=== PATIENT | female | born 1940 ===

== ENCOUNTER 2017-06-25 11:14 | Observation (INO) | payer MEDICARE ==
[2017-06-25 11:14] VITALS: BMI 27.3
--- NOTE | 2017-06-25 12:54 | C.PDOC ---
History Of Present Illness 76 y/o female presents to the emergency department complaining of bilateral lower leg swelling, ongoing for some time. Patient has seen her primary, Dr. Kyle Rodriguez for same complaint. No associated SOB, chest pain, or fever. Time Seen by Provider: 06/25/17 12:15 Chief Complaint (Nursing): Lower Extremity Problem/Injury History Per: Patient History/Exam Limitations: no limitations Onset/Duration Of Symptoms: Days Current Symptoms Are (Timing): Still Present Past Medical History Reviewed: Historical Data, Nursing Documentation, Vital Signs Vital Signs: Last Vital Signs Temp 98.1 F 06/25/17 11:28 Pulse 65 06/25/17 13:49 Resp 15 06/25/17 13:49 BP 133/71 06/25/17 13:49 Pulse Ox 98 06/25/17 14:48 - Medical History PMH: HTN, Hypercholesterolemia, Rheumatoid Arthritis Other PMH: Fibroids Surgical History: No Surg Hx Family History: States: Unknown Family Hx - Social History Hx Tobacco Use: No Hx Alcohol Use: No Hx Substance Use: No - Immunization History Hx Tetanus Toxoid Vaccination: No Hx Influenza Vaccination: No Hx Pneumococcal Vaccination: No Review Of Systems Except As Marked, All Systems Reviewed And Found Negative. Constitutional: Negative for: Fever, Chills Cardiovascular: Negative for: Chest Pain Respiratory: Negative for: Shortness of Breath Musculoskeletal: Positive for: Other (lower leg swelling) Neurological: Negative for: Weakness, Numbness Physical Exam - Physical Exam Appears: Non-toxic, No Acute Distress Skin: Warm, Dry, No Rash Head: Atraumatic, Normacephalic Eye(s): bilateral: Normal Inspection, PERRL, EOMI Oral Mucosa: Moist Neck: Normal ROM Cardiovascular: Rhythm Regular, No Murmur Respiratory: Normal Breath Sounds, No Rales, No Rhonchi, No Wheezing Gastrointestinal/Abdominal: Soft, No Tenderness, No Distention Extremity: Normal ROM, No Deformity, Swelling (Trace edema of the lower extremities) Pulses: Left Dorsalis Pedis: Normal, Right Dorsalis Pedis: Normal Neurological/Psych: Oriented x3, Normal Speech Gait: Steady ED Course And Treatment - Laboratory Results Result Diagrams: 06/25/17 12:55 06/25/17 12:55 Lab Interpretation: Normal ECG: Interpreted By Me ECG Rhythm: Sinus Rhythm ECG Interpretation: Normal Rate From EC O2 Sat by Pulse Oximetry: 98 (RA) Pulse Ox Interpretation: Normal - Radiology CXR: Viewed By Me, Read By Radiologist CXR Interpretation: Yes: Other (Mild pulmonary vascular congestion). No: Infiltrates Progress Note: Treated with lasix 40 mg IV Reassessment Condition: Improved - Physician Consult Information Physician Contacted: Zoë Rodriguez Outcome Of Conversation: admit Medical Decision Making Medical Decision Making: Ordered and reviewed: * Labs * EKG * Chest x-ray Disposition Discussed With Dr.: Zoë Rodriguez Doctor Will See Patient In The: Hospital - Disposition Disposition: HOSPITALIZED Disposition Time: 14:15 Condition: STABLE - POA Present On Arrival: None - Clinical Impression Clinical Impression: CHF (congestive heart failure), Peripheral edema - PA / CHIEF DEPUTY CORONER / Resident Statement MD/DO has reviewed & agrees with the documentation as recorded. - Scribe Statement The provider has reviewed the documentation as recorded by the Scribe (Cydney Cullen) All medical record entries made by the Scribe were at my direction and personally dictated by me. I have reviewed the chart and agree that the record accurately reflects my personal performance of the history, physical exam, medical decision making, and the department course for this patient. I have also personally directed, reviewed, and agree with the discharge instructions and disposition. Decision To Admit - Pt Status Changed To: Hospital Disposition Of: Observation - . Bed Request Type: Regular Admitting Physician: Zoë Rodriguez Patient Diagnosis: CHF (congestive heart failure), Peripheral edema
--- NOTE | 2017-06-25 12:54 | RAD ---
HISTORY: SOB COMPARISON: No prior. TECHNIQUE: Chest PA and lateral FINDINGS: LUNGS: Mild pulmonary vascular congestion. No focal consolidation. PLEURA: No significant pleural effusion identified. No pneumothorax apparent. CARDIOVASCULAR: Atherosclerotic aortic calcifications. Cardiomediastinal silhouette enlarged. OSSEOUS STRUCTURES: Degenerative changes. VISUALIZED UPPER ABDOMEN: Normal. OTHER FINDINGS: None. IMPRESSION: Mild pulmonary vascular congestion. No focal consolidation or pleural effusion.
[2017-06-25 12:59] LABS: BASO # 0.1 K/uL (0.0-0.2); EOS # 0.3 K/uL (0.0-0.7); LYMPH # 4.1 K/uL (1.0-4.3); MEAN CORPUSCULAR HGB CONC 31.2 g/dL (33.0-37.0); MEAN PLATELET VOLUME 8.4 fL (7.2-11.7)
[2017-06-25 13:03] LABS: BASO % 0.8 % (0.0-2.0); EOS % 3.2 % (0.0-4.0); HEMOGLOBIN 12.1 g/dL (11.0-16.0); LYMPH % 51.1 % (20.0-40.0); MEAN CELL VOLUME 71.7 fL (81.0-99.0); MEAN CORPUSCULAR HEMOGLOBIN 22.4 pg (27.0-31.0); MONO # 1.1 K/uL (0.0-0.8); MONO % 13.4 % (0.0-10.0); NEUT # 2.5 K/uL (1.8-7.0); NEUT % 31.5 % (50.0-75.0); NRBC % 0.1 % (0.0-2.0); RBC 5.39 Mil/uL (3.80-5.20); RED CELL DISTRIBUTION WIDTH 15.3 % (11.5-14.5)
[2017-06-25 13:05] LABS: SQUAMOUS EPITHIAL 9 /hpf (0-5); URINE BACTERIA RARE (<OCC); URINE BILIRUBIN NEGATIVE (NEGATIVE); URINE BLOOD 1+ (NEGATIVE); URINE CLARITY Hazy (Clear); URINE COLOR Yellow (YELLOW); URINE GLUCOSE (UA) NORMAL (Normal); URINE LEUKOCYTE ESTERASE 2+ Leu/uL (Negative); URINE PROTEIN 1+ mg/dL (NEGATIVE)
[2017-06-25 13:10] LABS: ALB/GLOB RATIO 0.9 (1.0-2.1); ALBUMIN 4.4 g/dL (3.5-5.0); ALT/SGPT 8 U/L (9-52); AST/SGOT 25 U/L (14-36); BLOOD UREA NITROGEN 18 mg/dL (7-17); CALCIUM 9.8 mg/dl (8.6-10.4); GFR AFRICAN-AMERICAN > 60; GFR NON-AFRICAN AMERICAN > 60
[2017-06-25 13:19] LABS: B-TYPE NATRIURETIC PEPTIDE 1030 pg/mL (0-900)
--- NOTE | 2017-06-25 15:27 | CP.PCM.PN ---
Subjective - Date & Time of Evaluation Date of Evaluation: 06/25/17 Time of Evaluation: 15:23 - Subjective Subjective: PGY2 progress note for Dr. Rodriguez 76 year old female with past medical history of HTN, HLD, hypothyroidism presented to hospital for B/L LE swelling ongoing for about 2 weeks. Patient was seen by PMD, Dr. Rodriguez 2 weeks ago for symptoms and was started on Aspirin and Lasixs PO. Per patient, symptoms did not improve with those medications. Patient states for about 1 week, she has dyspnea on exertion with mild sub- sternal chest pain. CP present with walking and resolves with rest. Patient denies having any fevers, chills, cough, abd discomfort, N/V/D/C. Patient denies having any cardiac work up in the past. For about a few weeks, she has orthopnea and sleeps with about 3 pillows under her back at night. Right now, pt denies having any CP, SOB, abd pain, N/V/D/C. PMHx: stated above Social; Former smoker quit 3 yrs ago, smoked for about 35 yrs. No ETOH or drug use PMD; Dr. Rodriguez Meds: See MAR Objective - Vital Signs/Intake and Output Vital Signs (last 24 hours): Temp Pulse Resp BP Pulse Ox 98.1 F 65 15 133/71 98 06/25/17 11:28 06/25/17 13:49 06/25/17 13:49 06/25/17 13:49 06/25/17 14:49 - Medications Medications: Current Medications Amlodipine Besylate (Norvasc) 10 mg PO DAILY [facility] Aspirin (Aspirin Chewable) 81 mg PO DAILY [facility] Enoxaparin Sodium (Lovenox) 40 mg SC DAILY [facility] Levothyroxine Sodium (Synthroid) 88 mcg PO DAILY [facility] Metoprolol Tartrate (Lopressor) 25 mg PO DAILY [facility] Nitroglycerin (Nitrostat Sl Tab) mg SL Q5M PRN PRN Reason: Pain, Mild (1-3) Rosuvastatin Calcium (Crestor) 5 mg PO DAILY [facility] - Labs Labs: 06/25/17 12:55 06/25/17 12:55 - Constitutional Appears: Non-toxic, No Acute Distress - Head Exam Head Exam: ATRAUMATIC - ENT Exam ENT Exam: Mucous Membranes Moist - Respiratory Exam Respiratory Exam: Rales (lower lung bases ), Respiratory Distress. absent: Accessory Muscle Use, Rhonchi, Wheezes - Cardiovascular Exam Cardiovascular Exam: REGULAR RHYTHM, +S1, +S2. absent: Gallop, Rubs, Murmur - GI/Abdominal Exam GI & Abdominal Exam: Soft, Normal Bowel Sounds. absent: Distended, Firm, Guarding, Rigid, Tenderness, Organomegaly - Extremities Exam Extremities Exam: Pedal Edema - Neurological Exam Neurological Exam: Alert, Awake, Oriented x3 - Psychiatric Exam Psychiatric exam: Normal Affect, Normal Mood - Skin Skin Exam: Dry, Intact, Normal Color, Warm Assessment and Plan - Assessment and Plan (Free Text) Assessment: 76 year old female with past medical history of HTn, HLD, hypothyroidism is admitted for new onset CHF. Pro-BNP on admission is 1030. Troponins are negative. CXR on admission showed mild pulm venous congestion New onset CHF - Pt received dose of lasixs IV 40 mg in ED - will continue Lasixs 40 mg IVP qd - Will check echo - will consult cardiology, Dr. Her Chest pain R/O ACS - Will trend serial trops and EKG - Continue home medications; Aspirin, Metoprolol succinate - Nitro SL prn LE swelling - Likely due to CHF exacerbation - Will check LE dopplers HTN - Continue home medication Norvasc 10 mg po qd HLD - Continue home medication Crestor - will check lipid panel and hgbA1c Hypothyroidism - Continue home medication Levothyroixine 88 mcg po qd - Will check TSH Prophylaxis - Lovenox sc - Will hold SCDs until DVT r/o with US All managements and orders per Dr. Rodriguez
[2017-06-25 17:21] LABS: CK-MB 1.2 ng/mL (0.0-3.38); TROPONIN I 0.067 ng/mL (0.00-0.120)
[2017-06-25 18:57] VITALS: RESP 20
[2017-06-25] MEDS: Enoxaparin 30 mg Syringe SC SCH (19:00)
--- NOTE | 2017-06-25 21:58 | CP.PCM.CON ---
History of Present Illness - History of Present Illness History of Present Illness: 76 y/o female admitted for bilateral lower leg swelling and exertional dyspnea. No chest pain, or fever. - Medical History PMH: HTN, Hypercholesterolemia, Rheumatoid Arthritis Other PMH: Fibroids Surgical History: No Surg Hx Family History: States: Unknown Family Hx - Social History Hx Tobacco Use: No Hx Alcohol Use: No Hx Substance Use: No - Immunization History Hx Tetanus Toxoid Vaccination: No Hx Influenza Vaccination: No Hx Pneumococcal Vaccination: No Review Of Systems Except As Marked, All Systems Reviewed And Found Negative. Constitutional: Negative for: Fever, Chills Cardiovascular: Negative for: Chest Pain Respiratory: Negative for: Shortness of Breath Musculoskeletal: Positive for: Other (lower leg swelling) Neurological: Negative for: Weakness, Numbness Physical Exam - Physical Exam Appears: Non-toxic, No Acute Distress Skin: Warm, Dry, No Rash Head: Atraumatic, Normacephalic Eye(s): bilateral: Normal Inspection, PERRL, EOMI Oral Mucosa: Moist Neck: Normal ROM Cardiovascular: Rhythm Regular, No Murmur Respiratory: Normal Breath Sounds, No Rales, No Rhonchi, No Wheezing Gastrointestinal/Abdominal: Soft, No Tenderness, No Distention Extremity: Normal ROM, No Deformity, Swelling (Trace edema of the lower extremities) Pulses: Left Dorsalis Pedis: Normal, Right Dorsalis Pedis: Normal Neurological/Psych: Oriented x3, Normal Speech Gait: Steady Past Patient History - Past Social History Smoking Status: Never Smoked - CARDIAC Hx Hypercholesterolemia: Yes Hx Hypertension: Yes - ENDOCRINE/METABOLIC Other/Comment: Pre diabetic - MUSCULOSKELETAL/RHEUMATOLOGICAL Hx Rheumatoid Arthritis: Yes - GENITOURINARY/GYNECOLOGICAL Other/Comment: fibroids - PSYCHIATRIC Hx Substance Use: No - SURGICAL HISTORY Hx Surgeries: No - ANESTHESIA Hx Anesthesia: No Meds Allergies/Adverse Reactions: Allergies Allergy/AdvReac Type Severity Reaction Status Date / Time No Known Allergies Allergy Verified 02/09/16 10:40 - Medications Medications: Current Medications Amlodipine Besylate (Norvasc) 10 mg PO DAILY [facility] Aspirin (Aspirin Chewable) 81 mg PO DAILY [facility] Enoxaparin Sodium (Lovenox) 30 mg SC DAILY [facility] Last Admin: 06/25/17 19:00 Dose: 30 mg Furosemide (Lasix) 40 mg IVP DAILY [facility] Levothyroxine Sodium (Synthroid) 88 mcg PO 0630 [facility] Metoprolol Succinate (Toprol Xl) 25 mg PO DAILY [facility] Nitroglycerin (Nitrostat Sl Tab) 0.4 mg SL Q5M PRN PRN Reason: Pain, Mild (1-3) Rosuvastatin Calcium (Crestor) 5 mg PO HS [facility] Last Admin: 06/25/17 21:19 Dose: 5 mg Results - Vital Signs Recent Vital Signs: Last Vital Signs Temp 97.7 F 06/25/17 19:21 Pulse 64 06/25/17 20:24 Resp 20 06/25/17 19:21 BP 142/79 06/25/17 19:21 Pulse Ox 100 06/25/17 19:21 - Labs Result Diagrams: 06/25/17 12:55 06/25/17 12:55 Labs: Laboratory Results - last 24 hr 06/25/17 06/25/17 06/25/17 12:55 12:55 12:55 WBC 8.0 RBC 5.39 H Hgb 12.1 Hct 38.7 MCV 71.7 L MCH 22.4 L MCHC 31.2 L RDW 15.3 H Plt Count 321 MPV 8.4 Neut % (Auto) 31.5 L Lymph % (Auto) 51.1 H [place] % (Auto) 13.4 H Eos % (Auto) 3.2 Baso % (Auto) 0.8 Neut # (Auto) 2.5 Lymph # (Auto) 4.1 [place] # (Auto) 1.1 H Eos # (Auto) 0.3 Baso # (Auto) 0.1 Sodium 141 Potassium 4.1 Chloride 103 Carbon Dioxide 26 Anion Gap 17 BUN 18 H Creatinine 0.9 Est GFR ( Amer) > 60 Est GFR (Non-Af Amer) > 60 Random Glucose 114 H Calcium 9.8 Total Bilirubin 0.6 AST 25 ALT 8 L Alkaline Phosphatase 98 Total Creatine Kinase CK-MB (Mass) Troponin I NT-Pro-B Natriuret Pep 1030 H Total Protein 9.2 H Albumin 4.4 Globulin 4.8 H Albumin/Globulin Ratio 0.9 L Urine Color Yellow Urine Clarity Hazy Urine pH 5.0 Ur Specific [place] 1.015 Urine Protein 1+ H Urine Glucose (UA) Normal Urine Ketones Negative Urine Blood 1+ H Urine Nitrate Negative Urine Bilirubin Negative Urine Urobilinogen 2.0 H Ur Leukocyte Esterase 2+ H Urine WBC (Auto) 3 Urine RBC (Auto) 4 H Ur Squamous Epith Cells 9 H Urine Bacteria Rare 06/25/17 16:47 WBC RBC Hgb Hct MCV MCH MCHC RDW Plt Count MPV Neut % (Auto) Lymph % (Auto) [place] % (Auto) Eos % (Auto) Baso % (Auto) Neut # (Auto) Lymph # (Auto) [place] # (Auto) Eos # (Auto) Baso # (Auto) Sodium Potassium Chloride Carbon Dioxide Anion Gap BUN Creatinine Est GFR ( Amer) Est GFR (Non-Af Amer) Random Glucose Calcium Total Bilirubin AST ALT Alkaline Phosphatase Total Creatine Kinase 53 CK-MB (Mass) 1.20 Troponin I 0.0670 NT-Pro-B Natriuret Pep Total Protein Albumin Globulin Albumin/Globulin Ratio Urine Color Urine Clarity Urine pH Ur Specific [place] Urine Protein Urine Glucose (UA) Urine Ketones Urine Blood Urine Nitrate Urine Bilirubin Urine Urobilinogen Ur Leukocyte Esterase Urine WBC (Auto) Urine RBC (Auto) Ur Squamous Epith Cells Urine Bacteria Assessment & Plan - Assessment and Plan (Free Text) Assessment: 76 year old female with past medical history of HTn, HLD, hypothyroidism is admitted for new onset CHF. Pro-BNP on admission is 1030. Troponins are negative. CXR on admission showed mild pulm venous congestion New onset CHF - Pt received dose of lasixs IV 40 mg in ED - Continue Lasixs 40 mg IVP qd - check echo pending Chest pain R/O ACS - Will trend serial trops and EKG - Continue home medications; Aspirin, Metoprolol succinate - Nitro SL prn LE swelling - Likely due to CHF exacerbation - Will check LE dopplers HTN - Continue home medication Norvasc 10 mg po qd HLD - Continue home medication Crestor - will check lipid panel and hgbA1c Hypothyroidism - Continue home medication Levothyroixine 88 mcg po qd - Will check TSH Prophylaxis - Lovenox sc
[2017-06-26] MEDS: Levothyroxine 88 MCG TAB PO SCH (06:54)
[2017-06-26 07:59] LABS: BASO % 0.5 % (0.0-2.0); EOS # 0.2 K/uL (0.0-0.7); EOS % 3.4 % (0.0-4.0); HEMOGLOBIN 11.2 g/dL (11.0-16.0); LYMPH # 2.7 K/uL (1.0-4.3); LYMPH % 46.6 % (20.0-40.0); MEAN CELL VOLUME 70.9 fL (81.0-99.0); MEAN CORPUSCULAR HEMOGLOBIN 22.2 pg (27.0-31.0); MEAN CORPUSCULAR HGB CONC 31.3 g/dL (33.0-37.0); MEAN PLATELET VOLUME 8.4 fL (7.2-11.7); MONO # 0.7 K/uL (0.0-0.8); MONO % 12.6 % (0.0-10.0); NEUT # 2.1 K/uL (1.8-7.0); NEUT % 36.9 % (50.0-75.0); NRBC % 0.1 % (0.0-2.0); RBC 5.04 Mil/uL (3.80-5.20); RED CELL DISTRIBUTION WIDTH 15.4 % (11.5-14.5); WHITE BLOOD COUNT 5.8 K/uL (4.8-10.8)
[2017-06-26 08:06] LABS: INR 1.1; PROTHROMBIN TIME 12.2 SECONDS (9.7-12.2)
[2017-06-26 08:22] LABS: ALB/GLOB RATIO 0.9 (1.0-2.1); ALBUMIN 3.7 g/dL (3.5-5.0); ALT/SGPT < 6 U/L (9-52); AST/SGOT 29 U/L (14-36); BLOOD UREA NITROGEN 17 mg/dL (7-17); CALCIUM 9.4 mg/dl (8.6-10.4); GFR AFRICAN-AMERICAN > 60; GFR NON-AFRICAN AMERICAN > 60; HDL CHOLESTEROL 36 mg/dL (30-70)
[2017-06-26 08:28] LABS: LDL CHOLESTEROL 81 mg/dL (0-129)
[2017-06-26] MEDS: Metoprolol Succinate 25 mg XL Tab PO SCH (09:55)
[2017-06-26] MEDS: Enoxaparin 30 mg Syringe SC SCH (09:59)
--- NOTE | 2017-06-26 13:21 | CP.PCM.PN ---
Subjective - Date & Time of Evaluation Date of Evaluation: 06/26/17 Time of Evaluation: 08:00 - Subjective Subjective: PGY2 progress note for Dr. Rodriguez: Patient was seen nd examined at bedside this morning. She admits to mild SOB which has improved since admission. Patient denies having any chest pain, fevers , chills, cough, abd discomfort, N/V/D/C. No other complaints at this time. Patient is eating well and seen ambulating. Objective - Vital Signs/Intake and Output Vital Signs (last 24 hours): Temp Pulse Resp BP Pulse Ox 98.6 F 65 20 134/80 97 06/26/17 08:28 06/26/17 08:28 06/26/17 08:28 06/26/17 09:56 06/26/17 08:28 Intake and Output: 06/26/17 06/26/17 06:59 18:59 Intake Total 120 480 Balance 120 480 - Medications Medications: Current Medications Amlodipine Besylate (Norvasc) 10 mg PO DAILY [facility] Last Admin: 06/26/17 09:55 Dose: 10 mg Aspirin (Aspirin Chewable) 81 mg PO DAILY [facility] Last Admin: 06/26/17 09:55 Dose: 81 mg Enoxaparin Sodium (Lovenox) 30 mg SC DAILY [facility] Last Admin: 06/26/17 09:59 Dose: 30 mg Furosemide (Lasix) 40 mg IVP DAILY [facility] Last Admin: 06/26/17 09:56 Dose: 40 mg Levothyroxine Sodium (Synthroid) 88 mcg PO 0630 [facility] Last Admin: 06/26/17 06:54 Dose: 88 mcg Metoprolol Succinate (Toprol Xl) 25 mg PO DAILY [facility] Last Admin: 06/26/17 09:55 Dose: 25 mg Nitroglycerin (Nitrostat Sl Tab) 0.4 mg SL Q5M PRN PRN Reason: Pain, Mild (1-3) Rosuvastatin Calcium (Crestor) 5 mg PO HS [facility] Last Admin: 06/25/17 21:19 Dose: 5 mg - Labs Labs: 06/26/17 07:46 06/26/17 07:46 PT 12.2 SECONDS (9.7-12.2) 06/26/17 07:46 INR 1.1 06/26/17 07:46 APTT 28 SECONDS (21-34) 06/26/17 07:46 - Constitutional Appears: Non-toxic, No Acute Distress - Head Exam Head Exam: ATRAUMATIC, NORMAL INSPECTION - Eye Exam Eye Exam: EOMI, PERRL Pupil Exam: NORMAL ACCOMODATION - ENT Exam ENT Exam: Mucous Membranes Moist - Respiratory Exam Respiratory Exam: Clear to Ausculation Bilateral, NORMAL BREATHING PATTERN. absent: Respiratory Distress - Cardiovascular Exam Cardiovascular Exam: REGULAR RHYTHM, +S1, +S2 - GI/Abdominal Exam GI & Abdominal Exam: Soft, Normal Bowel Sounds. absent: Distended, Firm, Guarding, Tenderness - Extremities Exam Extremities Exam: Pedal Edema - Back Exam Back Exam: NORMAL INSPECTION - Neurological Exam Neurological Exam: Alert, Awake, CN II-XII Intact, Normal Gait, Oriented x3 Neuro motor strength exam: Left Upper Extremity: 5, Right Upper Extremity: 5, Left Lower Extremity: 5, Right Lower Extremity: 5 - Psychiatric Exam Psychiatric exam: Normal Affect, Normal Mood - Skin Skin Exam: Intact, Normal Color, Warm Assessment and Plan - Assessment and Plan (Free Text) Assessment: Assessment: 76 year old female with past medical history of HTn, HLD, hypothyroidism is admitted for new onset CHF. Pro-BNP on admission is 1030. Troponins are negative. CXR on admission showed mild pulm venous congestion New onset CHF - Lasix 40mg IVP daily - f/u Echo - Cardiology consulted, Dr. Her, help appreciated - Crestor 5mg PO HS - Toprolol XL 25mg PO daily Chest pain R/O ACS - Resolved - Will trend serial trops and EKG - Continue home medications; Aspirin, Metoprolol succinate - Nitro SL prn LE swelling - Likely due to CHF exacerbation - Will check LE dopplers HTN - Continue home medication Norvasc 10 mg po qd Hypothyroidism - Continue home medication Levothyroixine 88 mcg po qd - TSH 0.24 - f/u T4 Prophylaxis - Lovenox sc - Will hold SCDs until DVT r/o with US - GI prophylaxis not indicated All managements and orders per Dr. Rodriguez
--- NOTE | 2017-06-26 14:06 | VASCLAB ---
PROCEDURE: Lower Extremity Venous Duplex Exam. HISTORY: LE swelling B/L PRIORS: None. TECHNIQUE: Bilateral common femoral, femoral, popliteal and posterior tibial, peroneal and great saphenous veins were evaluated. Flow was assessed with color Doppler, compressibility, assessment of phasic flow and augmentation response. Report prepared by Rupert Pang, [place], RVT FINDINGS: RIGHT: 1. Common Femoral Vein: 1.1. Compressibility - Fully compressible: Thrombus - None : Flow - Phasic: Augmentation -Normal: Reflux - None. 2. Femoral Vein: 2.1. Compressibility - Fully compressible: Thrombus - None : Flow - Phasic: Augmentation -Normal: Reflux - None. 3. Popliteal Vein: 3.1. Compressibility - Fully compressible: Thrombus - None : Flow - Phasic: Augmentation -Normal: Reflux - None. 4. Posterior Tibial Vein: 4.1. Compressibility - Fully compressible: Thrombus - None: Flow - Phasic: Augmentation -Normal: Reflux - None. 5. Peroneal Vein: 5.1. Compressibility - Fully compressible: Thrombus - None: Flow - Phasic: Augmentation -Normal: Reflux - None. 6. Great Saphenous Vein: 6.1. Compressibility - Fully compressible: Thrombus - None: Flow - Phasic: Augmentation - Normal: Reflux - None. LEFT: 1. Common Femoral Vein: 1.1. Compressibility - Fully compressible: Thrombus - None: Flow - Phasic: Augmentation -Normal: Reflux - None. 2. Femoral Vein: 2.1. Compressibility - Fully compressible: Thrombus - None: Flow - Phasic: Augmentation -Normal: Reflux - None. 3. Popliteal Vein: 3.1. Compressibility - Fully compressible: Thrombus - None : Flow - Phasic: Augmentation -Normal: Reflux - None. 4. Posterior Tibial Vein: 4.1. Compressibility - Fully compressible: Thrombus - None: Flow - Phasic: Augmentation -Normal: Reflux - None. 5. Peroneal Vein: 5.1. Compressibility - Fully compressible: Thrombus - None: Flow - Phasic: Augmentation -Normal: Reflux - None. 6. Great Saphenous Vein: 6.1. Compressibility - Fully compressible: Thrombus - None: Flow - Phasic: Augmentation - Normal: Reflux - None. OTHER FINDINGS: Right: None significant. Left: None significant. IMPRESSION: Right: No evidence of deep or superficial vein thrombosis of the right lower extremity. Normal valve function noted of the right side. Left: No evidence of deep or superficial vein thrombosis of the left lower extremity. Normal valve function noted of the left side.
[2017-06-26 14:32] LABS: CK-MB 1.82 ng/mL (0.0-3.38); TROPONIN I 0.114 ng/mL (0.00-0.120)
--- NOTE | 2017-06-26 23:28 | CP.PCM.PN ---
Subjective - Date & Time of Evaluation Date of Evaluation: 06/26/17 Time of Evaluation: 16:30 - Subjective Subjective: Patient pedal edema improving ECHO: LVH with of 70% DD 2 Moderate MR and mild tto moderate AI Medical management Objective - Vital Signs/Intake and Output Vital Signs (last 24 hours): Temp Pulse Resp BP Pulse Ox 98.2 F 68 20 114/73 98 06/26/17 15:25 06/26/17 15:25 06/26/17 15:25 06/26/17 15:25 06/26/17 15:25 Intake and Output: 06/26/17 06/27/17 18:59 06:59 Intake Total 480 210 Balance 480 210 - Medications Medications: Current Medications Amlodipine Besylate (Norvasc) 10 mg PO DAILY [facility] Last Admin: 06/26/17 09:55 Dose: 10 mg Aspirin (Aspirin Chewable) 81 mg PO DAILY [facility] Last Admin: 06/26/17 09:55 Dose: 81 mg Enoxaparin Sodium (Lovenox) 30 mg SC DAILY [facility] Last Admin: 06/26/17 09:59 Dose: 30 mg Furosemide (Lasix) 40 mg IVP DAILY [facility] Last Admin: 06/26/17 09:56 Dose: 40 mg Levothyroxine Sodium (Synthroid) 88 mcg PO 0630 [facility] Last Admin: 06/26/17 06:54 Dose: 88 mcg Metoprolol Succinate (Toprol Xl) 25 mg PO DAILY [facility] Last Admin: 06/26/17 09:55 Dose: 25 mg Nitroglycerin (Nitrostat Sl Tab) 0.4 mg SL Q5M PRN PRN Reason: Pain, Mild (1-3) Rosuvastatin Calcium (Crestor) 5 mg PO HS [facility] Last Admin: 06/26/17 21:21 Dose: 5 mg - Labs Labs: 06/26/17 07:46 06/26/17 07:46 PT 12.2 SECONDS (9.7-12.2) 06/26/17 07:46 INR 1.1 06/26/17 07:46 APTT 28 SECONDS (21-34) 06/26/17 07:46
[2017-06-27 06:19] LABS: BASO % 0.4 % (0.0-2.0); EOS # 0.2 K/uL (0.0-0.7); EOS % 3.6 % (0.0-4.0); HEMOGLOBIN 11.4 g/dL (11.0-16.0); LYMPH # 3.4 K/uL (1.0-4.3); LYMPH % 49.8 % (20.0-40.0); MEAN CELL VOLUME 70.7 fL (81.0-99.0); MEAN CORPUSCULAR HEMOGLOBIN 22.1 pg (27.0-31.0); MEAN CORPUSCULAR HGB CONC 31.2 g/dL (33.0-37.0); MEAN PLATELET VOLUME 8.2 fL (7.2-11.7); MONO # 0.9 K/uL (0.0-0.8); MONO % 13.2 % (0.0-10.0); NEUT # 2.2 K/uL (1.8-7.0); RBC 5.17 Mil/uL (3.80-5.20); RED CELL DISTRIBUTION WIDTH 15.1 % (11.5-14.5); WHITE BLOOD COUNT 6.8 K/uL (4.8-10.8)
[2017-06-27 06:40] LABS: ALBUMIN 3.7 g/dL (3.5-5.0); ALT/SGPT 7 U/L (9-52); AST/SGOT 25 U/L (14-36); BLOOD UREA NITROGEN 17 mg/dL (7-17); CALCIUM 9.4 mg/dl (8.6-10.4); GFR AFRICAN-AMERICAN > 60; GFR NON-AFRICAN AMERICAN > 60
[2017-06-27] MEDS: Levothyroxine 88 MCG TAB PO SCH (07:24)
[2017-06-27] MEDS: Metoprolol Succinate 25 mg XL Tab PO SCH (10:02)
[2017-06-27] MEDS: Enoxaparin 30 mg Syringe SC SCH (10:02)
--- NOTE | 2017-06-27 12:46 | CP.PCM.PN ---
Subjective - Date & Time of Evaluation Date of Evaluation: 06/27/17 Time of Evaluation: 12:38 - Subjective Subjective: PGY2 progress note for Dr. Rodriguez Pt seen and examined at bedside. No acute events overnight. Pt denies having any CP, SOB, abd pain, N/V/D/C, LE swelling. 12 point ROS are negative except for the above mentioned. Objective - Vital Signs/Intake and Output Vital Signs (last 24 hours): Temp Pulse Resp BP Pulse Ox 98.2 F 60 20 126/73 100 06/27/17 07:57 06/27/17 12:00 06/27/17 07:57 06/27/17 10:02 06/27/17 07:57 Intake and Output: 06/27/17 06/27/17 06:59 18:59 Intake Total 310 Balance 310 - Medications Medications: Current Medications Amlodipine Besylate (Norvasc) 10 mg PO DAILY [facility] Last Admin: 06/27/17 10:02 Dose: 10 mg Aspirin (Aspirin Chewable) 81 mg PO DAILY [facility] Last Admin: 06/27/17 10:02 Dose: 81 mg Enoxaparin Sodium (Lovenox) 30 mg SC DAILY [facility] Last Admin: 06/27/17 10:02 Dose: 30 mg Furosemide (Lasix) 40 mg IVP DAILY [facility] Last Admin: 06/27/17 10:02 Dose: 40 mg Levothyroxine Sodium (Synthroid) 88 mcg PO 0630 [facility] Last Admin: 06/27/17 07:24 Dose: 88 mcg Metoprolol Succinate (Toprol Xl) 25 mg PO DAILY [facility] Last Admin: 06/27/17 10:02 Dose: 25 mg Nitroglycerin (Nitrostat Sl Tab) 0.4 mg SL Q5M PRN PRN Reason: Pain, Mild (1-3) Rosuvastatin Calcium (Crestor) 5 mg PO HS [facility] Last Admin: 06/26/17 21:21 Dose: 5 mg - Labs Labs: 06/27/17 06:05 06/27/17 06:05 PT 12.2 SECONDS (9.7-12.2) 06/26/17 07:46 INR 1.1 06/26/17 07:46 APTT 28 SECONDS (21-34) 06/26/17 07:46 - Constitutional Appears: Non-toxic, No Acute Distress - Head Exam Head Exam: ATRAUMATIC - ENT Exam ENT Exam: Mucous Membranes Moist - Respiratory Exam Respiratory Exam: Clear to Ausculation Bilateral. absent: Accessory Muscle Use , Rales, Rhonchi, Wheezes, Respiratory Distress - Cardiovascular Exam Cardiovascular Exam: REGULAR RHYTHM, +S1, +S2. absent: Gallop, Rubs, Murmur - GI/Abdominal Exam GI & Abdominal Exam: Soft, Normal Bowel Sounds. absent: Distended, Firm, Guarding, Rigid, Tenderness, Organomegaly - Extremities Exam Extremities Exam: absent: Pedal Edema, Tenderness - Neurological Exam Neurological Exam: Alert, Awake - Psychiatric Exam Psychiatric exam: Normal Affect, Normal Mood - Skin Skin Exam: Dry, Intact, Normal Color, Warm Assessment and Plan - Assessment and Plan (Free Text) Assessment: 76 year old female with past medical history of HTn, HLD, hypothyroidism is admitted for new onset CHF. Pro-BNP on admission is 1030. Troponins are negative. CXR on admission showed mild pulm venous congestion New onset CHF - Lasixs IV changes to Lasixs 40 mg po qd - f/u Echo - Cardiology consulted, Dr. Her, help appreciated - Crestor 5mg PO HS - Toprolol XL 25mg PO daily Chest pain R/O ACS - Resolved - Trops and EKG negative - Continue home medications; Aspirin, Metoprolol succinate - Nitro SL prn LE swelling - Likely due to CHF exacerbation - LE dopplers negative HTN - Continue home medication Norvasc 10 mg po qd Hypothyroidism - Continue home medication Levothyroixine 88 mcg po qd - TSH 0.24 - T4 normal Prophylaxis - Lovenox sc - SCDs - GI prophylaxis not indicated All managements and orders per Dr. Rodriguez
[2017-06-28 04:39] VITALS: TEMP 98.4
[2017-06-28] MEDS: Levothyroxine 88 MCG TAB PO SCH (07:04)
--- NOTE | 2017-06-28 07:23 | CP.PCM.PN ---
Subjective - Date & Time of Evaluation Date of Evaluation: 06/27/17 Time of Evaluation: 20:05 - Subjective Subjective: Patient seen and evaluated Pedal edema resolved ECHO: Normal EF Diastolic CHF plus Amlodepine causing pedal edema D/C Amlodepine and start Losartan Decrease Lasix to 20 daily Objective - Vital Signs/Intake and Output Vital Signs (last 24 hours): Temp Pulse Resp BP Pulse Ox 98.4 F 63 20 117/72 97 06/28/17 04:00 06/28/17 04:00 06/28/17 04:00 06/28/17 04:00 06/28/17 04:00 Intake and Output: 06/28/17 06/28/17 06:59 18:59 Intake Total 240 Balance 240 - Medications Medications: Current Medications Aspirin (Aspirin Chewable) 81 mg PO DAILY [facility] Last Admin: 06/27/17 10:02 Dose: 81 mg Enoxaparin Sodium (Lovenox) 30 mg SC DAILY [facility] Last Admin: 06/27/17 10:02 Dose: 30 mg Furosemide (Lasix) 20 mg PO DAILY [facility] Levothyroxine Sodium (Synthroid) 88 mcg PO 0630 [facility] Last Admin: 06/28/17 07:04 Dose: 88 mcg Metoprolol Succinate (Toprol Xl) 25 mg PO DAILY [facility] Last Admin: 06/27/17 10:02 Dose: 25 mg Rosuvastatin Calcium (Crestor) 5 mg PO HS [facility] Last Admin: 06/27/17 21:55 Dose: 5 mg - Labs Labs: 06/27/17 06:05 06/27/17 06:05 PT 12.2 SECONDS (9.7-12.2) 06/26/17 07:46 INR 1.1 06/26/17 07:46 APTT 28 SECONDS (21-34) 06/26/17 07:46
[2017-06-28 08:35] VITALS: PULSE 58; O2SAT 96
[2017-06-28 08:37] LABS: BASO % 0.4 % (0.0-2.0); EOS # 0.3 K/uL (0.0-0.7); EOS % 4.3 % (0.0-4.0); HEMOGLOBIN 11.6 g/dL (11.0-16.0); LYMPH # 3.3 K/uL (1.0-4.3); LYMPH % 51.9 % (20.0-40.0); MEAN CELL VOLUME 71.6 fL (81.0-99.0); MEAN CORPUSCULAR HEMOGLOBIN 22.5 pg (27.0-31.0); MEAN CORPUSCULAR HGB CONC 31.4 g/dL (33.0-37.0); MEAN PLATELET VOLUME 8.5 fL (7.2-11.7); MONO # 0.9 K/uL (0.0-0.8); NEUT # 1.9 K/uL (1.8-7.0); NEUT % 29.4 % (50.0-75.0); RBC 5.17 Mil/uL (3.80-5.20); RED CELL DISTRIBUTION WIDTH 15.3 % (11.5-14.5); WHITE BLOOD COUNT 6.3 K/uL (4.8-10.8)
[2017-06-28 08:42] LABS: ALBUMIN 3.7 g/dL (3.5-5.0); ALT/SGPT 7 U/L (9-52); AST/SGOT 24 U/L (14-36); BLOOD UREA NITROGEN 17 mg/dL (7-17); CALCIUM 9.5 mg/dl (8.6-10.4); GFR AFRICAN-AMERICAN > 60; GFR NON-AFRICAN AMERICAN > 60
[2017-06-28] MEDS: Metoprolol Succinate 25 mg XL Tab PO SCH (10:28)
[2017-06-28 10:29] VITALS: BP 132/76
[2017-06-28] MEDS: Enoxaparin 30 mg Syringe SC SCH (10:29)
--- NOTE | 2017-06-28 13:44 | PCM.HF ---
Heart Failure Core Measure - Heart Failure Ejection Fraction: 40 % or Greater AVILA Inhibitor Prescribed: No Contraindication/Reason for not providing: ON ARB Beta-Cinda Prescribed: None Contraindication/Reason for not providing: ON LOPRESSOR 25 MG PO QD Angiotensin II Receptor Cinda Prescribed: Yes AnticoagulationTherapy for Atrial Fibrillation/Atrialflutter: No Contraindication/Reason for not providing: NO AFIB Aldosterone Antagonist Prescribed: No Contraindication/Reason for not providing: EF > 40 Hydralazine Nitrate Prescribed: No Contraindication/Reason for not providing: EF > 40 Implantable Cardioverter Defibrillator Therapy: No Contraindication/Reason for not providing: EF > 40 Cardiac Resynchronization Therapy Prescribed: No Contraindication/Reason for not providing: EF > 40 - Follow up Will be discharged to: Home Follow Up Date (must be within 7 days from discharge): 07/02/17 Follow Up Time: 09:00
--- NOTE | 2017-06-29 11:16 | CARD ---
APPROVED REPORT EXAM: Two-dimensional and M-mode echocardiogram with Doppler and color Doppler. Other Information Quality : GoodRhythm : INDICATION Congestive Heart Failure 2D DIMENSIONS IVSd1.6 (0.7-1.1cm)LVDd4.3 (3.9-5.9cm) PWd1.1 (0.7-1.1cm)LVDs2.6 (2.5-4.0cm) FS (%) 40.1 %LVEF (%)71.0 (>50%) M-Mode DIMENSIONS RVDd1.66 (2.1-3.2cm)Left Atrium (MM)4.20 (2.5-4.0cm) IVSd1.59 (0.7-1.1cm)Aortic Root3.25 (2.2-3.7cm) LVDd3.81 (4.0-5.6cm)Aortic Cusp Exc.1.99 (1.5-2.0cm) PWd1.56 (0.7-1.1cm)FS (%) 28 % LVDs2.73 (2.0-3.8cm)LVEF (%)55 (>50%) Aortic Valve AI P 1/2 [id number] Mitral Valve MV E Scxztmog704.9cm/sMV A Yyvaibmv80.5cm/sE/A ratio1.7 TDI E/Lateral E'0.0E/Medial E'0.0 Tricuspid Valve TR Peak [id number]/sTR Peak [id number] <Conclusion> Left ventricle: thickness: mild concentric thickening; size: normal; overall ejection fraction: 65%: diastolic filling pressures: elevated Mitral valve: annulus: normal: leaflets: normal: excursion: normal; no significant trans-mitral gradient:mild incompetence: left atrium: upper limit of normal Aortic valve: leaflets: normal: excursion: normal; no significant trans-aortic gradient: moderate incompetence: aortic root: normal Right sided Structures:prominent eustachian valve; Pulmonary valve: normal; no significant incompetence; Tricuspid valve: normal; no significant incompetence: Intra-cardiac hemodynamics: pulmonary systolic pressures:40mmHg; central venous pressures: normal No pericardial effusion
--- NOTE | 2017-06-29 20:34 | CARD ---
APPROVED REPORT EKG Measurement Heart [id number] [place] [id number] <Conclusion> Normal sinus rhythm Normal ECG
--- NOTE | 2017-06-29 21:20 | CARD ---
APPROVED REPORT EKG Measurement Heart [id number] [place] [id number] <Conclusion> Normal sinus rhythm with sinus arrhythmia Normal ECG
== END 2017-06-28 14:57 | disposition home or self-care (01) ==
LOC: C.ER 11:14 → C.3T 14:12 → C.6T 19:13
PROVIDERS: ADMIT Internal Medicine Pulmonary Disease; ATTEND Internal Medicine Pulmonary Disease
DX: I11.0 Hypertensive heart disease with heart failure (principal); M06.9 Rheumatoid arthritis, unspecified; E78.00 Pure hypercholesterolemia, unspecified; R73.03 Prediabetes; Z79.82 Long term (current) use of aspirin; Z87.891 Personal history of nicotine dependence; I50.30 Unspecified diastolic (congestive) heart failure
CPT/HCPCS: 36415; 71046; 80053; 80061; 81001; 83036; 83735; 83880; 84100; 84439; 84443; 84484; 85025; 85610; 85730; 93005; 93306; 93970; 96374; 97116; 97162; 97530; 99285; G0378; G8978; G8979; J1650; J1940

== ENCOUNTER 2017-08-18 08:06 | Inpatient (IN) | payer MEDICARE ==
[2017-08-18 08:13] VITALS: BMI 26.5
[2017-08-18] MEDS ORDERED: DiphenhydrAMINE 50 mg/ml Inj IVP STA (08:18)
[2017-08-18] MEDS ORDERED: Sodium Chloride 0.9% 1,000 ML IV SCH (08:30)
[2017-08-18 08:33] LABS: EOS # 0.2 K/uL (0.0-0.7); RED CELL DISTRIBUTION WIDTH 15.3 % (11.5-14.5); WHITE BLOOD COUNT 6.8 K/uL (4.8-10.8)
[2017-08-18 08:36] LABS: BASO # 0.1 K/uL (0.0-0.2); EOS % 2.6 % (0.0-4.0); HEMOGLOBIN 12.3 g/dL (11.0-16.0); LYMPH # 2.4 K/uL (1.0-4.3); LYMPH % 34.4 % (20.0-40.0); MEAN CELL VOLUME 71.8 fL (81.0-99.0); MEAN CORPUSCULAR HEMOGLOBIN 22.7 pg (27.0-31.0); MEAN CORPUSCULAR HGB CONC 31.7 g/dL (33.0-37.0); MEAN PLATELET VOLUME 8.4 fL (7.2-11.7); MONO # 0.6 K/uL (0.0-0.8); MONO % 9.1 % (0.0-10.0); NEUT # 3.6 K/uL (1.8-7.0); NEUT % 52.9 % (50.0-75.0); NRBC % 0.2 % (0.0-2.0); RBC 5.43 Mil/uL (3.80-5.20)
--- NOTE | 2017-08-18 08:57 | CT ---
PROCEDURE: CT HEAD WITHOUT CONTRAST. HISTORY: dizziness COMPARISON: None available. TECHNIQUE: Axial computed tomography images were obtained through the head/brain without intravenous contrast. Radiation dose: Total exam DLP = 851 mGy-cm. This CT exam was performed using one or more of the following dose reduction techniques: Automated exposure control, adjustment of the mA and/or kV according to patient size, and/or use of iterative reconstruction technique. FINDINGS: HEMORRHAGE: No intracranial hemorrhage. BRAIN: No mass effect or edema. Scattered focal lucencies in the subcortical and periventricular white matter suggestive for chronic microvascular ischemic change. More confluent low attenuation seen within the posterior bilateral parietal subcortical white matter suggestive for chronic ischemic change. Dense bilateral basal ganglia calcifications. Focal hypodensity in the posterior right cerebellum may represent a chronic infarct. VENTRICLES: Unremarkable. No hydrocephalus. CALVARIUM: Unremarkable. PARANASAL SINUSES: Mild mucosal thickening of the ethmoid air cells. MASTOID AIR CELLS: Unremarkable as visualized. No inflammatory changes. OTHER FINDINGS: Intracranial arterial calcifications. IMPRESSION: Chronic ischemic and microvascular ischemic changes. Focal hypodensity in the posterior right cerebellum may represent a chronic infarct. If focal neurologic deficit persists, consider MRI.
[2017-08-18] MEDS ORDERED: Sodium Chloride 0.9% 1,000 ML ONE (09:04)
[2017-08-18] MEDS ORDERED: DiphenhydrAMINE 50 mg/ml Inj ONE (09:04)
--- NOTE | 2017-08-18 09:23 | RAD ---
PROCEDURE: CHEST RADIOGRAPH, 1 VIEW HISTORY: SOB COMPARISON: 06/25/2017. FINDINGS: LUNGS: The lungs are well inflated. There is moderate pulmonary VD since congestion with interstitial edema and redistribution. PLEURA: No pneumothorax or pleural fluid seen. CARDIOVASCULAR: The heart remains enlarged with prominent central vasculature. OSSEOUS STRUCTURES: No significant abnormalities. VISUALIZED UPPER ABDOMEN: Normal. OTHER FINDINGS: None. IMPRESSION: The constellation of findings, cardiomegaly pulmonary venous congestion and interstitial pulmonary edema may represent congestive heart failure in the appropriate clinical setting.
--- NOTE | 2017-08-18 09:36 | C.PDOC ---
History Of Present Illness 76 y/o female presents to the ER complaining of left sided headache and dizziness which occurred today and intermittent left sided numbness x 3 months. Patient describes the headache as a gradual onset. Patient states that she lost her balance because of the dizziness. Denies having CP, SOB, nausea and vomiting. Time Seen by Provider: 08/18/17 08:15 Chief Complaint (Nursing): Weakness/Neurological Deficit History Per: Patient History/Exam Limitations: no limitations Onset/Duration Of Symptoms: Days Severity: Moderate Past Medical History Reviewed: Historical Data, Nursing Documentation, Vital Signs Vital Signs: Last Vital Signs Temp 99 F 08/18/17 08:10 Pulse 72 08/18/17 13:31 Resp 20 08/18/17 13:31 BP 113/58 L 08/18/17 13:31 Pulse Ox 98 08/18/17 14:19 - Medical History PMH: HTN, Hypercholesterolemia, Rheumatoid Arthritis Surgical History: No Surg Hx Family History: States: No Known Family Hx - Social History Hx Tobacco Use: No Hx Alcohol Use: No Hx Substance Use: No - Immunization History Hx Tetanus Toxoid Vaccination: No Hx Influenza Vaccination: No Hx Pneumococcal Vaccination: No Review Of Systems Except As Marked, All Systems Reviewed And Found Negative. Constitutional: Negative for: Fever, Chills Neurological: Positive for: Headache, Dizziness Physical Exam - Physical Exam Appears: Non-toxic, No Acute Distress Skin: Normal Color, Warm, Dry Head: Normacephalic Eye(s): bilateral: Normal Inspection, PERRL, EOMI Nose: Normal Oral Mucosa: Moist Neck: Supple Chest: Symmetrical Cardiovascular: Rhythm Regular Respiratory: Normal Breath Sounds, No Rales, No Rhonchi, No Wheezing Gastrointestinal/Abdominal: Normal Exam, Bowel Sounds ((+) bowel sounds), Soft, No Tenderness, No Guarding, No Rebound Extremity: Normal ROM Neurological/Psych: Oriented x3, Normal Speech, Normal Motor, Normal Sensation ED Course And Treatment - Laboratory Results Result Diagrams: 08/18/17 08:26 08/18/17 11:38 ECG: Interpreted By Me, Viewed By Me ECG Rhythm: Sinus Rhythm ECG Interpretation: Normal Interpretation Of ECG: NSR with normal intervals, normal axises, and no ST/ T wave abnormalities Rate From EC O2 Sat by Pulse Oximetry: 98 (RA) Pulse Ox Interpretation: Normal - Other Rad CXR X-Ray: Viewed By Me, Read By Radiologist Interpretation: PROCEDURE: CHEST RADIOGRAPH, 1 VIEW. HISTORY: SOB. COMPARISON: 06/25/2017. FINDINGS: LUNGS: The lungs are well inflated. There is moderate pulmonary VD since congestion with interstitial edema and redistribution. PLEURA: No pneumothorax or pleural fluid seen. CARDIOVASCULAR : The heart remains enlarged with prominent central vasculature. OSSEOUS STRUCTURES: No significant abnormalities. VISUALIZED UPPER ABDOMEN: Normal. OTHER FINDINGS: None. IMPRESSION: The constellation of findings, cardiomegaly pulmonary venous congestion and interstitial pulmonary edema may represent congestive heart failure in the appropriate clinical setting. - CT Scan/US CT- Head Other Rad Studies (CT/US): Read By Radiologist, Radiology Report Reviewed CT/US Interpretation: PROCEDURE: CT HEAD WITHOUT CONTRAST. HISTORY: dizziness. COMPARISON: None available. TECHNIQUE: Axial computed tomography images were obtained through the head/brain without intravenous contrast. Radiation dose: Total exam DLP = 851 mGy-cm. This CT exam was performed using one or more of the following dose reduction techniques: Automated exposure control, adjustment of the mA and/or kV according to patient size, and/or use of iterative reconstruction technique. FINDINGS: HEMORRHAGE: No intracranial hemorrhage. BRAIN: No mass effect or edema. Scattered focal lucencies in the subcortical and periventricular white matter suggestive for chronic microvascular ischemic change. More confluent low attenuation seen within the posterior bilateral parietal subcortical white matter suggestive for chronic ischemic change. Dense bilateral basal ganglia calcifications. Focal hypodensity in the posterior right cerebellum may represent a chronic infarct. VENTRICLES: Unremarkable. No hydrocephalus. CALVARIUM: Unremarkable. PARANASAL SINUSES: Mild mucosal thickening of the ethmoid air cells. MASTOID AIR CELLS: Unremarkable as visualized. No inflammatory changes. OTHER FINDINGS : Intracranial arterial calcifications. IMPRESSION: Chronic ischemic and microvascular ischemic changes. Focal hypodensity in the posterior right cerebellum may represent a chronic infarct. If focal neurologic deficit persists, consider MRI. Medical Decision Making Medical Decision Making: Assessment: Dizziness, Headache Plan: --Labs --UA -- CT - Head --CXR --Antivert PO --Reglan IV --Benadryl IV --IV Fluids Updates: Patient states that her headache and dizziness has improved. Disposition Discussed With : Zoë Rodriguez Doctor Will See Patient In The: Hospital Counseled Patient/Family Regarding: Studies Performed, Diagnosis - Disposition Disposition: HOSPITALIZED Disposition Time: 12:35 Condition: FAIR - Clinical Impression Clinical Impression: CHF (congestive heart failure), Dizziness - Scribe Statement The provider has reviewed the documentation as recorded by the Losibe Iva Tapia Provider Attestation: All medical record entries made by the Losib[place]ola were at my direction and personally dictated by me. I have reviewed the chart and agree that the record accurately reflects my personal performance of the history, physical exam, medical decision making, and the department course for this patient. I have also personally directed, reviewed, and agree with the discharge instructions and disposition.
[2017-08-18 12:02] LABS: ALB/GLOB RATIO 0.9 (1.0-2.1); ALBUMIN 3.8 g/dL (3.5-5.0); ALT/SGPT 7 U/L (9-52); AST/SGOT 27 U/L (14-36); BLOOD UREA NITROGEN 17 mg/dL (7-17); CALCIUM 9.4 mg/dl (8.6-10.4); GFR AFRICAN-AMERICAN > 60; GFR NON-AFRICAN AMERICAN > 60
[2017-08-18 12:13] LABS: B-TYPE NATRIURETIC PEPTIDE 2470 pg/mL (0-900)
[2017-08-18 13:43] LABS: SQUAMOUS EPITHIAL 190 /hpf (0-5); URINE BACTERIA OCC (<OCC); URINE BILIRUBIN NEGATIVE (NEGATIVE); URINE BLOOD NEGATIVE (NEGATIVE); URINE CLARITY Turbid (Clear); URINE COLOR Amber (YELLOW); URINE GLUCOSE (UA) NORMAL (Normal); URINE LEUKOCYTE ESTERASE 3+ Leu/uL (Negative); URINE PROTEIN 2+ mg/dL (NEGATIVE); WBC CLUMPS FEW /hpf
--- NOTE | 2017-08-18 15:05 | PCM.FALL ---
Post Fall Progress Note - Post Fall Fall Date: 08/18/17 Fall Time: 15:03 - Post Fall Exam Vital Sign: Temp Pulse Resp BP Pulse Ox 98.2 F 80 16 121/70 97 08/18/17 14:27 08/18/17 14:27 08/18/17 14:27 08/18/17 14:27 08/18/17 14:27 Eye Exam: Positive for: Pupils equal Ear Exam: Negative for: Discharge Nose Exam: Negative for: Discharge Skin Exam: Positive for: Colour (normal) Mouth Exam: Negative for: Tongue bitten Neck Exam: Negative for: Tenderness Spinal Exam: Negative for: Tenderness Chest Exam: Negative for: Difficulty breathing Abdomen Exam: Negative for: Tenderness Pelvic Exam: Negative for: Tenderness Arm Exam: Negative for: Deformity, Alteration in range of movement Leg Exam: Negative for: Deformity, Alteration in range of movement Impression/Plan: the patient was admitted for syncope/fall will order MRI given CT findings Neurological exam CN2-12 grossly intact patient has no chest pain vital signs are stable EKG was NSR with no ST T wave changes Troponin was .0612 which was .1220 on previous admission patient to remain in current setting fall precautions bed alarm please refer to orders from Dr. Green who will be doing admission orders for this patient
[2017-08-18 15:15] LABS: HDL CHOLESTEROL 38 mg/dL (30-70)
--- NOTE | 2017-08-18 15:26 | CP.PCM.HP ---
History of Present Illness - History of Present Illness History of Present Illness: This is a 76 yo female with hx of chf, presenting with chief complaint of fall at home and chest pain and headache. Pt is a poor historian. She is with her daughter and granddaughter. she says she got up from bed at 4 am this morning and fell down onto the ground. She cannot remember the specific details of the fall. She denies hitting her head or LOC. She initially said there were no preceding sx, but then changes her story and say she was having some chest pain at the time. She denies current chest pain. She says this chest pain was located over her left breast with no radiation. She says she has never had this chest pain before. She was in this hospital just a couple of months ago and was seen by Dr. Her for CHF exacerbation. She says that recently she had her "potassium" med taken away and since then she has been experiencing headaches. She says the headaches are on the left side only. She denies fevers, chills, vomiting, diarrhea, palpitations, dizziness. PMH: CHF PSH: sx for carpal tunnel Allergies: NKDA FH: Non contributory Social: former smoker. no drinking. denies drug use. lives with granddaughter. uses cane. Past Patient History - Past Medical History & Family History Past Medical History?: Yes - Past Social History Smoking Status: Never Smoked - CARDIAC Hx Hypercholesterolemia: Yes Hx Hypertension: Yes - NEUROLOGICAL HX Cerebrovascular Accident: Yes (As per patient had mild CVA) Other/Comment: As per Patient she had a mild stroke years ago, patient not sure what year. - ENDOCRINE/METABOLIC Other/Comment: Pre diabetic - MUSCULOSKELETAL/RHEUMATOLOGICAL Hx Falls: No - GENITOURINARY/GYNECOLOGICAL Other/Comment: fibroids - PSYCHIATRIC Hx Substance Use: No - SURGICAL HISTORY Hx Surgeries: No - ANESTHESIA Hx Anesthesia: No Meds Allergies/Adverse Reactions: Allergies Allergy/AdvReac Type Severity Reaction Status Date / Time No Known Allergies Allergy Verified 08/18/17 08:08 Results - Vital Signs Recent Vital Signs: Last Vital Signs Temp 98.2 F 08/18/17 14:27 Pulse 80 08/18/17 14:27 Resp 16 08/18/17 14:27 BP 121/70 08/18/17 14:27 Pulse Ox 97 06/04/18 14:27 - Labs Result Diagrams: 08/18/17 08:26 08/18/17 11:38 Labs: Laboratory Results - last 24 hr 08/18/17 08/18/17 08/18/17 08:26 11:03 11:38 WBC 6.8 RBC 5.43 H Hgb 12.3 Hct 39.0 MCV 71.8 L MCH 22.7 L MCHC 31.7 L RDW 15.3 H Plt Count 315 MPV 8.4 Neut % (Auto) 52.9 Lymph % (Auto) 34.4 [place] % (Auto) 9.1 Eos % (Auto) 2.6 Baso % (Auto) 1.0 Neut # (Auto) 3.6 Lymph # (Auto) 2.4 [place] # (Auto) 0.6 Eos # (Auto) 0.2 Baso # (Auto) 0.1 ESR 40 H Sodium 140 Potassium 4.6 Chloride 104 Carbon Dioxide 25 Anion Gap 15 BUN 17 Creatinine 0.8 Est GFR ( Amer) > 60 Est GFR (Non-Af Amer) > 60 POC Glucose (mg/dL) 113 H Random Glucose 104 Calcium 9.4 Total Bilirubin 0.5 AST 27 ALT 7 L Alkaline Phosphatase 114 Troponin I 0.0680 NT-Pro-B Natriuret Pep 2470 H Total Protein 8.0 Albumin 3.8 Globulin 4.2 H Albumin/Globulin Ratio 0.9 L Triglycerides 77 Cholesterol 158 HDL Cholesterol 38 TSH 3rd Generation 0.94 Urine Color Urine Clarity Urine pH Ur Specific [place] Urine Protein Urine Glucose (UA) Urine Ketones Urine Blood Urine Nitrate Urine Bilirubin Urine Urobilinogen Ur Leukocyte Esterase Urine WBC (Auto) Urine RBC (Auto) Urine WBC Clumps (Auto) Ur Squamous Epith Cells Urine Bacteria 08/18/17 13:29 WBC RBC Hgb Hct MCV MCH MCHC RDW Plt Count MPV Neut % (Auto) Lymph % (Auto) [place] % (Auto) Eos % (Auto) Baso % (Auto) Neut # (Auto) Lymph # (Auto) [place] # (Auto) Eos # (Auto) Baso # (Auto) ESR Sodium Potassium Chloride Carbon Dioxide Anion Gap BUN Creatinine Est GFR ( Amer) Est GFR (Non-Af Amer) POC Glucose (mg/dL) Random Glucose Calcium Total Bilirubin AST ALT Alkaline Phosphatase Troponin I NT-Pro-B Natriuret Pep Total Protein Albumin Globulin Albumin/Globulin Ratio Triglycerides Cholesterol HDL Cholesterol TSH 3rd Generation Urine Color Mai Urine Clarity Turbid Urine pH 7.0 Ur Specific [place] 1.013 Urine Protein 2+ H Urine Glucose (UA) Normal Urine Ketones Negative Urine Blood Negative Urine Nitrate Negative Urine Bilirubin Negative Urine Urobilinogen 2.0 H Ur Leukocyte Esterase 3+ H Urine WBC (Auto) 22 H Urine RBC (Auto) 19 H Urine WBC Clumps (Auto) Few H Ur Squamous Epith Cells 190 H Urine Bacteria Occ H
[2017-08-18 15:27] LABS: LDL CHOLESTEROL 85 mg/dL (0-129)
--- NOTE | 2017-08-18 15:29 | CP.PCM.PN ---
Subjective - Date & Time of Evaluation Date of Evaluation: 08/18/17 Time of Evaluation: 15:30 - Subjective Subjective: This is a 76 yo female with hx of chf, presenting with chief complaint of fall at home and chest pain and headache. Pt is a poor historian. She is with her daughter and granddaughter. she says she got up from bed at 4 am this morning and fell down onto the ground. She cannot remember the specific details of the fall. She denies hitting her head or LOC. She initially said there were no preceding sx, but then changes her story and say she was having some chest pain at the time. She denies current chest pain. She says this chest pain was located over her left breast with no radiation. She says she has never had this chest pain before. She was in this hospital just a couple of months ago and was seen by Dr. Her for CHF exacerbation. She says that recently she had her "potassium" med taken away and since then she has been experiencing headaches. She says the headaches are on the left side only. She denies fevers, chills, vomiting, diarrhea, palpitations, dizziness. PMH: CHF, HTN, HLD, hypothyroidism PSH: sx for carpal tunnel Allergies: NKDA FH: Non contributory Social: former smoker. no drinking. denies drug use. lives with granddaughter. uses cane. Objective - Vital Signs/Intake and Output Vital Signs (last 24 hours): Temp Pulse Resp BP Pulse Ox 98.2 F 80 16 121/70 97 08/18/17 14:27 08/18/17 14:27 08/18/17 14:27 08/18/17 14:27 08/18/17 14:27 - Medications Medications: Current Medications Aspirin (Aspirin Chewable) 81 mg PO DAILY [facility] Furosemide (Lasix) 40 mg IVP DAILY [facility] Levothyroxine Sodium (Synthroid) 88 mcg PO DAILY [facility] Losartan Potassium (Cozaar) 25 mg PO DAILY [facility] Metoprolol Tartrate (Lopressor) 25 mg PO DAILY [facility] Pneumococcal Polyvalent Vaccine (Pneumovax 23 Vaccine) 0.5 ml IM .ONCE ONE Stop: 08/21/17 10:01 Rosuvastatin Calcium (Crestor) 5 mg PO DAILY [facility] - Labs Labs: 08/18/17 08:26 08/18/17 11:38 - Constitutional Appears: Non-toxic, No Acute Distress - Head Exam Head Exam: ATRAUMATIC, NORMAL INSPECTION, NORMOCEPHALIC - Eye Exam Eye Exam: EOMI - ENT Exam ENT Exam: Mucous Membranes Moist - Neck Exam Neck Exam: Full ROM, Normal Inspection - Respiratory Exam Respiratory Exam: Rales, NORMAL BREATHING PATTERN. absent: Respiratory Distress - Cardiovascular Exam Cardiovascular Exam: +S1, +S2 - GI/Abdominal Exam GI & Abdominal Exam: Soft, Normal Bowel Sounds. absent: Tenderness - Extremities Exam Extremities Exam: Full ROM, Normal Inspection - Neurological Exam Neurological Exam: Alert, Awake, Oriented x3 - Psychiatric Exam Psychiatric exam: Normal Affect, Normal Mood - Skin Skin Exam: Dry, Intact, Normal Color, Warm Assessment and Plan - Assessment and Plan (Free Text) Assessment: This is a 76 yo female with 1. Headache, dizziness -head ct -neurology consult. recs appreciated. 2. CHF -asa 81 daily -trops x 3 -I/O -daily weight -lasix 40 mg iv daily -lopressor 25 po daily 3. hx of htn -losartan 25 daily 4. hx of hypothyroidism -synthroid 88 mcg po daily -tsh 3. GI/DVT ppx -protonix 40 daily -SCDs -PT/OT
--- NOTE | 2017-08-19 00:02 | CP.PCM.CON ---
History of Present Illness - History of Present Illness History of Present Illness: Patient seen and evaluated Denies chest pain and dyspnea Slightly confused Check ECHO will follow Past Patient History - Past Medical History & Family History Past Medical History?: Yes - Past Social History Smoking Status: Never Smoked - CARDIAC Hx Hypercholesterolemia: Yes Hx Hypertension: Yes - NEUROLOGICAL HX Cerebrovascular Accident: Yes (As per patient had mild CVA) Other/Comment: As per Patient she had a mild stroke years ago, patient not sure what year. - ENDOCRINE/METABOLIC Other/Comment: Pre diabetic - MUSCULOSKELETAL/RHEUMATOLOGICAL Hx Falls: No - GENITOURINARY/GYNECOLOGICAL Other/Comment: fibroids - PSYCHIATRIC Hx Substance Use: No - SURGICAL HISTORY Hx Surgeries: No - ANESTHESIA Hx Anesthesia: No Meds Allergies/Adverse Reactions: Allergies Allergy/AdvReac Type Severity Reaction Status Date / Time No Known Allergies Allergy Verified 08/18/17 08:08 - Medications Medications: Current Medications Aspirin (Aspirin Chewable) 81 mg PO DAILY [facility] Furosemide (Lasix) 40 mg IVP DAILY [facility] Levothyroxine Sodium (Synthroid) 88 mcg PO DAILY [facility] Losartan Potassium (Cozaar) 25 mg PO DAILY [facility] Metoprolol Tartrate (Lopressor) 25 mg PO DAILY [facility] Pantoprazole Sodium (Protonix Inj) 40 mg IVP DAILY [facility] Pneumococcal Polyvalent Vaccine (Pneumovax 23 Vaccine) 0.5 ml IM .ONCE ONE Stop: 08/21/17 10:01 Rosuvastatin Calcium (Crestor) 5 mg PO DAILY [facility] Results - Vital Signs Recent Vital Signs: Last Vital Signs Temp 99.4 F 08/18/17 15:14 Pulse 80 08/18/17 16:00 Resp 18 08/18/17 15:14 BP 145/78 08/18/17 15:14 Pulse Ox 96 08/18/17 15:14 - Labs Result Diagrams: 08/18/17 08:26 08/18/17 11:38 Labs: Laboratory Results - last 24 hr 08/18/17 08/18/17 08/18/17 08:26 11:03 11:38 WBC 6.8 RBC 5.43 H Hgb 12.3 Hct 39.0 MCV 71.8 L MCH 22.7 L MCHC 31.7 L RDW 15.3 H Plt Count 315 MPV 8.4 Neut % (Auto) 52.9 Lymph % (Auto) 34.4 [place] % (Auto) 9.1 Eos % (Auto) 2.6 Baso % (Auto) 1.0 Neut # (Auto) 3.6 Lymph # (Auto) 2.4 [place] # (Auto) 0.6 Eos # (Auto) 0.2 Baso # (Auto) 0.1 ESR 40 H Sodium 140 Potassium 4.6 Chloride 104 Carbon Dioxide 25 Anion Gap 15 BUN 17 Creatinine 0.8 Est GFR ( Amer) > 60 Est GFR (Non-Af Amer) > 60 POC Glucose (mg/dL) 113 H Random Glucose 104 Hemoglobin A1c Calcium 9.4 Total Bilirubin 0.5 AST 27 ALT 7 L Alkaline Phosphatase 114 Troponin I 0.0680 NT-Pro-B Natriuret Pep 2470 H Total Protein 8.0 Albumin 3.8 Globulin 4.2 H Albumin/Globulin Ratio 0.9 L Triglycerides 77 Cholesterol 158 LDL Cholesterol Direct 85 HDL Cholesterol 38 TSH 3rd Generation 0.94 Urine Color Urine Clarity Urine pH Ur Specific [place] Urine Protein Urine Glucose (UA) Urine Ketones Urine Blood Urine Nitrate Urine Bilirubin Urine Urobilinogen Ur Leukocyte Esterase Urine WBC (Auto) Urine RBC (Auto) Urine WBC Clumps (Auto) Ur Squamous Epith Cells Urine Bacteria 08/18/17 08/18/17 13:29 15:40 WBC RBC Hgb Hct MCV MCH MCHC RDW Plt Count MPV Neut % (Auto) Lymph % (Auto) [place] % (Auto) Eos % (Auto) Baso % (Auto) Neut # (Auto) Lymph # (Auto) [place] # (Auto) Eos # (Auto) Baso # (Auto) ESR Sodium Potassium Chloride Carbon Dioxide Anion Gap BUN Creatinine Est GFR ( Amer) Est GFR (Non-Af Amer) POC Glucose (mg/dL) Random Glucose Hemoglobin A1c 6.4 Calcium Total Bilirubin AST ALT Alkaline Phosphatase Troponin I NT-Pro-B Natriuret Pep Total Protein Albumin Globulin Albumin/Globulin Ratio Triglycerides Cholesterol LDL Cholesterol Direct HDL Cholesterol TSH 3rd Generation Urine Color [place] Urine Clarity Turbid Urine pH 7.0 Ur Specific [place] 1.013 Urine Protein 2+ H Urine Glucose (UA) Normal Urine Ketones Negative Urine Blood Negative Urine Nitrate Negative Urine Bilirubin Negative Urine Urobilinogen 2.0 H Ur Leukocyte Esterase 3+ H Urine WBC (Auto) 22 H Urine RBC (Auto) 19 H Urine WBC Clumps (Auto) Few H Ur Squamous Epith Cells 190 H Urine Bacteria Occ H
[2017-08-19 09:16] LABS: BASO # 0.1 K/uL (0.0-0.2); BASO % 1.3 % (0.0-2.0); EOS # 0.1 K/uL (0.0-0.7); EOS % 1.3 % (0.0-4.0); HEMOGLOBIN 11.1 g/dL (11.0-16.0); LYMPH # 2.5 K/uL (1.0-4.3); LYMPH % 33.8 % (20.0-40.0); MEAN CELL VOLUME 71.2 fL (81.0-99.0); MEAN CORPUSCULAR HEMOGLOBIN 22.5 pg (27.0-31.0); MEAN CORPUSCULAR HGB CONC 31.6 g/dL (33.0-37.0); MEAN PLATELET VOLUME 8.3 fL (7.2-11.7); MONO # 0.6 K/uL (0.0-0.8); MONO % 8.7 % (0.0-10.0); NEUT % 54.9 % (50.0-75.0); NRBC % 0.1 % (0.0-2.0); RBC 4.93 Mil/uL (3.80-5.20); WHITE BLOOD COUNT 7.3 K/uL (4.8-10.8)
[2017-08-19 09:35] LABS: ALBUMIN 3.8 g/dL (3.5-5.0); ALT/SGPT < 6 U/L (9-52); AST/SGOT 35 U/L (14-36); BLOOD UREA NITROGEN 15 mg/dL (7-17); CALCIUM 9.3 mg/dl (8.6-10.4); GFR AFRICAN-AMERICAN > 60; GFR NON-AFRICAN AMERICAN > 60
[2017-08-19] MEDS: Levothyroxine 88 MCG TAB PO SCH (09:40)
[2017-08-19 09:56] LABS: CK-MB 2.2 ng/mL (0.0-3.38)
[2017-08-19 09:58] LABS: TROPONIN I 0.157 ng/mL (0.00-0.120)
[2017-08-19] MEDS: Enoxaparin 40 mg Syringe SC SCH (10:27)
[2017-08-19] MEDS ORDERED: Apap-Butalbital-Caffeine 325-50-40mg Tab PO PRN (10:53)
--- NOTE | 2017-08-19 10:58 | CP.PCM.PN ---
Subjective - Date & Time of Evaluation Date of Evaluation: 08/19/17 Time of Evaluation: 11:00 - Subjective Subjective: Progress note. Attending: Dr. Rodriguez Pt seen and examined at bedside. No acute distress. No events overnight. Pt reports headache. She is reporting some visual loss as well. R.o. temporal arteritis, rheumatology consult. Objective - Vital Signs/Intake and Output Vital Signs (last 24 hours): Temp Pulse Resp BP Pulse Ox 97.4 F L 61 20 135/85 98 08/19/17 08:00 08/19/17 08:00 08/19/17 08:00 08/19/17 10:09 08/19/17 08:00 Intake and Output: 08/19/17 08/19/17 06:59 18:59 Intake Total 500 Balance 500 - Medications Medications: Current Medications Acetaminophen/Butalbital/Caffeine (Fioricet) 1 tab PO Q4 PRN PRN Reason: Headache Aspirin (Aspirin Chewable) 81 mg PO DAILY [facility] Last Admin: 08/19/17 10:07 Dose: 81 mg Enoxaparin Sodium (Lovenox) 40 mg SC DAILY [facility] Last Admin: 08/19/17 10:27 Dose: 40 mg Furosemide (Lasix) 40 mg IVP DAILY [facility] Last Admin: 08/19/17 10:09 Dose: 40 mg Levothyroxine Sodium (Synthroid) 88 mcg PO 0630 [facility] Last Admin: 08/19/17 09:40 Dose: 88 mcg Losartan Potassium (Cozaar) 25 mg PO DAILY [facility] Last Admin: 08/19/17 10:07 Dose: 25 mg Metoprolol Tartrate (Lopressor) 25 mg PO DAILY [facility] Last Admin: 08/19/17 10:09 Dose: 25 mg Pantoprazole Sodium (Protonix Inj) 40 mg IVP DAILY [facility] Last Admin: 08/19/17 10:09 Dose: 40 mg Pneumococcal Polyvalent Vaccine (Pneumovax 23 Vaccine) 0.5 ml IM .ONCE ONE Stop: 08/21/17 10:01 Rosuvastatin Calcium (Crestor) 5 mg PO [facility] - Labs Labs: 08/19/17 09:12 08/19/17 09:12 - Constitutional Appears: Non-toxic, No Acute Distress - Head Exam Head Exam: ATRAUMATIC, NORMAL INSPECTION, NORMOCEPHALIC - Eye Exam Eye Exam: EOMI - ENT Exam ENT Exam: Mucous Membranes Moist - Neck Exam Neck Exam: Full ROM, Normal Inspection - Respiratory Exam Respiratory Exam: NORMAL BREATHING PATTERN. absent: Respiratory Distress - Cardiovascular Exam Cardiovascular Exam: +S1, +S2 - GI/Abdominal Exam GI & Abdominal Exam: Soft, Normal Bowel Sounds. absent: Tenderness - Extremities Exam Extremities Exam: Full ROM, Normal Inspection - Back Exam Back Exam: NORMAL INSPECTION - Neurological Exam Neurological Exam: Alert, Awake, Oriented x3 - Psychiatric Exam Psychiatric exam: Normal Affect, Normal Mood - Skin Skin Exam: Dry, Intact, Normal Color, Warm Assessment and Plan - Assessment and Plan (Free Text) Assessment: This is a 76 yo female with 1. Headache, dizziness -telemetry admission -head ct shows hypodensity, no acute bleed -MRI pending -neurology consult. Dr. Kellie Simental. recs appreciated. -will add fioricet for pain control -rheumatology consult. Dr. Skinner. recs appreciated. -ESR mildly elevated. -pt also reports some vision loss. -MRI without contrast shows acute/subacute infarction posterior MCA territory -asa 81 mg po daily -lovenox 40 mg sc daily -crestor PO HS -neurochecks q 2 hrs -NS 100 cc/hr -plavix 75 mg po daily -stop losartan for now 2. CHF with preserved ejection fraction. -asa 81 daily -trops x 3- second 2 negative -I/O -daily weight -lasix 40 mg iv daily -lopressor 25 po daily 3. hx of htn -losartan 25 daily >>> stopped in light of allowing for permissive hypertension 4. hx of hypothyroidism -synthroid 88 mcg po daily -tsh 3. GI/DVT ppx -protonix 40 daily -SCDs -add lovenox 40 mg sc daily -PT/OT discussed with Dr. Rodriguez
--- NOTE | 2017-08-19 13:40 | CARD ---
APPROVED REPORT EKG Measurement Heart [id number] <Conclusion> Normal sinus rhythm Normal ECG
--- NOTE | 2017-08-19 14:39 | MRI ---
PROCEDURE: MRI BRAIN WITHOUT CONTRAST HISTORY: syncope; hypodensity COMPARISON: Noncontrast head CT 08/18/2017. TECHNIQUE: Multiplanar, multisequence MR images of the brain were obtained without intravenous contrast enhancement. FINDINGS: HEMORRHAGE: None DWI: There is a larger restricted diffusion at the mid to posterior left MCA distribution affecting left temporal and parietal lobes as well as a limited portion of the posterior left frontal lobe. This is not visible on the prior CT. Limited local mass effect effaces the sulci relative to the affected territory. . No interval intracranial hemorrhage appreciable grossly. Diffuse cerebral atrophy chronic microangiopathy are reiterated throughout the cerebrum as well as chronic infarction of the right cerebellum inferiorly. No suspicious extra-axial fluid collection. BRAIN PARENCHYMA: As above. VENTRICLES: Unremarkable. No hydrocephalus. CRANIUM: Unremarkable. ORBITS: Grossly unremarkable. PARANASAL SINUSES/MASTOIDS: Clear VASCULAR SYSTEM: Skull base flow voids intact. OTHER FINDINGS: Dense calcification again seen the anterior falx. IMPRESSION: Acute subacute infarction mid to posterior left MCA territory as discussed above. Mild age related neuro degenerative changes are reiterated. Findings discussed with Nurse Jerez at [address] [place] with written down and read back verification 08/19/2017 2:30 p.m..
--- NOTE | 2017-08-19 14:48 | CP.PCM.CON ---
History of Present Illness - History of Present Illness History of Present Illness: 76 yr old woman who has a presumed history of prior stroke, and neurology consult placed for dizziness and confusion and left sided numbness. ON examination by myself, Patient appears to have right sided weakness and will benefit from MRI Brain which has already been done and shows acute to subacute left mca stroke. She did not appear to have weakness in the Er, but just dizziness and headache. Miss Rowley reports that she felt weak yesterday but has had intermittent dizziness with profound headache for several weeks. Temporal arteritis was in the differential as well. There is also a history of an old cerebellar stroke on ct head which Miss Rowley is not aware of. NIh stroke scale is 6. She is not a tpa candidate due to unknown time of onset. PMH/PSH: Hypertension, hypercholesterolemia, old cva. Fh/SH: non contributory All: nkda on exam: aaox3. Has right sided neglect. PERRL. EOMI. no diplopia. no nystagmus. 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 Sensory: not accurate +1 dtr ul and ll bl. Toes downgoing. No clonus. Past Patient History - Past Medical History & Family History Past Medical History?: Yes - Past Social History Smoking Status: Never Smoked - CARDIAC Hx Hypercholesterolemia: Yes Hx Hypertension: Yes - NEUROLOGICAL HX Cerebrovascular Accident: Yes (As per patient had mild CVA) Other/Comment: As per Patient she had a mild stroke years ago, patient not sure what year. - ENDOCRINE/METABOLIC Other/Comment: Pre diabetic - MUSCULOSKELETAL/RHEUMATOLOGICAL Hx Falls: No - GENITOURINARY/GYNECOLOGICAL Other/Comment: fibroids - PSYCHIATRIC Hx Substance Use: No - SURGICAL HISTORY Hx Surgeries: No - ANESTHESIA Hx Anesthesia: No Meds Allergies/Adverse Reactions: Allergies Allergy/AdvReac Type Severity Reaction Status Date / Time No Known Allergies Allergy Verified 08/18/17 08:08 - Medications Medications: Current Medications Acetaminophen/Butalbital/Caffeine (Fioricet) 1 tab PO Q4 PRN PRN Reason: Headache Aspirin (Aspirin Chewable) 81 mg PO DAILY [facility] Last Admin: 08/19/17 10:07 Dose: 81 mg Enoxaparin Sodium (Lovenox) 40 mg SC DAILY [facility] Last Admin: 08/19/17 10:27 Dose: 40 mg Furosemide (Lasix) 40 mg IVP DAILY [facility] Last Admin: 08/19/17 10:09 Dose: 40 mg Levothyroxine Sodium (Synthroid) 88 mcg PO 0630 [facility] Last Admin: 08/19/17 09:40 Dose: 88 mcg Losartan Potassium (Cozaar) 25 mg PO DAILY [facility] Last Admin: 08/19/17 10:07 Dose: 25 mg Metoprolol Tartrate (Lopressor) 25 mg PO DAILY [facility] Last Admin: 08/19/17 10:09 Dose: 25 mg Pantoprazole Sodium (Protonix Inj) 40 mg IVP DAILY [facility] Last Admin: 08/19/17 10:09 Dose: 40 mg Pneumococcal Polyvalent Vaccine (Pneumovax 23 Vaccine) 0.5 ml IM .ONCE ONE Stop: 08/21/17 10:01 Rosuvastatin Calcium (Crestor) 5 mg PO [facility] Results - Vital Signs Recent Vital Signs: Last Vital Signs Temp 97.4 F L 08/19/17 08:00 Pulse 70 08/19/17 08:00 Resp 20 08/19/17 08:00 BP 135/85 08/19/17 10:09 Pulse Ox 98 08/19/17 08:00 - Labs Result Diagrams: 08/19/17 09:12 08/19/17 09:12 Labs: Laboratory Results - last 24 hr 08/18/17 08/18/17 08/19/17 11:38 15:40 02:38 WBC RBC Hgb Hct MCV MCH MCHC RDW Plt Count MPV Neut % (Auto) Lymph % (Auto) [place] % (Auto) Eos % (Auto) Baso % (Auto) Neut # (Auto) Lymph # (Auto) [place] # (Auto) Eos # (Auto) Baso # (Auto) Sodium 140 Potassium 4.6 Chloride 104 Carbon Dioxide 25 Anion Gap 15 BUN 17 Creatinine 0.8 Est GFR ( Amer) > 60 Est GFR (Non-Af Amer) > 60 Random Glucose 104 Hemoglobin A1c 6.4 Calcium 9.4 Total Bilirubin 0.5 AST 27 ALT 7 L Alkaline Phosphatase 114 Total Creatine Kinase CK-MB (Mass) Troponin I 0.0680 0.1520 H* NT-Pro-B Natriuret Pep 2470 H Total Protein 8.0 Albumin 3.8 Globulin 4.2 H Albumin/Globulin Ratio 0.9 L Triglycerides 77 Cholesterol 158 LDL Cholesterol Direct 85 HDL Cholesterol 38 TSH 3rd Generation 0.94 08/19/17 08/19/17 08/19/17 09:12 09:12 09:12 WBC 7.3 RBC 4.93 Hgb 11.1 Hct 35.1 MCV 71.2 L MCH 22.5 L MCHC 31.6 L RDW 15.0 H Plt Count 286 MPV 8.3 Neut % (Auto) 54.9 Lymph % (Auto) 33.8 [place] % (Auto) 8.7 Eos % (Auto) 1.3 Baso % (Auto) 1.3 Neut # (Auto) 4.0 Lymph # (Auto) 2.5 [place] # (Auto) 0.6 Eos # (Auto) 0.1 Baso # (Auto) 0.1 Sodium 139 Potassium 4.0 Chloride 101 Carbon Dioxide 27 Anion Gap 15 BUN 15 Creatinine 0.8 Est GFR ( Amer) > 60 Est GFR (Non-Af Amer) > 60 Random Glucose 122 H Hemoglobin A1c Calcium 9.3 Total Bilirubin 0.5 AST 35 ALT < 6 L Alkaline Phosphatase 98 Total Creatine Kinase 164 H CK-MB (Mass) 2.20 Troponin I 0.1570 H* NT-Pro-B Natriuret Pep Total Protein 7.8 Albumin 3.8 Globulin 3.9 Albumin/Globulin Ratio 1.0 Triglycerides Cholesterol LDL Cholesterol Direct HDL Cholesterol TSH 3rd Generation Assessment & Plan - Assessment and Plan (Free Text) Assessment: MRi brain: shows M2 territory left mca stroke, with small emboli extending posteriorly. No hemorrhage. A/P: 76 yr old woman with new, most likely embolic Left mca stroke, that is acute in nature, and will need stroke workup. Plan: 1. Stop all blood pressure meds and allow permissive hypertension. 2. start aspirin and plavix 3. IV fluids 100ccs normal saline now and per hour 4. ECHO 5. PT/St/ot 6. repeat ct head in am. 7. Telemetry 8. Neurochecks Findings discussed with dr. eduardo Thank you Dr. Simental
[2017-08-19 16:20] LABS: HDL CHOLESTEROL 33 mg/dL (30-70)
[2017-08-19 16:30] LABS: LDL CHOLESTEROL 98 mg/dL (0-129)
[2017-08-19] MEDS ORDERED: Iodixanol 320 MG/ML 100 ML BOTTLE IV ONE (16:39)
[2017-08-19] MEDS: Sodium Chloride 0.9% 1,000 ML IV SCH (18:25)
--- NOTE | 2017-08-19 18:43 | CT ---
PROCEDURE: CT Angiography of the Brain and Neck. HISTORY: stroke COMPARISON: None available. TECHNIQUE: CT angiography of the intracranial and neck arteries was performed. Coronal and sagittal maximum intensity projection reformatted images were generated. Contrast Dose: Visipaque 320, 100 cc Radiation dose:Total exam DLP = 640.44 mGy-cm. This CT exam was performed using one or more of the following dose reduction techniques: Automated exposure control, adjustment of the mA and/or kV according to patient size, and/or use of iterative reconstruction technique. FINDINGS: INTERNAL CEREBRAL ARTERIES: Unremarkable. The skull base, petrous, cavernous and supraclinoid segments are bilaterally widely patent. ANTERIOR CEREBRAL ARTERIES: There is a hypoplastic but patent right A1 JOSE L segment. The left A1 and A2 segments are widely patent. Smaller distal branches unremarkable, as visualized. MIDDLE CEREBRAL ARTERIES: Unremarkable. M1 and M2 segments are widely patent. Perisylvian branches grossly symmetric. POSTERIOR CIRCULATION: Basilar Artery: Unremarkable. Distal Vertebral Arteries: Left dominant vertebrobasilar circulation. Both distal vertebral arteries are widely patent as well as the basilar artery. Posterior Cerebral Arteries: Unremarkable. Posterior Inferior Cerebellar Arteries: Unremarkable. NECK CTA: Common Carotid arteries: The bilateral common carotid appear widely patent from their origins to their bifurcations with no significant stenosis appreciated. The bilateral common carotid arteries and proximal internal carotid artery segments also are rather ectatic. No evidence to suggest common carotid artery dissection. Internal Carotid arteries: No significant stenosis is appreciated throughout the cervical internal carotid artery segments bilaterally and there is no evidence of dissection either. External Carotid arteries: Appear unremarkable bilaterally. Vertebral arteries: The bilateral vertebral arteries appear normal in caliber from their origins to their junction with the basilar artery. No significant stenosis or definite pattern of dissection. ANEURYSM/ VASCULAR MALFORMATIONS: None. OTHER FINDINGS: None. IMPRESSION: No significant stenosis or occlusion throughout CT Angiography of the Brain and Neck.
[2017-08-20] MEDS: Sodium Chloride 0.9% 1,000 ML IV SCH ×5 (04:19→22:01)
--- NOTE | 2017-08-20 05:48 | CARD ---
APPROVED REPORT EKG Measurement Heart [id number] <Conclusion> Normal sinus rhythm with sinus arrhythmia Normal ECG
--- NOTE | 2017-08-20 05:50 | CARD ---
APPROVED REPORT EKG Measurement Heart [id number] [place] [id number] <Conclusion> Normal sinus rhythm Nonspecific ST abnormality Prolonged QT Abnormal ECG
[2017-08-20 06:57] LABS: BASO # 0.1 K/uL (0.0-0.2); BASO % 0.9 % (0.0-2.0); EOS # 0.1 K/uL (0.0-0.7); EOS % 2.1 % (0.0-4.0); HEMOGLOBIN 11.3 g/dL (11.0-16.0); LYMPH # 2.9 K/uL (1.0-4.3); LYMPH % 40.8 % (20.0-40.0); MEAN CELL VOLUME 71.5 fL (81.0-99.0); MEAN CORPUSCULAR HEMOGLOBIN 22.4 pg (27.0-31.0); MEAN CORPUSCULAR HGB CONC 31.4 g/dL (33.0-37.0); MEAN PLATELET VOLUME 8.4 fL (7.2-11.7); MONO # 1.1 K/uL (0.0-0.8); MONO % 14.8 % (0.0-10.0); NEUT % 41.4 % (50.0-75.0); RBC 5.02 Mil/uL (3.80-5.20); RED CELL DISTRIBUTION WIDTH 15.1 % (11.5-14.5); WHITE BLOOD COUNT 7.1 K/uL (4.8-10.8)
[2017-08-20] MEDS: Levothyroxine 88 MCG TAB PO SCH (07:06)
[2017-08-20] MEDS ORDERED: Aminophylline 25 mg/ml Inj ONE (07:27)
[2017-08-20 07:28] LABS: ALB/GLOB RATIO 0.9 (1.0-2.1); ALBUMIN 3.5 g/dL (3.5-5.0); ALT/SGPT 17 U/L (9-52); AST/SGOT 38 U/L (14-36); BLOOD UREA NITROGEN 15 mg/dL (7-17); CALCIUM 9.1 mg/dl (8.6-10.4); GFR AFRICAN-AMERICAN > 60; GFR NON-AFRICAN AMERICAN > 60
--- NOTE | 2017-08-20 07:52 | CP.PCM.PN ---
Subjective - Date & Time of Evaluation Date of Evaluation: 08/19/17 Time of Evaluation: 15:30 - Subjective Subjective: Patient seen and evaluated Scheduled for stress test and ECHO in am Objective - Vital Signs/Intake and Output Vital Signs (last 24 hours): Temp Pulse Resp BP Pulse Ox 98.6 F 67 20 115/70 95 08/19/17 23:00 08/19/17 23:30 08/19/17 23:00 08/19/17 23:00 08/19/17 23:00 Intake and Output: 08/20/17 08/20/17 06:59 18:59 Intake Total 800 Balance 800 - Medications Medications: Current Medications Acetaminophen (Tylenol 325mg Tab) 650 mg PO Q6 PRN PRN Reason: Pain, moderate (4-7) Acetaminophen/Butalbital/Caffeine (Fioricet) 1 tab PO Q4 PRN PRN Reason: Headache Aspirin (Aspirin Chewable) 81 mg PO DAILY [facility] Last Admin: 08/19/17 10:07 Dose: 81 mg Clopidogrel Bisulfate (Plavix) 75 mg PO DAILY [facility] Last Admin: 08/19/17 18:25 Dose: 75 mg Enoxaparin Sodium (Lovenox) 40 mg SC DAILY [facility] Last Admin: 08/19/17 10:27 Dose: 40 mg Famotidine (Pepcid) 20 mg PO DAILY [facility] Furosemide (Lasix) 40 mg IVP DAILY [facility] Last Admin: 08/19/17 10:09 Dose: 40 mg Sodium Chloride (Sodium Chloride 0.9%) 1,000 mls @ 100 mls/hr IV .Q10H [facility] Last Admin: 08/20/17 04:20 Dose: Not Given Levothyroxine Sodium (Synthroid) 88 mcg PO 0630 [facility] Last Admin: 08/20/17 07:06 Dose: 88 mcg Metoprolol Tartrate (Lopressor) 25 mg PO DAILY [facility] Last Admin: 08/19/17 10:09 Dose: 25 mg Pneumococcal Polyvalent Vaccine (Pneumovax 23 Vaccine) 0.5 ml IM .ONCE ONE Stop: 08/21/17 10:01 Rosuvastatin Calcium (Crestor) 5 mg PO HS [facility] Last Admin: 08/19/17 21:03 Dose: 5 mg - Labs Labs: 08/20/17 06:48 08/20/17 06:48
--- NOTE | 2017-08-20 07:56 | HP ---
HISTORY OF PRESENT ILLNESS: Ms. Rowley is a 76-year-old female chief complaint left sided headache, weakness. Patient came to the ER, advised admission. Patient bed, continued the blood pressure medication. The patient had significant loss of vision in the same side, left side of the head . PHYSICAL EXAMINATION: GENERAL: The patient is awake, alert, and oriented. VITAL SIGNS: Temperature 98, pulse 90. HEENT: Within normal limits. NECK: Supple. CHEST: Symmetrical. HEART: Regular. ABDOMEN: Soft. EXTREMITIES: No edema. ASSESSMENT AND PLAN: New-onset headache the patient has loss of vision on the same side Zoë Rodriguez MD
[2017-08-20] MEDS: Enoxaparin 40 mg Syringe SC SCH (10:42)
--- NOTE | 2017-08-20 11:09 | CT ---
PROCEDURE: CT HEAD WITHOUT CONTRAST. HISTORY: MCA stroke. COMPARISON: Comparison made with prior MRI and CTA of the brain 08/19/2017 as well as prior noncontrast CT scan 08/18/2017 TECHNIQUE: Axial computed tomography images were obtained through the head/brain without intravenous contrast. Radiation dose: Total exam DLP = 846.8 mGy-cm. This CT exam was performed using one or more of the following dose reduction techniques: Automated exposure control, adjustment of the mA and/or kV according to patient size, and/or use of iterative reconstruction technique. FINDINGS: HEMORRHAGE: No intracranial hemorrhage. No acute parenchymal, subarachnoid nor extra-axial hemorrhage. BRAIN: Re- demonstrated is a moderately large size acute infarct seen involving distal parietal branches of the left middle cerebral artery. Which are and extends from the left posterior subinsular extending along the posterior margin of the sylvian fissure superiorly into the left parietal region with some cortical sparing of left posterior frontoparietal cortex. . There is are overlying sulcal effacement and mild compression of the right lateral ventricle more so along mid and posterior margin. No significant midline shift. No additional acute infarcts are identified at this time. . Less well seen are mild to moderate diffuse/confluent chronic periventricular white matter ischemic changes with multiple more discrete chronic appearing lacunar type infarcts scattered about deep and subcortical white matter as well as both cerebral hemispheres. There are a few scattered chronic tiny lacunar type infarcts also present of poorly seen compared to high-resolution MRI. . The chronic right posterior inferior cerebellar infarct unchanged. VENTRICLES: No obstructive hydrocephalus. CALVARIUM: Unremarkable. PARANASAL SINUSES: Mild mucosal thickening seen within a few ethmoid air cells. There is also mild mucosal thickening right chamber sphenoid sinus MASTOID AIR CELLS: Unremarkable as visualized. No inflammatory changes. OTHER FINDINGS: None. IMPRESSION: Re- demonstrated is a moderately large size acute infarct seen involving distal parietal branches of the left middle cerebral artery. Which are and extends from the left posterior subinsular extending along the posterior margin of the sylvian fissure superiorly into the left parietal region with some cortical sparing of left posterior frontoparietal cortex. . There is are overlying sulcal effacement and mild compression of the right lateral ventricle more so along mid and posterior margin. No significant midline shift. No additional acute infarcts are identified at this time. . Less well seen are mild to moderate diffuse/confluent chronic periventricular white matter ischemic changes with multiple more discrete chronic appearing lacunar type infarcts scattered about deep and subcortical white matter as well as both cerebral hemispheres. There are a few scattered chronic tiny lacunar type infarcts also present of poorly seen compared to high-resolution MRI. . The chronic right posterior inferior cerebellar infarct unchanged.
--- NOTE | 2017-08-20 11:10 | CP.PCM.PN ---
Subjective - Date & Time of Evaluation Date of Evaluation: 08/20/17 Time of Evaluation: 11:06 - Subjective Subjective: Progress Note for Dr. Rodriguez's Service Pt seen and examined at bedside. She was schedule for stress echo this morning and was maintained npo however she refused the test this morning and this will be rescheduled. She was seen by neuro for L MCA stroke identified on MRI. Repeat CT head will take place this morning. Objective - Vital Signs/Intake and Output Vital Signs (last 24 hours): Temp Pulse Resp BP Pulse Ox 98.0 F 62 18 155/74 H 97 08/20/17 07:00 08/20/17 07:00 08/20/17 07:00 08/20/17 10:41 08/20/17 07:00 Intake and Output: 08/20/17 08/20/17 06:59 18:59 Intake Total 800 Balance 800 - Medications Medications: Current Medications Acetaminophen (Tylenol 325mg Tab) 650 mg PO Q6 PRN PRN Reason: Pain, moderate (4-7) Acetaminophen/Butalbital/Caffeine (Fioricet) 1 tab PO Q4 PRN PRN Reason: Headache Aspirin (Aspirin Chewable) 81 mg PO DAILY [facility] Last Admin: 08/20/17 10:42 Dose: 81 mg Clopidogrel Bisulfate (Plavix) 75 mg PO DAILY [facility] Last Admin: 08/20/17 10:41 Dose: 75 mg Enoxaparin Sodium (Lovenox) 40 mg SC DAILY [facility] Last Admin: 08/20/17 10:42 Dose: 40 mg Famotidine (Pepcid) 20 mg PO DAILY [facility] Last Admin: 08/20/17 10:42 Dose: 20 mg Furosemide (Lasix) 40 mg IVP DAILY [facility] Last Admin: 08/19/17 10:09 Dose: 40 mg Sodium Chloride (Sodium Chloride 0.9%) 1,000 mls @ 100 mls/hr IV .Q10H [facility] Last Admin: 08/20/17 04:20 Dose: Not Given Levothyroxine Sodium (Synthroid) 88 mcg PO 0630 [facility] Last Admin: 08/20/17 07:06 Dose: 88 mcg Metoprolol Tartrate (Lopressor) 25 mg PO DAILY [facility] Last Admin: 08/20/17 10:41 Dose: 25 mg Pneumococcal Polyvalent Vaccine (Pneumovax 23 Vaccine) 0.5 ml IM .ONCE ONE Stop: 08/21/17 10:01 Rosuvastatin Calcium (Crestor) 5 mg PO HS [facility] Last Admin: 08/19/17 21:03 Dose: 5 mg - Labs Labs: 08/20/17 06:48 08/20/17 06:48 - Constitutional Appears: No Acute Distress - Head Exam Head Exam: ATRAUMATIC, NORMOCEPHALIC - Eye Exam Eye Exam: EOMI, Normal appearance - ENT Exam ENT Exam: Mucous Membranes Moist - Respiratory Exam Respiratory Exam: Clear to Ausculation Bilateral, NORMAL BREATHING PATTERN - Cardiovascular Exam Cardiovascular Exam: REGULAR RHYTHM, +S1, +S2 - GI/Abdominal Exam GI & Abdominal Exam: Soft. absent: Tenderness - Neurological Exam Neurological Exam: Alert, Awake, Oriented x3 Neuro motor strength exam: Right Upper Extremity: 3, Right Lower Extremity: 3 - Psychiatric Exam Psychiatric exam: Normal Affect, Normal Mood - Skin Skin Exam: Dry, Warm Assessment and Plan - Assessment and Plan (Free Text) Plan: 1. L MCA infarction Telemetry admission Neurology consult. Dr. Kellie Simental. recs appreciated 1. Stop all blood pressure meds and allow permissive hypertension. 2. start aspirin and plavix 3. IV fluids 100ccs normal saline now and per hour 4. ECHO 5. PT/St/ot 6. repeat ct head in am. 7. Telemetry 8. Neurochecks Rheumatology consult. Dr. Skinner. recs appreciated R/O temporal artereritis ESR 40 CT head 08/18 shows hypodensity, no acute bleed MRI brain 08/19 L posterior MCA infarct CT head 08/20 repeat- L MCA infarct confirmed Fioricet 1T PO Q4hrs prn for pain control -asa 81 mg po daily -lovenox 40 mg sc daily -crestor 5mg PO HS -neurochecks q 2 hrs -NS 100 cc/hr -plavix 75 mg po daily -Hold all BP meds as per neuro request 2. CHF with preserved ejection fraction -asa 81 daily -trops x 3- 0.1520-> 0.1570 -> 0.1090 -I/O -daily weight -BP meds on hold as above Consult placed to Dr. Her- help appreciated Echo to be rescheduled- not done today 3. hx of htn -BP meds on hold as above 4. hx of hypothyroidism -synthroid 88 mcg po daily -tsh 0.94 3. GI/DVT ppx -protonix 40 daily -SCDs -add lovenox 40 mg sc daily -PT/OT Case discussed with Dr. Rodriguez All management as per Dr. Rodriguez
--- NOTE | 2017-08-20 23:10 | CP.PCM.PN ---
Subjective - Date & Time of Evaluation Date of Evaluation: 08/20/17 Time of Evaluation: 19:05 - Subjective Subjective: Patient seen and evaluated No cardiac symptoms CVA Stress test cancelled ECHO pending Objective - Vital Signs/Intake and Output Vital Signs (last 24 hours): Temp Pulse Resp BP Pulse Ox 98 F 65 20 113/63 99 08/20/17 15:15 08/20/17 15:15 08/20/17 15:15 08/20/17 15:15 08/20/17 15:15 Intake and Output: 08/20/17 08/21/17 18:59 06:59 Intake Total 900 Balance 900 - Medications Medications: Current Medications Acetaminophen (Tylenol 325mg Tab) 650 mg PO Q6 PRN PRN Reason: Pain, moderate (4-7) Acetaminophen/Butalbital/Caffeine (Fioricet) 1 tab PO Q4 PRN PRN Reason: Headache Aspirin (Aspirin Chewable) 81 mg PO DAILY [facility] Last Admin: 08/20/17 10:42 Dose: 81 mg Clopidogrel Bisulfate (Plavix) 75 mg PO DAILY [facility] Last Admin: 08/20/17 10:41 Dose: 75 mg Enoxaparin Sodium (Lovenox) 40 mg SC DAILY [facility] Last Admin: 08/20/17 10:42 Dose: 40 mg Famotidine (Pepcid) 20 mg PO DAILY [facility] Last Admin: 08/20/17 10:42 Dose: 20 mg Furosemide (Lasix) 40 mg IVP DAILY [facility] Last Admin: 08/19/17 10:09 Dose: 40 mg Sodium Chloride (Sodium Chloride 0.9%) 1,000 mls @ 100 mls/hr IV .Q10H [facility] Last Admin: 08/20/17 22:01 Dose: Not Given Levothyroxine Sodium (Synthroid) 88 mcg PO 0630 [facility] Last Admin: 08/20/17 07:06 Dose: 88 mcg Pneumococcal Polyvalent Vaccine (Pneumovax 23 Vaccine) 0.5 ml IM .ONCE ONE Stop: 08/21/17 10:01 Rosuvastatin Calcium (Crestor) [address] [facility] Last Admin: 08/20/17 22:01 Dose: 5 mg - Labs Labs: 08/20/17 06:48 08/20/17 06:48
[2017-08-21] MEDS: Levothyroxine 88 MCG TAB PO SCH (05:40)
--- NOTE | 2017-08-21 07:38 | PCM.STROKE ---
Interval History Critical Care Time Spent (in minutes): 20 Stroke Date: 08/19/17 - Treatment DVT Prophylaxis: Lovenox (40 mg SC daily) Antiplatelet: Acetylsalicylic acid (ASA) (81 mg PO daily), Plavix (75 mg PO daily) Statin: Rosuvastatin (5 mg PO daily) - Education Written Stroke Education provided regarding: personal risk factors (HTN and dyslipidemia), stroke warning sign/symptoms, how to activate emergency medical services, need to follow up after discharge (for further monitoring of stroke) NIHSS Stroke Scale - Date/Time Evaluation Performed Date Performed: 08/19/17 Time Performed: 14:50 When Was NIHSS Performed: Re-evaluation - How Severe is the Stroke Level of Consciousness: 0=Alert LOC to Questions: 0=Both comments correct LOC to commands: 0=Obeys both correctly Best Gaze: 1=Partial gaze palsy Visual: 1=Partial hemianopia Facial: 1=Minor asymmetry Motor Arm - Left: 0=No drift Motor Arm - Right: 3=No effort against gravity (falls immediately) Motor Leg - Left: 0=No drift Motor Leg - Right: 2=Falls before 5 sec Limb Ataxia: 0=Absent Sensory: 0=Normal Best Language: 0=No aphasia Dysarthia: 0=Normal articulation Extinction & Inattention (Neglect): 1=Partial neglect (mild kalpesh-attention) Score: 9 Exam - Vital Sign Vital Signs: Temp Pulse Resp BP Pulse Ox 98.4 F 61 20 126/77 96 08/21/17 04:20 08/21/17 04:20 08/21/17 04:20 08/21/17 04:20 08/21/17 04:20 Constitutional: No distress Ophthalmoscopic: papilledema Right Pupil: Reactive Right Pupil Size (in mm): 3 Left Pupil: Reactive Left Pupil Size (in mm): 3 Cardiovascular: Regular rate & rhythm Mental Status: Normal: Orientation Cranial Nerve: Normal: Visual Staley (right side neglect), Facial Sensation ( symmetrical in the right side), Palate/Tongue Movement (deviates in the right) Neuro motor strength exam: Left Upper Extremity: 5, Right Upper Extremity: 2/1, Left Lower Extremity: 5, Right Lower Extremity: 3 DTR: Achilles Tendon Left: 4+, Achilles Tendon Right: 1+, Bicep Left: 4+, Bicep Right: 1+, Brachioradialis Left: 4+, Brachioradialis Right: 1+, Patellar Left: 4 +, Patellar Right: 1+, Tricep Left: 4+, Tricep Right: 1+ Coordination: Finger/nose Vascular Risk: Hypertension, Lipids - Data reviewed Laboratory results: 08/20/17 06:48 08/20/17 06:48 Triglycerides 88 mg/dL (0-149) 08/19/17 16:10 Cholesterol 167 mg/dL (0-199) 08/19/17 16:10 LDL Cholesterol Direct 98 mg/dL (0-129) 08/19/17 16:10 HDL Cholesterol 33 mg/dL (30-70) 08/19/17 16:10 Hemoglobin A1c 6.4 % (4.2-6.5) 08/18/17 15:40 MRI images: Viewed and interpreted by me (done 08/19/2017 result showed acute subacute infarction mid to posterior left MCA territory. Mild age related neuro- degenerative changes are reiterated.) Assessment and Plan (1) Ischemic stroke Assessment & Plan: Case discussed with Dr. Simental, continue all current medical, physical, occupational, and speech therapies. Pending echocardiogram. Recommend head of the bed, hydration blood pressure and glycemic controls. Status: Acute
[2017-08-21 07:57] LABS: BASO % 0.3 % (0.0-2.0); EOS # 0.3 K/uL (0.0-0.7); EOS % 4.3 % (0.0-4.0); HEMOGLOBIN 10.8 g/dL (11.0-16.0); LYMPH # 2.9 K/uL (1.0-4.3); LYMPH % 41.7 % (20.0-40.0); MEAN CELL VOLUME 71.9 fL (81.0-99.0); MEAN CORPUSCULAR HEMOGLOBIN 22.4 pg (27.0-31.0); MEAN CORPUSCULAR HGB CONC 31.1 g/dL (33.0-37.0); MEAN PLATELET VOLUME 8.3 fL (7.2-11.7); MONO % 14.9 % (0.0-10.0); NEUT # 2.7 K/uL (1.8-7.0); NEUT % 38.8 % (50.0-75.0); RBC 4.83 Mil/uL (3.80-5.20); RED CELL DISTRIBUTION WIDTH 15.3 % (11.5-14.5); WHITE BLOOD COUNT 6.9 K/uL (4.8-10.8)
[2017-08-21] MEDS: Sodium Chloride 0.9% 1,000 ML IV SCH ×2 (08:18→18:00)
[2017-08-21 08:24] LABS: ALB/GLOB RATIO 0.9 (1.0-2.1); ALBUMIN 3.3 g/dL (3.5-5.0); ALT/SGPT < 6 U/L (9-52); AST/SGOT 30 U/L (14-36); BLOOD UREA NITROGEN 11 mg/dL (7-17); GFR AFRICAN-AMERICAN > 60; GFR NON-AFRICAN AMERICAN > 60
[2017-08-21] MEDS: Enoxaparin 40 mg Syringe SC SCH (09:31)
--- NOTE | 2017-08-21 09:45 | CP.PCM.PN ---
Subjective - Date & Time of Evaluation Date of Evaluation: 08/21/17 Time of Evaluation: 09:44 - Subjective Subjective: Progress Note for Dr. Rodriguez's Service Patient seen and examined at bedside this morning. She is sitting up in bed comfortably. She explains that she is doing well and there are no acute complaints. She refused stress test yesterday morning and has been rescheduled for ECHO today and is awaiting this test. No acute events overnight as per nursing. Objective - Vital Signs/Intake and Output Vital Signs (last 24 hours): Temp Pulse Resp BP Pulse Ox 98.0 F 67 20 138/79 98 08/21/17 07:10 08/21/17 07:42 08/21/17 07:10 08/21/17 07:10 08/21/17 07:10 Intake and Output: 08/21/17 08/21/17 06:59 18:59 Intake Total 800 Balance 800 - Medications Medications: Current Medications Acetaminophen (Tylenol 325mg Tab) 650 mg PO Q6 PRN PRN Reason: Pain, moderate (4-7) Acetaminophen/Butalbital/Caffeine (Fioricet) 1 tab PO Q4 PRN PRN Reason: Headache Last Admin: 08/21/17 09:31 Dose: 1 tab Aspirin (Aspirin Chewable) 81 mg PO DAILY [facility] Last Admin: 08/21/17 09:31 Dose: 81 mg Clopidogrel Bisulfate (Plavix) 75 mg PO DAILY [facility] Last Admin: 08/21/17 09:31 Dose: 75 mg Enoxaparin Sodium (Lovenox) 40 mg SC DAILY [facility] Last Admin: 08/21/17 09:31 Dose: 40 mg Famotidine (Pepcid) 20 mg PO DAILY [facility] Last Admin: 08/21/17 09:31 Dose: 20 mg Furosemide (Lasix) 40 mg IVP DAILY [facility] Last Admin: 08/19/17 10:09 Dose: 40 mg Sodium Chloride (Sodium Chloride 0.9%) 1,000 mls @ 100 mls/hr IV .Q10H [facility] Last Admin: 08/21/17 08:18 Dose: Not Given Levothyroxine Sodium (Synthroid) 88 mcg PO 0630 [facility] Last Admin: 08/21/17 05:40 Dose: 88 mcg Pneumococcal Polyvalent Vaccine (Pneumovax 23 Vaccine) 0.5 ml IM .ONCE ONE Stop: 08/21/17 10:01 Rosuvastatin Calcium (Crestor) 5 mg PO HS [facility] Last Admin: 08/20/17 22:01 Dose: 5 mg - Labs Labs: 08/21/17 07:52 08/21/17 07:52 - Constitutional Appears: Well, No Acute Distress - Head Exam Head Exam: ATRAUMATIC, NORMOCEPHALIC - Eye Exam Eye Exam: EOMI - ENT Exam ENT Exam: Mucous Membranes Moist - Respiratory Exam Respiratory Exam: Clear to Ausculation Bilateral, NORMAL BREATHING PATTERN - Cardiovascular Exam Cardiovascular Exam: REGULAR RHYTHM, +S1, +S2 - GI/Abdominal Exam GI & Abdominal Exam: Soft. absent: Tenderness - Neurological Exam Neurological Exam: Alert, Awake, Oriented x3 - Psychiatric Exam Psychiatric exam: Normal Affect, Normal Mood - Skin Skin Exam: Dry, Warm Assessment and Plan - Assessment and Plan (Free Text) Plan: 1. L MCA infarction Telemetry admission Neurology consult. Dr. Kellie Simental. recs appreciated All blood pressure meds were stopped and permissive hypertension allowed Lasix restarted 08/21 start aspirin and plavix IV fluids 100ccs normal saline now and per hour ECHO- 08/21/17 PT/St/ot repeat ct head Consistent with L MCA infarct Telemetry Neurochecks Rheumatology consult. Dr. Skinner. recs appreciated R/O temporal artereritis ESR 40 CT head 08/18 shows hypodensity, no acute bleed MRI brain 08/19 L posterior MCA infarct CT head 08/20 repeat- L MCA infarct confirmed Fioricet 1T PO Q4hrs prn for pain control -asa 81 mg po daily -lovenox 40 mg sc daily -crestor 5mg PO HS -neurochecks q 2 hrs -NS 100 cc/hr -plavix 75 mg po daily -Hold all BP meds as per neuro request 2. CHF with preserved ejection fraction -asa 81 daily -trops x 3- 0.1520-> 0.1570 -> 0.1090 -I/O -daily weight -lasix 40mg IVP daily Consult placed to Dr. Her- help appreciated Echo to be rescheduled- not done today 3. hx of htn -BP meds on hold as above 4. hx of hypothyroidism -synthroid 88 mcg po daily -tsh 0.94 3. GI/DVT ppx -protonix 40 daily -SCDs -add lovenox 40 mg sc daily -PT/OT Case discussed with Dr. Rodriguez All management as per Dr. Rodriguez
[2017-08-21] MEDS ORDERED: Pneumococcal 23-Valent Vaccine IM ONE (10:00)
[2017-08-21 12:59] LABS: ANTI SREPTOLYSIN O NEGATIVE (NEGATIVE)
[2017-08-21] MEDS: Latanoprost 2.5 ml Opht Soln OU SCH (21:20)
--- NOTE | 2017-08-21 22:20 | CP.PCM.PN ---
Subjective - Date & Time of Evaluation Date of Evaluation: 08/21/17 Time of Evaluation: 10:10 - Subjective Subjective: Patient seen and evaluated Comfortable Denies chest pain and dyspnea Objective - Vital Signs/Intake and Output Vital Signs (last 24 hours): Temp Pulse Resp BP Pulse Ox 97.1 F L 62 18 154/69 H 98 08/21/17 15:15 08/21/17 15:15 08/21/17 15:15 08/21/17 15:15 08/21/17 15:15 - Medications Medications: Current Medications Acetaminophen (Tylenol 325mg Tab) 650 mg PO Q6 PRN PRN Reason: Pain, moderate (4-7) Acetaminophen/Butalbital/Caffeine (Fioricet) 1 tab PO Q4 PRN PRN Reason: Headache Last Admin: 08/21/17 09:31 Dose: 1 tab Aspirin (Aspirin Chewable) 81 mg PO DAILY [facility] Last Admin: 08/21/17 09:31 Dose: 81 mg Clopidogrel Bisulfate (Plavix) 75 mg PO DAILY [facility] Last Admin: 08/21/17 09:31 Dose: 75 mg Enoxaparin Sodium (Lovenox) 40 mg SC DAILY [facility] Last Admin: 08/21/17 09:31 Dose: 40 mg Famotidine (Pepcid) 20 mg PO DAILY [facility] Last Admin: 08/21/17 09:31 Dose: 20 mg Furosemide (Lasix) 40 mg IVP DAILY [facility] Last Admin: 08/19/17 10:09 Dose: 40 mg Sodium Chloride (Sodium Chloride 0.9%) 1,000 mls @ 100 mls/hr IV .Q10H [facility] Last Admin: 08/21/17 18:00 Dose: Not Given Latanoprost (Xalatan Opht) 0 ml OU HS [facility] Last Admin: 08/21/17 21:20 Dose: 2.5 ml Levothyroxine Sodium (Synthroid) 88 mcg PO 0630 [facility] Last Admin: 08/21/17 05:40 Dose: 88 mcg Rosuvastatin Calcium (Crestor) 5 mg PO HS [facility] Last Admin: 08/21/17 21:20 Dose: 5 mg - Labs Labs: 08/21/17 07:52 08/21/17 07:52
[2017-08-22] MEDS: Sodium Chloride 0.9% 1,000 ML IV SCH ×2 (02:45→13:50)
[2017-08-22] MEDS: Levothyroxine 88 MCG TAB PO SCH (05:57)
--- NOTE | 2017-08-22 07:37 | CP.PCM.PN ---
Subjective - Date & Time of Evaluation Date of Evaluation: 08/22/17 Time of Evaluation: 07:33 - Subjective Subjective: Ms. Rowley was seen and examined at the bedside. She is alert, oriented in all spheres. She denies any headache, dizziness, lightheadedness with right side weaker than the left, but improving in comparison from previous examination. She remains with right facial droop, right side weaker. She is able to follow simple commands. There was no untoward events overnight. Objective - Vital Signs/Intake and Output Vital Signs (last 24 hours): Temp Pulse Resp BP Pulse Ox 98.1 F 67 20 154/82 H 98 08/21/17 23:25 08/21/17 23:25 08/21/17 23:25 08/21/17 23:25 08/21/17 23:25 - Medications Medications: Current Medications Acetaminophen (Tylenol 325mg Tab) 650 mg PO Q6 PRN PRN Reason: Pain, moderate (4-7) Acetaminophen/Butalbital/Caffeine (Fioricet) 1 tab PO Q4 PRN PRN Reason: Headache Last Admin: 08/21/17 09:31 Dose: 1 tab Aspirin (Aspirin Chewable) 81 mg PO DAILY [facility] Last Admin: 08/21/17 09:31 Dose: 81 mg Clopidogrel Bisulfate (Plavix) 75 mg PO DAILY [facility] Last Admin: 08/21/17 09:31 Dose: 75 mg Enoxaparin Sodium (Lovenox) 40 mg SC DAILY [facility] Last Admin: 08/21/17 09:31 Dose: 40 mg Famotidine (Pepcid) 20 mg PO DAILY [facility] Last Admin: 08/21/17 09:31 Dose: 20 mg Furosemide (Lasix) 40 mg IVP DAILY [facility] Last Admin: 08/19/17 10:09 Dose: 40 mg Sodium Chloride (Sodium Chloride 0.9%) 1,000 mls @ 100 mls/hr IV .Q10H [facility] Last Admin: 08/22/17 02:45 Dose: 100 mls/hr Latanoprost (Xalatan Opht) 0 ml OU HS [facility] Last Admin: 08/21/17 21:20 Dose: 2.5 ml Levothyroxine Sodium (Synthroid) 88 mcg PO 0630 [facility] Last Admin: 08/22/17 05:57 Dose: 88 mcg Rosuvastatin Calcium (Crestor) 5 mg PO HS [facility] Last Admin: 08/21/17 21:20 Dose: 5 mg - Labs Labs: 08/21/17 07:52 08/21/17 07:52 - Constitutional Appears: No Acute Distress - Head Exam Head Exam: NORMAL INSPECTION - Eye Exam Pupil Exam: PERRL - Neurological Exam Neurological Exam: Alert, Awake, Oriented x3 Neuro motor strength exam: Left Upper Extremity: 5, Right Upper Extremity: 3, Left Lower Extremity: 5, Right Lower Extremity: 3 Additional comments: Neurological improved from previous examination, with right upper extremity drift improving. Assessment and Plan (1) Ischemic stroke Assessment & Plan: Case discussed with Dr. Simental, continue all current medical, physical, occupational, and speech therapies. Recommend rehab for discharge planning, head of the bed, hydration blood pressure and glycemic controls. Status: Acute
[2017-08-22 08:41] LABS: BASO % 0.7 % (0.0-2.0); EOS # 0.5 K/uL (0.0-0.7); EOS % 7.7 % (0.0-4.0); HEMOGLOBIN 10.8 g/dL (11.0-16.0); LYMPH # 2.6 K/uL (1.0-4.3); LYMPH % 37.7 % (20.0-40.0); MEAN CELL VOLUME 71.9 fL (81.0-99.0); MEAN CORPUSCULAR HGB CONC 30.6 g/dL (33.0-37.0); MEAN PLATELET VOLUME 8.5 fL (7.2-11.7); MONO # 0.8 K/uL (0.0-0.8); MONO % 12.4 % (0.0-10.0); NEUT # 2.8 K/uL (1.8-7.0); NEUT % 41.5 % (50.0-75.0); NRBC % 0.1 % (0.0-2.0); RBC 4.88 Mil/uL (3.80-5.20); RED CELL DISTRIBUTION WIDTH 15.2 % (11.5-14.5); WHITE BLOOD COUNT 6.8 K/uL (4.8-10.8)
[2017-08-22 08:53] LABS: ALBUMIN 3.4 g/dL (3.5-5.0); ALT/SGPT 8 U/L (9-52); AST/SGOT 31 U/L (14-36); BLOOD UREA NITROGEN 7 mg/dL (7-17); CALCIUM 9.2 mg/dl (8.6-10.4); GFR AFRICAN-AMERICAN > 60; GFR NON-AFRICAN AMERICAN > 60
--- NOTE | 2017-08-22 09:58 | CP.PCM.PN ---
Subjective - Date & Time of Evaluation Date of Evaluation: 08/22/17 Time of Evaluation: 09:58 - Subjective Subjective: Progress Note for Dr. Rodriguez's Service Patient seen and examined at bedside this morning. She is sitting up in bed comfortably. She explains that she is doing well and there are no acute complaints. She is being prepared for DC this morning and Sw is finding her placement in [place]. No acute events overnight. Objective - Vital Signs/Intake and Output Vital Signs (last 24 hours): Temp Pulse Resp BP Pulse Ox 98.5 F 70 20 134/77 100 08/22/17 07:45 08/22/17 07:45 08/22/17 07:45 08/22/17 07:45 08/22/17 07:45 - Medications Medications: Current Medications Acetaminophen (Tylenol 325mg Tab) 650 mg PO Q6 PRN PRN Reason: Pain, moderate (4-7) Acetaminophen/Butalbital/Caffeine (Fioricet) 1 tab PO Q4 PRN PRN Reason: Headache Last Admin: 08/21/17 09:31 Dose: 1 tab Aspirin (Aspirin Chewable) 81 mg PO DAILY [facility] Last Admin: 08/21/17 09:31 Dose: 81 mg Clopidogrel Bisulfate (Plavix) 75 mg PO DAILY [facility] Last Admin: 08/21/17 09:31 Dose: 75 mg Enoxaparin Sodium (Lovenox) 40 mg SC DAILY [facility] Last Admin: 08/21/17 09:31 Dose: 40 mg Famotidine (Pepcid) 20 mg PO DAILY [facility] Last Admin: 08/21/17 09:31 Dose: 20 mg Furosemide (Lasix) 40 mg IVP DAILY [facility] Last Admin: 08/19/17 10:09 Dose: 40 mg Sodium Chloride (Sodium Chloride 0.9%) 1,000 mls @ 100 mls/hr IV .Q10H [facility] Last Admin: 08/22/17 02:45 Dose: 100 mls/hr Latanoprost (Xalatan Opht) 0 ml OU HS [facility] Last Admin: 08/21/17 21:20 Dose: 2.5 ml Levothyroxine Sodium (Synthroid) 88 mcg PO 0630 [facility] Last Admin: 08/22/17 05:57 Dose: 88 mcg Rosuvastatin Calcium (Crestor) 5 mg PO HS [facility] Last Admin: 08/21/17 21:20 Dose: 5 mg - Labs Labs: 08/22/17 08:26 08/22/17 08:26 - Constitutional Appears: No Acute Distress - Head Exam Head Exam: ATRAUMATIC, NORMOCEPHALIC - Eye Exam Eye Exam: EOMI - ENT Exam ENT Exam: Mucous Membranes Moist - Respiratory Exam Respiratory Exam: Clear to Ausculation Bilateral, NORMAL BREATHING PATTERN - Cardiovascular Exam Cardiovascular Exam: REGULAR RHYTHM, +S1, +S2 - GI/Abdominal Exam GI & Abdominal Exam: Soft. absent: Tenderness - Neurological Exam Neurological Exam: Alert, Awake, Oriented x3 Neuro motor strength exam: Left Upper Extremity: 5, Right Upper Extremity: 3, Left Lower Extremity: 5, Right Lower Extremity: 3 - Psychiatric Exam Psychiatric exam: Normal Affect, Normal Mood - Skin Skin Exam: Dry, Warm Assessment and Plan - Assessment and Plan (Free Text) Plan: 1. L MCA infarction Telemetry admission Neurology consult. Dr. Kellie Simental. recs appreciated All blood pressure meds were stopped and permissive hypertension allowed Lasix restarted 08/21 start aspirin and plavix IV fluids 100ccs normal saline now and per hour ECHO- 08/21/17 PT/St/ot repeat ct head Consistent with L MCA infarct Telemetry Neurochecks Rheumatology consult. Dr. Skinner. recs appreciated R/O temporal artereritis ESR 40 CT head 08/18 shows hypodensity, no acute bleed MRI brain 08/19 L posterior MCA infarct CT head 08/20 repeat- L MCA infarct confirmed Fioricet 1T PO Q4hrs prn for pain control -asa 81 mg po daily -lovenox 40 mg sc daily -crestor 5mg PO HS -neurochecks q 2 hrs -NS 100 cc/hr -plavix 75 mg po daily -Hold all BP meds as per neuro request- only lasix reintroduced 2. CHF with preserved ejection fraction -asa 81 daily -trops x 3- 0.1520-> 0.1570 -> 0.1090 -I/O -daily weight -lasix 40mg IVP daily Consult placed to Dr. Her- help appreciated Echo to be rescheduled?- not done 3. hx of htn -BP meds on hold as above- lasix only reintroduced -stable condition 4. hx of hypothyroidism -synthroid 88 mcg po daily -tsh 0.94 3. GI/DVT ppx -protonix 40 daily -SCDs -add lovenox 40 mg sc daily -PT/OT Planning for D/C to acute rehab once authorization is granted. Case discussed with Dr. Rodriguez All management as per Dr. Rodriguez
[2017-08-22] MEDS: Enoxaparin 40 mg Syringe SC SCH (10:09)
[2017-08-22 11:18] LABS: ANA PATTERN SPECKLED
[2017-08-22 15:31] LABS: RNP <1.0 AI (<1.0)
[2017-08-22] MEDS ORDERED: Sodium Chloride 0.9% 1,000 ML IV SCH (20:15)
[2017-08-22] MEDS: Latanoprost 2.5 ml Opht Soln OU SCH (21:14)
--- NOTE | 2017-08-23 04:22 | CP.PCM.PN ---
Subjective - Date & Time of Evaluation Date of Evaluation: 08/23/17 Time of Evaluation: 04:15 - Subjective Subjective: Patient complaining of difficulty breathing, currently on O2 via nc at 2L. O2 saturation 100%. Per nurse and emr, patient to continue hydration-permission htn , with ns@100mls/hr. Patient using accessory muscles. +rales bilaterally, decreased breath sounds bilaterally. CXR ordered. Patient given lasix 40mg IV once and bipap ordered. Objective - Vital Signs/Intake and Output Vital Signs (last 24 hours): Temp Pulse Resp BP Pulse Ox 99.4 F 60 20 141/92 H 100 08/22/17 23:27 08/23/17 03:49 08/23/17 02:00 08/23/17 02:00 08/23/17 02:00 Intake and Output: 08/22/17 08/23/17 18:59 06:59 Intake Total 1140 Balance 1140 - Medications Medications: Current Medications Acetaminophen (Tylenol 325mg Tab) 650 mg PO Q6 PRN PRN Reason: Pain, moderate (4-7) Acetaminophen/Butalbital/Caffeine (Fioricet) 1 tab PO Q4 PRN PRN Reason: Headache Last Admin: 08/21/17 09:31 Dose: 1 tab Aspirin (Aspirin Chewable) 81 mg PO DAILY [facility] Last Admin: 08/22/17 10:09 Dose: 81 mg Clopidogrel Bisulfate (Plavix) 75 mg PO DAILY [facility] Last Admin: 08/22/17 10:09 Dose: 75 mg Enoxaparin Sodium (Lovenox) 40 mg SC DAILY [facility] Last Admin: 08/22/17 10:09 Dose: 40 mg Famotidine (Pepcid) 20 mg PO DAILY [facility] Last Admin: 08/22/17 10:09 Dose: 20 mg Furosemide (Lasix) 40 mg IVP DAILY [facility] Last Admin: 08/19/17 10:09 Dose: 40 mg Sodium Chloride (Sodium Chloride 0.9%) 1,000 mls @ 100 mls/hr IV .Q10H [facility] Last Admin: 08/22/17 21:15 Dose: 100 mls/hr Latanoprost (Xalatan Opht) 0 ml OU HS [facility] Last Admin: 08/22/17 21:14 Dose: 2.5 ml Levothyroxine Sodium (Synthroid) 88 mcg PO 0630 [facility] Last Admin: 08/22/17 05:57 Dose: 88 mcg Rosuvastatin Calcium (Crestor) 5 mg PO HS [facility] Last Admin: 08/22/17 21:14 Dose: 5 mg - Labs Labs: 08/22/17 08:26 08/22/17 08:26
[2017-08-23] MEDS: Levothyroxine 88 MCG TAB PO SCH (06:33)
[2017-08-23 06:43] LABS: BASO # 0.1 K/uL (0.0-0.2); BASO % 1.3 % (0.0-2.0); EOS # 0.6 K/uL (0.0-0.7); HEMOGLOBIN 10.5 g/dL (11.0-16.0); LYMPH # 2.1 K/uL (1.0-4.3); LYMPH % 34.2 % (20.0-40.0); MEAN CELL VOLUME 71.7 fL (81.0-99.0); MEAN CORPUSCULAR HEMOGLOBIN 22.6 pg (27.0-31.0); MEAN CORPUSCULAR HGB CONC 31.5 g/dL (33.0-37.0); MEAN PLATELET VOLUME 8.2 fL (7.2-11.7); MONO # 0.7 K/uL (0.0-0.8); NEUT # 2.7 K/uL (1.8-7.0); NEUT % 43.5 % (50.0-75.0); NRBC % 0.1 % (0.0-2.0); RBC 4.64 Mil/uL (3.80-5.20); RED CELL DISTRIBUTION WIDTH 15.4 % (11.5-14.5); WHITE BLOOD COUNT 6.2 K/uL (4.8-10.8)
[2017-08-23 07:01] LABS: ALBUMIN 3.6 g/dL (3.5-5.0); ALT/SGPT 8 U/L (9-52); AST/SGOT 35 U/L (14-36); BLOOD UREA NITROGEN 7 mg/dL (7-17); CALCIUM 9.3 mg/dl (8.6-10.4); GFR AFRICAN-AMERICAN > 60; GFR NON-AFRICAN AMERICAN > 60
--- NOTE | 2017-08-23 08:21 | CP.PCM.PN ---
Subjective - Date & Time of Evaluation Date of Evaluation: 08/22/17 Time of Evaluation: 12:05 - Subjective Subjective: Patient seen and evaluated denies chest pain and dyspnea Daughter at bed side Objective - Vital Signs/Intake and Output Vital Signs (last 24 hours): Temp Pulse Resp BP Pulse Ox 97.8 F 60 18 139/77 95 08/23/17 07:10 08/23/17 07:10 08/23/17 07:10 08/23/17 07:10 08/23/17 07:10 Intake and Output: 08/23/17 08/23/17 06:59 18:59 Intake Total 1890 Balance 1890 - Medications Medications: Current Medications Acetaminophen (Tylenol 325mg Tab) 650 mg PO Q6 PRN PRN Reason: Pain, moderate (4-7) Acetaminophen/Butalbital/Caffeine (Fioricet) 1 tab PO Q4 PRN PRN Reason: Headache Last Admin: 08/21/17 09:31 Dose: 1 tab Aspirin (Aspirin Chewable) 81 mg PO DAILY [facility] Last Admin: 08/22/17 10:09 Dose: 81 mg Clopidogrel Bisulfate (Plavix) 75 mg PO DAILY [facility] Last Admin: 08/22/17 10:09 Dose: 75 mg Enoxaparin Sodium (Lovenox) 40 mg SC DAILY [facility] Last Admin: 08/22/17 10:09 Dose: 40 mg Famotidine (Pepcid) 20 mg PO DAILY [facility] Last Admin: 08/22/17 10:09 Dose: 20 mg Furosemide (Lasix) 40 mg IVP DAILY [facility] Last Admin: 08/19/17 10:09 Dose: 40 mg Latanoprost (Xalatan Opht) 0 ml OU HS [facility] Last Admin: 08/22/17 21:14 Dose: 2.5 ml Levothyroxine Sodium (Synthroid) 88 mcg PO 0630 [facility] Last Admin: 08/23/17 06:33 Dose: 88 mcg Rosuvastatin Calcium (Crestor) 5 mg PO HS [facility] Last Admin: 08/22/17 21:14 Dose: 5 mg - Labs Labs: 08/23/17 06:38 08/23/17 06:38 Assessment and Plan - Assessment and Plan (Free Text) Assessment: CVA HTN Diastolic CHF No further cardiac work up at this time
--- NOTE | 2017-08-23 08:59 | RAD ---
HISTORY: sob COMPARISON: Comparison is made with 08/18/2017 FINDINGS: LUNGS: Again noted are bilateral diffuse prominent interstitial and reticular opacities in the lungs. PLEURA: No evidence of significant pleural effusion or pneumothorax. CARDIOVASCULAR: Normal. OSSEOUS STRUCTURES: The cardiac silhouette is upper normal in size. VISUALIZED UPPER ABDOMEN: Normal. OTHER FINDINGS: None. IMPRESSION: Prominent interstitial lung markings. Findings could be due to pulmonary congestion/fluid overload.
[2017-08-23] MEDS: Enoxaparin 40 mg Syringe SC SCH (10:12)
[2017-08-23] MEDS: Latanoprost 2.5 ml Opht Soln OU SCH (21:07)
[2017-08-24] MEDS: Levothyroxine 88 MCG TAB PO SCH (05:51)
[2017-08-24 09:07] LABS: BASO # 0.1 K/uL (0.0-0.2); BASO % 0.8 % (0.0-2.0); EOS # 0.4 K/uL (0.0-0.7); EOS % 6.8 % (0.0-4.0); HEMOGLOBIN 11.7 g/dL (11.0-16.0); LYMPH # 2.6 K/uL (1.0-4.3); LYMPH % 40.9 % (20.0-40.0); MEAN CELL VOLUME 71.8 fL (81.0-99.0); MEAN CORPUSCULAR HEMOGLOBIN 22.3 pg (27.0-31.0); MEAN CORPUSCULAR HGB CONC 31.1 g/dL (33.0-37.0); MEAN PLATELET VOLUME 8.2 fL (7.2-11.7); MONO # 0.6 K/uL (0.0-0.8); MONO % 9.7 % (0.0-10.0); NEUT # 2.7 K/uL (1.8-7.0); NEUT % 41.8 % (50.0-75.0); NRBC % 0.2 % (0.0-2.0); RBC 5.25 Mil/uL (3.80-5.20); RED CELL DISTRIBUTION WIDTH 15.5 % (11.5-14.5); WHITE BLOOD COUNT 6.4 K/uL (4.8-10.8)
[2017-08-24 09:23] LABS: ALB/GLOB RATIO 1.1 (1.0-2.1); ALBUMIN 4.2 g/dL (3.5-5.0); ALT/SGPT 21 U/L (9-52); AST/SGOT 41 U/L (14-36); BLOOD UREA NITROGEN 8 mg/dL (7-17); CALCIUM 9.7 mg/dl (8.6-10.4); GFR AFRICAN-AMERICAN > 60; GFR NON-AFRICAN AMERICAN > 60
[2017-08-24] MEDS: Enoxaparin 40 mg Syringe SC SCH (10:04)
--- NOTE | 2017-08-24 11:00 | CP.PCM.PN ---
Subjective - Date & Time of Evaluation Date of Evaluation: 08/24/17 Time of Evaluation: 10:58 - Subjective Subjective: Ms Rowley was seen and examined at the bedside. She is alert, oriented in all spheres. She denies any headache, dizziness, lightheadedness. She remains with right side weakness, but its improving no longer right upper extremity drift.She denies any SOB at present but had an episode of SOB 2 nights ago with chest x-ray showed pulmonary congestion, patient was placed on bipap machine and lasix was administered with relief. There was no untoward events overnight. Objective - Vital Signs/Intake and Output Vital Signs (last 24 hours): Temp Pulse Resp BP Pulse Ox 98.2 F 65 20 132/80 100 08/24/17 07:55 08/24/17 08:40 08/24/17 07:55 08/24/17 10:04 08/24/17 07:55 Intake and Output: 08/24/17 08/24/17 06:59 18:59 Intake Total 500 Output Total 700 Balance -200 - Medications Medications: Current Medications Acetaminophen (Tylenol 325mg Tab) 650 mg PO Q6 PRN PRN Reason: Pain, moderate (4-7) Acetaminophen/Butalbital/Caffeine (Fioricet) 1 tab PO Q4 PRN PRN Reason: Headache Last Admin: 08/21/17 09:31 Dose: 1 tab Aspirin (Aspirin Chewable) 81 mg PO DAILY [facility] Last Admin: 08/24/17 10:04 Dose: 81 mg Clopidogrel Bisulfate (Plavix) 75 mg PO DAILY [facility] Last Admin: 08/24/17 10:04 Dose: 75 mg Enoxaparin Sodium (Lovenox) 40 mg SC DAILY [facility] Last Admin: 08/24/17 10:04 Dose: 40 mg Famotidine (Pepcid) 20 mg PO DAILY [facility] Last Admin: 08/24/17 10:04 Dose: 20 mg Furosemide (Lasix) 40 mg IVP DAILY [facility] Last Admin: 08/24/17 10:04 Dose: 40 mg Latanoprost (Xalatan Opht) 0 ml OU HS [facility] Last Admin: 08/23/17 21:07 Dose: 1 ml Levothyroxine Sodium (Synthroid) 88 mcg PO 0630 [facility] Last Admin: 08/24/17 05:51 Dose: 88 mcg Rosuvastatin Calcium (Crestor) 5 mg PO HS [facility] Last Admin: 08/23/17 21:07 Dose: 5 mg - Labs Labs: 08/24/17 08:59 08/24/17 08:59 - Constitutional Appears: No Acute Distress - Head Exam Head Exam: NORMAL INSPECTION - Eye Exam Eye Exam: EOMI Pupil Exam: PERRL - Neurological Exam Neurological Exam: Alert, Awake Neuro motor strength exam: Left Upper Extremity: 5, Right Upper Extremity: 3, Left Lower Extremity: 5, Right Lower Extremity: 3 Additional comments: neurological improve with right side weakness in comparison from previous examination of right side neglect. Assessment and Plan (1) Ischemic stroke Assessment & Plan: Case discussed with Dr. Simental, continue all current medical, physical, occupational, and speech therapies. Recommend rehab for discharge planning, head of the bed, hydration blood pressure and glycemic controls. Status: Acute
--- NOTE | 2017-08-24 14:44 | CP.PCM.CON ---
History of Present Illness - History of Present Illness History of Present Illness: 76 year old female admitted with shortness of breath and right sided weakness. She has also exerienced dizziness and recurent headaches. Evaluation for connective tissue disease was negative. Nicole does suffer from osteoarthritis. Review of Systems - Constitutional Constitutional: Weakness - EENT Ears: Dizziness Nose/Mouth/Throat: Dry Mouth - Gastrointestinal Gastrointestinal: Constipation - Reproductive: Female Reproductive:Female: Post Menopausal - Musculoskeletal Musculoskeletal: Arthralgias - Integumentary Integumentary: Dry Skin - Neurological Neurological: Weakness Past Patient History - Past Medical History & Family History Past Medical History?: Yes - Past Social History Smoking Status: Never Smoked Chewing Tobacco Use: No Cigar Use: No Alcohol: None Drugs: Denies - CARDIAC Hx Hypercholesterolemia: Yes Hx Hypertension: Yes - NEUROLOGICAL HX Cerebrovascular Accident: Yes (As per patient had mild CVA) Other/Comment: As per Patient she had a mild stroke years ago, patient not sure what year. - ENDOCRINE/METABOLIC Other/Comment: Pre diabetic - MUSCULOSKELETAL/RHEUMATOLOGICAL Hx Osteoarthritis: Yes Hx Rheumatoid Arthritis: Yes - GENITOURINARY/GYNECOLOGICAL Other/Comment: fibroids - PSYCHIATRIC Hx Substance Use: No - SURGICAL HISTORY Hx Surgeries: No - ANESTHESIA Hx Anesthesia: No Meds Allergies/Adverse Reactions: Allergies Allergy/AdvReac Type Severity Reaction Status Date / Time No Known Allergies Allergy Verified 08/18/17 08:08 - Medications Medications: Current Medications Acetaminophen (Tylenol 325mg Tab) 650 mg PO Q6 PRN PRN Reason: Pain, moderate (4-7) Acetaminophen/Butalbital/Caffeine (Fioricet) 1 tab PO Q4 PRN PRN Reason: Headache Last Admin: 08/21/17 09:31 Dose: 1 tab Aspirin (Aspirin Chewable) 81 mg PO DAILY [facility] Last Admin: 08/24/17 10:04 Dose: 81 mg Clopidogrel Bisulfate (Plavix) 75 mg PO DAILY [facility] Last Admin: 08/24/17 10:04 Dose: 75 mg Enoxaparin Sodium (Lovenox) 40 mg SC DAILY [facility] Last Admin: 08/24/17 10:04 Dose: 40 mg Famotidine (Pepcid) 20 mg PO DAILY [facility] Last Admin: 08/24/17 10:04 Dose: 20 mg Furosemide (Lasix) 40 mg IVP DAILY [facility] Last Admin: 08/24/17 10:04 Dose: 40 mg Latanoprost (Xalatan Opht) 0 ml OU HS [facility] Last Admin: 08/23/17 21:07 Dose: 1 ml Levothyroxine Sodium (Synthroid) 88 mcg PO 0630 [facility] Last Admin: 08/24/17 05:51 Dose: 88 mcg Rosuvastatin Calcium (Crestor) 5 mg PO HS [facility] Last Admin: 08/23/17 21:07 Dose: 5 mg Physical Exam - Constitutional Appears: No Acute Distress - Head Exam Head Exam: NORMOCEPHALIC - Eye Exam Eye Exam: Normal appearance Pupil Exam: NORMAL ACCOMODATION - ENT Exam ENT Exam: Normal Exam - Neck Exam Neck exam: Positive for: Normal Inspection - Respiratory Exam Respiratory Exam: Decreased Breath Sounds - Cardiovascular Exam Cardiovascular Exam: REGULAR RHYTHM - GI/Abdominal Exam GI & Abdominal Exam: Normal Bowel Sounds - Rectal Exam Rectal Exam: Deferred - Exam External exam: NORMAL EXTERNAL EXAM - Extremities Exam Extremities exam: Positive for: pedal pulses present - Back Exam Back exam: NORMAL INSPECTION - Neurological Exam Neurological exam: Oriented x3 - Psychiatric Exam Psychiatric exam: Normal Affect - Skin Skin Exam: Dry Results - Vital Signs Recent Vital Signs: Last Vital Signs Temp 98.2 F 08/24/17 07:55 Pulse 65 08/24/17 08:40 Resp 20 08/24/17 07:55 BP 132/80 08/24/17 10:04 Pulse Ox 100 08/24/17 07:55 - Labs Result Diagrams: 08/24/17 08:59 08/24/17 08:59 Labs: Laboratory Results - last 24 hr 08/23/17 08/24/17 08/24/17 18:35 08:59 08:59 WBC 6.4 RBC 5.25 H Hgb 11.7 Hct 37.7 MCV 71.8 L MCH 22.3 L MCHC 31.1 L RDW 15.5 H Plt Count 365 MPV 8.2 Neut % (Auto) 41.8 L Lymph % (Auto) 40.9 H Rowan % (Auto) 9.7 Eos % (Auto) 6.8 H Baso % (Auto) 0.8 Neut # (Auto) 2.7 Lymph # (Auto) 2.6 Rowan # (Auto) 0.6 Eos # (Auto) 0.4 Baso # (Auto) 0.1 Sodium 141 Potassium 4.4 Chloride 100 Carbon Dioxide 30 Anion Gap 15 BUN 8 Creatinine 0.7 Est GFR ( Amer) > 60 Est GFR (Non-Af Amer) > 60 POC Glucose (mg/dL) 121 H Random Glucose 101 Calcium 9.7 Total Bilirubin 0.7 AST 41 H ALT 21 Alkaline Phosphatase 105 Total Protein 7.9 Albumin 4.2 Globulin 3.7 Albumin/Globulin Ratio 1.1 Assessment & Plan (1) Osteoarthritis Status: Acute (2) CHF (congestive heart failure) Status: Acute (3) Dizziness Status: Acute (4) Ischemic stroke Status: Acute
[2017-08-24] MEDS: Latanoprost 2.5 ml Opht Soln OU SCH (21:46)
--- NOTE | 2017-08-24 21:54 | CP.PCM.PN ---
Subjective - Date & Time of Evaluation Date of Evaluation: 08/24/17 Time of Evaluation: 17:15 - Subjective Subjective: Patient seen and evaluated Denies chest pain and dyspnea Objective - Vital Signs/Intake and Output Vital Signs (last 24 hours): Temp Pulse Resp BP Pulse Ox 97.2 F L 86 20 143/84 98 08/24/17 16:00 08/24/17 16:00 08/24/17 16:00 08/24/17 16:00 08/24/17 16:00 - Medications Medications: Current Medications Acetaminophen (Tylenol 325mg Tab) 650 mg PO Q6 PRN PRN Reason: Pain, moderate (4-7) Acetaminophen/Butalbital/Caffeine (Fioricet) 1 tab PO Q4 PRN PRN Reason: Headache Last Admin: 08/21/17 09:31 Dose: 1 tab Aspirin (Aspirin Chewable) 81 mg PO DAILY [facility] Last Admin: 08/24/17 10:04 Dose: 81 mg Clopidogrel Bisulfate (Plavix) 75 mg PO DAILY [facility] Last Admin: 08/24/17 10:04 Dose: 75 mg Enoxaparin Sodium (Lovenox) 40 mg SC DAILY [facility] Last Admin: 08/24/17 10:04 Dose: 40 mg Famotidine (Pepcid) 20 mg PO DAILY [facility] Last Admin: 08/24/17 10:04 Dose: 20 mg Furosemide (Lasix) 40 mg IVP DAILY [facility] Last Admin: 08/24/17 10:04 Dose: 40 mg Latanoprost (Xalatan Opht) 0 ml OU HS [facility] Last Admin: 08/24/17 21:46 Dose: 2.5 ml Levothyroxine Sodium (Synthroid) 88 mcg PO 0630 [facility] Last Admin: 08/24/17 05:51 Dose: 88 mcg Rosuvastatin Calcium (Crestor) 5 mg PO HS [facility] Last Admin: 08/24/17 21:44 Dose: 5 mg - Labs Labs: 08/24/17 08:59 08/24/17 08:59
[2017-08-25] MEDS: Levothyroxine 88 MCG TAB PO SCH (07:10)
[2017-08-25 07:28] LABS: ALB/GLOB RATIO 0.9 (1.0-2.1); ALBUMIN 3.6 g/dL (3.5-5.0); ALT/SGPT 21 U/L (9-52); AST/SGOT 45 U/L (14-36); BLOOD UREA NITROGEN 10 mg/dL (7-17); CALCIUM 9.4 mg/dl (8.6-10.4); GFR AFRICAN-AMERICAN > 60; GFR NON-AFRICAN AMERICAN > 60
[2017-08-25 07:29] LABS: BASO % 0.5 % (0.0-2.0); EOS # 0.2 K/uL (0.0-0.7); EOS % 2.4 % (0.0-4.0); HEMOGLOBIN 11.7 g/dL (11.0-16.0); LYMPH # 2.7 K/uL (1.0-4.3); LYMPH % 37.9 % (20.0-40.0); MEAN CELL VOLUME 71.4 fL (81.0-99.0); MEAN CORPUSCULAR HEMOGLOBIN 22.6 pg (27.0-31.0); MEAN CORPUSCULAR HGB CONC 31.6 g/dL (33.0-37.0); MEAN PLATELET VOLUME 8.4 fL (7.2-11.7); MONO # 0.8 K/uL (0.0-0.8); MONO % 11.1 % (0.0-10.0); NEUT # 3.4 K/uL (1.8-7.0); NEUT % 48.1 % (50.0-75.0); NRBC % 0.1 % (0.0-2.0); RBC 5.17 Mil/uL (3.80-5.20); RED CELL DISTRIBUTION WIDTH 15.2 % (11.5-14.5); WHITE BLOOD COUNT 7.1 K/uL (4.8-10.8)
--- NOTE | 2017-08-25 07:58 | PN ---
DATE: 08/24/2017 The patient is improving. Physical therapy, possible transfer to rehab. Zoë Rodriguez MD
--- NOTE | 2017-08-25 08:20 | CP.PCM.PN ---
Subjective - Date & Time of Evaluation Date of Evaluation: 08/25/17 Time of Evaluation: 08:20 - Subjective Subjective: Ms Rowley was seen and examined at the bedside. She is alert, oriented in all spheres. She denies any headache, dizziness, lightheadedness. She remains with right side weakness, but its improving no longer right upper extremity drift. She follows commands. There was no untoward events overnight. Objective - Vital Signs/Intake and Output Vital Signs (last 24 hours): Temp Pulse Resp BP Pulse Ox 98.6 F 65 20 145/82 98 08/24/17 23:40 08/25/17 04:00 08/24/17 23:40 08/24/17 23:40 08/24/17 23:40 Intake and Output: 08/25/17 08/25/17 06:59 18:59 Intake Total 0 Balance 0 - Medications Medications: Current Medications Acetaminophen (Tylenol 325mg Tab) 650 mg PO Q6 PRN PRN Reason: Pain, moderate (4-7) Acetaminophen/Butalbital/Caffeine (Fioricet) 1 tab PO Q4 PRN PRN Reason: Headache Last Admin: 08/21/17 09:31 Dose: 1 tab Aspirin (Aspirin Chewable) 81 mg PO DAILY [facility] Last Admin: 08/24/17 10:04 Dose: 81 mg Clopidogrel Bisulfate (Plavix) 75 mg PO DAILY [facility] Last Admin: 08/24/17 10:04 Dose: 75 mg Enoxaparin Sodium (Lovenox) 40 mg SC DAILY [facility] Last Admin: 08/24/17 10:04 Dose: 40 mg Famotidine (Pepcid) 20 mg PO DAILY [facility] Last Admin: 08/24/17 10:04 Dose: 20 mg Furosemide (Lasix) 40 mg IVP DAILY [facility] Last Admin: 08/24/17 10:04 Dose: 40 mg Latanoprost (Xalatan Opht) 0 ml OU HS [facility] Last Admin: 08/24/17 21:46 Dose: 2.5 ml Levothyroxine Sodium (Synthroid) 88 mcg PO 0630 [facility] Last Admin: 08/25/17 07:10 Dose: 88 mcg Rosuvastatin Calcium (Crestor) 5 mg PO HS [facility] Last Admin: 08/24/17 21:44 Dose: 5 mg - Labs Labs: 08/25/17 07:04 08/25/17 07:04 - Constitutional Appears: No Acute Distress - Head Exam Head Exam: NORMAL INSPECTION - Eye Exam Pupil Exam: PERRL - Neurological Exam Neurological Exam: Alert, Awake, Oriented x3 Neuro motor strength exam: Left Upper Extremity: 5, Right Upper Extremity: 4, Left Lower Extremity: 5, Right Lower Extremity: 4 Additional comments: Neurological unchanged from previous examination Assessment and Plan (1) Ischemic stroke Assessment & Plan: Case discussed with Dr. Gu, continue all current medical, physical, occupational, and speech therapies. Recommend rehab for discharge planning, head of the bed, hydration blood pressure and glycemic controls. Status: Acute
[2017-08-25] MEDS: Enoxaparin 40 mg Syringe SC SCH (10:21)
--- NOTE | 2017-08-25 15:46 | CP.PCM.PN ---
Subjective - Date & Time of Evaluation Date of Evaluation: 08/25/17 Time of Evaluation: 15:45 - Subjective Subjective: Progress note. Attending: Dr. Rodriguez Pt seen and examined at bedside. NO acute distress. No events overnight. No complaints at this time, but pt has intermittent headache. No fevers, chills, vomiting, diarrhea. Objective - Vital Signs/Intake and Output Vital Signs (last 24 hours): Temp Pulse Resp BP Pulse Ox 98 F 70 20 113/71 96 08/25/17 07:00 08/25/17 12:09 08/25/17 07:00 08/25/17 10:21 08/25/17 07:00 Intake and Output: 08/25/17 08/25/17 06:59 18:59 Intake Total 0 Balance 0 - Medications Medications: Current Medications Acetaminophen (Tylenol 325mg Tab) 650 mg PO Q6 PRN PRN Reason: Pain, moderate (4-7) Acetaminophen/Butalbital/Caffeine (Fioricet) 1 tab PO Q4 PRN PRN Reason: Headache Last Admin: 08/21/17 09:31 Dose: 1 tab Aspirin (Aspirin Chewable) 81 mg PO DAILY [facility] Last Admin: 08/25/17 10:21 Dose: 81 mg Clopidogrel Bisulfate (Plavix) 75 mg PO DAILY [facility] Last Admin: 08/25/17 10:21 Dose: 75 mg Enoxaparin Sodium (Lovenox) 40 mg SC DAILY [facility] Last Admin: 08/25/17 10:21 Dose: 40 mg Famotidine (Pepcid) 20 mg PO DAILY [facility] Last Admin: 08/25/17 10:21 Dose: 20 mg Furosemide (Lasix) 40 mg IVP DAILY [facility] Last Admin: 08/25/17 10:21 Dose: 40 mg Latanoprost (Xalatan Opht) 0 ml OU HS [facility] Last Admin: 08/24/17 21:46 Dose: 2.5 ml Levothyroxine Sodium (Synthroid) 88 mcg PO 0630 [facility] Last Admin: 08/25/17 07:10 Dose: 88 mcg Rosuvastatin Calcium (Crestor) 5 mg PO HS [facility] Last Admin: 08/24/17 21:44 Dose: 5 mg - Labs Labs: 08/25/17 07:04 08/25/17 07:04 - Constitutional Appears: Non-toxic, No Acute Distress - Head Exam Head Exam: ATRAUMATIC, NORMAL INSPECTION, NORMOCEPHALIC - Eye Exam Eye Exam: EOMI - ENT Exam ENT Exam: Mucous Membranes Moist - Neck Exam Neck Exam: Full ROM, Normal Inspection - Respiratory Exam Respiratory Exam: NORMAL BREATHING PATTERN. absent: Respiratory Distress - Cardiovascular Exam Cardiovascular Exam: +S1, +S2 - GI/Abdominal Exam GI & Abdominal Exam: Soft, Normal Bowel Sounds. absent: Tenderness - Extremities Exam Extremities Exam: Full ROM, Normal Inspection - Back Exam Back Exam: NORMAL INSPECTION - Neurological Exam Neurological Exam: Alert, Awake. absent: Oriented x3 - Psychiatric Exam Psychiatric exam: Normal Affect, Normal Mood - Skin Skin Exam: Dry, Intact, Normal Color, Warm Assessment and Plan - Assessment and Plan (Free Text) Assessment: 1. L MCA infarction -Telemetry admission -Neurology consult. Dr. Kellie Simental. recs appreciated -All blood pressure meds were stopped and permissive hypertension allowed -Lasix restarted 08/21 start aspirin and plavix IV fluids 100ccs normal saline now and per hour ECHO- 08/21/17 PT/St/ot -repeat ct head : Consistent with L MCA infarct -Rheumatology consult. Dr. Skinner. recs appreciated -R/O temporal arteritis: low suspicion -CT head 08/18 shows hypodensity, no acute bleed -MRI brain 08/19 L posterior MCA infarct -CT head 08/20 repeat- L MCA infarct confirmed Fioricet 1T PO Q4hrs prn for pain control -asa 81 mg po daily -lovenox 40 mg sc daily -crestor 5mg PO HS -neurochecks q 2 hrs -NS 100 cc/hr -plavix 75 mg po daily -Hold all BP meds as per neuro request- only lasix reintroduced 2. CHF with preserved ejection fraction -asa 81 daily -trops x 3- 0.1520-> 0.1570 -> 0.1090 -I/O -daily weight -lasix 40mg IVP daily Consult placed to Dr. Her- help appreciated Echo to be rescheduled?- not done 3. hx of htn -BP meds on hold as above- lasix only reintroduced -stable condition 4. hx of hypothyroidism -synthroid 88 mcg po daily -tsh 0.94 3. GI/DVT ppx -protonix 40 daily -SCDs -add lovenox 40 mg sc daily -PT/OT Planning for D/C to acute rehab once authorization is granted. Case discussed with Dr. Rodriguez All management as per Dr. Rodriguez
[2017-08-25] MEDS: Latanoprost 2.5 ml Opht Soln OU SCH (21:22)
[2017-08-26] MEDS: Levothyroxine 88 MCG TAB PO SCH (05:59)
[2017-08-26 06:12] LABS: BASO % 0.7 % (0.0-2.0); EOS # 0.3 K/uL (0.0-0.7); EOS % 3.9 % (0.0-4.0); HEMOGLOBIN 11.3 g/dL (11.0-16.0); LYMPH % 43.1 % (20.0-40.0); MEAN CELL VOLUME 71.4 fL (81.0-99.0); MEAN CORPUSCULAR HEMOGLOBIN 21.9 pg (27.0-31.0); MEAN CORPUSCULAR HGB CONC 30.7 g/dL (33.0-37.0); MEAN PLATELET VOLUME 8.1 fL (7.2-11.7); MONO % 13.8 % (0.0-10.0); NEUT # 2.7 K/uL (1.8-7.0); NEUT % 38.5 % (50.0-75.0); NRBC % 0.1 % (0.0-2.0); RBC 5.18 Mil/uL (3.80-5.20); WHITE BLOOD COUNT 6.9 K/uL (4.8-10.8)
[2017-08-26 07:39] LABS: ALB/GLOB RATIO 1.1 (1.0-2.1); ALBUMIN 3.9 g/dL (3.5-5.0); ALT/SGPT 17 U/L (9-52); AST/SGOT 51 U/L (14-36); BLOOD UREA NITROGEN 16 mg/dL (7-17); CALCIUM 9.2 mg/dl (8.6-10.4); GFR AFRICAN-AMERICAN > 60; GFR NON-AFRICAN AMERICAN > 60
[2017-08-26] MEDS: Enoxaparin 40 mg Syringe SC SCH (09:31)
--- NOTE | 2017-08-26 11:15 | CP.PCM.PN ---
Subjective - Date & Time of Evaluation Date of Evaluation: 08/26/17 Time of Evaluation: 11:45 - Subjective Subjective: Progress note Dr. Rodriguez. Pt seen and examined at bedside, getting PT. No fevers, chills, vomiting, diarrhea. Plan for dc today Objective - Vital Signs/Intake and Output Vital Signs (last 24 hours): Temp Pulse Resp BP Pulse Ox 98.1 F 111 H 18 107/73 98 08/26/17 07:10 08/26/17 09:27 08/26/17 07:10 08/26/17 09:32 08/26/17 07:10 - Medications Medications: Current Medications Acetaminophen (Tylenol 325mg Tab) 650 mg PO Q6 PRN PRN Reason: Pain, moderate (4-7) Acetaminophen/Butalbital/Caffeine (Fioricet) 1 tab PO Q4 PRN PRN Reason: Headache Last Admin: 08/21/17 09:31 Dose: 1 tab Aspirin (Aspirin Chewable) 81 mg PO DAILY [facility] Last Admin: 08/26/17 09:32 Dose: 81 mg Clopidogrel Bisulfate (Plavix) 75 mg PO DAILY [facility] Last Admin: 08/26/17 09:32 Dose: 75 mg Enoxaparin Sodium (Lovenox) 40 mg SC DAILY [facility] Last Admin: 08/26/17 09:31 Dose: 40 mg Famotidine (Pepcid) 20 mg PO DAILY [facility] Last Admin: 08/26/17 09:32 Dose: 20 mg Furosemide (Lasix) 40 mg IVP DAILY [facility] Last Admin: 08/26/17 09:32 Dose: Not Given Latanoprost (Xalatan Opht) 0 ml OU HS [facility] Last Admin: 08/25/17 21:22 Dose: 2.5 ml Levothyroxine Sodium (Synthroid) 88 mcg PO 0630 [facility] Last Admin: 08/26/17 05:59 Dose: 88 mcg Rosuvastatin Calcium (Crestor) 5 mg PO HS [facility] Last Admin: 08/25/17 21:22 Dose: 5 mg - Labs Labs: 08/26/17 06:03 08/26/17 06:03 - Constitutional Appears: Non-toxic, No Acute Distress - Head Exam Head Exam: ATRAUMATIC, NORMAL INSPECTION, NORMOCEPHALIC - Eye Exam Eye Exam: EOMI - ENT Exam ENT Exam: Mucous Membranes Moist - Neck Exam Neck Exam: Full ROM, Normal Inspection - Respiratory Exam Respiratory Exam: NORMAL BREATHING PATTERN. absent: Respiratory Distress - GI/Abdominal Exam GI & Abdominal Exam: Soft, Normal Bowel Sounds. absent: Tenderness - Extremities Exam Extremities Exam: Full ROM, Normal Inspection - Neurological Exam Neurological Exam: Alert, Awake, Oriented x3 - Psychiatric Exam Psychiatric exam: Normal Affect, Normal Mood - Skin Skin Exam: Dry, Intact, Normal Color, Warm Assessment and Plan - Assessment and Plan (Free Text) Assessment: 1. L MCA infarction -Telemetry admission -Neurology consult. Dr. Kellie Simental. recs appreciated -All blood pressure meds were stopped and permissive hypertension allowed -Lasix restarted 08/21 start aspirin and plavix IV fluids 100ccs normal saline now and per hour ECHO- 08/21/17 PT/St/ot -repeat ct head : Consistent with L MCA infarct -Rheumatology consult. Dr. Skinner. recs appreciated -R/O temporal arteritis: low suspicion -CT head 08/18 shows hypodensity, no acute bleed -MRI brain 08/19 L posterior MCA infarct -CT head 08/20 repeat- L MCA infarct confirmed Fioricet 1T PO Q4hrs prn for pain control -asa 81 mg po daily -lovenox 40 mg sc daily -crestor 5mg PO HS -neurochecks q 2 hrs -NS 100 cc/hr -plavix 75 mg po daily -Hold all BP meds as per neuro request- only lasix reintroduced 2. CHF with preserved ejection fraction -asa 81 daily -trops x 3- 0.1520-> 0.1570 -> 0.1090 -I/O -daily weight -lasix 40mg IVP daily Consult placed to Dr. Her- help appreciated Echo to be rescheduled?- not done 3. hx of htn -BP meds on hold as above- lasix only reintroduced -stable condition 4. hx of hypothyroidism -synthroid 88 mcg po daily -tsh 0.94 3. GI/DVT ppx -protonix 40 daily -SCDs -add lovenox 40 mg sc daily -PT/OT Planning for D/C to acute rehab once authorization is granted. Case discussed with Dr. Rodriguez All management as per Dr. Rodriguez
[2017-08-26 13:42] VITALS: BP 123/71; PULSE 66; RESP 20; TEMP 98; O2SAT 97
--- NOTE | 2017-08-27 08:11 | PCM.HF ---
Heart Failure Core Measure - Heart Failure Ejection Fraction: 40 % or Greater AVILA Inhibitor Prescribed: No Contraindication/Reason for not providing: EF>45 Beta-Cinda Prescribed: None Contraindication/Reason for not providing: metoprolol stopped seconory to hypotension Angiotensin II Receptor Cinda Prescribed: No Contraindication/Reason for not providing: ef>45 AnticoagulationTherapy for Atrial Fibrillation/Atrialflutter: No Contraindication/Reason for not providing: no hx of a fib Aldosterone Antagonist Prescribed: No Contraindication/Reason for not providing: ef>45 Hydralazine Nitrate Prescribed: No Contraindication/Reason for not providing: ef>45 Implantable Cardioverter Defibrillator Therapy: No Contraindication/Reason for not providing: ef.45 Cardiac Resynchronization Therapy Prescribed: No Contraindication/Reason for not providing: ef>45 - Follow up Will be discharged to: Home Follow Up Date (must be within 7 days from discharge): 09/01/17 Follow Up Time: 09:00
== END 2017-08-26 13:47 | DRG 65 ==
LOC: C.ER 08:06 → C.9E 12:33 → C.6T 12:58
PROVIDERS: ADMIT Internal Medicine Pulmonary Disease; ATTEND Internal Medicine Pulmonary Disease
DX: I63.412 Cerebral infarction due to embolism of left middle cerebral artery (principal); I50.30 Unspecified diastolic (congestive) heart failure; G81.91 Hemiplegia, unspecified affecting right dominant side; I11.0 Hypertensive heart disease with heart failure; M06.9 Rheumatoid arthritis, unspecified; M19.90 Unspecified osteoarthritis, unspecified site; E78.5 Hyperlipidemia, unspecified; R29.810 Facial weakness; E03.9 Hypothyroidism, unspecified; R41.0 Disorientation, unspecified; E78.00 Pure hypercholesterolemia, unspecified; W19.XXXA Unspecified fall, initial encounter; H54.7 Unspecified visual loss; Y92.009 Unspecified place in unspecified non-institutional (private) residence as the place of occurrence of the external cause; Z79.82 Long term (current) use of aspirin; Z86.73 Personal history of transient ischemic attack (TIA), and cerebral infarction without residual deficits; Z87.891 Personal history of nicotine dependence

== ENCOUNTER 2018-01-23 10:46 | Observation (INO) | payer MEDICARE ==
[2018-01-23 10:46] VITALS: BMI 27.6
[~2018-01-23 10:46] MED LIST: Gadodiamide 287 mg/ml 20 ml IV ONE
--- NOTE | 2018-01-23 11:42 | C.PDOC ---
History Of Present Illness 77 y/o female with history of stroke on 08/2017 presents to ED with c/o trouble walking and feeling off balance associated with weakness for more than 24 hours. Patient reports cataracts with glaucoma to left eye and losing vision as well- 24 hrs earlier. 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 Patient also c/o cough and congestion for 2-3 days. No chest pain or sob. No leg swelling, GI or complaints. No fall or trauma. Patient denies headache, numbness, nausea, vomiting, vision changes in right eye or any other complaints at this time. PMD: Marylou Hastings Ophalmologist: [facility] Time Seen by Provider: 01/23/18 11:41 Chief Complaint (Nursing): Eye Problem History Per: Patient, Family History/Exam Limitations: no limitations Onset/Duration Of Symptoms: Days Current Symptoms Are (Timing): Still Present Past Medical History Reviewed: Historical Data, Nursing Documentation, Vital Signs - Medical History PMH: CHF, HTN, Hypercholesterolemia, Hypothyroidism, Peripheral Edema, Rheumatoi d Arthritis - [facility] Procedures EXERCISE TRMT MUSCULOSK LOW BACK/LE W ASSIST EQUIP (08/26/17) GAIT TRAINING/AMBULAT TREATMENT USING ASSIST EQUIPMENT (08/26/17) HOME MANAGEMENT TREATMENT USING ASSIST EQUIPMENT (08/26/17) Family History: States: Unknown Family Hx - Social History Hx Tobacco Use: No Hx Alcohol Use: No Hx Substance Use: No - Immunization History Hx Tetanus Toxoid Vaccination: No Hx Influenza Vaccination: No Hx Pneumococcal Vaccination: No Review Of Systems Eyes: Positive for: Vision Change (left eye) Cardiovascular: Negative for: Chest Pain Respiratory: Negative for: Shortness of Breath Gastrointestinal: Negative for: Nausea, Vomiting, Abdominal Pain Neurological: Positive for: Weakness. Negative for: Numbness, Headache, Dizziness Physical Exam - Physical Exam Appears: Well, Non-toxic, No Acute Distress Skin: Normal Color, Warm Head: Atraumatic, Normacephalic Eye(s): bilateral: EOMI, right: Normal Inspection, PERRL, left: Abnormal Pupil (2mm, minimally reactive), Other (L Eye, no visual acuity, R eye 2 @baseline per pt) Ear(s): Bilateral: Normal Nose: Normal, No Flaring, No Discharge Tongue: Normal Appearing Lips: Normal Appearing Gingiva: Normal Appearing Throat: Normal, No Erythema, No Exudate Neck: Normal, Normal ROM, No Decreased ROM, Supple, Other (no meningeal signs) Chest: Symmetrical, No Deformity Cardiovascular: Rhythm Regular Respiratory: Normal Breath Sounds, No Decreased Breath Sounds, No Rales, No Rhonchi, No Stridor, No Wheezing Gastrointestinal/Abdominal: Normal Exam, Soft, No Tenderness, No Organomegaly, No Mass, No Distention, No Guarding Extremity: Normal ROM, No Tenderness Extremity: Bilateral: Atraumatic Pulses: Left Dorsalis Pedis: Normal, Right Dorsalis Pedis: Normal Neurological/Psych: Oriented x3, Normal Speech, Normal Cognition, Cerebellar Signs (abnl finger to nose), No Normal Motor Gait: Other Extremity: Right: No Drift (b/l UE and LE strength 5/5), Left: No Drift, Upper: No Drift, Lower: No Drift ED Course And Treatment - Laboratory Results Result Diagrams: 01/23/18 12:26 01/23/18 12:26 ECG: Interpreted By Me, Viewed By Me ECG Rhythm: Sinus Rhythm Rate From EC (BPM ) O2 Sat by Pulse Oximetry: 100 (RA) Pulse Ox Interpretation: Normal Medical Decision Making Medical Decision Makin yr old female w/ hx of CVA, glaucoma p/w worsening L sided vision and gait disturbance x24+ hrs. Difficulty ambulating 2/2 gait. abrnomal finger to nose, ?2/2 posterior stroke vs ?worsneing vision. Likely worsening vision 2/2 discontinuation of L eye glaucoma meds 2/2 running out of meds 1+ week prior. No fall or trauma. Lungs CTA b/l. No SIRS vitals. Will seek imaging and labs given change in vision as well as hx of stroke and abnl cerebellar exam w/ hx of CVA. ECG: NSR @ 60bpm, No STEMI CT head w/o contrast IMPRESSION: No acute intracranial hemorrhage. Chronic left posterior temporoparietal infarct. Suspect minimal chronic periventricular white matter ischemic changes. Mild-moderate central volume loss. CXR IMPRESSION: No active pulmonary disease. COPD. Moderate cardiomegaly and pulmonary venous congestion. Progress: Spoke to Dr. Urias regarding patient, states patient has poor prognosis on left eye with glaucoma and only visualized hand waving. On re exam patient unable to see hand waving on left eye, otherwise normal on right eye As per Dr. Urias (pts optho) patient should be on Lumigan and Combigan Spoke with Dr. Car ([facility]o) recommends patient be restarted on Lumigan tonight and Combigan now and check intraocular pressure. IOP 24, 35 OS. We are to give acetazolamide 500mg today. Appreciate consult w/ Neuro: Dr. Simental: MRI brain non con. Appreciate consult w/ Medicine cartoonist special effects: Dr. Wright: to admit to his service Pt in NAD, agreeable to admission. Disposition - Disposition Disposition Time: 15:00 Condition: GOOD - Clinical Impression Clinical Impression: Stroke-like symptoms, Glaucoma, left eye - Scribe Statement The provider has reviewed the documentation as recorded by the Scribviola Ramos All medical record entries made by the Scribe were at my direction and personally dictated by me. I have reviewed the chart and agree that the record accurately reflects my personal performance of the history, physical exam, medical decision making, and the department course for this patient. I have also personally directed, reviewed, and agree with the discharge instructions and disposition.
[2018-01-23 12:31] LABS: BASO # 0.1 K/uL (0.0-0.2); BASO % 1.4 % (0.0-2.0); EOS # 0.2 K/uL (0.0-0.7); EOS % 3.4 % (0.0-4.0); HEMOGLOBIN 11.4 g/dL (11.0-16.0); LYMPH # 2.3 K/uL (1.0-4.3); LYMPH % 36.2 % (20.0-40.0); MEAN CELL VOLUME 73.3 fL (81.0-99.0); MEAN CORPUSCULAR HEMOGLOBIN 23.2 pg (27.0-31.0); MEAN CORPUSCULAR HGB CONC 31.6 g/dL (33.0-37.0); MEAN PLATELET VOLUME 8.1 fL (7.2-11.7); MONO # 0.5 K/uL (0.0-0.8); MONO % 7.7 % (0.0-10.0); NEUT # 3.2 K/uL (1.8-7.0); NEUT % 51.3 % (50.0-75.0); NRBC % 0.1 % (0.0-2.0); RBC 4.93 Mil/uL (3.80-5.20); WHITE BLOOD COUNT 6.3 K/uL (4.8-10.8)
[2018-01-23 12:44] LABS: ALB/GLOB RATIO 1.2 (1.0-2.1); ALBUMIN 4.4 g/dL (3.5-5.0); CALCIUM 9.8 mg/dl (8.6-10.4)
[2018-01-23 12:55] LABS: TROPONIN I 0.08 ng/mL (0.00-0.120)
--- NOTE | 2018-01-23 13:17 | CT ---
Date of service: 01/23/2018 PROCEDURE: CT HEAD WITHOUT CONTRAST. HISTORY: Walking strangely 4 24+ hrs prior COMPARISON: Comparison made with prior CT scan of the brain dated 08/20/2017. TECHNIQUE: Axial computed tomography images were obtained through the head/brain without intravenous contrast. Radiation dose: Total exam DLP = 1074.12 mGy-cm. This CT exam was performed using one or more of the following dose reduction techniques: Automated exposure control, adjustment of the mA and/or kV according to patient size, and/or use of iterative reconstruction technique. FINDINGS: HEMORRHAGE: No acute parenchymal, subarachnoid or extra-axial hemorrhage. BRAIN: There has been interval evolution-completion previously noted infarct involving the left posterior temporal and parietal watershed zone.. Large area of cystic encephalomalacia remains.. The suspect minimal chronic periventricular white matter ischemic changes. Note that the possibility of a small hyperacute infarct cannot be excluded on this exam. Clinical correlation recommended... No obvious parenchymal nor extra-axial mass or collection seen on this noncontrast study. Mild to moderate central volume loss Mild vascular calcifications both carotid siphons VENTRICLES: No obstructive hydrocephalus. CALVARIUM: Unremarkable. PARANASAL SINUSES: Unremarkable as visualized. No significant inflammatory changes. MASTOID AIR CELLS: Unremarkable as visualized. No inflammatory changes. OTHER FINDINGS: None. IMPRESSION: No acute intracranial hemorrhage. Chronic left posterior temporoparietal infarct. Suspect minimal chronic periventricular white matter ischemic changes. Mild-moderate central volume loss.
[2018-01-23] MEDS ORDERED: PROPARACAINE/FLUORESCEIN SOD 100 DROP/5 ML BOTTLE OS ONE (13:35)
[2018-01-23] MEDS ORDERED: Brimonidine 0.2% Opth Sol (5ml) OS ONE (13:47)
--- NOTE | 2018-01-23 13:48 | RAD ---
Date of service: 01/23/2018 HISTORY: Weakness COMPARISON: No prior. TECHNIQUE: Chest PA and lateral FINDINGS: LINES AND TUBES: None. LUNG AND PLEURA: The lungs are hyperinflated and there is peribronchial thickening with chronic changes in both lungs. There is also moderate pulmonary venous congestion. No pleural effusion or pneumothorax. HEART AND MEDIASTINUM: Moderate cardiomegaly with prominent central vasculature. Atherosclerotic aortic arch calcifications are present. The hilar and mediastinal contours are within normal limits. SKELETAL STRUCTURES: The bony structures are within normal limits for the patient's age. VISUALIZED UPPER ABDOMEN: Normal. OTHER FINDINGS: None. IMPRESSION: No active pulmonary disease. COPD. Moderate cardiomegaly and pulmonary venous congestion.
[2018-01-23] MEDS ORDERED: PROPARACAINE/FLUORESCEIN SOD 100 DROP/5 ML BOTTLE ONE ×2 (13:49→13:55)
[2018-01-23 14:08] LABS: SQUAMOUS EPITHIAL 1 /hpf (0-5); URINE BACTERIA RARE (<OCC); URINE BILIRUBIN NEGATIVE (NEGATIVE); URINE BLOOD 1+ (NEGATIVE); URINE CLARITY Clear (Clear); URINE COLOR Straw (YELLOW); URINE GLUCOSE (UA) NORMAL (Normal); URINE LEUKOCYTE ESTERASE 2+ Leu/uL (Negative); URINE PROTEIN 1+ mg/dL (NEGATIVE); URINE UROBILINOGEN NORMAL mg/dL (0.2-1.0)
--- NOTE | 2018-01-23 15:50 | MRI ---
Date of service: 01/23/2018 PROCEDURE: MRI BRAIN WITH AND WITHOUT CONTRAST HISTORY: walking strangely, hx of cva COMPARISON: Comparison made with prior CT scan earlier same day TECHNIQUE: Multiplanar, multisequence MR images of the brain were obtained with and without intravenous contrast enhancement.. 13 cc of Omniscan contrast material injected for this exam FINDINGS: HEMORRHAGE: No acute parenchymal, subarachnoid nor extra-axial hemorrhage. No evidence of hemosiderin deposition identified on gradient echo weighted sequence. DWI: No evidence of an acute or early subacute infarction seen on diffusion imaging. BRAIN PARENCHYMA: Chronic on moderately large left posterior temporoparietal infarct again seen. In addition, there are mild to moderate diffuse and confluent chronic periventricular white matter ischemic changes most pronounced in the parieto-occipital regions bilaterally. There may also be a few scattered chronic bilateral basal nuclei lacunar type infarcts. In addition, there are multiple small of chronic appearing lacunar type infarcts scattered about the deep and subcortical white matter with bilateral chronic cerebellar infarcts. ENHANCEMENT: No abnormal intracranial enhancement. VENTRICLES: No obstructive hydrocephalus. CRANIUM: Unremarkable. ORBITS: Grossly unremarkable. PARANASAL SINUSES/MASTOIDS: Minor mucosal thickening noted within a few ethmoid air cells VASCULAR SYSTEM: Visualized major vascular flow voids at skull base patent. OTHER FINDINGS: None.. IMPRESSION: No evidence of acute intracranial hemorrhage or infarction. Moderately large chronic left posterior temporoparietal watershed zone infarct with moderate chronic white matter ischemic changes. Chronic bilateral cerebellar infarcts there may also be few scattered chronic bilateral basal nuclei lacunar type infarcts.
--- NOTE | 2018-01-23 21:54 | CP.PCM.HP ---
Past Patient History - Past Medical History & Family History Past Medical History?: Yes - Past Social History Smoking Status: Former Smoker - CARDIAC Hx Congestive Heart Failure: Yes Hx Hypercholesterolemia: Yes Hx Hypertension: Yes Hx Peripheral Edema: Yes - PULMONARY Hx Respiratory Disorders: No - NEUROLOGICAL Hx Neurological Disorder: Yes HX Cerebrovascular Accident: Yes - HEENT Hx HEENT Problems: No Hx Glaucoma: Yes - RENAL Hx Chronic Kidney Disease: No - ENDOCRINE/METABOLIC Hx Hypothyroidism: Yes - HEMATOLOGICAL/ONCOLOGICAL Hx Human Immunodeficiency Virus (HIV): No - INTEGUMENTARY Hx Dermatological Problems: No - MUSCULOSKELETAL/RHEUMATOLOGICAL Hx Falls: No Hx Rheumatoid Arthritis: Yes - GASTROINTESTINAL Hx Gastrointestinal Disorders: No - GENITOURINARY/GYNECOLOGICAL Hx Genitourinary Disorders: Yes Other/Comment: fibroids - PSYCHIATRIC Hx Substance Use: No - SURGICAL HISTORY Hx Orthopedic Surgery: Yes - ANESTHESIA Hx Anesthesia: Yes Hx Anesthesia Reactions: No Hx Malignant Hyperthermia: No Has any member of the family had a problem w/ anesthesia?: No Meds Allergies/Adverse Reactions: Allergies Allergy/AdvReac Type Severity Reaction Status Date / Time No Known Allergies Allergy Verified 01/23/18 11:13 Results - Vital Signs Recent Vital Signs: Last Vital Signs Temp 98.7 F 01/23/18 15:41 Pulse 66 01/23/18 15:41 Resp 18 01/23/18 16:30 BP 156/81 H 01/23/18 15:41 Pulse Ox 100 01/23/18 16:11 - Labs Result Diagrams: 01/23/18 12:26 01/23/18 12:26 Labs: Laboratory Results - last 24 hr 01/23/18 01/23/18 01/23/18 12:26 12:26 13:58 WBC 6.3 RBC 4.93 Hgb 11.4 Hct 36.1 MCV 73.3 L MCH 23.2 L MCHC 31.6 L RDW 15.0 H Plt Count 306 MPV 8.1 Neut % (Auto) 51.3 Lymph % (Auto) 36.2 Craven % (Auto) 7.7 Eos % (Auto) 3.4 Baso % (Auto) 1.4 Neut # (Auto) 3.2 Lymph # (Auto) 2.3 Craven # (Auto) 0.5 Eos # (Auto) 0.2 Baso # (Auto) 0.1 Sodium 140 Potassium 4.4 Chloride 102 Carbon Dioxide 28 Anion Gap 14 BUN 18 H Creatinine 1.2 Est GFR ( Amer) 53 Est GFR (Non-Af Amer) 43 Random Glucose 113 H Calcium 9.8 Magnesium 1.9 Total Bilirubin 0.7 AST 32 ALT 43 Alkaline Phosphatase 147 H D Troponin I 0.0800 Total Protein 7.9 Albumin 4.4 Globulin 3.5 Albumin/Globulin Ratio 1.2 Urine Color Straw Urine Clarity Clear Urine pH 7.0 Ur Specific Burt 1.005 Urine Protein 1+ H Urine Glucose (UA) Normal Urine Ketones Negative Urine Blood 1+ H Urine Nitrate Negative Urine Bilirubin Negative Urine Urobilinogen Normal Ur Leukocyte Esterase 2+ H Urine WBC (Auto) 3 Urine RBC (Auto) 2 Ur Squamous Epith Cells 1 Urine Bacteria Rare
[2018-01-23] MEDS ORDERED: Latanoprost 2.5 ml Opht Soln OU SCH (22:00)
[2018-01-24 00:17] VITALS: RESP 20
[2018-01-24] MEDS ORDERED: Levothyroxine 88 MCG TAB PO SCH (06:30)
[2018-01-24] MEDS ORDERED: Enoxaparin 30 mg Syringe SC SCH (10:00)
[2018-01-24 16:12] VITALS: BP 130/75; PULSE 57; TEMP 98.1; O2SAT 96
--- NOTE | 2018-01-24 16:33 | CP.PCM.PN ---
Subjective - Date & Time of Evaluation Date of Evaluation: 01/24/18 Time of Evaluation: 11:50 - Subjective Subjective: Patient seen today alert, speech clear , denies any headache , blurred vision, vss and labs reviewed no vernight events reported by RN Objective - Vital Signs/Intake and Output Vital Signs (last 24 hours): Temp Pulse Resp BP Pulse Ox 98.1 F 57 L 20 130/75 96 01/24/18 15:05 01/24/18 15:05 01/24/18 15:05 01/24/18 15:05 01/24/18 15:05 - Medications Medications: Current Medications Aspirin (Aspirin Chewable) 162 mg PO DAILY [facility] Last Admin: 01/24/18 09:54 Dose: 162 mg Enoxaparin Sodium (Lovenox) 30 mg SC DAILY [facility] Last Admin: 01/24/18 10:08 Dose: 30 mg Famotidine (Pepcid) 20 mg PO DAILY [facility] Last Admin: 01/24/18 09:54 Dose: 20 mg Furosemide (Lasix) 40 mg PO DAILY [facility] Last Admin: 01/24/18 09:54 Dose: 40 mg Latanoprost (Xalatan Opht) 0 ml OU HS [facility] Last Admin: 01/24/18 00:08 Dose: 2.5 ml Levothyroxine Sodium (Synthroid) 88 mcg PO 0630 [facility] Last Admin: 01/24/18 06:48 Dose: 88 mcg Rosuvastatin Calcium (Crestor) 5 mg PO HS [facility] Last Admin: 01/23/18 23:00 Dose: 5 mg - Labs Labs: 01/23/18 12:26 01/23/18 12:26 Assessment and Plan - Assessment and Plan (Free Text) Assessment: a/p 77 y/o female with history of stroke on 08/2017 presents to ED with c/o trouble walking and feeling off balance associated with weakness for more than 24 hrs admitted with stroke like symptoms an dgloucoma MRI- No evidence of acute intracranial hemorrhage or infarction. Moderately large chronic left posterior temporoparietal watershed zone infarct with moderate chronic white matter ischemic changes. Chronic bilateral cerebellar infarcts there may also be few scattered chronic bilateral basal nuclei lacunar type infarcts. seen by Dr. Wright today, cleared for discharge home today and f/u with opthlmologist and PMD on Friday
--- NOTE | 2018-01-24 19:14 | CP.PCM.DIS ---
Provider - Provider Date of Admission: 01/23/18 14:30 Attending physician: Solitario Wright MD Hospital Course - Lab Results Lab Results: Most Recent Lab Values WBC 6.3 K/uL (4.8-10.8) 01/23/18 12: RBC 4.93 Mil/uL (3.80-5.20) 01/23/18 12:26 Hgb 11.4 g/dL (11.0-16.0) 01/23/18 12:26 Hct 36.1 % (34.0-47.0) 01/23/18 12:26 MCV 73.3 fL (81.0-99.0) L 01/23/18 12: MCH 23.2 pg (27.0-31.0) L 01/23/18 12: MCHC 31.6 g/dL (33.0-37.0) L 01/23/18 12: RDW 15.0 % (11.5-14.5) H 01/23/18 12:26 Plt Count 306 K/uL (130-400) 01/23/18 12: MPV 8.1 fL (7.2-11.7) 01/23/18 12:26 Neut % (Auto) 51.3 % (50.0-75.0) 01/23/18 12: Lymph % (Auto) 36.2 % (20.0-40.0) 01/23/18 12: [place] % (Auto) 7.7 % (0.0-10.0) 01/23/18 12: Eos % (Auto) 3.4 % (0.0-4.0) 01/23/18 12:26 Baso % (Auto) 1.4 % (0.0-2.0) 01/23/18 12:26 Neut # (Auto) 3.2 K/uL (1.8-7.0) 01/23/18 12:26 Lymph # (Auto) 2.3 K/uL (1.0-4.3) 01/23/18 12:26 [place] # (Auto) 0.5 K/uL (0.0-0.8) 01/23/18 12:26 Eos # (Auto) 0.2 K/uL (0.0-0.7) 01/23/18 12:26 Baso # (Auto) 0.1 K/uL (0.0-0.2) 01/23/18 12:26 Sodium 140 mmol/L (132-148) 01/23/18 12:26 Potassium 4.4 mmol/L (3.6-5.2) 01/23/18 12:26 Chloride 102 mmol/L (98-107) 01/23/18 12:26 Carbon Dioxide 28 mmol/L (22-30) 01/23/18 12:26 Anion Gap 14 (10-20) 01/23/18 12:26 BUN 18 mg/dL (7-17) H 01/23/18 12:26 Creatinine 1.2 mg/dL (0.7-1.2) 01/23/18 12:26 Est GFR ( Amer) 53 01/23/18 12:26 Est GFR (Non-Af Amer) 43 01/23/18 12:26 Random Glucose 113 mg/dL (65-105) H 01/23/18 12:26 Calcium 9.8 mg/dl (8.6-10.4) 01/23/18 12:26 Magnesium 1.9 mg/dL (1.6-2.3) 01/23/18 12:26 Total Bilirubin 0.7 mg/dL (0.2-1.3) 01/23/18 12:26 AST 32 U/L (14-36) 01/23/18 12:26 ALT 43 U/L (9-52) 01/23/18 12:26 Alkaline Phosphatase 147 U/L (38-126) H D 01/23/18 12:26 Troponin I 0.0800 ng/mL (0.00-0.120) 01/23/18 12:26 Total Protein 7.9 g/dL (6.3-8.3) 01/23/18 12:26 Albumin 4.4 g/dL (3.5-5.0) 01/23/18 12:26 Globulin 3.5 gm/dL (2.2-3.9) 01/23/18 12:26 Albumin/Globulin Ratio 1.2 (1.0-2.1) 01/23/18 12:26 Urine Color Straw (YELLOW) 01/23/18 13:58 Urine Clarity Clear (Clear) 01/23/18 13:58 Urine pH 7.0 (5.0-8.0) 01/23/18 13:58 Ur Specific [place] 1.005 (1.003-1.030) 01/23/18 13:58 Urine Protein 1+ mg/dL (NEGATIVE) H 01/23/18 13:58 Urine Glucose (UA) Normal mg/dL (Normal) 01/23/18 13:58 Urine Ketones Negative mg/dL (NEGATIVE) 01/23/18 13:58 Urine Blood 1+ (NEGATIVE) H 01/23/18 13:58 Urine Nitrate Negative (NEGATIVE) 01/23/18 13:58 Urine Bilirubin Negative (NEGATIVE) 01/23/18 13:58 Urine Urobilinogen Normal mg/dL (0.2-1.0) 01/23/18 13:58 Ur Leukocyte Esterase 2+ Matt/uL (Negative) H 01/23/18 13:58 Urine WBC (Auto) 3 /hpf (0-5) 01/23/18 13:58 Urine RBC (Auto) 2 /hpf (0-3) 01/23/18 13:58 Ur Squamous Epith Cells 1 /hpf (0-5) 01/23/18 13:58 Urine Bacteria Rare (<OCC) 01/23/18 13:58 Discharge Plan - Follow Up Plan Condition: GOOD Disposition: HOME/ ROUTINE Instructions: Glaucoma (DC) Additional Instructions: Please f/u with PMD in 3-5 days Please f/u with opthalmologist on Friday( Dr. Urias ) f/u visit - need to check you eye pressure Resume all home medications Referrals: Ailyn Urias DO [[facility]] -
--- NOTE | 2018-01-25 22:10 | DS ---
DISCHARGE DIAGNOSES: 1. Dizziness due to severe glaucoma with poor visual acuity. 2. Cerebral atherosclerosis with vertebrobasilar insufficiency. 3. Hypertension. 4. Hyperlipidemia. HOSPITAL COURSE: This is a 77-year-old -[place] female with a history of prior CVA, hypertension and hyperlipidemia. She is noncompliant with diet, medication and followup. She stopped taking her glaucoma eyedrops and she started having blurring of vision, visual loss and she started having falls. The patient came to the emergency room and she was admitted as a code stroke. An MRI was negative for stroke. There were prior old strokes. The patient was treated, stabilized and discharged on medication including aspirin and statin. The patient will resume her glaucoma eyedrops to stabilize her vision understands. LABORATORY DATA: WBC 6.3, hemoglobin , hematocrit 33.1, platelets 326. Sodium 140, potassium 4.4, chloride 102, bicarbonate 28, BUN 18, creatinine 1.2, glucose 123. MRI of the brain, old strokes noted. CONDITION UPON DISCHARGE: Stable. Solitario Wright MD
--- NOTE | 2018-01-29 17:37 | CARD ---
APPROVED REPORT Date of service: 01/23/2018 EKG Measurement Heart [id number] <Conclusion> Normal sinus rhythm Cannot rule out Anterior infarct, age undetermined Abnormal ECG
== END 2018-01-24 18:10 | disposition home or self-care (01) ==
LOC: C.ER 10:46 → INTOOBSV 14:30 → C.9E 14:30 → C.6T 15:31
PROVIDERS: ADMIT Internal Medicine; ATTEND Internal Medicine
DX: I67.2 Cerebral atherosclerosis (principal); G45.0 Vertebro-basilar artery syndrome; I11.0 Hypertensive heart disease with heart failure; E03.9 Hypothyroidism, unspecified; I50.9 Heart failure, unspecified; J44.9 Chronic obstructive pulmonary disease, unspecified; R26.2 Difficulty in walking, not elsewhere classified; H40.9 Unspecified glaucoma; M06.9 Rheumatoid arthritis, unspecified; H26.9 Unspecified cataract; E78.5 Hyperlipidemia, unspecified; E78.00 Pure hypercholesterolemia, unspecified; H54.62 Unqualified visual loss, left eye, normal vision right eye; Z86.73 Personal history of transient ischemic attack (TIA), and cerebral infarction without residual deficits; Z87.891 Personal history of nicotine dependence; Z91.11 Patient's noncompliance with dietary regimen; Z91.14 Patient's other noncompliance with medication regimen
CPT/HCPCS: 70450; 70553; 71046; 80053; 81001; 83735; 84484; 85025; 93005; 96372; 99285; A9579; G0378; J1650

== ENCOUNTER 2018-05-04 11:05 | Inpatient (IN) | payer MEDICARE ==
[2018-05-04 11:06] VITALS: BMI 27.6
--- NOTE | 2018-05-04 11:49 | C.PDOC ---
History Of Present Illness 77 y/o F c PMHx HTN p/w "feeling sick" x 2 days. Reports loss of appetite, small amount of vomiting, L sided chest pain, abnormal breathing, diarrhea. Patient denies fever, chills, abdominal pain, dysuria, recent travel, trauma, sick contacts. Time Seen by Provider: 05/04/18 11:13 Chief Complaint (Nursing): Abdominal Pain Past Medical History Vital Signs: Last Vital Signs Temp 97.2 F L 05/04/18 11:16 Pulse 78 05/04/18 11:16 Resp 22 05/04/18 11:16 BP 108/69 05/04/18 11:16 Pulse Ox 95 05/04/18 11:16 - Medical History PMH: CHF, HTN, Hypercholesterolemia, Hypothyroidism, Peripheral Edema, Rheumatoid Arthritis Denies: HIV, Chronic Kidney Disease - [facility] Procedures EXERCISE TRMT MUSCULOSK LOW BACK/LE W ASSIST EQUIP (08/26/17) GAIT TRAINING/AMBULAT TREATMENT USING ASSIST EQUIPMENT (08/26/17) HOME MANAGEMENT TREATMENT USING ASSIST EQUIPMENT (08/26/17) Family History: States: Unknown Family Hx - Social History Hx Tobacco Use: No Hx Alcohol Use: No Hx Substance Use: No - Immunization History Hx Tetanus Toxoid Vaccination: No Hx Influenza Vaccination: No Hx Pneumococcal Vaccination: No Review Of Systems Except As Marked, All Systems Reviewed And Found Negative. Constitutional: Negative for: Fever Gastrointestinal: Negative for: Abdominal Pain Physical Exam - Physical Exam Additional Physical Exam Comments: Gen: NAD Head: NC/AT Eyes: PERRL ENT: MMM Neck: Supple Chest: No tenderness CV: Regular rate Lungs: SpO2 89% on room air Abd: Soft, NT, ND Back: No CVA tenderness Skin: No rash Extremities: No tenderness Neuro: Alert, no focal deficit. Oriented x 2 (will not guess year) ED Course And Treatment - Laboratory Results Result Diagrams: 05/04/18 12:23 05/04/18 12:23 O2 Sat by Pulse Oximetry: 95 Critical Care Time - Critical Care Note Total Time (in mins): 45 Documented critical care: time excludes all time spent performing seperately billable procedures. Medical Decision Making Medical Decision Making: EKG Sinus rhythm, 58 bpm, no ST elevations. CXR no consolidation. Hyperkalemia found without EKG changes, medications administered. Heparin administered. Dr. Zepeda accepts patient to ICU. Disposition - Disposition Disposition: HOSPITALIZED Disposition Time: 14:00 Condition: CRITICAL Forms: [facility] ([place]) - Clinical Impression Clinical Impression: CHF exacerbation, NSTEMI (non-ST elevated myocardial infarction), Acute renal insufficiency, Hyperkalemia
[2018-05-04 12:27] LABS: BASO # 0.1 K/uL (0.0-0.2); BASO % 0.4 % (0.0-2.0); HEMOGLOBIN 12.5 g/dL (11.0-16.0); LYMPH # 2.6 K/uL (1.0-4.3); LYMPH % 20.6 % (20.0-40.0); MEAN CORPUSCULAR HEMOGLOBIN 22.3 pg (27.0-31.0); MEAN CORPUSCULAR HGB CONC 29.4 g/dL (33.0-37.0); MEAN PLATELET VOLUME 8.8 fL (7.2-11.7); MONO # 0.8 K/uL (0.0-0.8); NEUT # 9.1 K/uL (1.8-7.0); NRBC % 0.4 % (0.0-2.0); RBC 5.6 Mil/uL (3.80-5.20); RED CELL DISTRIBUTION WIDTH 15.7 % (11.5-14.5)
[2018-05-04 12:38] LABS: MEAN CELL VOLUME 75.8 fL (81.0-99.0); WHITE BLOOD COUNT 12.5 K/uL (4.8-10.8)
[2018-05-04 12:39] LABS: ALB/GLOB RATIO 1.4 (1.0-2.1); ALBUMIN 4.3 g/dL (3.5-5.0); CALCIUM 9.9 mg/dl (8.6-10.4)
[2018-05-04 12:53] LABS: INR 1.6
[2018-05-04] MEDS ORDERED: Dextrose 50% SYRINGE Inj (50 ml) IV STA (12:53)
[2018-05-04] MEDS ORDERED: Albuterol 0.083% Inhal Sol (2.5 mg/3 mL) UD INH STA (12:53)
[2018-05-04] MEDS ORDERED: Sodium Bicarbonate (8.4%) 50 Meq Syringe IVP ONE (12:53)
[2018-05-04] MEDS ORDERED: (Novolin R) Insulin Human Regular 100 units/ml vial IVP ONE (12:53)
[2018-05-04] MEDS ORDERED: Sodium Bicarbonate (8.4%) 50 Meq Syringe ONE (13:04)
[2018-05-04] MEDS ORDERED: (Novolin R) Insulin Human Regular 100 units/ml vial ONE (13:04)
[2018-05-04] MEDS ORDERED: Dextrose 50% SYRINGE Inj (50 ml) ONE (13:06)
[2018-05-04] MEDS ORDERED: Albuterol 0.083% Inhal Sol (2.5 mg/3 mL) UD ONE (13:19)
[2018-05-04] MEDS ORDERED: Heparin25000 units/250ml 1/2NS 25,000 UNITS/250 ML BAG IV ONE (13:43)
--- NOTE | 2018-05-04 14:23 | CP.PCM.CON ---
History of Present Illness - History of Present Illness History of Present Illness: Amalia Nicole DO, PGY-2: ICU Consult Note for Dr. Zepeda 77 year old female with a past medical history of hypertension, dyslipidemia, and glacouma who presented with 2 days of worsening chest pain, shortness of breath, nausea, and difficulty urinating. She reports the chest pain as severe but not as worst as it was initially two days ago. She reports feelings of general malaise, lack of appetite, one episode of vomiting and an inability to urinate. She denies fever, chills, diarrhea, unilateral weakness or numbness. She is accompanied by a daughter and grand daughter. She reports nothing improved her symptoms, including taking an OTC NSAID. Otherwise, 12 point ROS is negative. At the time of my examination she is saturating in the low 90s off of oxygen. PMH: dyslipidemia, hypertension, ex smoker, hypothyroidism, CHF PSH: surgery for left eye related to glaucoma social: 40 pack year history, drinks alcohol seldomly, denies illicit drug use Allergies: Denies PMD: Dr. Forrester Review of Systems - Review of Systems All systems: reviewed and no additional remarkable complaints except (as per HPI) Past Patient History - Infectious Disease Hx of Infectious Diseases: None - Past Medical History & Family History Past Medical History?: Yes - Past Social History Smoking Status: Former Smoker - CARDIAC Hx Congestive Heart Failure: Yes Hx Hypercholesterolemia: Yes Hx Hypertension: Yes Hx Peripheral Edema: Yes - PULMONARY Hx Respiratory Disorders: No - NEUROLOGICAL Hx Neurological Disorder: Yes HX Cerebrovascular Accident: Yes - HEENT Hx HEENT Problems: No Hx Glaucoma: Yes - RENAL Hx Chronic Kidney Disease: No - ENDOCRINE/METABOLIC Hx Hypothyroidism: Yes - HEMATOLOGICAL/ONCOLOGICAL Hx Human Immunodeficiency Virus (HIV): No - INTEGUMENTARY Hx Dermatological Problems: No - MUSCULOSKELETAL/RHEUMATOLOGICAL Hx Rheumatoid Arthritis: Yes - GASTROINTESTINAL Hx Gastrointestinal Disorders: No - GENITOURINARY/GYNECOLOGICAL Hx Genitourinary Disorders: Yes Other/Comment: fibroids - PSYCHIATRIC Hx Substance Use: No - SURGICAL HISTORY Hx Orthopedic Surgery: Yes - ANESTHESIA Hx Anesthesia: Yes Hx Anesthesia Reactions: No Hx Malignant Hyperthermia: No Meds Allergies/Adverse Reactions: Allergies Allergy/AdvReac Type Severity Reaction Status Date / Time No Known Allergies Allergy Verified 05/04/18 11:20 - Medications Medications: Current Medications Heparin Sodium/Sodium Chloride (Heparin 00204 Units/250ml 1/2 Normal Saline) 25,000 units in 250 mls @ 8.981 mls/hr IV .Q24H ONE; Protocol Stop: 05/05/18 13:42 Physical Exam - Constitutional Appears: Non-toxic - Head Exam Head Exam: ATRAUMATIC, NORMOCEPHALIC - Eye Exam Additional comments: left eye closed - ENT Exam ENT Exam: Mucous Membranes Moist, Normal Oropharynx - Neck Exam Neck exam: Positive for: Normal Inspection - Respiratory Exam Respiratory Exam: NORMAL BREATHING PATTERN. absent: Accessory Muscle Use - Cardiovascular Exam Cardiovascular Exam: RRR, +S1, +S2 - GI/Abdominal Exam GI & Abdominal Exam: Normal Bowel Sounds, Soft - Extremities Exam Extremities exam: Positive for: normal inspection. Negative for: calf tenderness - Back Exam Back exam: NORMAL INSPECTION. absent: CVA tenderness (L), CVA tenderness (R) - Neurological Exam Neurological exam: Alert, CN II-XII Intact, Oriented x3 - Psychiatric Exam Psychiatric exam: Normal Affect, Normal Mood - Skin Skin Exam: Normal Color, Warm Additional comments: white spotted rash covereing all skin Results - Vital Signs Recent Vital Signs: Last Vital Signs Temp 97.2 F L 05/04/18 11:16 Pulse 57 L 05/04/18 12:52 Resp 22 05/04/18 12:52 BP 123/82 05/04/18 12:52 Pulse Ox 95 05/04/18 14:08 - Labs Result Diagrams: 05/04/18 12:23 05/04/18 12:23 Labs: Laboratory Results - last 24 hr 05/04/18 05/04/18 05/04/18 12:12 12:23 12:23 WBC 12.5 H D RBC 5.60 H Hgb 12.5 Hct 42.4 MCV 75.8 L D MCH 22.3 L MCHC 29.4 L RDW 15.7 H Plt Count 133 D MPV 8.8 Neut % (Auto) 73.0 Lymph % (Auto) 20.6 [place] % (Auto) 6.0 Eos % (Auto) 0.0 Baso % (Auto) 0.4 Neut # (Auto) 9.1 H Lymph # (Auto) 2.6 [place] # (Auto) 0.8 Eos # (Auto) 0.0 Baso # (Auto) 0.1 PT INR APTT Sodium 138 Potassium 5.7 H Chloride 102 Carbon Dioxide 21 L Anion Gap 21 H BUN 37 H Creatinine 2.4 H Est GFR ( Amer) 24 Est GFR (Non-Af Amer) 20 Random Glucose 139 H D Calcium 9.9 Total Bilirubin 0.8 AST 3707 H ALT 2099 H Alkaline Phosphatase 98 Total Creatine Kinase 3342 H CK-MB (Mass) 141 H Troponin I 163.0000 H* NT-Pro-B Natriuret Pep 75252 H Total Protein 7.5 Albumin 4.3 Globulin 3.2 Albumin/Globulin Ratio 1.4 Lipase 45 Influenza Typ A,B (EIA) Negative for flu a/b 05/04/18 12:39 WBC RBC Hgb Hct MCV MCH MCHC RDW Plt Count MPV Neut % (Auto) Lymph % (Auto) [place] % (Auto) Eos % (Auto) Baso % (Auto) Neut # (Auto) Lymph # (Auto) [place] # (Auto) Eos # (Auto) Baso # (Auto) PT 18.0 H INR 1.6 APTT 30 Sodium Potassium Chloride Carbon Dioxide Anion Gap BUN Creatinine Est GFR ( Amer) Est GFR (Non-Af Amer) Random Glucose Calcium Total Bilirubin AST ALT Alkaline Phosphatase Total Creatine Kinase CK-MB (Mass) Troponin I NT-Pro-B Natriuret Pep Total Protein Albumin Globulin Albumin/Globulin Ratio Lipase Influenza Typ A,B (EIA) Assessment & Plan - Assessment and Plan (Free Text) Assessment: 77 year old female with a past medical history of hypertension, dyslipidemia, and glacouma who presented with 2 days of worsening chest pain, shortness of breath, nausea, and difficulty urinating. She was found to have NSTEMI, CHF exacerbation, BATSHEVA with hyperkalemia and MODS. She was given D50 with insulin for her hyperkalemia in the ED. She was given aspirin 325 and started on a heparin drip for her NSTEMI. She will be kept on Oxygen with a target SpO2 of 95%. She will be getting intermittent diuresis for heart heart failure (likely secondary to an ischemic event. She has elevated LFTs likely secondary to congestive hepatopathy. We will trend her LFTs and Creatinine. We will consult Nephrology and cardiology. We will obtain a stat echcoardiogram. We will monitor strict intake and output. We will monitor the patient closely in the ICU. We will hold her home dose of Crestor secondary to her elevated LFT's. Case was reviewed and discussed with attending physician, Dr. Zepeda - Date & Time Date: 05/04/18 Time: 15:35
--- NOTE | 2018-05-04 15:13 | RAD ---
HISTORY: dyspnea COMPARISON: Chest x-ray performed 01/23/18 TECHNIQUE: Chest, one view. FINDINGS: LUNGS: Hyperinflation may be seen in the setting of COPD. Mild pulmonary venous congestion. No focal consolidation. Please note that chest x-ray has limited sensitivity for the detection of pulmonary masses. PLEURA: Bilateral trace effusions. No definite pneumothorax . CARDIOVASCULAR: Marked cardiomegaly. Atherosclerotic calcifications of the aorta. OSSEOUS STRUCTURES: Degenerative changes. Osseous demineralization. Evidence of calcific tendonitis, left shoulder. Bilateral glenohumeral joint space narrowing. VISUALIZED UPPER ABDOMEN: Unremarkable. OTHER FINDINGS: None. IMPRESSION: Mild pulmonary venous congestion. Bilateral trace effusions. Hyperinflation may be seen in the setting of COPD. Cardiomegaly.
[2018-05-04 15:26] LABS: SQUAMOUS EPITHIAL 2 /hpf (0-5); URINE AMORPHOUS SEDIMENT RARE /ul (<OCC); URINE BACTERIA RARE (<OCC); URINE BILIRUBIN NEGATIVE (NEGATIVE); URINE BLOOD 1+ (NEGATIVE); URINE CLARITY Hazy (Clear); URINE COLOR Amber (YELLOW); URINE GLUCOSE (UA) NORMAL (Normal); URINE LEUKOCYTE ESTERASE TRACE Leu/uL (Negative); URINE PROTEIN 2+ mg/dL (NEGATIVE); WBC CLUMPS FEW /hpf
--- NOTE | 2018-05-04 18:24 | CP.PCM.CON ---
History of Present Illness - History of Present Illness History of Present Illness: I was asked to evaluate patient by Dr Zepeda. Patient seen 05/04/181819 Patient is a 77 year old female with HTn hypercholesterolemia, hypothyroidism, who presents with dyspnea and chest pain. Symptoms began 2 days ago, when she d eveloped left sided chest pain, and associated dyspnea. The patient was noted to have progressive weakness. She presented to the ER and was found to have a troponin of 133. Ekg revealed nonspecific abnormalities. The patient was admitted to ICU with elevated transaminases and in acute renal failure. She is currently oliguric. Review of Systems - Constitutional Constitutional: Lethargy, Weakness - EENT Eyes: absent: As Per HPI, Blind Spots, Blurred Vision, Change in Vision, Decreased Night Vision, Diplopia, Discharge, Dry Eye, Exophthalmos, Floaters, Irritation, Itchy Eyes, Loss of Peripheral Vision, Pain, Photophobia, Requires Corrective Lenses, Sees Flashes, Spots in Vision, Tunnel Vision, Other Visual Disturbances, Loss of Vision, Other Ears: absent: As Per HPI, Decreased Hearing, Ear Discharge, Ear Pain, Tinnitus, Abnormal Hearing, Disequilibrium, Dizziness, Other Nose/Mouth/Throat: absent: As Per HPI, Epistaxis, Nasal Congestion, Nasal Discharge, Nasal Obstruction, Nasal Trauma, Nose Pain, Post Nasal Drip, Sinus Pain, Sinus Pressure, Bleeding Gums, Change in Voice, Dental Pain, Dry Mouth, Dysphagia, Halitosis, Hoarsness, Lip Swelling, Mouth Lesions, Mouth Pain, Odynophagia, Sore Throat, Throat Swelling, Tongue Swelling, Facial Pain, Neck Pain, Neck Mass, Other - Cardiovascular Cardiovascular: Chest Pain - Respiratory Respiratory: absent: As Per HPI, Cough, Dyspnea, Hemoptysis, Dyspnea on Exertion, Wheezing, Snoring, Stridor, Pain on Inspiration, Chest Congestion, Excessive Mucous Production, Change in Mucous Color, Pain with Coughing, Other - Gastrointestinal Gastrointestinal: absent: As Per HPI, Abdominal Pain, Belching, Bloating, Change in Bowel Habits, Change in Stool Character, Coffee Ground Emesis, Constipation, Cramping, Diarrhea, Dyspepsia, Dysphagia, Early Satiety, Excessive Flatus, Fecal Incontinence, Heartburn, Hematemesis, Hematochezia, Loose Stools, Melena, Nausea, Odynophagia, Temesmus, Vomiting, Other - Genitourinary Genitourinary: absent: As Per HPI, Change in Urinary Stream, Difficulty Urinating, Dysuria, Flank Pain, Hematuria, Pyuria, Nocturia, Urinary Incontinence, Urinary Frequency, Urinary Hesitance, Urinary Urgency, Voiding Freq/Small Amts, Freq UTI, Hx Renal/Bladder Calculi, Hx /Renal Surgery, Bladder Distension, Other - Musculoskeletal Musculoskeletal: absent: As Per HPI, Abnormal Gait, Arthralgias, Atrophy, Back Pain, Deformity, Joint Swelling, Limited Range of Motion, Loss of Height, Muscle Cramps, Muscle Weakness, Myalgias, Neck Pain, Numbness, Radiating Pain into Limb , Stiffness, Tingling, Other - Integumentary Integumentary: absent: As Per HPI, Acne, Alopecia, Bleeding Lesions, Change in Hair, Change in Nails, Change in Pigmentation, Changing Lesions, Dry Skin, Erythema, Furuncle, Hirsutism, Lesions, New Lesions, Non-Healing Lesions, Photosensitivity, Pruritus, Rash, Skin Pain, Skin Ulcer, Sores, Striae, Swelling, Unusual Bruising, Wounds, Jaundice, Other - Neurological Neurological: absent: As Per HPI, Abnormal Gait, Abnormal Hearing, Abnormal Movements, Abnormal Speech, Behavioral Changes, Burning Sensations, Confusion, Convulsions, Disequilibrium, Dizziness, Numbness, Focal Weakness, Frequent Falls, Headaches, Lack of Coordination, Loss of Vision, Memory Loss, Paresthesia s, Radicular Pain, Restless Legs, Sensory Deficit, Syncope, Tingling, Tremor, Vertigo, Weakness, Other Visual Disturbances, Other - Psychiatric Psychiatric: absent: As Per HPI, Abnormal Sleep Pattern, Anhedonia, Anxiety, Auditory Hallucinations, Behavioral Changes, Change in Appetite, Change in Libido, Confusion, Depression, Difficulty Concentrating, Hallucinations, Homicidal Ideation, Hopelessness, Irritability, Memory Loss, Mood Swings, Panic Attacks, Paranoia, Suicidal Ideation, Visual Hallucinations, Tactile Hallucinations, Other - Endocrine Endocrine: absent: As Per HPI, Change in Body Appearance, Change in Libido, Cold Intolorance, Deepening of Voice, Excessive Sweating, Fatigue, Flushing, Heat Intolorance, Increase in Ring/Shoe/Hat Size, Palpitations, Polydipsia, Polyphagia, Polyuria, Other - Hematologic/Lymphatic Hematologic: absent: As Per HPI, Easy Bleeding, Easy Bruising, Lymphadenopathy, Other Past Patient History - Infectious Disease Hx of Infectious Diseases: None - Past Medical History & Family History Past Medical History?: Yes - Past Social History Smoking Status: Former Smoker - CARDIAC Hx Congestive Heart Failure: Yes Hx Hypercholesterolemia: Yes Hx Hypertension: Yes - PULMONARY Hx Respiratory Disorders: No - NEUROLOGICAL Hx Neurological Disorder: Yes HX Cerebrovascular Accident: Yes (2018) - HEENT Hx HEENT Problems: No Hx Glaucoma: Yes (left eye glaucoma) - RENAL Hx Chronic Kidney Disease: No - ENDOCRINE/METABOLIC Hx Hypothyroidism: Yes - HEMATOLOGICAL/ONCOLOGICAL Hx Human Immunodeficiency Virus (HIV): No - INTEGUMENTARY Hx Dermatological Problems: No - MUSCULOSKELETAL/RHEUMATOLOGICAL Hx Rheumatoid Arthritis: Yes - GASTROINTESTINAL Hx Gastrointestinal Disorders: No - GENITOURINARY/GYNECOLOGICAL Hx Genitourinary Disorders: Yes Other/Comment: fibroids - PSYCHIATRIC Hx Substance Use: No - SURGICAL HISTORY Hx Hysterectomy: Yes Hx Orthopedic Surgery: Yes - ANESTHESIA Hx Anesthesia: Yes Hx Anesthesia Reactions: No Hx Malignant Hyperthermia: No Meds Allergies/Adverse Reactions: Allergies Allergy/AdvReac Type Severity Reaction Status Date / Time No Known Allergies Allergy Verified 05/04/18 11:20 - Medications Medications: Current Medications Aspirin (Aspirin) 325 mg PO DAILY [facility] Famotidine (Pepcid) 20 mg PO DAILY [facility] Heparin Sodium/Sodium Chloride (Heparin 20231 Units/250ml 1/2 Normal Saline) 25,000 units in 250 mls @ 8.981 mls/hr IV .Q24H ONE; Protocol Stop: 05/05/18 13:42 Last Admin: 05/04/18 14:20 Dose: 12 units/kg/hr, 8.981 mls/hr Latanoprost (Xalatan Opht) 2.5 ml OU HS GRIFFIN Levothyroxine Sodium (Synthroid) 88 mcg PO 0630 GRIFFIN Metoprolol Tartrate (Lopressor) 12.5 mg PO 0800,1800 G[facility] Pantoprazole Sodium (Protonix Ec Tab) 40 mg PO DAILY [facility] Pneumococcal Polyvalent Vaccine (Pneumovax 23 Vaccine) 0.5 ml SC .ONCE ONE Stop: 05/06/18 16:01 Physical Exam - Constitutional Appears: Non-toxic - Head Exam Head Exam: NORMAL INSPECTION - Eye Exam Eye Exam: Normal appearance - ENT Exam ENT Exam: Mucous Membranes Moist - Neck Exam Neck exam: Positive for: Full Rom - Respiratory Exam Respiratory Exam: Decreased Breath Sounds - Cardiovascular Exam Cardiovascular Exam: REGULAR RHYTHM - GI/Abdominal Exam GI & Abdominal Exam: Normal Bowel Sounds - Rectal Exam Rectal Exam: Deferred - Extremities Exam Extremities exam: Negative for: pedal edema - Back Exam Back exam: NORMAL INSPECTION - Neurological Exam Neurological exam: Alert, Oriented x3 - Psychiatric Exam Psychiatric exam: Normal Affect, Normal Mood - Skin Skin Exam: Normal Color, Warm Results - Vital Signs Recent Vital Signs: Last Vital Signs Temp 97.5 F L 05/04/18 15:55 Pulse 63 05/04/18 15:55 Resp 18 05/04/18 15:55 BP 125/74 05/04/18 15:55 Pulse Ox 98 05/04/18 15:55 - Labs Result Diagrams: 05/04/18 12:23 05/04/18 12:23 Labs: Laboratory Results - last 24 hr 05/04/18 05/04/18 05/04/18 12:12 12:23 12:23 WBC 12.5 H D RBC 5.60 H Hgb 12.5 Hct 42.4 MCV 75.8 L D MCH 22.3 L MCHC 29.4 L RDW 15.7 H Plt Count 133 D MPV 8.8 Neut % (Auto) 73.0 Lymph % (Auto) 20.6 [place] % (Auto) 6.0 Eos % (Auto) 0.0 Baso % (Auto) 0.4 Neut # (Auto) 9.1 H Lymph # (Auto) 2.6 [place] # (Auto) 0.8 Eos # (Auto) 0.0 Baso # (Auto) 0.1 PT INR APTT Sodium 138 Potassium 5.7 H Chloride 102 Carbon Dioxide 21 L Anion Gap 21 H BUN 37 H Creatinine 2.4 H Est GFR ( Amer) 24 Est GFR (Non-Af Amer) 20 Random Glucose 139 H D Hemoglobin A1c Calcium 9.9 Total Bilirubin 0.8 AST 3707 H ALT 2099 H Alkaline Phosphatase 98 Total Creatine Kinase 3342 H CK-MB (Mass) 141 H Troponin I 163.0000 H* NT-Pro-B Natriuret Pep 43144 H Total Protein 7.5 Albumin 4.3 Globulin 3.2 Albumin/Globulin Ratio 1.4 Triglycerides Cholesterol LDL Cholesterol Direct HDL Cholesterol Lipase 45 TSH 3rd Generation Urine Color Urine Clarity Urine pH Ur Specific [place] Urine Protein Urine Glucose (UA) Urine Ketones Urine Blood Urine Nitrate Urine Bilirubin Urine Urobilinogen Ur Leukocyte Esterase Urine WBC (Auto) Urine RBC (Auto) Urine WBC Clumps (Auto) Ur Squamous Epith Cells Amorphous Sediment Urine Bacteria Hyaline Casts Influenza Typ A,B (EIA) Negative for flu a/b 05/04/18 05/04/18 05/04/18 12:39 14:42 14:55 WBC RBC Hgb Hct MCV MCH MCHC RDW Plt Count MPV Neut % (Auto) Lymph % (Auto) [place] % (Auto) Eos % (Auto) Baso % (Auto) Neut # (Auto) Lymph # (Auto) [place] # (Auto) Eos # (Auto) Baso # (Auto) PT 18.0 H INR 1.6 APTT 30 Sodium Potassium Chloride Carbon Dioxide Anion Gap BUN Creatinine Est GFR ( Amer) Est GFR (Non-Af Amer) Random Glucose Hemoglobin A1c 6.5 Calcium Total Bilirubin AST ALT Alkaline Phosphatase Total Creatine Kinase CK-MB (Mass) Troponin I NT-Pro-B Natriuret Pep Total Protein Albumin Globulin Albumin/Globulin Ratio Triglycerides Cholesterol LDL Cholesterol Direct HDL Cholesterol Lipase TSH 3rd Generation Urine Color Mai Urine Clarity Hazy Urine pH 5.0 Ur Specific [place] 1.021 Urine Protein 2+ H Urine Glucose (UA) Normal Urine Ketones Negative Urine Blood 1+ H Urine Nitrate Negative Urine Bilirubin Negative Urine Urobilinogen 4.0 H Ur Leukocyte Esterase Trace Urine WBC (Auto) 12 H Urine RBC (Auto) 4 H Urine WBC Clumps (Auto) Few H Ur Squamous Epith Cells 2 Amorphous Sediment Rare H Urine Bacteria Rare Hyaline Casts 11-20 H Influenza Typ A,B (EIA) 05/04/18 15:37 WBC RBC Hgb Hct MCV MCH MCHC RDW Plt Count MPV Neut % (Auto) Lymph % (Auto) [place] % (Auto) Eos % (Auto) Baso % (Auto) Neut # (Auto) Lymph # (Auto) [place] # (Auto) Eos # (Auto) Baso # (Auto) PT INR APTT Sodium Potassium Chloride Carbon Dioxide Anion Gap BUN Creatinine Est GFR ( Amer) Est GFR (Non-Af Amer) Random Glucose Hemoglobin A1c Calcium Total Bilirubin AST ALT Alkaline Phosphatase Total Creatine Kinase CK-MB (Mass) Troponin I NT-Pro-B Natriuret Pep Total Protein Albumin Globulin Albumin/Globulin Ratio Triglycerides 91 Cholesterol 121 LDL Cholesterol Direct 52 HDL Cholesterol 48 Lipase TSH 3rd Generation 8.20 H Urine Color Urine Clarity Urine pH Ur Specific [place] Urine Protein Urine Glucose (UA) Urine Ketones Urine Blood Urine Nitrate Urine Bilirubin Urine Urobilinogen Ur Leukocyte Esterase Urine WBC (Auto) Urine RBC (Auto) Urine WBC Clumps (Auto) Ur Squamous Epith Cells Amorphous Sediment Urine Bacteria Hyaline Casts Influenza Typ A,B (EIA) - EKG Data EKG Interpreted by: Myself Assessment & Plan (1) NSTEMI (non-ST elevated myocardial infarction) Assessment and Plan: patient's symptoms likely began 2 days ago. The patient has no current angina. I recommend conitnued heaprin drip. recommend ASA 81 mg daily, Plavix 75 mg daily. I discussed with patient and family that given current hemodynamic stability and renal failure, it will be best for conservative medical therapy at this time. there is risk or progressive contrast induced nephropathy if cath performed at this time. Check echocardiogram Status: Acute (2) Hypercholesterolemia Assessment and Plan: will not give statin therapy given elevated transaminases Status: Acute (3) Acute renal insufficiency Assessment and Plan: will follow renal recs Status: Acute
[2018-05-04 18:53] LABS: CALCIUM 9.5 mg/dl (8.6-10.4)
--- NOTE | 2018-05-04 18:53 | CP.PCM.PN ---
Subjective - Date & Time of Evaluation Date of Evaluation: 05/04/18 Time of Evaluation: 18:50 - Subjective Subjective: pt admitted with acute MN pt had chest pain for 2 days now no pain but feeling weak and sob on exertion noted spoke to cardiology spoke to renal will get GI renal function is worsening pt may need HD unable to give statins 2* high lefts will repeat tests again condition critical prognosis poor spoke to family on heparin asa metoprolol levothyroxine monitor K level and lfts troponin Objective - Vital Signs/Intake and Output Vital Signs (last 24 hours): Temp Pulse Resp BP Pulse Ox 97.5 F L 63 18 125/74 98 05/04/18 15:55 05/04/18 15:55 05/04/18 15:55 05/04/18 15:55 05/04/18 15:55 - Medications Medications: Current Medications Aspirin (Aspirin) 325 mg PO DAILY GRIFFIN Famotidine (Pepcid) 20 mg PO DAILY [facility] Heparin Sodium/Sodium Chloride (Heparin 62401 Units/250ml 1/2 Normal Saline) 25,000 units in 250 mls @ 8.981 mls/hr IV .Q24H ONE; Protocol Stop: 05/05/18 13:42 Last Admin: 05/04/18 14:20 Dose: 12 units/kg/hr, 8.981 mls/hr Latanoprost (Xalatan Opht) 2.5 ml OU HS GRIFFIN Levothyroxine Sodium (Synthroid) 88 mcg PO 0630 GRIFFIN Metoprolol Tartrate (Lopressor) 12.5 mg PO 0800,1800 GRIFFIN Pantoprazole Sodium (Protonix Ec Tab) 40 mg PO DAILY GRIFFIN Pneumococcal Polyvalent Vaccine (Pneumovax 23 Vaccine) 0.5 ml SC .ONCE ONE Stop: 05/06/18 16:01 - Labs Labs: 05/04/18 12:23 05/04/18 12:23 PT 18.0 SECONDS (9.7-12.2) H 05/04/18 12:39 INR 1.6 05/04/18 12:39 APTT 30 SECONDS (21-34) 05/04/18 12:39
--- NOTE | 2018-05-04 19:42 | CP.PCM.CON ---
History of Present Illness - History of Present Illness History of Present Illness: 77 yo female h/o HTN, chol, hypothy, presents with CP and sob. Denied abdom pain. But reports mild mid abdom pain-poorly described. Denies RB, fever, back pain, tylenol, herbals, alcohol abuse. Pt is seen wqith 4 family members at [facility]. Review of Systems - Constitutional Constitutional: Fatigue. absent: Fever, Weight Gain, Weight Loss - EENT Eyes: absent: Photophobia - Cardiovascular Cardiovascular: Chest Pain, Dyspnea. absent: Pedal Edema - Respiratory Respiratory: Dyspnea. absent: Hemoptysis, Wheezing - Gastrointestinal Gastrointestinal: Abdominal Pain, Constipation, Nausea, Vomiting. absent: Coffee Ground Emesis, Diarrhea, Dysphagia, Hematemesis, Hematochezia, Melena, Odynophagia - Genitourinary Genitourinary: absent: Hematuria - Musculoskeletal Musculoskeletal: absent: Muscle Cramps - Integumentary Integumentary: absent: Pruritus, Jaundice - Neurological Neurological: absent: Convulsions, Syncope - Psychiatric Psychiatric: absent: Hallucinations Past Patient History - Infectious Disease Hx of Infectious Diseases: None - Past Medical History & Family History Past Medical History?: Yes - Past Social History Smoking Status: Former Smoker - CARDIAC Hx Congestive Heart Failure: Yes Hx Hypercholesterolemia: Yes Hx Hypertension: Yes - PULMONARY Hx Respiratory Disorders: No - NEUROLOGICAL Hx Neurological Disorder: Yes HX Cerebrovascular Accident: Yes (2017) - HEENT Hx HEENT Problems: No Hx Glaucoma: Yes (left eye glaucoma) - RENAL Hx Chronic Kidney Disease: No - ENDOCRINE/METABOLIC Hx Hypothyroidism: Yes - HEMATOLOGICAL/ONCOLOGICAL Hx Human Immunodeficiency Virus (HIV): No - INTEGUMENTARY Hx Dermatological Problems: No - MUSCULOSKELETAL/RHEUMATOLOGICAL Hx Rheumatoid Arthritis: Yes - GASTROINTESTINAL Hx Gastrointestinal Disorders: No - GENITOURINARY/GYNECOLOGICAL Hx Genitourinary Disorders: Yes Other/Comment: fibroids - PSYCHIATRIC Hx Substance Use: No - SURGICAL HISTORY Hx Hysterectomy: Yes Hx Orthopedic Surgery: Yes - ANESTHESIA Hx Anesthesia: Yes Hx Anesthesia Reactions: No Hx Malignant Hyperthermia: No Meds Allergies/Adverse Reactions: Allergies Allergy/AdvReac Type Severity Reaction Status Date / Time No Known Allergies Allergy Verified 05/04/18 11:20 - Medications Medications: Current Medications Aspirin (Aspirin) 325 mg PO DAILY [facility] Famotidine (Pepcid) 20 mg PO DAILY [facility] Heparin Sodium/Sodium Chloride (Heparin 95995 Units/250ml /2 Normal Saline) 25,000 units in 250 mls @ 8.981 mls/hr IV .Q24H ONE; Protocol Stop: 05/05/18 13:42 Last Admin: 05/04/18 14:20 Dose: 12 units/kg/hr, 8.981 mls/hr Latanoprost (Xalatan Opht) 2.5 ml OU HS GRIFFIN Levothyroxine Sodium (Synthroid) 88 mcg PO 0630 GRIFFIN Metoprolol Tartrate (Lopressor) 12.5 mg PO 0800,1800 GRIFFIN Pantoprazole Sodium (Protonix Ec Tab) 40 mg PO DAILY G[facility]FFIN Pneumococcal Polyvalent Vaccine (Pneumovax 23 Vaccine) 0.5 ml SC .ONCE ONE Stop: 05/06/18 16:01 Physical Exam - Constitutional Appears: Non-toxic - Respiratory Exam Respiratory Exam: Clear to Auscultation Bilateral - Cardiovascular Exam Cardiovascular Exam: RRR - GI/Abdominal Exam GI & Abdominal Exam: Normal Bowel Sounds, Soft. absent: Guarding, Mass, Rebound, Tenderness - Neurological Exam Neurological exam: Alert, Oriented x3 - Psychiatric Exam Psychiatric exam: Normal Affect Results - Vital Signs Recent Vital Signs: Last Vital Signs Temp 97.5 F L 05/04/18 15:55 Pulse 63 05/04/18 15:55 Resp 18 05/04/18 15:55 BP 125/74 05/04/18 15:55 Pulse Ox 98 05/04/18 15:55 - Labs Result Diagrams: 05/04/18 12:23 05/04/18 18:24 Labs: Laboratory Results - last 24 hr 05/04/18 05/04/18 05/04/18 12:12 12:23 12:23 WBC 12.5 H D RBC 5.60 H Hgb 12.5 Hct 42.4 MCV 75.8 L D MCH 22.3 L MCHC 29.4 L RDW 15.7 H Plt Count 133 D MPV 8.8 Neut % (Auto) 73.0 Lymph % (Auto) 20.6 [place] % (Auto) 6.0 Eos % (Auto) 0.0 Baso % (Auto) 0.4 Neut # (Auto) 9.1 H Lymph # (Auto) 2.6 [place] # (Auto) 0.8 Eos # (Auto) 0.0 Baso # (Auto) 0.1 PT INR APTT Sodium 138 Potassium 5.7 H Chloride 102 Carbon Dioxide 21 L Anion Gap 21 H BUN 37 H Creatinine 2.4 H Est GFR ( Amer) 24 Est GFR (Non-Af Amer) 20 Random Glucose 139 H D Hemoglobin A1c Calcium 9.9 Total Bilirubin 0.8 AST 3707 H ALT 2099 H Alkaline Phosphatase 98 Total Creatine Kinase 3342 H CK-MB (Mass) 141 H Troponin I 163.0000 H* NT-Pro-B Natriuret Pep 36302 H Total Protein 7.5 Albumin 4.3 Globulin 3.2 Albumin/Globulin Ratio 1.4 Triglycerides Cholesterol LDL Cholesterol Direct HDL Cholesterol Lipase 45 TSH 3rd Generation Urine Color Urine Clarity Urine pH Ur Specific [place] Urine Protein Urine Glucose (UA) Urine Ketones Urine Blood Urine Nitrate Urine Bilirubin Urine Urobilinogen Ur Leukocyte Esterase Urine WBC (Auto) Urine RBC (Auto) Urine WBC Clumps (Auto) Ur Squamous Epith Cells Amorphous Sediment Urine Bacteria Hyaline Casts Influenza Typ A,B (EIA) Negative for flu a/b 05/04/18 05/04/18 05/04/18 12:39 14:42 14:55 WBC RBC Hgb Hct MCV MCH MCHC RDW Plt Count MPV Neut % (Auto) Lymph % (Auto) [place] % (Auto) Eos % (Auto) Baso % (Auto) Neut # (Auto) Lymph # (Auto) [place] # (Auto) Eos # (Auto) Baso # (Auto) PT 18.0 H INR 1.6 APTT 30 Sodium Potassium Chloride Carbon Dioxide Anion Gap BUN Creatinine Est GFR ( Amer) Est GFR (Non-Af Amer) Random Glucose Hemoglobin A1c 6.5 Calcium Total Bilirubin AST ALT Alkaline Phosphatase Total Creatine Kinase CK-MB (Mass) Troponin I NT-Pro-B Natriuret Pep Total Protein Albumin Globulin Albumin/Globulin Ratio Triglycerides Cholesterol LDL Cholesterol Direct HDL Cholesterol Lipase TSH 3rd Generation Urine Color Mai Urine Clarity Hazy Urine pH 5.0 Ur Specific [place] 1.021 Urine Protein 2+ H Urine Glucose (UA) Normal Urine Ketones Negative Urine Blood 1+ H Urine Nitrate Negative Urine Bilirubin Negative Urine Urobilinogen 4.0 H Ur Leukocyte Esterase Trace Urine WBC (Auto) 12 H Urine RBC (Auto) 4 H Urine WBC Clumps (Auto) Few H Ur Squamous Epith Cells 2 Amorphous Sediment Rare H Urine Bacteria Rare Hyaline Casts 11-20 H Influenza Typ A,B (EIA) 02/18/19 02/18/19 15:37 18:24 WBC RBC Hgb Hct MCV MCH MCHC RDW Plt Count MPV Neut % (Auto) Lymph % (Auto) [place] % (Auto) Eos % (Auto) Baso % (Auto) Neut # (Auto) Lymph # (Auto) [place] # (Auto) Eos # (Auto) Baso # (Auto) PT INR APTT Sodium 136 Potassium 5.5 H Chloride 100 Carbon Dioxide 24 Anion Gap 17 BUN 47 H Creatinine 2.5 H Est GFR ( Amer) 23 Est GFR (Non-Af Amer) 19 Random Glucose 113 H Hemoglobin A1c Calcium 9.5 Total Bilirubin AST ALT Alkaline Phosphatase Total Creatine Kinase CK-MB (Mass) 117 H Troponin I 181.0000 H* NT-Pro-B Natriuret Pep Total Protein Albumin Globulin Albumin/Globulin Ratio Triglycerides 91 Cholesterol 121 LDL Cholesterol Direct 52 HDL Cholesterol 48 Lipase TSH 3rd Generation 8.20 H Urine Color Urine Clarity Urine pH Ur Specific [place] Urine Protein Urine Glucose (UA) Urine Ketones Urine Blood Urine Nitrate Urine Bilirubin Urine Urobilinogen Ur Leukocyte Esterase Urine WBC (Auto) Urine RBC (Auto) Urine WBC Clumps (Auto) Ur Squamous Epith Cells Amorphous Sediment Urine Bacteria Hyaline Casts Influenza Typ A,B (EIA) Assessment & Plan (1) Chest pain Assessment and Plan: NSTMI Status: Acute (2) Dyspnea Assessment and Plan: GA, CHF Status: Acute (3) Elevated transaminase level Assessment and Plan: Consider related to GA.No reports of hypotension. Consider passive congestion . Doubt acute hepatitis. Rec- Hold crestor, check LFTs, hepatitis profile, ALEIDA, sono abdomen today Status: Acute (4) Acute renal insufficiency Status: Acute (5) Hypercholesterolemia Status: Acute (6) NSTEMI (non-ST elevated myocardial infarction) Status: Acute (7) CHF (congestive heart failure) Status: Acute
[2018-05-04] MEDS: Latanoprost 2.5 ml Opht Soln OU SCH (21:04)
[2018-05-04 23:52] LABS: CK-MB 91.4 ng/mL (0.0-3.38)
[2018-05-05] MEDS: Levothyroxine 88 MCG TAB PO SCH (05:41)
[2018-05-05 06:23] LABS: ALB/GLOB RATIO 1.3 (1.0-2.1); ALBUMIN 3.9 g/dL (3.5-5.0); CALCIUM 8.9 mg/dl (8.6-10.4)
[2018-05-05 06:55] LABS: BASO # 0.1 K/uL (0.0-0.2); BASO % 0.4 % (0.0-2.0); LYMPH # 2.4 K/uL (1.0-4.3); LYMPH % 18.3 % (20.0-40.0); MEAN CELL VOLUME 73.6 fL (81.0-99.0); MEAN CORPUSCULAR HEMOGLOBIN 22.2 pg (27.0-31.0); MEAN CORPUSCULAR HGB CONC 30.1 g/dL (33.0-37.0); MEAN PLATELET VOLUME 10.1 fL (7.2-11.7); MONO # 0.8 K/uL (0.0-0.8); MONO % 6.4 % (0.0-10.0); NEUT # 9.8 K/uL (1.8-7.0); NEUT % 74.9 % (50.0-75.0); NRBC % 0.6 % (0.0-2.0); RBC 4.96 Mil/uL (3.80-5.20); RED CELL DISTRIBUTION WIDTH 15.2 % (11.5-14.5); WHITE BLOOD COUNT 13.1 K/uL (4.8-10.8)
--- NOTE | 2018-05-05 08:04 | CP.PCM.PN ---
Subjective - Date & Time of Evaluation Date of Evaluation: 05/05/18 Time of Evaluation: 07:45 - Subjective Subjective: f/u elev LFTs Poor po intake. Denies Naus, vomit, fever, Abd pain, SO, LI, cough, RB, melena Objective - Vital Signs/Intake and Output Vital Signs (last 24 hours): Temp Pulse Resp BP Pulse Ox 97.8 F 64 16 124/74 97 05/05/18 04:00 05/05/18 07:30 05/05/18 07:30 05/05/18 07:01 05/05/18 07:30 Intake and Output: 05/05/18 05/05/18 06:59 18:59 Intake Total 725.8 6.8 Output Total 150 Balance 575.8 6.8 - Medications Medications: Current Medications Aspirin (Aspirin) 325 mg PO DAILY COUNT INCLUDES [facility] Clopidogrel Bisulfate (Plavix) 75 mg PO DAILY COUNT INCLUDES THE [facility] Heparin Sodium/Sodium Chloride (Heparin 90176 Units/250ml 1/2 Normal Saline) 25,000 units in 250 mls @ 8.981 mls/hr IV .Q24H ONE; Protocol Stop: 05/05/18 13:42 Last Titration: 05/05/18 00:25 Dose: 9 units/kg/hr, 6.736 mls/hr Latanoprost (Xalatan Opht) 2.5 ml OU HS COUNT INCLUDES THE [facility] Last Admin: 05/04/18 21:04 Dose: 2.5 ml Levothyroxine Sodium (Synthroid) 88 mcg PO 0630 COUNT INCLUDES THE [facility] Last Admin: 05/05/18 05:41 Dose: 88 mcg Metoprolol Tartrate (Lopressor) 12.5 mg PO 0800,1800 COUNT INCLUDES THE [facility] Last Admin: 05/04/18 21:04 Dose: 12.5 mg Pantoprazole Sodium (Protonix Ec Tab) 40 mg PO DAILY COUNT INCLUDES THE [facility] Pneumococcal Polyvalent Vaccine (Pneumovax 23 Vaccine) 0.5 ml SC .ONCE ONE Stop: 05/06/18 16:01 - Labs Labs: 05/05/18 05:57 05/05/18 05:57 PT 18.0 SECONDS (9.7-12.2) H 05/04/18 12:39 INR 1.6 05/04/18 12:39 APTT 77 SECONDS (21-34) H D 05/05/18 05:57 - Constitutional Appears: No Acute Distress - Respiratory Exam Respiratory Exam: Clear to Ausculation Bilateral - Cardiovascular Exam Cardiovascular Exam: RRR - GI/Abdominal Exam GI & Abdominal Exam: Soft, Normal Bowel Sounds. absent: Guarding, Tenderness, Mass - Extremities Exam Extremities Exam: absent: Calf Tenderness - Neurological Exam Neurological Exam: Alert, Awake Assessment and Plan (1) Chest pain Assessment & Plan: [place] Status: Acute (2) Dyspnea Assessment & Plan: [place] Status: Acute (3) Elevated transaminase level Assessment & Plan: Likely related to card and [place]. Consider passive hepatic congestion. AST is decreasing. Rec- follow labs, check hep profile,. Hold crestor. abd sono done- BUT NOT READ Status: Acute (4) Acute renal insufficiency Status: Acute (5) Hypercholesterolemia Status: Acute (6) NSTEMI (non-ST elevated myocardial infarction) Status: Acute (7) CHF (congestive heart failure) Status: Acute (8) Nutrition disorder Assessment & Plan: poor oral intake. Status: Acute
[2018-05-05] MEDS ORDERED: Heparin25000 units/250ml 1/2NS 25,000 UNITS/250 ML BAG IV PRN (08:06)
--- NOTE | 2018-05-05 08:25 | US ---
HISTORY: elevated lfts COMPARISON: None available. TECHNIQUE: Sonographic evaluation of the abdomen. FINDINGS: LIVER: Measures 16.4 cm in sagittal dimension and appears within normal limits of size, shape, and echotexture. No focal hepatic mass identified. The main portal vein appears patent with normal directional flow. No intrahepatic bile duct dilatation. Small perihepatic ascites. GALLBLADDER: No gallstones. Gallbladder wall thickening/pericholecystic edema measuring up to 9 mm. Negative sonographic Mccormick's sign as assessed by the quality audit representative. COMMON BILE DUCT: Measures 5 mm. PANCREAS: Not well visualized. RIGHT KIDNEY: Measures 9.8 x 4.1 x 4.3 cm. Cortical thinning. No obstructing calculus or hydronephrosis identified. Midpole cyst measures approximately 1.2 x 0.9 x 1.3 cm. LEFT KIDNEY: Measures 9.9 x 4.1 x 4.3 cm. Cortical thinning. No obstructing calculus or hydronephrosis identified. SPLEEN: Measures approximately 6.2 cm. 1.0 x 0.9 x 0.8 cm probable splenule. AORTA: Limited views appear unremarkable. IVC: Limited views appear unremarkable. OTHER FINDINGS: None. IMPRESSION: Gallbladder wall thickening/pericholecystic edema measuring approximately 9 mm in the absence of gallstones. Negative sonographic Mccormick's sign as assessed by the quality audit representative. Correlate clinically. 1.3 cm right midpole renal cyst. Bilateral renal cortical thinning Small perihepatic ascites. Preliminary impression was provided by [facility].
--- NOTE | 2018-05-05 08:27 | CP.PCM.CON ---
History of Present Illness - History of Present Illness History of Present Illness: 77 year old female with a past medical history of hypertension, dyslipidemia, and glacouma who presented with 2 days of worsening chest pain, shortness of breath, nausea, and difficulty urinating. She reports the chest pain as severe but not as worst as it was initially two days ago. She reports feelings of general malaise, lack of appetite, one episode of vomiting and an inability to urinate. She denies fever, chills, diarrhea, unilateral weakness or numbness. She is accompanied by a daughter and grand daughter. She reports nothing improved her symptoms, including taking an OTC NSAID. Otherwise, 12 point ROS is negative. Patient admitted to icu with elevated troponin and lfts. Renal consult requested for evaluation and management of renal failure Patient denies history of renal disease, no report of bladder dysfunction, electrolyte disorder, hematuria or proteinuria. hyperkalemia treated overnight with improvement in k level PMH: dyslipidemia, hypertension, ex smoker, hypothyroidism, CHF PSH: surgery for left eye related to glaucoma social: 40 pack year history, drinks alcohol seldomly, denies illicit drug use Allergies: Denies Review of Systems - Constitutional Constitutional: absent: Frequent Falls, Headache - EENT Eyes: absent: Change in Vision, Dry Eye, Pain Ears: absent: Ear Pain, Tinnitus, Dizziness Nose/Mouth/Throat: absent: Nasal Trauma, Post Nasal Drip, Bleeding Gums - Cardiovascular Cardiovascular: Chest Pain. absent: Lightheadedness, Orthopnea, Pedal Edema - Respiratory Respiratory: absent: Cough, Dyspnea - Gastrointestinal Gastrointestinal: absent: Bloating, Cramping, Diarrhea - Genitourinary Genitourinary: absent: Hematuria, Pyuria, Nocturia - Integumentary Integumentary: absent: Pruritus, Rash, Skin Pain - Neurological Neurological: absent: Frequent Falls, Headaches, Memory Loss, Syncope - Psychiatric Psychiatric: absent: Confusion, Depression - Endocrine Endocrine: Fatigue. absent: Palpitations, Polyphagia, Polyuria - Hematologic/Lymphatic Hematologic: absent: Easy Bleeding, Easy Bruising Past Patient History - Infectious Disease Hx of Infectious Diseases: None - Past Medical History & Family History Past Medical History?: Yes - Past Social History Smoking Status: Former Smoker - CARDIAC Hx Congestive Heart Failure: Yes Hx Hypercholesterolemia: Yes Hx Hypertension: Yes - PULMONARY Hx Respiratory Disorders: No - NEUROLOGICAL Hx Neurological Disorder: Yes HX Cerebrovascular Accident: Yes (2017) - HEENT Hx HEENT Problems: No Hx Glaucoma: Yes (left eye glaucoma) - RENAL Hx Chronic Kidney Disease: No - ENDOCRINE/METABOLIC Hx Hypothyroidism: Yes - HEMATOLOGICAL/ONCOLOGICAL Hx Human Immunodeficiency Virus (HIV): No - INTEGUMENTARY Hx Dermatological Problems: No - MUSCULOSKELETAL/RHEUMATOLOGICAL Hx Rheumatoid Arthritis: Yes - GASTROINTESTINAL Hx Gastrointestinal Disorders: No - GENITOURINARY/GYNECOLOGICAL Hx Genitourinary Disorders: Yes Other/Comment: fibroids - PSYCHIATRIC Hx Substance Use: No - SURGICAL HISTORY Hx Hysterectomy: Yes Hx Orthopedic Surgery: Yes - ANESTHESIA Hx Anesthesia: Yes Hx Anesthesia Reactions: No Hx Malignant Hyperthermia: No Meds Allergies/Adverse Reactions: Allergies Allergy/AdvReac Type Severity Reaction Status Date / Time No Known Allergies Allergy Verified 05/04/18 11:20 - Medications Medications: Current Medications Aspirin (Aspirin) 325 mg PO DAILY [facility] Clopidogrel Bisulfate (Plavix) 75 mg PO DAILY [facility] Heparin Sodium/Sodium Chloride (Heparin 23017 Units/250ml 1/2 Normal Saline) 25,000 units in 250 mls @ 6.597 mls/hr IV .Q24H PRN; Protocol PRN Reason: PROTOCOL Latanoprost (Xalatan Opht) 2.5 ml OU HS [facility] Last Admin: 05/04/18 21:04 Dose: 2.5 ml Levothyroxine Sodium (Synthroid) 88 mcg PO 0630 [facility] Last Admin: 05/05/18 05:41 Dose: 88 mcg Metoprolol Tartrate (Lopressor) 12.5 mg PO 0800,1800 [facility] Last Admin: 05/04/18 21:04 Dose: 12.5 mg Pantoprazole Sodium (Protonix Ec Tab) 40 mg PO DAILY [facility] Pneumococcal Polyvalent Vaccine (Pneumovax 23 Vaccine) 0.5 ml SC .ONCE ONE Stop: 05/06/18 16:01 Physical Exam - Head Exam Head Exam: ATRAUMATIC, NORMAL INSPECTION - Eye Exam Eye Exam: EOMI, Normal appearance - ENT Exam ENT Exam: Mucous Membranes Moist, Normal Oropharynx - Neck Exam Neck exam: Negative for: Lymphadenopathy, Thyromegaly - Respiratory Exam Respiratory Exam: NORMAL BREATHING PATTERN. absent: Rales, Rhonchi - Cardiovascular Exam Cardiovascular Exam: +S1, +S2. absent: Rubs - GI/Abdominal Exam GI & Abdominal Exam: Normal Bowel Sounds, Soft. absent: Tenderness - Extremities Exam Extremities exam: Negative for: joint swelling, pedal edema, tenderness - Neurological Exam Neurological exam: Alert, Oriented x3 - Psychiatric Exam Psychiatric exam: Normal Affect, Normal Mood - Skin Skin Exam: Dry, Intact Results - Vital Signs Recent Vital Signs: Last Vital Signs Temp 98 F 05/05/18 08:00 Pulse 68 05/05/18 08:15 Resp 22 05/05/18 08:15 BP 90/56 L 05/05/18 08:00 Pulse Ox 97 05/05/18 08:15 - Labs Result Diagrams: 05/05/18 05:57 05/05/18 05:57 Labs: Laboratory Results - last 24 hr 05/04/18 05/04/18 05/04/18 12:12 12:23 12:23 WBC 12.5 H D RBC 5.60 H Hgb 12.5 Hct 42.4 MCV 75.8 L D MCH 22.3 L MCHC 29.4 L RDW 15.7 H Plt Count 133 D MPV 8.8 Neut % (Auto) 73.0 Lymph % (Auto) 20.6 Clayton % (Auto) 6.0 Eos % (Auto) 0.0 Baso % (Auto) 0.4 Neut # (Auto) 9.1 H Lymph # (Auto) 2.6 Clayton # (Auto) 0.8 Eos # (Auto) 0.0 Baso # (Auto) 0.1 PT INR APTT Sodium 138 Potassium 5.7 H Chloride 102 Carbon Dioxide 21 L Anion Gap 21 H BUN 37 H Creatinine 2.4 H Est GFR ( Amer) 24 Est GFR (Non-Af Amer) 20 Random Glucose 139 H D Hemoglobin A1c Calcium 9.9 Phosphorus Magnesium Total Bilirubin 0.8 AST 3707 H ALT 2099 H Alkaline Phosphatase 98 Total Creatine Kinase 3342 H CK-MB (Mass) 141 H Troponin I 163.0000 H* NT-Pro-B Natriuret Pep 98537 H Total Protein 7.5 Albumin 4.3 Globulin 3.2 Albumin/Globulin Ratio 1.4 Triglycerides Cholesterol LDL Cholesterol Direct HDL Cholesterol Lipase 45 TSH 3rd Generation Urine Color Urine Clarity Urine pH Ur Specific Clements Urine Protein Urine Glucose (UA) Urine Ketones Urine Blood Urine Nitrate Urine Bilirubin Urine Urobilinogen Ur Leukocyte Esterase Urine WBC (Auto) Urine RBC (Auto) Urine WBC Clumps (Auto) Ur Squamous Epith Cells Amorphous Sediment Urine Bacteria Hyaline Casts Influenza Typ A,B (EIA) Negative for flu a/b 05/04/18 05/04/18 05/04/18 12:39 14:42 14:55 WBC RBC Hgb Hct MCV MCH MCHC RDW Plt Count MPV Neut % (Auto) Lymph % (Auto) Clayton % (Auto) Eos % (Auto) Baso % (Auto) Neut # (Auto) Lymph # (Auto) Clayton # (Auto) Eos # (Auto) Baso # (Auto) PT 18.0 H INR 1.6 APTT 30 Sodium Potassium Chloride Carbon Dioxide Anion Gap BUN Creatinine Est GFR ( Amer) Est GFR (Non-Af Amer) Random Glucose Hemoglobin A1c 6.5 Calcium Phosphorus Magnesium Total Bilirubin AST ALT Alkaline Phosphatase Total Creatine Kinase CK-MB (Mass) Troponin I NT-Pro-B Natriuret Pep Total Protein Albumin Globulin Albumin/Globulin Ratio Triglycerides Cholesterol LDL Cholesterol Direct HDL Cholesterol Lipase TSH 3rd Generation Urine Color Mai Urine Clarity Hazy Urine pH 5.0 Ur Specific Clements 1.021 Urine Protein 2+ H Urine Glucose (UA) Normal Urine Ketones Negative Urine Blood 1+ H Urine Nitrate Negative Urine Bilirubin Negative Urine Urobilinogen 4.0 H Ur Leukocyte Esterase Trace Urine WBC (Auto) 12 H Urine RBC (Auto) 4 H Urine WBC Clumps (Auto) Few H Ur Squamous Epith Cells 2 Amorphous Sediment Rare H Urine Bacteria Rare Hyaline Casts 11-20 H Influenza Typ A,B (EIA) 05/04/18 05/04/18 05/04/18 15:37 18:24 22:24 WBC RBC Hgb Hct MCV MCH MCHC RDW Plt Count MPV Neut % (Auto) Lymph % (Auto) Clayton % (Auto) Eos % (Auto) Baso % (Auto) Neut # (Auto) Lymph # (Auto) Clayton # (Auto) Eos # (Auto) Baso # (Auto) PT INR APTT 126 H* D Sodium 136 Potassium 5.5 H Chloride 100 Carbon Dioxide 24 Anion Gap 17 BUN 47 H Creatinine 2.5 H Est GFR ( Amer) 23 Est GFR (Non-Af Amer) 19 Random Glucose 113 H Hemoglobin A1c Calcium 9.5 Phosphorus Magnesium Total Bilirubin AST ALT Alkaline Phosphatase Total Creatine Kinase 3287 H CK-MB (Mass) 117 H Troponin I 181.0000 H* NT-Pro-B Natriuret Pep Total Protein Albumin Globulin Albumin/Globulin Ratio Triglycerides 91 Cholesterol 121 LDL Cholesterol Direct 52 HDL Cholesterol 48 Lipase TSH 3rd Generation 8.20 H Urine Color Urine Clarity Urine pH Ur Specific Clements Urine Protein Urine Glucose (UA) Urine Ketones Urine Blood Urine Nitrate Urine Bilirubin Urine Urobilinogen Ur Leukocyte Esterase Urine WBC (Auto) Urine RBC (Auto) Urine WBC Clumps (Auto) Ur Squamous Epith Cells Amorphous Sediment Urine Bacteria Hyaline Casts Influenza Typ A,B (EIA) 05/04/18 05/05/18 05/05/18 23:22 05:57 05:57 WBC 13.1 H RBC 4.96 Hgb 11.0 Hct 36.5 MCV 73.6 L D MCH 22.2 L MCHC 30.1 L RDW 15.2 H Plt Count 95 L D MPV 10.1 Neut % (Auto) 74.9 Lymph % (Auto) 18.3 L Clayton % (Auto) 6.4 Eos % (Auto) 0.0 Baso % (Auto) 0.4 Neut # (Auto) 9.8 H Lymph # (Auto) 2.4 Clayton # (Auto) 0.8 Eos # (Auto) 0.0 Baso # (Auto) 0.1 PT INR APTT Sodium 136 Potassium 4.4 Chloride 99 Carbon Dioxide 27 Anion Gap 15 BUN 55 H Creatinine 2.2 H Est GFR ( Amer) 26 Est GFR (Non-Af Amer) 22 Random Glucose 149 H D Hemoglobin A1c Calcium 8.9 Phosphorus 4.5 Magnesium 2.3 Total Bilirubin 0.6 AST 2878 H ALT 2103 H Alkaline Phosphatase 102 Total Creatine Kinase 2575 H 2585 H CK-MB (Mass) 91.4 H Troponin I 159.0000 H* 108.0000 H* NT-Pro-B Natriuret Pep Total Protein 7.0 Albumin 3.9 Globulin 3.0 Albumin/Globulin Ratio 1.3 Triglycerides Cholesterol LDL Cholesterol Direct HDL Cholesterol Lipase TSH 3rd Generation Urine Color Urine Clarity Urine pH Ur Specific Clements Urine Protein Urine Glucose (UA) Urine Ketones Urine Blood Urine Nitrate Urine Bilirubin Urine Urobilinogen Ur Leukocyte Esterase Urine WBC (Auto) Urine RBC (Auto) Urine WBC Clumps (Auto) Ur Squamous Epith Cells Amorphous Sediment Urine Bacteria Hyaline Casts Influenza Typ A,B (EIA) 05/05/18 05:57 WBC RBC Hgb Hct MCV MCH MCHC RDW Plt Count MPV Neut % (Auto) Lymph % (Auto) Clayton % (Auto) Eos % (Auto) Baso % (Auto) Neut # (Auto) Lymph # (Auto) Clayton # (Auto) Eos # (Auto) Baso # (Auto) PT INR APTT 77 H D Sodium Potassium Chloride Carbon Dioxide Anion Gap BUN Creatinine Est GFR ( Amer) Est GFR (Non-Af Amer) Random Glucose Hemoglobin A1c Calcium Phosphorus Magnesium Total Bilirubin AST ALT Alkaline Phosphatase Total Creatine Kinase CK-MB (Mass) Troponin I NT-Pro-B Natriuret Pep Total Protein Albumin Globulin Albumin/Globulin Ratio Triglycerides Cholesterol LDL Cholesterol Direct HDL Cholesterol Lipase TSH 3rd Generation Urine Color Urine Clarity Urine pH Ur Specific Clements Urine Protein Urine Glucose (UA) Urine Ketones Urine Blood Urine Nitrate Urine Bilirubin Urine Urobilinogen Ur Leukocyte Esterase Urine WBC (Auto) Urine RBC (Auto) Urine WBC Clumps (Auto) Ur Squamous Epith Cells Amorphous Sediment Urine Bacteria Hyaline Casts Influenza Typ A,B (EIA) Assessment & Plan (1) Acute kidney injury Status: Acute (2) Chest pain Status: Acute (3) Elevated transaminase level Status: Acute (4) Hyperkalemia Status: Acute (5) NSTEMI (non-ST elevated myocardial infarction) Status: Acute - Assessment and Plan (Free Text) Assessment: Acute kidney injury in setting of nstemi and elevated liver function tests Suspect ATN from ischemic injury ? hypotension at presentation - responded to conservative management Management of AMI noted - holding off on contrast study at this point Hyperkalemia resolved Suggest IVF at slow rate (cxr noted) Evaluation to include renal ultrasound and urine studies
[2018-05-05 09:04] LABS: HEPATITIS C ANTIBODY NEGATIVE (NEGATIVE)
[2018-05-05] MEDS ORDERED: Metoprolol Succinate 50 mg XL Tab PO SCH (10:00)
[2018-05-05] MEDS ORDERED: Pantoprazole 40 mg EC Tab PO SCH (10:00)
[2018-05-05] MEDS ORDERED: Sodium Chloride 0.9% 500 ML IV ONE ×2 (10:05→11:05)
[2018-05-05] MEDS ORDERED: Sodium Chloride 0.9% 1,000 ML IV SCH (10:15)
[2018-05-05 10:40] LABS: HEPATITIS B SURFACE AG Negative (NEGATIVE)
[2018-05-05 10:46] LABS: HEPATITIS A IGM NEGATIVE (NEGATIVE); HEPATITIS B CORE AB NEGATIVE (NEGATIVE)
[2018-05-05 11:15] LABS: ARTERIAL BLOOD GAS HCO3 24.7 mmol/L (21-28); ARTERIAL BLOOD GAS PCO2 37 mm/Hg (35-45); ARTERIAL BLOOD GAS PH 7.42 (7.35-7.45); ARTERIAL BLOOD GAS PO2 69 mm/Hg (80-100)
[2018-05-05 11:16] LABS: ARTERIAL BLOOD GAS O2 SAT 96.1 % (95-98); ARTERIAL BLOOD GAS TCO2 25.1 mmol/L (22-28)
[2018-05-05 11:17] LABS: ABG ALLEN TEST POS
--- NOTE | 2018-05-05 11:38 | RAD ---
Date of service: 05/05/2018 HISTORY: chf COMPARISON: No prior. FINDINGS: LUNGS: The lungs are well inflated. There is moderate pulmonary venous congestion. PLEURA: No pleural effusions or pneumothorax. CARDIOVASCULAR: There is persistent moderate cardiomegaly and prominent central vasculature. No aortic atherosclerotic calcifications present. OSSEOUS STRUCTURES: Within normal limits for the patient's age. VISUALIZED UPPER ABDOMEN: Normal. OTHER FINDINGS: None. IMPRESSION: No active pulmonary disease. Moderate cardiomegaly and pulmonary venous congestion.
[2018-05-05 13:13] LABS: SQUAMOUS EPITHIAL 19 /hpf (0-5); URINE AMORPHOUS SEDIMENT RARE /ul (<OCC); URINE BACTERIA OCC (<OCC); URINE BILIRUBIN NEGATIVE (NEGATIVE); URINE BLOOD 1+ (NEGATIVE); URINE CLARITY Hazy (Clear); URINE COLOR Yellow (YELLOW); URINE GLUCOSE (UA) NORMAL (Normal); URINE LEUKOCYTE ESTERASE 3+ Leu/uL (Negative); URINE PROTEIN 2+ mg/dL (NEGATIVE); WBC CLUMPS FEW /hpf
--- NOTE | 2018-05-05 16:21 | CP.CCUPN ---
<Amalia Nicole - Last Filed: 05/05/18 16:48> CCU Subjective - Physician Review Subjective (Free Text): Amalia Nicole DO, PGY-2: ICU Progress Note for Dr. Mishra Patient was seen and examined at bedside. She denies any chest pain, nausea, vomiting, or worsening dyspnea. Troponins started to trend down. She made little urine overnight. Nephrology is following. 05/05/18 16:19 CCU Objective - Vital Signs / Intake & Output Vital Signs (Last 4 hours): Vital Signs Pulse Resp BP Pulse Ox 05/05/18 16:00 69 101/69 98 05/05/18 15:59 69 101/69 95 05/05/18 15:45 68 99 05/05/18 15:30 69 05/05/18 15:15 70 28 H 05/05/18 15:00 71 33 H 05/05/18 14:59 70 27 H 109/76 100 05/05/18 14:45 68 26 H 95 05/05/18 14:30 65 28 H 98 05/05/18 14:15 71 19 95 05/05/18 14:00 71 28 H 99 05/05/18 13:59 78 18 119/72 98 05/05/18 13:45 70 27 H 97 05/05/18 13:41 71 28 H 125/65 97 05/05/18 13:30 70 28 H 98 05/05/18 13:15 70 22 96 05/05/18 13:00 70 28 H 59 L 05/05/18 12:45 71 25 H 91 L 05/05/18 12:30 69 25 H Intake and Output (Last 8hrs): Intake & Output 05/05/18 05/05/18 05/05/18 06:59 14:59 22:59 Intake Total 369.8 1287.6 Output Total 150 0 Balance 219.8 1287.6 Weight 161 lb 9.581 oz Intake: IV 80 Intake, IV Amount 49.8 847.6 Right Forearm 800 Right Hand 49.8 47.6 Oral 240 440 Output: Urine 150 0 Urine, Voided 150 0 Stool 0 Other: # Voids Urine, Voided 0 1 # Bowel Movements 0 0 - Medications Active Medications: Active Medications Generic Name Dose Route Start Last Admin Trade Name Freq PRN Reason Stop Dose Admin Aspirin 325 mg 05/05/18 10:00 05/05/18 10:27 Aspirin PO 325 mg DAILY GRIFFIN Administration Clopidogrel Bisulfate 75 mg 05/05/18 10:00 05/05/18 10:28 Plavix PO 75 mg DAILY GRIFFIN Administration Heparin Sodium/Sodium Chloride 25,000 units in 250 mls @ 6.597 mls/hr 05/05/18 08:06 Heparin 56334 Units/250ml 1/2 Normal Saline IV .Q24H PRN PROTOCOL Protocol 9 UNITS/KG/HR Sodium Chloride 1,000 mls @ 100 mls/hr 05/05/18 10:15 05/05/18 10:54 Sodium Chloride 0.9% IV 100 mls/hr .Q10H GRIFFIN Administration Latanoprost 2.5 ml 05/04/18 22:00 05/04/18 21:04 Xalatan Opht OU 2.5 ml HS GRIFFIN Administration Levothyroxine Sodium 88 mcg 05/05/18 06:30 05/05/18 05:41 Synthroid PO 88 mcg 0630 GRIFFIN Administration Metoprolol Tartrate 12.5 mg 05/04/18 18:00 05/05/18 08:34 Lopressor PO 12.5 mg 0800,1800 GRIFFIN Administration Pantoprazole Sodium 40 mg 05/05/18 10:00 05/05/18 10:26 Protonix Ec Tab PO 40 mg DAILY GRIFFIN Administration Pneumococcal Polyvalent Vaccine 0.5 ml 05/06/18 16:00 Pneumovax 23 Vaccine SC 05/06/18 16:01 .ONCE ONE - Patient Studies Lab Studies: Microbiology Studies 05/04/18 14:55 Urine Culture - Final Urine Random No Growth (<1,000 CFU/ML) Lab Studies 05/05/18 05/05/18 05/05/18 Range/Units 12:56 12:56 12:35 WBC (4.8-10.8) K/uL RBC (3.80-5.20) Mil/uL Hgb (11.0-16.0) g/dL Hct (34.0-47.0) % MCV (81.0-99.0) fL MCH (27.0-31.0) pg MCHC (33.0-37.0) g/dL RDW (11.5-14.5) % Plt Count (130-400) K/uL MPV (7.2-11.7) fL Neut % (Auto) (50.0-75.0) % Lymph % (Auto) (20.0-40.0) % [place] % (Auto) (0.0-10.0) % Eos % (Auto) (0.0-4.0) % Baso % (Auto) (0.0-2.0) % Neut # (Auto) (1.8-7.0) K/uL Lymph # (Auto) (1.0-4.3) K/uL [place] # (Auto) (0.0-0.8) K/uL Eos # (Auto) (0.0-0.7) K/uL Baso # (Auto) (0.0-0.2) K/uL APTT 76 H (21-34) SECONDS Puncture Site pCO2 (35-45) mm/Hg pO2 (80-100) mm/Hg HCO3 (21-28) mmol/L ABG pH (7.35-7.45) ABG Total CO2 (22-28) mmol/L ABG O2 Saturation (95-98) % ABG Base Excess (-2.0-3.0) mmol/L Akil Test ABG Potassium (3.6-5.2) mmol/L Sodium (132-148) mmol/l Chloride (98-107) mmol/L Glucose (65-105) mg/dl Lactate (0.7-2.1) mmol/L Potassium (3.6-5.2) mmol/L Carbon Dioxide (22-30) mmol/L Anion Gap (10-20) BUN (7-17) mg/dL Creatinine (0.7-1.2) mg/dL Est GFR ( Amer) Est GFR (Non-Af Amer) Random Glucose (65-105) mg/dL Calcium (8.6-10.4) mg/dl Phosphorus (2.5-4.5) mg/dL Magnesium (1.6-2.3) mg/dL Total Bilirubin (0.2-1.3) mg/dL AST (14-36) U/L ALT (9-52) U/L Alkaline Phosphatase (38-126) U/L Total Creatine Kinase (30-135) U/L CK-MB (Mass) (0.0-3.38) ng/mL Troponin I (0.00-0.120) ng/mL Total Protein (6.3-8.3) g/dL Albumin (3.5-5.0) g/dL Globulin (2.2-3.9) gm/dL Albumin/Globulin Ratio (1.0-2.1) TSH 3rd Generation (0.46-4.68) mIU/L Arterial Blood Potassium (3.6-5.2) mmol/L Urine Color Yellow (YELLOW) Urine Clarity Hazy (Clear) Urine pH 5.0 (5.0-8.0) Ur Specific [place] 1.018 (1.003-1.030) Urine Protein 2+ H (NEGATIVE) mg/dL Urine Glucose (UA) Normal (Normal) mg/dL Urine Ketones Negative (NEGATIVE) mg/dL Urine Blood 1+ H (NEGATIVE) Urine Nitrate Negative (NEGATIVE) Urine Bilirubin Negative (NEGATIVE) Urine Urobilinogen 2.0 H (0.2-1.0) mg/dL Ur Leukocyte Esterase 3+ H (Negative) Matt/uL Urine WBC (Auto) 77 H (0-5) /hpf Urine RBC (Auto) 8 H (0-3) /hpf Urine WBC Clumps (Auto) Few H (NONE) /hpf Ur Squamous Epith Cells 19 H (0-5) /hpf Amorphous Sediment Rare H (<OCC) /ul Urine Bacteria Occ H (<OCC) Ur Random Sodium 28 mmol/L Hepatitis A IgM Ab (NEGATIVE) Hep Bs Antigen (NEGATIVE) Hep B Core IgM Ab (NEGATIVE) Hepatitis C Antibody (NEGATIVE) 05/05/18 05/05/18 05/05/18 Range/Units 05:57 05:57 05:57 WBC (4.8-10.8) K/uL RBC (3.80-5.20) Mil/uL Hgb (11.0-16.0) g/dL Hct (34.0-47.0) % MCV (81.0-99.0) fL MCH (27.0-31.0) pg MCHC (33.0-37.0) g/dL RDW (11.5-14.5) % Plt Count (130-400) K/uL MPV (7.2-11.7) fL Neut % (Auto) (50.0-75.0) % Lymph % (Auto) (20.0-40.0) % [place] % (Auto) (0.0-10.0) % Eos % (Auto) (0.0-4.0) % Baso % (Auto) (0.0-2.0) % Neut # (Auto) (1.8-7.0) K/uL Lymph # (Auto) (1.0-4.3) K/uL [place] # (Auto) (0.0-0.8) K/uL Eos # (Auto) (0.0-0.7) K/uL Baso # (Auto) (0.0-0.2) K/uL APTT 77 H D (21-34) SECONDS Puncture Site pCO2 (35-45) mm/Hg pO2 (80-100) mm/Hg HCO3 (21-28) mmol/L ABG pH (7.35-7.45) ABG Total CO2 (22-28) mmol/L ABG O2 Saturation (95-98) % ABG Base Excess (-2.0-3.0) mmol/L Akil Test ABG Potassium (3.6-5.2) mmol/L Sodium 136 (132-148) mmol/l Chloride 99 (98-107) mmol/L Glucose (65-105) mg/dl Lactate (0.7-2.1) mmol/L Potassium 4.4 (3.6-5.2) mmol/L Carbon Dioxide 27 (22-30) mmol/L Anion Gap 15 (10-20) BUN 55 H (7-17) mg/dL Creatinine 2.2 H (0.7-1.2) mg/dL Est GFR ( Amer) 26 Est GFR (Non-Af Amer) 22 Random Glucose 149 H D (65-105) mg/dL Calcium 8.9 (8.6-10.4) mg/dl Phosphorus 4.5 (2.5-4.5) mg/dL Magnesium 2.3 (1.6-2.3) mg/dL Total Bilirubin 0.6 (0.2-1.3) mg/dL AST 2878 H (14-36) U/L ALT 2103 H (9-52) U/L Alkaline Phosphatase 102 (38-126) U/L Total Creatine Kinase 2585 H (30-135) U/L CK-MB (Mass) (0.0-3.38) ng/mL Troponin I 108.0000 H* (0.00-0.120) ng/mL Total Protein 7.0 (6.3-8.3) g/dL Albumin 3.9 (3.5-5.0) g/dL Globulin 3.0 (2.2-3.9) gm/dL Albumin/Globulin Ratio 1.3 (1.0-2.1) TSH 3rd Generation (0.46-4.68) mIU/L Arterial Blood Potassium (3.6-5.2) mmol/L Urine Color (YELLOW) Urine Clarity (Clear) Urine pH (5.0-8.0) Ur Specific [place] (1.003-1.030) Urine Protein (NEGATIVE) mg/dL Urine Glucose (UA) (Normal) mg/dL Urine Ketones (NEGATIVE) mg/dL Urine Blood (NEGATIVE) Urine Nitrate (NEGATIVE) Urine Bilirubin (NEGATIVE) Urine Urobilinogen (0.2-1.0) mg/dL Ur Leukocyte Esterase (Negative) Matt/uL Urine WBC (Auto) (0-5) /hpf Urine RBC (Auto) (0-3) /hpf Urine WBC Clumps (Auto) (NONE) /hpf Ur Squamous Epith Cells (0-5) /hpf Amorphous Sediment (<OCC) /ul Urine Bacteria (<OCC) Ur Random Sodium mmol/L Hepatitis A IgM Ab Negative (NEGATIVE) Hep Bs Antigen Negative (NEGATIVE) Hep B Core IgM Ab Negative (NEGATIVE) Hepatitis C Antibody Negative (NEGATIVE) 05/05/18 05/04/18 05/04/18 Range/Units 05:57 23:22 22:24 WBC 13.1 H (4.8-10.8) K/uL RBC 4.96 (3.80-5.20) Mil/uL Hgb 11.0 (11.0-16.0) g/dL Hct 36.5 (34.0-47.0) % MCV 73.6 L D (81.0-99.0) fL MCH 22.2 L (27.0-31.0) pg MCHC 30.1 L (33.0-37.0) g/dL RDW 15.2 H (11.5-14.5) % Plt Count 95 L D (130-400) K/uL MPV 10.1 (7.2-11.7) fL Neut % (Auto) 74.9 (50.0-75.0) % Lymph % (Auto) 18.3 L (20.0-40.0) % [place] % (Auto) 6.4 (0.0-10.0) % Eos % (Auto) 0.0 (0.0-4.0) % Baso % (Auto) 0.4 (0.0-2.0) % Neut # (Auto) 9.8 H (1.8-7.0) K/uL Lymph # (Auto) 2.4 (1.0-4.3) K/uL [place] # (Auto) 0.8 (0.0-0.8) K/uL Eos # (Auto) 0.0 (0.0-0.7) K/uL Baso # (Auto) 0.1 (0.0-0.2) K/uL APTT 126 H* D (21-34) SECONDS Puncture Site pCO2 (35-45) mm/Hg pO2 (80-100) mm/Hg HCO3 (21-28) mmol/L ABG pH (7.35-7.45) ABG Total CO2 (22-28) mmol/L ABG O2 Saturation (95-98) % ABG Base Excess (-2.0-3.0) mmol/L Akil Test ABG Potassium (3.6-5.2) mmol/L Sodium (132-148) mmol/l Chloride (98-107) mmol/L Glucose (65-105) mg/dl Lactate (0.7-2.1) mmol/L Potassium (3.6-5.2) mmol/L Carbon Dioxide (22-30) mmol/L Anion Gap (10-20) BUN (7-17) mg/dL Creatinine (0.7-1.2) mg/dL Est GFR ( Amer) Est GFR (Non-Af Amer) Random Glucose (65-105) mg/dL Calcium (8.6-10.4) mg/dl Phosphorus (2.5-4.5) mg/dL Magnesium (1.6-2.3) mg/dL Total Bilirubin (0.2-1.3) mg/dL AST (14-36) U/L ALT (9-52) U/L Alkaline Phosphatase (38-126) U/L Total Creatine Kinase 2575 H (30-135) U/L CK-MB (Mass) 91.4 H (0.0-3.38) ng/mL Troponin I 159.0000 H* (0.00-0.120) ng/mL Total Protein (6.3-8.3) g/dL Albumin (3.5-5.0) g/dL Globulin (2.2-3.9) gm/dL Albumin/Globulin Ratio (1.0-2.1) TSH 3rd Generation (0.46-4.68) mIU/L Arterial Blood Potassium (3.6-5.2) mmol/L Urine Color (YELLOW) Urine Clarity (Clear) Urine pH (5.0-8.0) Ur Specific [place] (1.003-1.030) Urine Protein (NEGATIVE) mg/dL Urine Glucose (UA) (Normal) mg/dL Urine Ketones (NEGATIVE) mg/dL Urine Blood (NEGATIVE) Urine Nitrate (NEGATIVE) Urine Bilirubin (NEGATIVE) Urine Urobilinogen (0.2-1.0) mg/dL Ur Leukocyte Esterase (Negative) Matt/uL Urine WBC (Auto) (0-5) /hpf Urine RBC (Auto) (0-3) /hpf Urine WBC Clumps (Auto) (NONE) /hpf Ur Squamous Epith Cells (0-5) /hpf Amorphous Sediment (<OCC) /ul Urine Bacteria (<OCC) Ur Random Sodium mmol/L Hepatitis A IgM Ab (NEGATIVE) Hep Bs Antigen (NEGATIVE) Hep B Core IgM Ab (NEGATIVE) Hepatitis C Antibody (NEGATIVE) 05/04/18 05/04/18 05/04/18 Range/Units 18:24 15:37 14:50 WBC (4.8-10.8) K/uL RBC (3.80-5.20) Mil/uL Hgb (11.0-16.0) g/dL Hct (34.0-47.0) % MCV (81.0-99.0) fL MCH (27.0-31.0) pg MCHC (33.0-37.0) g/dL RDW (11.5-14.5) % Plt Count (130-400) K/uL MPV (7.2-11.7) fL Neut % (Auto) (50.0-75.0) % Lymph % (Auto) (20.0-40.0) % [place] % (Auto) (0.0-10.0) % Eos % (Auto) (0.0-4.0) % Baso % (Auto) (0.0-2.0) % Neut # (Auto) (1.8-7.0) K/uL Lymph # (Auto) (1.0-4.3) K/uL [place] # (Auto) (0.0-0.8) K/uL Eos # (Auto) (0.0-0.7) K/uL Baso # (Auto) (0.0-0.2) K/uL APTT (21-34) SECONDS Puncture Site Rr pCO2 37 (35-45) mm/Hg pO2 69 L (80-100) mm/Hg HCO3 24.7 (21-28) mmol/L ABG pH 7.42 (7.35-7.45) ABG Total CO2 25.1 (22-28) mmol/L ABG O2 Saturation 96.1 (95-98) % ABG Base Excess -0.2 (-2.0-3.0) mmol/L Akil Test Pos ABG Potassium 4.7 (3.6-5.2) mmol/L Sodium 136 141.0 (132-148) mmol/l Chloride 100 106.0 (98-107) mmol/L Glucose 129 H (65-105) mg/dl Lactate 3.9 H (0.7-2.1) mmol/L Potassium 5.5 H (3.6-5.2) mmol/L Carbon Dioxide 24 (22-30) mmol/L Anion Gap 17 (10-20) BUN 47 H (7-17) mg/dL Creatinine 2.5 H (0.7-1.2) mg/dL Est GFR ( Amer) 23 Est GFR (Non-Af Amer) 19 Random Glucose 113 H (65-105) mg/dL Calcium 9.5 (8.6-10.4) mg/dl Phosphorus (2.5-4.5) mg/dL Magnesium (1.6-2.3) mg/dL Total Bilirubin (0.2-1.3) mg/dL AST (14-36) U/L ALT (9-52) U/L Alkaline Phosphatase (38-126) U/L Total Creatine Kinase 3287 H (30-135) U/L CK-MB (Mass) 117 H (0.0-3.38) ng/mL Troponin I 181.0000 H* (0.00-0.120) ng/mL Total Protein (6.3-8.3) g/dL Albumin (3.5-5.0) g/dL Globulin (2.2-3.9) gm/dL Albumin/Globulin Ratio (1.0-2.1) TSH 3rd Generation 8.20 H (0.46-4.68) mIU/L Arterial Blood Potassium 4.7 (3.6-5.2) mmol/L Urine Color (YELLOW) Urine Clarity (Clear) Urine pH (5.0-8.0) Ur Specific [place] (1.003-1.030) Urine Protein (NEGATIVE) mg/dL Urine Glucose (UA) (Normal) mg/dL Urine Ketones (NEGATIVE) mg/dL Urine Blood (NEGATIVE) Urine Nitrate (NEGATIVE) Urine Bilirubin (NEGATIVE) Urine Urobilinogen (0.2-1.0) mg/dL Ur Leukocyte Esterase (Negative) Matt/uL Urine WBC (Auto) (0-5) /hpf Urine RBC (Auto) (0-3) /hpf Urine WBC Clumps (Auto) (NONE) /hpf Ur Squamous Epith Cells (0-5) /hpf Amorphous Sediment (<OCC) /ul Urine Bacteria (<OCC) Ur Random Sodium mmol/L Hepatitis A IgM Ab (NEGATIVE) Hep Bs Antigen (NEGATIVE) Hep B Core IgM Ab (NEGATIVE) Hepatitis C Antibody (NEGATIVE) Laboratory Results - last 24 hr 05/04/18 05/04/18 05/04/18 14:50 15:37 18:24 WBC RBC Hgb Hct MCV MCH MCHC RDW Plt Count MPV Neut % (Auto) Lymph % (Auto) [place] % (Auto) Eos % (Auto) Baso % (Auto) Neut # (Auto) Lymph # (Auto) [place] # (Auto) Eos # (Auto) Baso # (Auto) APTT Puncture Site Rr pCO2 37 pO2 69 L HCO3 24.7 ABG pH 7.42 ABG Total CO2 25.1 ABG O2 Saturation 96.1 ABG Base Excess -0.2 Akil Test Pos ABG Potassium 4.7 Sodium 141.0 136 Chloride 106.0 100 Glucose 129 H Lactate 3.9 H Potassium 5.5 H Carbon Dioxide 24 Anion Gap 17 BUN 47 H Creatinine 2.5 H Est GFR ( Amer) 23 Est GFR (Non-Af Amer) 19 Random Glucose 113 H Calcium 9.5 Phosphorus Magnesium Total Bilirubin AST ALT Alkaline Phosphatase Total Creatine Kinase 3287 H CK-MB (Mass) 117 H Troponin I 181.0000 H* Total Protein Albumin Globulin Albumin/Globulin Ratio TSH 3rd Generation 8.20 H Arterial Blood Potassium 4.7 Urine Color Urine Clarity Urine pH Ur Specific [place] Urine Protein Urine Glucose (UA) Urine Ketones Urine Blood Urine Nitrate Urine Bilirubin Urine Urobilinogen Ur Leukocyte Esterase Urine WBC (Auto) Urine RBC (Auto) Urine WBC Clumps (Auto) Ur Squamous Epith Cells Amorphous Sediment Urine Bacteria Ur Random Sodium Hepatitis A IgM Ab Hep Bs Antigen Hep B Core IgM Ab Hepatitis C Antibody 05/04/18 05/04/18 05/05/18 22:24 23:22 05:57 WBC 13.1 H RBC 4.96 Hgb 11.0 Hct 36.5 MCV 73.6 L D MCH 22.2 L MCHC 30.1 L RDW 15.2 H Plt Count 95 L D MPV 10.1 Neut % (Auto) 74.9 Lymph % (Auto) 18.3 L [place] % (Auto) 6.4 Eos % (Auto) 0.0 Baso % (Auto) 0.4 Neut # (Auto) 9.8 H Lymph # (Auto) 2.4 [place] # (Auto) 0.8 Eos # (Auto) 0.0 Baso # (Auto) 0.1 APTT 126 H* D Puncture Site pCO2 pO2 HCO3 ABG pH ABG Total CO2 ABG O2 Saturation ABG Base Excess Akil Test ABG Potassium Sodium Chloride Glucose Lactate Potassium Carbon Dioxide Anion Gap BUN Creatinine Est GFR ( Amer) Est GFR (Non-Af Amer) Random Glucose Calcium Phosphorus Magnesium Total Bilirubin AST ALT Alkaline Phosphatase Total Creatine Kinase 2575 H CK-MB (Mass) 91.4 H Troponin I 159.0000 H* Total Protein Albumin Globulin Albumin/Globulin Ratio TSH 3rd Generation Arterial Blood Potassium Urine Color Urine Clarity Urine pH Ur Specific [place] Urine Protein Urine Glucose (UA) Urine Ketones Urine Blood Urine Nitrate Urine Bilirubin Urine Urobilinogen Ur Leukocyte Esterase Urine WBC (Auto) Urine RBC (Auto) Urine WBC Clumps (Auto) Ur Squamous Epith Cells Amorphous Sediment Urine Bacteria Ur Random Sodium Hepatitis A IgM Ab Hep Bs Antigen Hep B Core IgM Ab Hepatitis C Antibody 05/05/18 05/05/18 05/05/18 05:57 05:57 05:57 WBC RBC Hgb Hct MCV MCH MCHC RDW Plt Count MPV Neut % (Auto) Lymph % (Auto) [place] % (Auto) Eos % (Auto) Baso % (Auto) Neut # (Auto) Lymph # (Auto) [place] # (Auto) Eos # (Auto) Baso # (Auto) APTT 77 H D Puncture Site pCO2 pO2 HCO3 ABG pH ABG Total CO2 ABG O2 Saturation ABG Base Excess Akil Test ABG Potassium Sodium 136 Chloride 99 Glucose Lactate Potassium 4.4 Carbon Dioxide 27 Anion Gap 15 BUN 55 H Creatinine 2.2 H Est GFR ( Amer) 26 Est GFR (Non-Af Amer) 22 Random Glucose 149 H D Calcium 8.9 Phosphorus 4.5 Magnesium 2.3 Total Bilirubin 0.6 AST 2878 H ALT 2103 H Alkaline Phosphatase 102 Total Creatine Kinase 2585 H CK-MB (Mass) Troponin I 108.0000 H* Total Protein 7.0 Albumin 3.9 Globulin 3.0 Albumin/Globulin Ratio 1.3 TSH 3rd Generation Arterial Blood Potassium Urine Color Urine Clarity Urine pH Ur Specific [place] Urine Protein Urine Glucose (UA) Urine Ketones Urine Blood Urine Nitrate Urine Bilirubin Urine Urobilinogen Ur Leukocyte Esterase Urine WBC (Auto) Urine RBC (Auto) Urine WBC Clumps (Auto) Ur Squamous Epith Cells Amorphous Sediment Urine Bacteria Ur Random Sodium Hepatitis A IgM Ab Negative Hep Bs Antigen Negative Hep B Core IgM Ab Negative Hepatitis C Antibody Negative 05/05/18 05/05/18 05/05/18 12:35 12:56 12:56 WBC RBC Hgb Hct MCV MCH MCHC RDW Plt Count MPV Neut % (Auto) Lymph % (Auto) [place] % (Auto) Eos % (Auto) Baso % (Auto) Neut # (Auto) Lymph # (Auto) [place] # (Auto) Eos # (Auto) Baso # (Auto) APTT 76 H Puncture Site pCO2 pO2 HCO3 ABG pH ABG Total CO2 ABG O2 Saturation ABG Base Excess Akil Test ABG Potassium Sodium Chloride Glucose Lactate Potassium Carbon Dioxide Anion Gap BUN Creatinine Est GFR ( Amer) Est GFR (Non-Af Amer) Random Glucose Calcium Phosphorus Magnesium Total Bilirubin AST ALT Alkaline Phosphatase Total Creatine Kinase CK-MB (Mass) Troponin I Total Protein Albumin Globulin Albumin/Globulin Ratio TSH 3rd Generation Arterial Blood Potassium Urine Color Yellow Urine Clarity Hazy Urine pH 5.0 Ur Specific [place] 1.018 Urine Protein 2+ H Urine Glucose (UA) Normal Urine Ketones Negative Urine Blood 1+ H Urine Nitrate Negative Urine Bilirubin Negative Urine Urobilinogen 2.0 H Ur Leukocyte Esterase 3+ H Urine WBC (Auto) 77 H Urine RBC (Auto) 8 H Urine WBC Clumps (Auto) Few H Ur Squamous Epith Cells 19 H Amorphous Sediment Rare H Urine Bacteria Occ H Ur Random Sodium 28 Hepatitis A IgM Ab Hep Bs Antigen Hep B Core IgM Ab Hepatitis C Antibody Radiology Impressions: Radiology Impressions Abdomen Ultrasound 05/04/18 18:24 IMPRESSION: Gallbladder wall thickening/pericholecystic edema measuring approximately 9 mm in the absence of gallstones. Negative sonographic Mccormick's sign as assessed by the die cast engineer. Correlate clinically. 1.3 cm right midpole renal cyst. Bilateral renal cortical thinning Small perihepatic ascites. Preliminary impression was provided by [employer]. Chest X-Ray 05/05/18 07:00 IMPRESSION: No active pulmonary disease. Moderate cardiomegaly and pulmonary venous congestion. EKG/Cardiology Studies: Cardiology / EKG Studies 05/04/18 15:33 EKG [ELECTROCARDIOGRAM] Stat Comment: Mode Of Transportation: Reason For Exam: chest pain Critical Care Progress Note - Nutrition Nutrition: Nutrition Category Date Time Status Heart Healthy Diet [DIET] Diets 05/04/18 Dinner Active Assessment/Plan - Assessment and Plan (Free Text) Assessment: 77 year old female with a past medical history of hypertension, dyslipidemia, and glacouma who presented with 2 days of worsening chest pain, shortness of breath, nausea, and difficulty urinating. She was found to have NSTEMI, CHF exacerbation, BATSHEVA with hyperkalemia and MODS. She was given D50 with insulin for her hyperkalemia in the ED. She was given aspirin 325 and started on a heparin drip for her NSTEMI. She will be kept on Oxygen with a target SpO2 of 95%. She will be getting intermittent diuresis for heart heart failure (likely secondary to an ischemic event. She has elevated LFTs likely secondary to congestive hepatopathy. We will trend her LFTs and Creatinine. We will consult Nephrology and cardiology. We will obtain a stat echcoardiogram. We will monitor strict intake and output. She is oliguric at this point. Overnight, she had 150 mls of urine total. The method of collection was also not verifiable. We gave her a fluid challenge and she did urinate per nursing staff, but mostly in the bed and therefore rendering it difficult to assess her urine output. We have kept her on NS at 100 mls/hr. She may need a high dose Lasix trial. In the meantime, we will repeat a stat CMP, namely to see if the Creatinine and Urea has fallen with the one void the patient had. We will monitor the patient closely in the ICU. We will hold her home dose of Crestor secondary to her elevated LFT's. We will encourage ambulation. We will continue to treat aggressively along with the primary physician and other consultants. Case was reviewed and discussed with attending physician, Dr. Mishra <Ryan Mishra S - Last Filed: 05/05/18 17:37> CCU Subjective - Physician Review Critical Care Time Spent (in minutes): 40 CCU Objective - Vital Signs / Intake & Output Vital Signs (Last 4 hours): Vital Signs Temp Pulse Resp BP Pulse Ox 05/05/18 17:02 73 23 05/05/18 16:45 69 26 H 100 05/05/18 16:42 69 15 111/61 97 05/05/18 16:30 68 98 05/05/18 16:15 71 97 05/05/18 16:00 97.6 F 69 16 101/69 98 05/05/18 15:59 69 101/69 95 05/05/18 15:45 68 99 05/05/18 15:30 69 05/05/18 15:15 70 28 H 05/05/18 15:00 71 33 H 05/05/18 14:59 70 27 H 109/76 100 05/05/18 14:45 68 26 H 95 05/05/18 14:30 65 28 H 98 05/05/18 14:15 71 19 95 05/05/18 14:00 71 28 H 99 05/05/18 13:59 78 18 119/72 98 05/05/18 13:45 70 27 H 97 05/05/18 13:41 71 28 H 125/65 97 Intake and Output (Last 8hrs): Intake & Output 05/05/18 05/05/18 05/05/18 06:59 14:59 22:59 Intake Total 369.8 1394.4 620.4 Output Total 150 0 150 Balance 219.8 1394.4 470.4 Weight 161 lb 9.581 oz Intake: IV 80 Intake, IV Amount 49.8 954.4 320.4 Right Forearm 900 300 Right Hand 49.8 54.4 20.4 Oral 240 440 300 Output: Urine 150 0 150 Urine, Voided 150 0 150 Stool 0 Other: # Voids Urine, Voided 0 1 # Bowel Movements 0 0 - Medications Active Medications: Active Medications Generic Name Dose Route Start Last Admin Trade Name Freq PRN Reason Stop Dose Admin Aspirin 325 mg 05/05/18 10:00 05/05/18 10:27 Aspirin PO 325 mg DAILY GRIFFIN Administration Clopidogrel Bisulfate 75 mg 05/05/18 10:00 05/05/18 10:28 Plavix PO 75 mg DAILY GRIFFIN Administration Heparin Sodium/Sodium Chloride 25,000 units in 250 mls @ 6.597 mls/hr 05/05/18 08:06 Heparin 56822 Units/250ml 1/2 Normal Saline IV .Q24H PRN PROTOCOL Protocol 9 UNITS/KG/HR Sodium Chloride 1,000 mls @ 100 mls/hr 05/05/18 10:15 05/05/18 10:54 Sodium Chloride 0.9% IV 100 mls/hr .Q10H GRIFFIN Administration Latanoprost 2.5 ml 05/04/18 22:00 05/04/18 21:04 Xalatan Opht OU 2.5 ml HS GRIFFIN Administration Levothyroxine Sodium 88 mcg 05/05/18 06:30 05/05/18 05:41 Synthroid PO 88 mcg 0630 GRIFFIN Administration Metoprolol Tartrate 12.5 mg 05/04/18 18:00 05/05/18 08:34 Lopressor PO 12.5 mg 0800,1800 GRIFFIN Administration Pantoprazole Sodium 40 mg 05/05/18 10:00 05/05/18 10:26 Protonix Ec Tab PO 40 mg DAILY GRIFFIN Administration Pneumococcal Polyvalent Vaccine 0.5 ml 05/06/18 16:00 Pneumovax 23 Vaccine SC 05/06/18 16:01 .ONCE ONE - Patient Studies Lab Studies: Microbiology Studies 05/04/18 14:55 Urine Culture - Final Urine Random No Growth (<1,000 CFU/ML) Lab Studies 05/05/18 05/05/18 05/05/18 Range/Units 12:56 12:56 12:35 WBC (4.8-10.8) K/uL RBC (3.80-5.20) Mil/uL Hgb (11.0-16.0) g/dL Hct (34.0-47.0) % MCV (81.0-99.0) fL MCH (27.0-31.0) pg MCHC (33.0-37.0) g/dL RDW (11.5-14.5) % Plt Count (130-400) K/uL MPV (7.2-11.7) fL Neut % (Auto) (50.0-75.0) % Lymph % (Auto) (20.0-40.0) % [place] % (Auto) (0.0-10.0) % Eos % (Auto) (0.0-4.0) % Baso % (Auto) (0.0-2.0) % Neut # (Auto) (1.8-7.0) K/uL Lymph # (Auto) (1.0-4.3) K/uL [place] # (Auto) (0.0-0.8) K/uL Eos # (Auto) (0.0-0.7) K/uL Baso # (Auto) (0.0-0.2) K/uL APTT 76 H (21-34) SECONDS Puncture Site pCO2 (35-45) mm/Hg pO2 (80-100) mm/Hg HCO3 (21-28) mmol/L ABG pH (7.35-7.45) ABG Total CO2 (22-28) mmol/L ABG O2 Saturation (95-98) % ABG Base Excess (-2.0-3.0) mmol/L Akil Test ABG Potassium (3.6-5.2) mmol/L Sodium (132-148) mmol/l Chloride (98-107) mmol/L Glucose (65-105) mg/dl Lactate (0.7-2.1) mmol/L Potassium (3.6-5.2) mmol/L Carbon Dioxide (22-30) mmol/L Anion Gap (10-20) BUN (7-17) mg/dL Creatinine (0.7-1.2) mg/dL Est GFR ( Amer) Est GFR (Non-Af Amer) Random Glucose (65-105) mg/dL Calcium (8.6-10.4) mg/dl Phosphorus (2.5-4.5) mg/dL Magnesium (1.6-2.3) mg/dL Total Bilirubin (0.2-1.3) mg/dL AST (14-36) U/L ALT (9-52) U/L Alkaline Phosphatase (38-126) U/L Total Creatine Kinase (30-135) U/L CK-MB (Mass) (0.0-3.38) ng/mL Troponin I (0.00-0.120) ng/mL Total Protein (6.3-8.3) g/dL Albumin (3.5-5.0) g/dL Globulin (2.2-3.9) gm/dL Albumin/Globulin Ratio (1.0-2.1) Arterial Blood Potassium (3.6-5.2) mmol/L Urine Color Yellow (YELLOW) Urine Clarity Hazy (Clear) Urine pH 5.0 (5.0-8.0) Ur Specific [place] 1.018 (1.003-1.030) Urine Protein 2+ H (NEGATIVE) mg/dL Urine Glucose (UA) Normal (Normal) mg/dL Urine Ketones Negative (NEGATIVE) mg/dL Urine Blood 1+ H (NEGATIVE) Urine Nitrate Negative (NEGATIVE) Urine Bilirubin Negative (NEGATIVE) Urine Urobilinogen 2.0 H (0.2-1.0) mg/dL Ur Leukocyte Esterase 3+ H (Negative) Matt/uL Urine WBC (Auto) 77 H (0-5) /hpf Urine RBC (Auto) 8 H (0-3) /hpf Urine WBC Clumps (Auto) Few H (NONE) /hpf Ur Squamous Epith Cells 19 H (0-5) /hpf Amorphous Sediment Rare H (<OCC) /ul Urine Bacteria Occ H (<OCC) Ur Random Sodium 28 mmol/L Hepatitis A IgM Ab (NEGATIVE) Hep Bs Antigen (NEGATIVE) Hep B Core IgM Ab (NEGATIVE) Hepatitis C Antibody (NEGATIVE) 05/05/18 05/05/18 05/05/18 Range/Units 05:57 05:57 05:57 WBC (4.8-10.8) K/uL RBC (3.80-5.20) Mil/uL Hgb (11.0-16.0) g/dL Hct (34.0-47.0) % MCV (81.0-99.0) fL MCH (27.0-31.0) pg MCHC (33.0-37.0) g/dL RDW (11.5-14.5) % Plt Count (130-400) K/uL MPV (7.2-11.7) fL Neut % (Auto) (50.0-75.0) % Lymph % (Auto) (20.0-40.0) % [place] % (Auto) (0.0-10.0) % Eos % (Auto) (0.0-4.0) % Baso % (Auto) (0.0-2.0) % Neut # (Auto) (1.8-7.0) K/uL Lymph # (Auto) (1.0-4.3) K/uL [place] # (Auto) (0.0-0.8) K/uL Eos # (Auto) (0.0-0.7) K/uL Baso # (Auto) (0.0-0.2) K/uL APTT 77 H D (21-34) SECONDS Puncture Site pCO2 (35-45) mm/Hg pO2 (80-100) mm/Hg HCO3 (21-28) mmol/L ABG pH (7.35-7.45) ABG Total CO2 (22-28) mmol/L ABG O2 Saturation (95-98) % ABG Base Excess (-2.0-3.0) mmol/L Akil Test ABG Potassium (3.6-5.2) mmol/L Sodium 136 (132-148) mmol/l Chloride 99 (98-107) mmol/L Glucose (65-105) mg/dl Lactate (0.7-2.1) mmol/L Potassium 4.4 (3.6-5.2) mmol/L Carbon Dioxide 27 (22-30) mmol/L Anion Gap 15 (10-20) BUN 55 H (7-17) mg/dL Creatinine 2.2 H (0.7-1.2) mg/dL Est GFR ( Amer) 26 Est GFR (Non-Af Amer) 22 Random Glucose 149 H D (65-105) mg/dL Calcium 8.9 (8.6-10.4) mg/dl Phosphorus 4.5 (2.5-4.5) mg/dL Magnesium 2.3 (1.6-2.3) mg/dL Total Bilirubin 0.6 (0.2-1.3) mg/dL AST 2878 H (14-36) U/L ALT 2103 H (9-52) U/L Alkaline Phosphatase 102 (38-126) U/L Total Creatine Kinase 2585 H (30-135) U/L CK-MB (Mass) (0.0-3.38) ng/mL Troponin I 108.0000 H* (0.00-0.120) ng/mL Total Protein 7.0 (6.3-8.3) g/dL Albumin 3.9 (3.5-5.0) g/dL Globulin 3.0 (2.2-3.9) gm/dL Albumin/Globulin Ratio 1.3 (1.0-2.1) Arterial Blood Potassium (3.6-5.2) mmol/L Urine Color (YELLOW) Urine Clarity (Clear) Urine pH (5.0-8.0) Ur Specific [place] (1.003-1.030) Urine Protein (NEGATIVE) mg/dL Urine Glucose (UA) (Normal) mg/dL Urine Ketones (NEGATIVE) mg/dL Urine Blood (NEGATIVE) Urine Nitrate (NEGATIVE) Urine Bilirubin (NEGATIVE) Urine Urobilinogen (0.2-1.0) mg/dL Ur Leukocyte Esterase (Negative) Matt/uL Urine WBC (Auto) (0-5) /hpf Urine RBC (Auto) (0-3) /hpf Urine WBC Clumps (Auto) (NONE) /hpf Ur Squamous Epith Cells (0-5) /hpf Amorphous Sediment (<OCC) /ul Urine Bacteria (<OCC) Ur Random Sodium mmol/L Hepatitis A IgM Ab Negative (NEGATIVE) Hep Bs Antigen Negative (NEGATIVE) Hep B Core IgM Ab Negative (NEGATIVE) Hepatitis C Antibody Negative (NEGATIVE) 05/05/18 05/04/18 05/04/18 Range/Units 05:57 23:22 22:24 WBC 13.1 H (4.8-10.8) K/uL RBC 4.96 (3.80-5.20) Mil/uL Hgb 11.0 (11.0-16.0) g/dL Hct 36.5 (34.0-47.0) % MCV 73.6 L D (81.0-99.0) fL MCH 22.2 L (27.0-31.0) pg MCHC 30.1 L (33.0-37.0) g/dL RDW 15.2 H (11.5-14.5) % Plt Count 95 L D (130-400) K/uL MPV 10.1 (7.2-11.7) fL Neut % (Auto) 74.9 (50.0-75.0) % Lymph % (Auto) 18.3 L (20.0-40.0) % [place] % (Auto) 6.4 (0.0-10.0) % Eos % (Auto) 0.0 (0.0-4.0) % Baso % (Auto) 0.4 (0.0-2.0) % Neut # (Auto) 9.8 H (1.8-7.0) K/uL Lymph # (Auto) 2.4 (1.0-4.3) K/uL [place] # (Auto) 0.8 (0.0-0.8) K/uL Eos # (Auto) 0.0 (0.0-0.7) K/uL Baso # (Auto) 0.1 (0.0-0.2) K/uL APTT 126 H* D (21-34) SECONDS Puncture Site pCO2 (35-45) mm/Hg pO2 (80-100) mm/Hg HCO3 (21-28) mmol/L ABG pH (7.35-7.45) ABG Total CO2 (22-28) mmol/L ABG O2 Saturation (95-98) % ABG Base Excess (-2.0-3.0) mmol/L Akil Test ABG Potassium (3.6-5.2) mmol/L Sodium (132-148) mmol/l Chloride (98-107) mmol/L Glucose (65-105) mg/dl Lactate (0.7-2.1) mmol/L Potassium (3.6-5.2) mmol/L Carbon Dioxide (22-30) mmol/L Anion Gap (10-20) BUN (7-17) mg/dL Creatinine (0.7-1.2) mg/dL Est GFR ( Amer) Est GFR (Non-Af Amer) Random Glucose (65-105) mg/dL Calcium (8.6-10.4) mg/dl Phosphorus (2.5-4.5) mg/dL Magnesium (1.6-2.3) mg/dL Total Bilirubin (0.2-1.3) mg/dL AST (14-36) U/L ALT (9-52) U/L Alkaline Phosphatase (38-126) U/L Total Creatine Kinase 2575 H (30-135) U/L CK-MB (Mass) 91.4 H (0.0-3.38) ng/mL Troponin I 159.0000 H* (0.00-0.120) ng/mL Total Protein (6.3-8.3) g/dL Albumin (3.5-5.0) g/dL Globulin (2.2-3.9) gm/dL Albumin/Globulin Ratio (1.0-2.1) Arterial Blood Potassium (3.6-5.2) mmol/L Urine Color (YELLOW) Urine Clarity (Clear) Urine pH (5.0-8.0) Ur Specific [place] (1.003-1.030) Urine Protein (NEGATIVE) mg/dL Urine Glucose (UA) (Normal) mg/dL Urine Ketones (NEGATIVE) mg/dL Urine Blood (NEGATIVE) Urine Nitrate (NEGATIVE) Urine Bilirubin (NEGATIVE) Urine Urobilinogen (0.2-1.0) mg/dL Ur Leukocyte Esterase (Negative) Matt/uL Urine WBC (Auto) (0-5) /hpf Urine RBC (Auto) (0-3) /hpf Urine WBC Clumps (Auto) (NONE) /hpf Ur Squamous Epith Cells (0-5) /hpf Amorphous Sediment (<OCC) /ul Urine Bacteria (<OCC) Ur Random Sodium mmol/L Hepatitis A IgM Ab (NEGATIVE) Hep Bs Antigen (NEGATIVE) Hep B Core IgM Ab (NEGATIVE) Hepatitis C Antibody (NEGATIVE) 05/04/18 05/04/18 Range/Units 18:24 14:50 WBC (4.8-10.8) K/uL RBC (3.80-5.20) Mil/uL Hgb (11.0-16.0) g/dL Hct (34.0-47.0) % MCV (81.0-99.0) fL MCH (27.0-31.0) pg MCHC (33.0-37.0) g/dL RDW (11.5-14.5) % Plt Count (130-400) K/uL MPV (7.2-11.7) fL Neut % (Auto) (50.0-75.0) % Lymph % (Auto) (20.0-40.0) % [place] % (Auto) (0.0-10.0) % Eos % (Auto) (0.0-4.0) % Baso % (Auto) (0.0-2.0) % Neut # (Auto) (1.8-7.0) K/uL Lymph # (Auto) (1.0-4.3) K/uL [place] # (Auto) (0.0-0.8) K/uL Eos # (Auto) (0.0-0.7) K/uL Baso # (Auto) (0.0-0.2) K/uL APTT (21-34) SECONDS Puncture Site Rr pCO2 37 (35-45) mm/Hg pO2 69 L (80-100) mm/Hg HCO3 24.7 (21-28) mmol/L ABG pH 7.42 (7.35-7.45) ABG Total CO2 25.1 (22-28) mmol/L ABG O2 Saturation 96.1 (95-98) % ABG Base Excess -0.2 (-2.0-3.0) mmol/L Akil Test Pos ABG Potassium 4.7 (3.6-5.2) mmol/L Sodium 136 141.0 (132-148) mmol/l Chloride 100 106.0 (98-107) mmol/L Glucose 129 H (65-105) mg/dl Lactate 3.9 H (0.7-2.1) mmol/L Potassium 5.5 H (3.6-5.2) mmol/L Carbon Dioxide 24 (22-30) mmol/L Anion Gap 17 (10-20) BUN 47 H (7-17) mg/dL Creatinine 2.5 H (0.7-1.2) mg/dL Est GFR ( Amer) 23 Est GFR (Non-Af Amer) 19 Random Glucose 113 H (65-105) mg/dL Calcium 9.5 (8.6-10.4) mg/dl Phosphorus (2.5-4.5) mg/dL Magnesium (1.6-2.3) mg/dL Total Bilirubin (0.2-1.3) mg/dL AST (14-36) U/L ALT (9-52) U/L Alkaline Phosphatase (38-126) U/L Total Creatine Kinase 3287 H (30-135) U/L CK-MB (Mass) 117 H (0.0-3.38) ng/mL Troponin I 181.0000 H* (0.00-0.120) ng/mL Total Protein (6.3-8.3) g/dL Albumin (3.5-5.0) g/dL Globulin (2.2-3.9) gm/dL Albumin/Globulin Ratio (1.0-2.1) Arterial Blood Potassium 4.7 (3.6-5.2) mmol/L Urine Color (YELLOW) Urine Clarity (Clear) Urine pH (5.0-8.0) Ur Specific [place] (1.003-1.030) Urine Protein (NEGATIVE) mg/dL Urine Glucose (UA) (Normal) mg/dL Urine Ketones (NEGATIVE) mg/dL Urine Blood (NEGATIVE) Urine Nitrate (NEGATIVE) Urine Bilirubin (NEGATIVE) Urine Urobilinogen (0.2-1.0) mg/dL Ur Leukocyte Esterase (Negative) Matt/uL Urine WBC (Auto) (0-5) /hpf Urine RBC (Auto) (0-3) /hpf Urine WBC Clumps (Auto) (NONE) /hpf Ur Squamous Epith Cells (0-5) /hpf Amorphous Sediment (<OCC) /ul Urine Bacteria (<OCC) Ur Random Sodium mmol/L Hepatitis A IgM Ab (NEGATIVE) Hep Bs Antigen (NEGATIVE) Hep B Core IgM Ab (NEGATIVE) Hepatitis C Antibody (NEGATIVE) Laboratory Results - last 24 hr 05/04/18 05/04/1805/04/19 14:50 18:24 22:24 WBC RBC Hgb Hct MCV MCH MCHC RDW Plt Count MPV Neut % (Auto) Lymph % (Auto) [place] % (Auto) Eos % (Auto) Baso % (Auto) Neut # (Auto) Lymph # (Auto) [place] # (Auto) Eos # (Auto) Baso # (Auto) APTT 126 H* D Puncture Site Rr pCO2 37 pO2 69 L HCO3 24.7 ABG pH 7.42 ABG Total CO2 25.1 ABG O2 Saturation 96.1 ABG Base Excess -0.2 Akil Test Pos ABG Potassium 4.7 Sodium 141.0 136 Chloride 106.0 100 Glucose 129 H Lactate 3.9 H Potassium 5.5 H Carbon Dioxide 24 Anion Gap 17 BUN 47 H Creatinine 2.5 H Est GFR ( Amer) 23 Est GFR (Non-Af Amer) 19 Random Glucose 113 H Calcium 9.5 Phosphorus Magnesium Total Bilirubin AST ALT Alkaline Phosphatase Total Creatine Kinase 3287 H CK-MB (Mass) 117 H Troponin I 181.0000 H* Total Protein Albumin Globulin Albumin/Globulin Ratio Arterial Blood Potassium 4.7 Urine Color Urine Clarity Urine pH Ur Specific [place] Urine Protein Urine Glucose (UA) Urine Ketones Urine Blood Urine Nitrate Urine Bilirubin Urine Urobilinogen Ur Leukocyte Esterase Urine WBC (Auto) Urine RBC (Auto) Urine WBC Clumps (Auto) Ur Squamous Epith Cells Amorphous Sediment Urine Bacteria Ur Random Sodium Hepatitis A IgM Ab Hep Bs Antigen Hep B Core IgM Ab Hepatitis C Antibody 05/04/18 05/05/18 05/05/18 23:22 05:57 05:57 WBC 13.1 H RBC 4.96 Hgb 11.0 Hct 36.5 MCV 73.6 L D MCH 22.2 L MCHC 30.1 L RDW 15.2 H Plt Count 95 L D MPV 10.1 Neut % (Auto) 74.9 Lymph % (Auto) 18.3 L [place] % (Auto) 6.4 Eos % (Auto) 0.0 Baso % (Auto) 0.4 Neut # (Auto) 9.8 H Lymph # (Auto) 2.4 [place] # (Auto) 0.8 Eos # (Auto) 0.0 Baso # (Auto) 0.1 APTT Puncture Site pCO2 pO2 HCO3 ABG pH ABG Total CO2 ABG O2 Saturation ABG Base Excess Akil Test ABG Potassium Sodium 136 Chloride 99 Glucose Lactate Potassium 4.4 Carbon Dioxide 27 Anion Gap 15 BUN 55 H Creatinine 2.2 H Est GFR ( Amer) 26 Est GFR (Non-Af Amer) 22 Random Glucose 149 H D Calcium 8.9 Phosphorus 4.5 Magnesium 2.3 Total Bilirubin 0.6 AST 2878 H ALT 2103 H Alkaline Phosphatase 102 Total Creatine Kinase 2575 H 2585 H CK-MB (Mass) 91.4 H Troponin I 159.0000 H* 108.0000 H* Total Protein 7.0 Albumin 3.9 Globulin 3.0 Albumin/Globulin Ratio 1.3 Arterial Blood Potassium Urine Color Urine Clarity Urine pH Ur Specific [place] Urine Protein Urine Glucose (UA) Urine Ketones Urine Blood Urine Nitrate Urine Bilirubin Urine Urobilinogen Ur Leukocyte Esterase Urine WBC (Auto) Urine RBC (Auto) Urine WBC Clumps (Auto) Ur Squamous Epith Cells Amorphous Sediment Urine Bacteria Ur Random Sodium Hepatitis A IgM Ab Hep Bs Antigen Hep B Core IgM Ab Hepatitis C Antibody 05/05/18 05/05/18 05/05/18 05:57 05:57 12:35 WBC RBC Hgb Hct MCV MCH MCHC RDW Plt Count MPV Neut % (Auto) Lymph % (Auto) [place] % (Auto) Eos % (Auto) Baso % (Auto) Neut # (Auto) Lymph # (Auto) [place] # (Auto) Eos # (Auto) Baso # (Auto) APTT 77 H D 76 H Puncture Site pCO2 pO2 HCO3 ABG pH ABG Total CO2 ABG O2 Saturation ABG Base Excess Akil Test ABG Potassium Sodium Chloride Glucose Lactate Potassium Carbon Dioxide Anion Gap BUN Creatinine Est GFR ( Amer) Est GFR (Non-Af Amer) Random Glucose Calcium Phosphorus Magnesium Total Bilirubin AST ALT Alkaline Phosphatase Total Creatine Kinase CK-MB (Mass) Troponin I Total Protein Albumin Globulin Albumin/Globulin Ratio Arterial Blood Potassium Urine Color Urine Clarity Urine pH Ur Specific [place] Urine Protein Urine Glucose (UA) Urine Ketones Urine Blood Urine Nitrate Urine Bilirubin Urine Urobilinogen Ur Leukocyte Esterase Urine WBC (Auto) Urine RBC (Auto) Urine WBC Clumps (Auto) Ur Squamous Epith Cells Amorphous Sediment Urine Bacteria Ur Random Sodium Hepatitis A IgM Ab Negative Hep Bs Antigen Negative Hep B Core IgM Ab Negative Hepatitis C Antibody Negative 05/05/18 05/05/18 12:56 12:56 WBC RBC Hgb Hct MCV MCH MCHC RDW Plt Count MPV Neut % (Auto) Lymph % (Auto) [place] % (Auto) Eos % (Auto) Baso % (Auto) Neut # (Auto) Lymph # (Auto) [place] # (Auto) Eos # (Auto) Baso # (Auto) APTT Puncture Site pCO2 pO2 HCO3 ABG pH ABG Total CO2 ABG O2 Saturation ABG Base Excess Akil Test ABG Potassium Sodium Chloride Glucose Lactate Potassium Carbon Dioxide Anion Gap BUN Creatinine Est GFR ( Amer) Est GFR (Non-Af Amer) Random Glucose Calcium Phosphorus Magnesium Total Bilirubin AST ALT Alkaline Phosphatase Total Creatine Kinase CK-MB (Mass) Troponin I Total Protein Albumin Globulin Albumin/Globulin Ratio Arterial Blood Potassium Urine Color Yellow Urine Clarity Hazy Urine pH 5.0 Ur Specific [place] 1.018 Urine Protein 2+ H Urine Glucose (UA) Normal Urine Ketones Negative Urine Blood 1+ H Urine Nitrate Negative Urine Bilirubin Negative Urine Urobilinogen 2.0 H Ur Leukocyte Esterase 3+ H Urine WBC (Auto) 77 H Urine RBC (Auto) 8 H Urine WBC Clumps (Auto) Few H Ur Squamous Epith Cells 19 H Amorphous Sediment Rare H Urine Bacteria Occ H Ur Random Sodium 28 Hepatitis A IgM Ab Hep Bs Antigen Hep B Core IgM Ab Hepatitis C Antibody Radiology Impressions: Radiology Impressions Abdomen Ultrasound 05/04/18 18:24 IMPRESSION: Gallbladder wall thickening/pericholecystic edema measuring approximately 9 mm in the absence of gallstones. Negative sonographic Mccormick's sign as assessed by the die cast engineer. Correlate clinically. 1.3 cm right midpole renal cyst. Bilateral renal cortical thinning Small perihepatic ascites. Preliminary impression was provided by DORON Mckeon. Chest X-Ray 05/05/18 07:00 IMPRESSION: No active pulmonary disease. Moderate cardiomegaly and pulmonary venous congestion. Critical Care Progress Note - Nutrition Nutrition: Nutrition Category Date Time Status Heart Healthy Diet [DIET] Diets 05/04/18 Dinner Active Attending/Attestation - Attestation I have personally seen and examined this patient.: Yes I have fully participated in the care of the patient.: Yes I have reviewed all pertinent clinical information: Yes Notes (Text): 05/05/18 17:35 Patient seen and examined in the intensive care unit. Case discussed with housestaff in the morning rounds. Continue medical management as per cardiology for non-ST elevation IN Follow-up echocardiogram Monitor renal function Started on IV fluids Continue ICU observation
--- NOTE | 2018-05-05 16:23 | CARD ---
APPROVED REPORT Date of service: 05/05/2018 EXAM: Two-dimensional and M-mode echocardiogram with Doppler and color Doppler. INDICATION Dyspnea Congestive Heart Failure RISK FACTORS Hypertension Hyperlipidemia 2D DIMENSIONS IVSd1.1 (0.7-1.1cm)LVDd3.7 (3.9-5.9cm) PWd1.3 (0.7-1.1cm)LA Cuwtne43 (18-58mL) LVDs2.7 (2.5-4.0cm)FS (%) 26.9 % LVEF (%)53.4 (>50%)LVEF ([employer])46.11 % M-Mode DIMENSIONS Left Atrium (MM)3.94 (2.5-4.0cm)IVSd1.23 (0.7-1.1cm) Aortic Root3.50 (2.2-3.7cm)LVDd4.30 (4.0-5.6cm) Aortic Cusp Exc.1.80 (1.5-2.0cm)PWd1.07 (0.7-1.1cm) FS (%) 22 %LVDs3.35 (2.0-3.8cm) LVEF (%)45 (>50%) Mitral Valve MV E Ycqfauok53.8cm/sMV A Lyxlrbgv01.4cm/sE/A ratio2.1 GTQP895.77 cm/s TDI Lateral E' Peak V5.25cm/sMedial E' Peak V4.45cm/sE/Lateral E'18.1 E/Medial E'21.3 Tricuspid Valve TR Peak Bvbtiyxy314wg/sTR Peak Gr.11zuHnIDUE76zlJy LEFT VENTRICLE The left ventricle is normal size. There is mild concentric left ventricular hypertrophy. The systolic function is severely impaired. Significant regional wall motion abnormalities noted. Transmitral Doppler flow pattern is Grade II-pseudonormal filling dynamics. No left ventricle thrombus noted on this study. RIGHT VENTRICLE The right ventricle is normal size. There is normal right ventricular wall thickness. The right ventricular systolic function is normal. ATRIA The left atrium is mildly dilated. The right atrium is mildly dilated. AORTIC VALVE The aortic valve is mildly thickened. There is mild aortic regurgitation. There is no aortic valvular stenosis. MITRAL VALVE The mitral valve is mildly thickened. There is no mitral valve stenosis. Mitral regurgitation is moderate. TRICUSPID VALVE There is severe tricuspid regurgitation. There is severe pulmonary hypertension. PULMONIC VALVE There is no pulmonic valvular regurgitation. GREAT VESSELS The aortic root is normal in size. The IVC is dilated. <Conclusion> There is mild concentric left ventricular hypertrophy. The systolic function is severely impaired. Significant regional wall motion abnormalities noted. Transmitral Doppler flow pattern is Grade II-pseudonormal filling dynamics. No left ventricle thrombus noted on this study. There is mild aortic regurgitation. Mitral regurgitation is moderate. There is severe tricuspid regurgitation. There is severe pulmonary hypertension.
--- NOTE | 2018-05-05 16:54 | PQF ---
PROVIDER RESPONSE TEXT: Acute On chronic diastolic CHF REVIEWER QUERY TEXT: CHF Acuity and Type CHF Exacerbation is documented in the Medical Record. Please document the type and acuity (includes p robable or suspected) Such as: Type: Also please document the underlying cause of the CHF (includes probable or suspected) The patient's Clinical Indicators include: HPI: ?77 y/o F c PMHx HTN p/w "feeling sick" x 2 days. Reports loss of appetite, small amount of vomiting, L sided chest pain, abnormal breathing, diarrhea?. Troponin I: 163.0000/181.0000/159.0000 Total Creatine Kinase: 3342/3287 - BNP: 04155. Query created by: Kannan Fair on 05/05/2018 4:23 PM Electronically signed by: Lex Zepeda MD 05/05/2018 4:52 PM
[2018-05-05] MEDS: Sodium Chloride 0.9% 1,000 ML IV SCH ×2 (19:00→22:18)
--- NOTE | 2018-05-05 20:00 | CP.PCM.PN ---
Subjective - Date & Time of Evaluation Date of Evaluation: 05/05/18 Time of Evaluation: 19:55 - Subjective Subjective: patient has no new complaints. Objective - Vital Signs/Intake and Output Vital Signs (last 24 hours): Temp Pulse Resp BP Pulse Ox 97.6 F 67 24 107/66 96 05/05/18 16:00 05/05/18 19:15 05/05/18 19:15 05/05/18 18:59 05/05/18 19:15 Intake and Output: 05/05/18 05/06/18 18:59 06:59 Intake Total 2014.8 Output Total 150 Balance 1864.8 - Medications Medications: Current Medications Aspirin (Aspirin) 81 mg PO DAILY [facility] Clopidogrel Bisulfate (Plavix) 75 mg PO DAILY [facility] Last Admin: 05/05/18 10:28 Dose: 75 mg Heparin Sodium/Sodium Chloride (Heparin 61889 Units/250ml 1/2 Normal Saline) 25,000 units in 250 mls @ 6.597 mls/hr IV .Q24H PRN; Protocol PRN Reason: PROTOCOL Sodium Chloride (Sodium Chloride 0.9%) 1,000 mls @ 60 mls/hr IV .[id number] [facility] Latanoprost (Xalatan Opht) 2.5 ml OU HS [facility] Last Admin: 05/04/18 21:04 Dose: 2.5 ml Levothyroxine Sodium (Synthroid) 88 mcg PO 0630 [facility] Last Admin: 05/05/18 05:41 Dose: 88 mcg Pantoprazole Sodium (Protonix Ec Tab) 40 mg PO DAILY [facility] Last Admin: 05/05/18 10:26 Dose: 40 mg Pneumococcal Polyvalent Vaccine (Pneumovax 23 Vaccine) 0.5 ml SC .ONCE ONE Stop: 05/06/18 16:01 - Labs Labs: 05/05/18 05:57 05/05/18 05:57 PT 18.0 SECONDS (9.7-12.2) H 05/04/18 12:39 INR 1.6 05/04/18 12:39 APTT 76 SECONDS (21-34) H 05/05/18 12:35 - Constitutional Appears: Non-toxic - Head Exam Head Exam: NORMAL INSPECTION - Eye Exam Eye Exam: Normal appearance - ENT Exam ENT Exam: Mucous Membranes Moist - Neck Exam Neck Exam: Full ROM - Respiratory Exam Respiratory Exam: Decreased Breath Sounds - Cardiovascular Exam Cardiovascular Exam: REGULAR RHYTHM - GI/Abdominal Exam GI & Abdominal Exam: Normal Bowel Sounds - Rectal Exam Rectal Exam: Deferred - Extremities Exam Extremities Exam: absent: Pedal Edema - Back Exam Back Exam: NORMAL INSPECTION - Neurological Exam Neurological Exam: Alert - Psychiatric Exam Psychiatric exam: Normal Affect - Skin Skin Exam: Normal Color Assessment and Plan (1) NSTEMI (non-ST elevated myocardial infarction) Assessment & Plan: troponin trending jill. continue ASA 81 mg daily, Plavix. can d/c heparin in am Status: Acute (2) Hypercholesterolemia Assessment & Plan: GI eval given elevated transaminases Status: Acute (3) Acute renal insufficiency Status: Acute (4) Ischemic cardiomyopathy Assessment & Plan: echocardiogram reveals severe LV dsyfunction. Patient will conitnue current therapy. will change to Coreg 6.25 mg BID. Status: Acute
--- NOTE | 2018-05-05 20:20 | CARD ---
APPROVED REPORT Date of service: 05/04/2018 EKG Measurement Heart [id number] <Conclusion> Normal sinus rhythm Low voltage QRS Lateral injury pattern ACUTE MS / STEMI Abnormal ECG
--- NOTE | 2018-05-05 20:24 | CARD ---
APPROVED REPORT Date of service: 05/04/2018 EKG Measurement Heart [id number] <Conclusion> Sinus bradycardia Low voltage QRS Nonspecific ST and T wave abnormality Abnormal ECG
[2018-05-05] MEDS: Latanoprost 2.5 ml Opht Soln OU SCH (22:07)
--- NOTE | 2018-05-05 22:43 | CP.PCM.PN ---
Subjective - Date & Time of Evaluation Date of Evaluation: 05/05/18 Time of Evaluation: 22:41 - Subjective Subjective: Patient has no chest pain. Seen by documentation nurse today. Chest x-ray showing evidence of pulmonary venous congestion. On IV fluid, will discontinue that. Repeat chest x-ray in the morning. 77-year-old female admitted to the hospital to the intensive care unit with acute [place]. Patient has a severe left ventricular dysfunction. Severe myocardial infarction with dysfunction. Pulmonary venous congestion. Acute renal failure. Continue to monitor ICU. Intervention as per cardiology. Currently on antiplatelets, beta-sharon, not on statin because of the elevated LFTs. Will follow the patient Objective - Vital Signs/Intake and Output Vital Signs (last 24 hours): Temp Pulse Resp BP Pulse Ox 99.1 F 62 26 H 106/62 98 05/05/18 20:00 05/05/18 22:00 05/05/18 22:00 05/05/18 21:59 05/05/18 22:00 Intake and Output: 05/05/18 05/06/18 18:59 06:59 Intake Total 2201.6 367.2 Output Total 150 Balance 2051.6 367.2 - Medications Medications: Current Medications Aspirin (Aspirin Chewable) 81 mg PO DAILY [facility] Carvedilol (Coreg) 6.25 mg PO BID [facility] Clopidogrel Bisulfate (Plavix) 75 mg PO DAILY [facility] Last Admin: 05/05/18 10:28 Dose: 75 mg Heparin Sodium/Sodium Chloride (Heparin 16796 Units/250ml 1/2 Normal Saline) 25,000 units in 250 mls @ 6.597 mls/hr IV .Q24H PRN; Protocol PRN Reason: PROTOCOL Latanoprost (Xalatan Opht) 2.5 ml OU HS [facility] Last Admin: 05/05/18 22:07 Dose: 2.5 ml Levothyroxine Sodium (Synthroid) 88 mcg PO 0630 [facility] Last Admin: 05/05/18 05:41 Dose: 88 mcg Pantoprazole Sodium (Protonix Ec Tab) 40 mg PO DAILY [facility] Last Admin: 05/05/18 10:26 Dose: 40 mg Pneumococcal Polyvalent Vaccine (Pneumovax 23 Vaccine) 0.5 ml SC .ONCE ONE Stop: 05/06/18 16:01 - Labs Labs: 05/05/18 05:57 05/05/18 05:57 PT 18.0 SECONDS (9.7-12.2) H 05/04/18 12:39 INR 1.6 05/04/18 12:39 APTT 76 SECONDS (21-34) H 05/05/18 12:35
[2018-05-06 05:25] LABS: EOS # 0.1 K/uL (0.0-0.7); HEMOGLOBIN 10.6 g/dL (11.0-16.0)
[2018-05-06 05:30] LABS: BASO % 0.3 % (0.0-2.0); LYMPH # 2.5 K/uL (1.0-4.3); LYMPH % 23.8 % (20.0-40.0); MEAN CELL VOLUME 74.2 fL (81.0-99.0); MEAN CORPUSCULAR HEMOGLOBIN 22.6 pg (27.0-31.0); MEAN CORPUSCULAR HGB CONC 30.4 g/dL (33.0-37.0); MEAN PLATELET VOLUME 9.8 fL (7.2-11.7); MONO # 0.8 K/uL (0.0-0.8); NEUT # 7.3 K/uL (1.8-7.0); NEUT % 67.9 % (50.0-75.0); NRBC % 4.9 % (0.0-2.0); RBC 4.71 Mil/uL (3.80-5.20); RED CELL DISTRIBUTION WIDTH 14.9 % (11.5-14.5); WHITE BLOOD COUNT 10.7 K/uL (4.8-10.8)
[2018-05-06] MEDS: Levothyroxine 88 MCG TAB PO SCH (06:24)
[2018-05-06 06:33] LABS: ALB/GLOB RATIO 1.3 (1.0-2.1); ALBUMIN 3.6 g/dL (3.5-5.0); CALCIUM 8.5 mg/dl (8.6-10.4)
--- NOTE | 2018-05-06 07:05 | CP.PCM.PN ---
Subjective - Date & Time of Evaluation Date of Evaluation: 05/06/18 Time of Evaluation: 07:03 - Subjective Subjective: no chest pain or sob labs reviewed xray reviewed on heparin no pain no cough no n/v/diarrhea normal u/o no rash no headache no joint pain no change in vision no sore throat Objective - Vital Signs/Intake and Output Vital Signs (last 24 hours): Temp Pulse Resp BP Pulse Ox 99 F 64 20 105/73 99 05/06/18 04:00 05/06/18 06:00 05/06/18 06:00 05/06/18 06:00 05/06/18 04:00 Intake and Output: 05/06/18 05/06/18 06:59 18:59 Intake Total 419.8 Output Total 625 Balance -205.2 - Medications Medications: Current Medications Aspirin (Aspirin Chewable) 81 mg PO DAILY [facility] Carvedilol (Coreg) 6.25 mg PO BID [facility] Clopidogrel Bisulfate (Plavix) 75 mg PO DAILY [facility] Last Admin: 05/05/18 10:28 Dose: 75 mg Furosemide (Lasix) 40 mg PO DAILY [facility] Heparin Sodium/Sodium Chloride (Heparin 37130 Units/250ml 1/2 Normal Saline) 25,000 units in 250 mls @ 6.597 mls/hr IV .Q24H PRN; Protocol PRN Reason: PROTOCOL Last Admin: 05/05/18 23:20 Dose: 9 units/kg/hr, 6.597 mls/hr Latanoprost (Xalatan Opht) 2.5 ml OU HS [facility] Last Admin: 05/05/18 22:07 Dose: 2.5 ml Levothyroxine Sodium (Synthroid) 88 mcg PO 0630 [facility] Last Admin: 05/06/18 06:24 Dose: 88 mcg Pantoprazole Sodium (Protonix Ec Tab) 40 mg PO DAILY [facility] Last Admin: 05/05/18 10:26 Dose: 40 mg Pneumococcal Polyvalent Vaccine (Pneumovax 23 Vaccine) 0.5 ml SC .ONCE ONE Stop: 05/06/18 16:01 - Labs Labs: 05/06/18 05:19 05/06/18 05:19 PT 18.0 SECONDS (9.7-12.2) H 05/04/18 12:39 INR 1.6 05/04/18 12:39 APTT 70 SECONDS (21-34) H D 02/20/19 05:19 - Constitutional Appears: Non-toxic, No Acute Distress - Head Exam Head Exam: ATRAUMATIC, NORMAL INSPECTION - Eye Exam Eye Exam: EOMI - ENT Exam ENT Exam: Mucous Membranes Moist - Neck Exam Neck Exam: Full ROM. absent: Lymphadenopathy - Respiratory Exam Respiratory Exam: Rales. absent: Accessory Muscle Use - Cardiovascular Exam Cardiovascular Exam: REGULAR RHYTHM. absent: Rubs - GI/Abdominal Exam GI & Abdominal Exam: Soft. absent: Distended, Tenderness - Extremities Exam Extremities Exam: absent: Pedal Edema Assessment and Plan - Assessment and Plan (Free Text) Assessment: acute coronary syndrome with chf esther, improving add lasix for cxray findings monitor for possible cardiac cath
--- NOTE | 2018-05-06 10:52 | RAD ---
Date of service: 05/06/2018 HISTORY: rales, post controlled [place] COMPARISON: 05/05/2018. FINDINGS: LUNGS: The lungs are well inflated. There is moderate pulmonary venous congestion. PLEURA: No pleural effusions or pneumothorax. CARDIOVASCULAR: There is severe cardiomegaly. No aortic atherosclerotic calcifications present. OSSEOUS STRUCTURES: Within normal limits for the patient's age. VISUALIZED UPPER ABDOMEN: Normal. OTHER FINDINGS: None. IMPRESSION: No active pulmonary disease. Persistent severe cardiomegaly and moderate pulmonary venous congestion.
--- NOTE | 2018-05-06 11:10 | CP.CCUPN ---
<Amalia Nicole - Last Filed: 05/06/18 14:06> CCU Subjective - Physician Review Subjective (Free Text): Amalia Nicole DO, PGY-2: ICU Progress Note for Dr. Mishra Patient was seen and examined at bedside. She denies any chest pain, nausea, vomiting, or worsening dyspnea. She had a total of 750 ml of urine output yesterday. Heparin drip was discontinued as recommended by cardiology and patient was started on Carvedilol. Otherwise, no adverse events noted overnight. 05/05/18 16:19 05/06/18 11:10 CCU Objective - Vital Signs / Intake & Output Vital Signs (Last 4 hours): Vital Signs Temp Pulse Resp BP Pulse Ox 05/06/18 09:59 70 23 107/66 05/06/18 09:53 109/75 05/06/18 08:59 70 34 H 109/75 99 05/06/18 08:00 98.1 F 05/06/18 07:59 66 17 101/73 96 Intake and Output (Last 8hrs): Intake & Output 05/05/18 05/06/18 05/06/18 22:59 06:59 14:59 Intake Total 1174.2 52.8 373.2 Output Total 150 625 Balance 1024.2 -572.2 373.2 Weight 161 lb 2.526 oz Intake: Intake, IV Amount 654.2 52.8 13.2 Right Forearm 600 0 Right Hand 54.2 52.8 13.2 Oral 520 360 Output: Urine 150 625 Urine, Voided 150 625 Other: # Voids Urine, Voided 1 # Bowel Movements 0 - Physical Exam Head: Positive for: Atraumatic, Normocephalic Pupils: Positive for: PERRL. Negative for: Sluggish Extroacular Muscles: Positive for: EOMI Conjunctiva: Positive for: Normal. Negative for: Injected Mouth: Positive for: Moist Mucous Membranes, Normal Lips, Normal Tounge Respiratory/Chest: Positive for: Rales (left greater than right) Cardiovascular: Positive for: Regular Rate and Rhythm, Normal S1, S2 Upper Extremity: Positive for: Normal Inspection. Negative for: Cyanosis, Edema Lower Extremity: Positive for: Normal Inspection. Negative for: Edema, CALF TENDERNESS Neurological: Positive for: GCS=15, CN II-XII Intact, Speech Normal, Normal Sensory Function Skin: Positive for: Warm, Dry Psychiatric: Positive for: Alert, Oriented x 3, Normal Insight - Medications Active Medications: Active Medications Generic Name Dose Route Start Last Admin Trade Name Gertrudis PRN Reason Stop Dose Admin Aspirin 81 mg 05/06/18 10:00 05/06/18 09:53 Aspirin Chewable PO 81 mg DAILY GRIFFIN Administration Brimonidine Tartrate 0 ml 05/06/18 10:30 Alphagan 0.2% Opht OS BID GRIFFIN Carvedilol 6.25 mg 05/06/18 10:00 05/06/18 09:53 Coreg PO 6.25 mg BID GRIFFIN Administration Ciprofloxacin 1 drop 05/06/18 10:30 Ciloxan 0.3% Ophth Soln OD QID [facility] Clopidogrel Bisulfate 75 mg 05/05/18 10:00 05/06/18 09:53 Plavix PO 75 mg DAILY GRIFFIN Administration Famotidine 20 mg 05/06/18 08:43 05/06/18 09:53 Pepcid PO 20 mg DAILY GRIFFIN Administration Furosemide 40 mg 05/06/18 10:00 05/06/18 09:53 Lasix PO 40 mg DAILY GRIFFIN Administration Latanoprost 2.5 ml 05/04/18 22:00 05/05/18 22:07 Xalatan Opht OU 2.5 ml HS GRIFFIN Administration Levothyroxine Sodium 88 mcg 05/05/18 06:30 05/06/18 06:24 Synthroid PO 88 mcg 0630 GRIFFIN Administration Pneumococcal Polyvalent Vaccine 0.5 ml 05/06/18 16:00 Pneumovax 23 Vaccine SC 05/06/18 16:01 .ONCE ONE Timolol Maleate 0 drop 05/06/18 10:30 Timoptic 0.5% Ophth Soln OS BID [facility] - Patient Studies Lab Studies: Microbiology Studies 05/04/18 18:24 MRSA Culture (Admit) - Final Nose MRSA NOT DETECTED 05/04/18 14:55 Urine Culture - Final Urine Random No Growth (<1,000 CFU/ML) Lab Studies 05/06/18 05/06/18 05/06/18 Range/Units 05:19 05:19 05:19 WBC 10.7 (4.8-10.8) K/uL RBC 4.71 (3.80-5.20) Mil/uL Hgb 10.6 L (11.0-16.0) g/dL Hct 34.9 (34.0-47.0) % MCV 74.2 L (81.0-99.0) fL MCH 22.6 L (27.0-31.0) pg MCHC 30.4 L (33.0-37.0) g/dL RDW 14.9 H (11.5-14.5) % Plt Count 67 L D (130-400) K/uL MPV 9.8 (7.2-11.7) fL Neut % (Auto) 67.9 (50.0-75.0) % Lymph % (Auto) 23.8 (20.0-40.0) % [place] % (Auto) 7.0 (0.0-10.0) % Eos % (Auto) 1.0 (0.0-4.0) % Baso % (Auto) 0.3 (0.0-2.0) % Neut # (Auto) 7.3 H (1.8-7.0) K/uL Lymph # (Auto) 2.5 (1.0-4.3) K/uL [place] # (Auto) 0.8 (0.0-0.8) K/uL Eos # (Auto) 0.1 (0.0-0.7) K/uL Baso # (Auto) 0.0 (0.0-0.2) K/uL Differential Comment APTT 70 H D (21-34) SECONDS Puncture Site pCO2 (35-45) mm/Hg pO2 (80-100) mm/Hg HCO3 (21-28) mmol/L ABG pH (7.35-7.45) ABG Total CO2 (22-28) mmol/L ABG O2 Saturation (95-98) % ABG Base Excess (-2.0-3.0) mmol/L Akil Test ABG Potassium (3.6-5.2) mmol/L Sodium 136 (132-148) mmol/l Chloride 101 (98-107) mmol/L Glucose (65-105) mg/dl Lactate (0.7-2.1) mmol/L Potassium 4.2 (3.6-5.2) mmol/L Carbon Dioxide 31 H (22-30) mmol/L Anion Gap 8 L (10-20) BUN 49 H (7-17) mg/dL Creatinine 1.7 H (0.7-1.2) mg/dL Est GFR ( Amer) 35 Est GFR (Non-Af Amer) 29 Random Glucose 132 H (65-105) mg/dL Calcium 8.5 L (8.6-10.4) mg/dl Phosphorus 2.8 (2.5-4.5) mg/dL Magnesium 2.2 (1.6-2.3) mg/dL Total Bilirubin 0.8 (0.2-1.3) mg/dL AST 1531 H (14-36) U/L ALT 1743 H (9-52) U/L Alkaline Phosphatase 157 H D (38-126) U/L Total Protein 6.4 (6.3-8.3) g/dL Albumin 3.6 (3.5-5.0) g/dL Globulin 2.8 (2.2-3.9) gm/dL Albumin/Globulin Ratio 1.3 (1.0-2.1) Arterial Blood Potassium (3.6-5.2) mmol/L Urine Color (YELLOW) Urine Clarity (Clear) Urine pH (5.0-8.0) Ur Specific [place] (1.003-1.030) Urine Protein (NEGATIVE) mg/dL Urine Glucose (UA) (Normal) mg/dL Urine Ketones (NEGATIVE) mg/dL Urine Blood (NEGATIVE) Urine Nitrate (NEGATIVE) Urine Bilirubin (NEGATIVE) Urine Urobilinogen (0.2-1.0) mg/dL Ur Leukocyte Esterase (Negative) Matt/uL Urine WBC (Auto) (0-5) /hpf Urine RBC (Auto) (0-3) /hpf Urine WBC Clumps (Auto) (NONE) /hpf Ur Squamous Epith Cells (0-5) /hpf Amorphous Sediment (<OCC) /ul Urine Bacteria (<OCC) U Random Total Protein (21-161) mg/g creat Ur Random Sodium mmol/L 05/05/18 05/05/18 05/05/18 Range/Units 12:56 12:56 12:56 WBC (4.8-10.8) K/uL RBC (3.80-5.20) Mil/uL Hgb (11.0-16.0) g/dL Hct (34.0-47.0) % MCV (81.0-99.0) fL MCH (27.0-31.0) pg MCHC (33.0-37.0) g/dL RDW (11.5-14.5) % Plt Count (130-400) K/uL MPV (7.2-11.7) fL Neut % (Auto) (50.0-75.0) % Lymph % (Auto) (20.0-40.0) % [place] % (Auto) (0.0-10.0) % Eos % (Auto) (0.0-4.0) % Baso % (Auto) (0.0-2.0) % Neut # (Auto) (1.8-7.0) K/uL Lymph # (Auto) (1.0-4.3) K/uL [place] # (Auto) (0.0-0.8) K/uL Eos # (Auto) (0.0-0.7) K/uL Baso # (Auto) (0.0-0.2) K/uL Differential Comment APTT (21-34) SECONDS Puncture Site pCO2 (35-45) mm/Hg pO2 (80-100) mm/Hg HCO3 (21-28) mmol/L ABG pH (7.35-7.45) ABG Total CO2 (22-28) mmol/L ABG O2 Saturation (95-98) % ABG Base Excess (-2.0-3.0) mmol/L Akil Test ABG Potassium (3.6-5.2) mmol/L Sodium (132-148) mmol/l Chloride (98-107) mmol/L Glucose (65-105) mg/dl Lactate (0.7-2.1) mmol/L Potassium (3.6-5.2) mmol/L Carbon Dioxide (22-30) mmol/L Anion Gap (10-20) BUN (7-17) mg/dL Creatinine (0.7-1.2) mg/dL Est GFR ( Amer) Est GFR (Non-Af Amer) Random Glucose (65-105) mg/dL Calcium (8.6-10.4) mg/dl Phosphorus (2.5-4.5) mg/dL Magnesium (1.6-2.3) mg/dL Total Bilirubin (0.2-1.3) mg/dL AST (14-36) U/L ALT (9-52) U/L Alkaline Phosphatase (38-126) U/L Total Protein (6.3-8.3) g/dL Albumin (3.5-5.0) g/dL Globulin (2.2-3.9) gm/dL Albumin/Globulin Ratio (1.0-2.1) Arterial Blood Potassium (3.6-5.2) mmol/L Urine Color Yellow (YELLOW) Urine Clarity Hazy (Clear) Urine pH 5.0 (5.0-8.0) Ur Specific [place] 1.018 (1.003-1.030) Urine Protein 2+ H (NEGATIVE) mg/dL Urine Glucose (UA) Normal (Normal) mg/dL Urine Ketones Negative (NEGATIVE) mg/dL Urine Blood 1+ H (NEGATIVE) Urine Nitrate Negative (NEGATIVE) Urine Bilirubin Negative (NEGATIVE) Urine Urobilinogen 2.0 H (0.2-1.0) mg/dL Ur Leukocyte Esterase 3+ H (Negative) Matt/uL Urine WBC (Auto) 77 H (0-5) /hpf Urine RBC (Auto) 8 H (0-3) /hpf Urine WBC Clumps (Auto) Few H (NONE) /hpf Ur Squamous Epith Cells 19 H (0-5) /hpf Amorphous Sediment Rare H (<OCC) /ul Urine Bacteria Occ H (<OCC) U Random Total Protein 1092 H (21-161) mg/g creat Ur Random Sodium 28 mmol/L 05/05/18 05/04/18 Range/Units 12:35 14:50 WBC (4.8-10.8) K/uL RBC (3.80-5.20) Mil/uL Hgb (11.0-16.0) g/dL Hct (34.0-47.0) % MCV (81.0-99.0) fL MCH (27.0-31.0) pg MCHC (33.0-37.0) g/dL RDW (11.5-14.5) % Plt Count (130-400) K/uL MPV (7.2-11.7) fL Neut % (Auto) (50.0-75.0) % Lymph % (Auto) (20.0-40.0) % [place] % (Auto) (0.0-10.0) % Eos % (Auto) (0.0-4.0) % Baso % (Auto) (0.0-2.0) % Neut # (Auto) (1.8-7.0) K/uL Lymph # (Auto) (1.0-4.3) K/uL [place] # (Auto) (0.0-0.8) K/uL Eos # (Auto) (0.0-0.7) K/uL Baso # (Auto) (0.0-0.2) K/uL Differential Comment APTT 76 H (21-34) SECONDS Puncture Site Rr pCO2 37 (35-45) mm/Hg pO2 69 L (80-100) mm/Hg HCO3 24.7 (21-28) mmol/L ABG pH 7.42 (7.35-7.45) ABG Total CO2 25.1 (22-28) mmol/L ABG O2 Saturation 96.1 (95-98) % ABG Base Excess -0.2 (-2.0-3.0) mmol/L Akil Test Pos ABG Potassium 4.7 (3.6-5.2) mmol/L Sodium 141.0 (132-148) mmol/l Chloride 106.0 (98-107) mmol/L Glucose 129 H (65-105) mg/dl Lactate 3.9 H (0.7-2.1) mmol/L Potassium (3.6-5.2) mmol/L Carbon Dioxide (22-30) mmol/L Anion Gap (10-20) BUN (7-17) mg/dL Creatinine (0.7-1.2) mg/dL Est GFR ( Amer) Est GFR (Non-Af Amer) Random Glucose (65-105) mg/dL Calcium (8.6-10.4) mg/dl Phosphorus (2.5-4.5) mg/dL Magnesium (1.6-2.3) mg/dL Total Bilirubin (0.2-1.3) mg/dL AST (14-36) U/L ALT (9-52) U/L Alkaline Phosphatase (38-126) U/L Total Protein (6.3-8.3) g/dL Albumin (3.5-5.0) g/dL Globulin (2.2-3.9) gm/dL Albumin/Globulin Ratio (1.0-2.1) Arterial Blood Potassium 4.7 (3.6-5.2) mmol/L Urine Color (YELLOW) Urine Clarity (Clear) Urine pH (5.0-8.0) Ur Specific [place] (1.003-1.030) Urine Protein (NEGATIVE) mg/dL Urine Glucose (UA) (Normal) mg/dL Urine Ketones (NEGATIVE) mg/dL Urine Blood (NEGATIVE) Urine Nitrate (NEGATIVE) Urine Bilirubin (NEGATIVE) Urine Urobilinogen (0.2-1.0) mg/dL Ur Leukocyte Esterase (Negative) Matt/uL Urine WBC (Auto) (0-5) /hpf Urine RBC (Auto) (0-3) /hpf Urine WBC Clumps (Auto) (NONE) /hpf Ur Squamous Epith Cells (0-5) /hpf Amorphous Sediment (<OCC) /ul Urine Bacteria (<OCC) U Random Total Protein (21-161) mg/g creat Ur Random Sodium mmol/L Laboratory Results - last 24 hr 05/04/18 05/05/18 05/05/18 14:50 12:35 12:56 WBC RBC Hgb Hct MCV MCH MCHC RDW Plt Count MPV Neut % (Auto) Lymph % (Auto) [place] % (Auto) Eos % (Auto) Baso % (Auto) Neut # (Auto) Lymph # (Auto) [place] # (Auto) Eos # (Auto) Baso # (Auto) Differential Comment APTT 76 H Puncture Site Rr pCO2 37 pO2 69 L HCO3 24.7 ABG pH 7.42 ABG Total CO2 25.1 ABG O2 Saturation 96.1 ABG Base Excess -0.2 Akil Test Pos ABG Potassium 4.7 Sodium 141.0 Chloride 106.0 Glucose 129 H Lactate 3.9 H Potassium Carbon Dioxide Anion Gap BUN Creatinine Est GFR ( Amer) Est GFR (Non-Af Amer) Random Glucose Calcium Phosphorus Magnesium Total Bilirubin AST ALT Alkaline Phosphatase Total Protein Albumin Globulin Albumin/Globulin Ratio Arterial Blood Potassium 4.7 Urine Color Yellow Urine Clarity Hazy Urine pH 5.0 Ur Specific [place] 1.018 Urine Protein 2+ H Urine Glucose (UA) Normal Urine Ketones Negative Urine Blood 1+ H Urine Nitrate Negative Urine Bilirubin Negative Urine Urobilinogen 2.0 H Ur Leukocyte Esterase 3+ H Urine WBC (Auto) 77 H Urine RBC (Auto) 8 H Urine WBC Clumps (Auto) Few H Ur Squamous Epith Cells 19 H Amorphous Sediment Rare H Urine Bacteria Occ H U Random Total Protein Ur Random Sodium 05/05/18 05/05/18 05/06/18 12:56 12:56 05:19 WBC RBC Hgb Hct MCV MCH MCHC RDW Plt Count MPV Neut % (Auto) Lymph % (Auto) [place] % (Auto) Eos % (Auto) Baso % (Auto) Neut # (Auto) Lymph # (Auto) [place] # (Auto) Eos # (Auto) Baso # (Auto) Differential Comment APTT Puncture Site pCO2 pO2 HCO3 ABG pH ABG Total CO2 ABG O2 Saturation ABG Base Excess Akil Test ABG Potassium Sodium 136 Chloride 101 Glucose Lactate Potassium 4.2 Carbon Dioxide 31 H Anion Gap 8 L BUN 49 H Creatinine 1.7 H Est GFR ( Amer) 35 Est GFR (Non-Af Amer) 29 Random Glucose 132 H Calcium 8.5 L Phosphorus 2.8 Magnesium 2.2 Total Bilirubin 0.8 AST 1531 H ALT 1743 H Alkaline Phosphatase 157 H D Total Protein 6.4 Albumin 3.6 Globulin 2.8 Albumin/Globulin Ratio 1.3 Arterial Blood Potassium Urine Color Urine Clarity Urine pH Ur Specific [place] Urine Protein Urine Glucose (UA) Urine Ketones Urine Blood Urine Nitrate Urine Bilirubin Urine Urobilinogen Ur Leukocyte Esterase Urine WBC (Auto) Urine RBC (Auto) Urine WBC Clumps (Auto) Ur Squamous Epith Cells Amorphous Sediment Urine Bacteria U Random Total Protein 1092 H Ur Random Sodium 28 05/06/18 05/06/18 05:19 05:19 WBC 10.7 RBC 4.71 Hgb 10.6 L Hct 34.9 MCV 74.2 L MCH 22.6 L MCHC 30.4 L RDW 14.9 H Plt Count 67 L D MPV 9.8 Neut % (Auto) 67.9 Lymph % (Auto) 23.8 [place] % (Auto) 7.0 Eos % (Auto) 1.0 Baso % (Auto) 0.3 Neut # (Auto) 7.3 H Lymph # (Auto) 2.5 [place] # (Auto) 0.8 Eos # (Auto) 0.1 Baso # (Auto) 0.0 Differential Comment APTT 70 H D Puncture Site pCO2 pO2 HCO3 ABG pH ABG Total CO2 ABG O2 Saturation ABG Base Excess Akil Test ABG Potassium Sodium Chloride Glucose Lactate Potassium Carbon Dioxide Anion Gap BUN Creatinine Est GFR ( Amer) Est GFR (Non-Af Amer) Random Glucose Calcium Phosphorus Magnesium Total Bilirubin AST ALT Alkaline Phosphatase Total Protein Albumin Globulin Albumin/Globulin Ratio Arterial Blood Potassium Urine Color Urine Clarity Urine pH Ur Specific [place] Urine Protein Urine Glucose (UA) Urine Ketones Urine Blood Urine Nitrate Urine Bilirubin Urine Urobilinogen Ur Leukocyte Esterase Urine WBC (Auto) Urine RBC (Auto) Urine WBC Clumps (Auto) Ur Squamous Epith Cells Amorphous Sediment Urine Bacteria U Random Total Protein Ur Random Sodium Radiology Impressions: Radiology Impressions Chest X-Ray 05/05/18 07:00 IMPRESSION: No active pulmonary disease. Moderate cardiomegaly and pulmonary venous congestion. Chest X-Ray 05/06/18 07:35 IMPRESSION: No active pulmonary disease. Persistent severe cardiomegaly and moderate pulmonary venous congestion. Critical Care Progress Note - Ventilator Checklist Head of Bed 30 Degrees: Yes PUD Prophalyxis: Yes DVT Prophylaxis: Yes - Prophylaxis GI Prophylaxis GI: Pepsid - Prophylaxis DVT Prophylaxis DVT: SCDs - Nutrition Nutrition: Nutrition Category Date Time Status Heart Healthy Diet [DIET] Diets 05/04/18 Dinner Active Assessment/Plan - Assessment and Plan (Free Text) Assessment: 77 year old female with a past medical history of hypertension, dyslipidemia, and glacouma who presented with 2 days of worsening chest pain, shortness of breath, nausea, and difficulty urinating. She was found to have NSTEMI, CHF exacerbation, BATSHEVA with hyperkalemia and MODS. She was given D50 with insulin for her hyperkalemia in the ED. She was given aspirin 325 and started on a heparin drip for her NSTEMI. She will be kept on Oxygen with a target SpO2 of 95%. She will be getting intermittent diuresis for heart heart failure (likely secondary to an ischemic event. She has elevated LFTs likely secondary t o congestive hepatopathy. We will trend her LFTs and Creatinine. We will consult Nephrology and cardiology. We will obtain a stat echcoardiogram. We will monitor strict intake and output. 1) IL - Heparin discontinued today - Echocardiogram shows severely impaired systolic dysfunction; significant regional wall motion abnormalities; transmitral doppler flow pattern is a grade II-pseudonormal filling dynamics; no LV thrombus noted; mild aortic regurgitation; moderate mitral regurgitation; severe tricuspid regurgitation; severe pulmonary hypertension - Aspirin 81 - Plavix 75 - Carvedilol 6.25 BID - ACEI not being given secondary to BATSHEVA - Cardiology is following, Dr. Echols, not cardiac catheterization as of yet given acute kidney injury - Holding statin secondary to elevated LFTS 2) BATSHEVA - Creatinine and BUN trending down; 1.9 today - Strict I/O - Correct electrolyte as needed 3) Acute Systolic Heart failure secondary to IL - LVEF estimated to be between 45-55% - Lasix 40 PO daily per Nephrology given rales and chest X-ray showing severe cardiomegaly and moderate pulmonary venous congestion 4) Hypothyrodism - Levothyroxine 88 mcg daily 5) Transaminitis - resolving with LFTs trending down - GI is following 6) Glaucoma and s/p surgical procedure of left eye - Continue home eye drops, see MAR for details 7) DVT/GI prophylaxis - SCD - Protonix 40 8) Thrombocytopenia - 60s today; heparin drip discontinued - Monitor, no intervention at this time 9) Congestive hepatopathy - Monitor LFTs via serial CMPs - GI is following Case was reviewed and discussed with attending physician, Dr. Mishra <Ryan Mishra S - Last Filed: 05/06/18 17:11> CCU Subjective - Physician Review Critical Care Time Spent (in minutes): 40 CCU Objective - Vital Signs / Intake & Output Vital Signs (Last 4 hours): Vital Signs Temp Pulse Resp BP 05/06/18 16:00 97.5 F L 05/06/18 15:59 66 20 108/69 05/06/18 14:59 84 22 106/88 05/06/18 14:00 69 19 99/56 L Intake and Output (Last 8hrs): Intake & Output 05/06/18 05/06/18 05/06/18 06:59 14:59 22:59 Intake Total 52.8 493.2 Output Total 625 275 Balance -572.2 218.2 Weight 161 lb 2.526 oz Intake: Intake, IV Amount 52.8 13.2 Right Forearm 0 Right Hand 52.8 13.2 Oral 480 Output: Urine 625 275 Urine, Voided 625 275 Other: # Voids Urine, Voided 1 # Bowel Movements 0 1 - Medications Active Medications: Active Medications Generic Name Dose Route Start Last Admin Trade Name Freq PRN Reason Stop Dose Admin Aspirin 81 mg 05/06/18 10:00 05/06/18 09:53 Aspirin Chewable PO 81 mg DAILY GRIFFIN Administration Brimonidine Tartrate 0 ml 05/06/18 10:30 05/06/18 13:02 Alphagan 0.2% Opht OS 1 drop BID GRIFFIN Administration Carvedilol 6.25 mg 05/06/18 10:00 05/06/18 09:53 Coreg PO 6.25 mg BID GRIFFIN Administration Ciprofloxacin 1 drop 05/06/18 10:30 05/06/18 15:00 Ciloxan 0.3% Ophth Soln OD 1 drop QID GRIFFIN Administration Clopidogrel Bisulfate 75 mg 05/05/18 10:00 05/06/18 09:53 Plavix PO 75 mg DAILY GRIFFIN Administration Famotidine 20 mg 05/06/18 08:43 05/06/18 09:53 Pepcid PO 20 mg DAILY GRIFFIN Administration Furosemide 40 mg 05/06/18 10:00 05/06/18 09:53 Lasix PO 40 mg DAILY GRIFFIN Administration Latanoprost 2.5 ml 05/04/18 22:00 05/05/18 22:07 Xalatan Opht OU 2.5 ml HS GRIFFIN Administration Levothyroxine Sodium 88 mcg 05/05/18 06:30 05/06/18 06:24 Synthroid PO 88 mcg 0630 GRIFFIN Administration Timolol Maleate 0 drop 05/06/18 10:30 05/06/18 12:58 Timoptic 0.5% Ophth Soln OS 1 drop BID GRIFFIN Administration - Patient Studies Lab Studies: Microbiology Studies 05/04/18 18:24 MRSA Culture (Admit) - Final Nose MRSA NOT DETECTED Lab Studies 05/06/18 05/06/18 05/06/18 Range/Units 05:19 05:19 05:19 WBC 10.7 (4.8-10.8) K/uL RBC 4.71 (3.80-5.20) Mil/uL Hgb 10.6 L (11.0-16.0) g/dL Hct 34.9 (34.0-47.0) % MCV 74.2 L (81.0-99.0) fL MCH 22.6 L (27.0-31.0) pg MCHC 30.4 L (33.0-37.0) g/dL RDW 14.9 H (11.5-14.5) % Plt Count 67 L D (130-400) K/uL MPV 9.8 (7.2-11.7) fL Neut % (Auto) 67.9 (50.0-75.0) % Lymph % (Auto) 23.8 (20.0-40.0) % [place] % (Auto) 7.0 (0.0-10.0) % Eos % (Auto) 1.0 (0.0-4.0) % Baso % (Auto) 0.3 (0.0-2.0) % Neut # (Auto) 7.3 H (1.8-7.0) K/uL Lymph # (Auto) 2.5 (1.0-4.3) K/uL [place] # (Auto) 0.8 (0.0-0.8) K/uL Eos # (Auto) 0.1 (0.0-0.7) K/uL Baso # (Auto) 0.0 (0.0-0.2) K/uL Differential Comment APTT 70 H D (21-34) SECONDS Sodium 136 (132-148) mmol/L Potassium 4.2 (3.6-5.2) mmol/L Chloride 101 (98-107) mmol/L Carbon Dioxide 31 H (22-30) mmol/L Anion Gap 8 L (10-20) BUN 49 H (7-17) mg/dL Creatinine 1.7 H (0.7-1.2) mg/dL Est GFR ( Amer) 35 Est GFR (Non-Af Amer) 29 Random Glucose 132 H (65-105) mg/dL Calcium 8.5 L (8.6-10.4) mg/dl Phosphorus 2.8 (2.5-4.5) mg/dL Magnesium 2.2 (1.6-2.3) mg/dL Total Bilirubin 0.8 (0.2-1.3) mg/dL AST 1531 H (14-36) U/L ALT 1743 H (9-52) U/L Alkaline Phosphatase 157 H D (38-126) U/L Total Protein 6.4 (6.3-8.3) g/dL Albumin 3.6 (3.5-5.0) g/dL Globulin 2.8 (2.2-3.9) gm/dL Albumin/Globulin Ratio 1.3 (1.0-2.1) U Random Total Protein (21-161) mg/g creat ALEIDA 6 Profile (NEGATIVE) 05/05/18 05/05/18 Range/Units 12:56 05:57 WBC (4.8-10.8) K/uL RBC (3.80-5.20) Mil/uL Hgb (11.0-16.0) g/dL Hct (34.0-47.0) % MCV (81.0-99.0) fL MCH (27.0-31.0) pg MCHC (33.0-37.0) g/dL RDW (11.5-14.5) % Plt Count (130-400) K/uL MPV (7.2-11.7) fL Neut % (Auto) (50.0-75.0) % Lymph % (Auto) (20.0-40.0) % [place] % (Auto) (0.0-10.0) % Eos % (Auto) (0.0-4.0) % Baso % (Auto) (0.0-2.0) % Neut # (Auto) (1.8-7.0) K/uL Lymph # (Auto) (1.0-4.3) K/uL [place] # (Auto) (0.0-0.8) K/uL Eos # (Auto) (0.0-0.7) K/uL Baso # (Auto) (0.0-0.2) K/uL Differential Comment APTT (21-34) SECONDS Sodium (132-148) mmol/L Potassium (3.6-5.2) mmol/L Chloride (98-107) mmol/L Carbon Dioxide (22-30) mmol/L Anion Gap (10-20) BUN (7-17) mg/dL Creatinine (0.7-1.2) mg/dL Est GFR ( Amer) Est GFR (Non-Af Amer) Random Glucose (65-105) mg/dL Calcium (8.6-10.4) mg/dl Phosphorus (2.5-4.5) mg/dL Magnesium (1.6-2.3) mg/dL Total Bilirubin (0.2-1.3) mg/dL AST (14-36) U/L ALT (9-52) U/L Alkaline Phosphatase (38-126) U/L Total Protein (6.3-8.3) g/dL Albumin (3.5-5.0) g/dL Globulin (2.2-3.9) gm/dL Albumin/Globulin Ratio (1.0-2.1) U Random Total Protein 1092 H (21-161) mg/g creat ALEIDA 6 Profile Negative (NEGATIVE) Laboratory Results - last 24 hr 05/05/18 05/05/18 05/06/18 05:57 12:56 05:19 WBC RBC Hgb Hct MCV MCH MCHC RDW Plt Count MPV Neut % (Auto) Lymph % (Auto) [place] % (Auto) Eos % (Auto) Baso % (Auto) Neut # (Auto) Lymph # (Auto) [place] # (Auto) Eos # (Auto) Baso # (Auto) Differential Comment APTT Sodium 136 Potassium 4.2 Chloride 101 Carbon Dioxide 31 H Anion Gap 8 L BUN 49 H Creatinine 1.7 H Est GFR ( Amer) 35 Est GFR (Non-Af Amer) 29 Random Glucose 132 H Calcium 8.5 L Phosphorus 2.8 Magnesium 2.2 Total Bilirubin 0.8 AST 1531 H ALT 1743 H Alkaline Phosphatase 157 H D Total Protein 6.4 Albumin 3.6 Globulin 2.8 Albumin/Globulin Ratio 1.3 U Random Total Protein 1092 H ALEIDA 6 Profile Negative 05/06/18 05/06/18 05:19 05:19 WBC 10.7 RBC 4.71 Hgb 10.6 L Hct 34.9 MCV 74.2 L MCH 22.6 L MCHC 30.4 L RDW 14.9 H Plt Count 67 L D MPV 9.8 Neut % (Auto) 67.9 Lymph % (Auto) 23.8 [place] % (Auto) 7.0 Eos % (Auto) 1.0 Baso % (Auto) 0.3 Neut # (Auto) 7.3 H Lymph # (Auto) 2.5 [place] # (Auto) 0.8 Eos # (Auto) 0.1 Baso # (Auto) 0.0 Differential Comment APTT 70 H D Sodium Potassium Chloride Carbon Dioxide Anion Gap BUN Creatinine Est GFR ( Amer) Est GFR (Non-Af Amer) Random Glucose Calcium Phosphorus Magnesium Total Bilirubin AST ALT Alkaline Phosphatase Total Protein Albumin Globulin Albumin/Globulin Ratio U Random Total Protein ALEIDA 6 Profile Radiology Impressions: Radiology Impressions Chest X-Ray 05/06/18 07:35 IMPRESSION: No active pulmonary disease. Persistent severe cardiomegaly and moderate pulmonary venous congestion. Critical Care Progress Note - Nutrition Nutrition: Nutrition Category Date Time Status Heart Healthy Diet [DIET] Diets 05/04/18 Dinner Active Attending/Attestation - Attestation I have personally seen and examined this patient.: Yes I have fully participated in the care of the patient.: Yes I have reviewed all pertinent clinical information: Yes Notes (Text): 05/06/18 17:10 Patient seen and examined in the intensive care unit. Improving renal function Heparin drip stopped because of thrombocytopenia Continue present treatment Cardiology follow-up
--- NOTE | 2018-05-06 11:35 | CP.PCM.PN ---
Subjective - Date & Time of Evaluation Date of Evaluation: 05/06/18 Time of Evaluation: 11:32 - Subjective Subjective: In CCU Denies dyspnea, chest pain, abdominal pain, leg edema Objective - Vital Signs/Intake and Output Vital Signs (last 24 hours): Temp Pulse Resp BP Pulse Ox 98.1 F 70 23 107/66 99 05/06/18 08:00 05/06/18 09:59 05/06/18 09:59 05/06/18 09:59 05/06/18 08:59 Intake and Output: 05/06/18 05/06/18 06:59 18:59 Intake Total 419.8 373.2 Output Total 625 Balance -205.2 373.2 - Medications Medications: Current Medications Aspirin (Aspirin Chewable) 81 mg PO DAILY [facility] Last Admin: 05/06/18 09:53 Dose: 81 mg Brimonidine Tartrate (Alphagan 0.2% Opht) 0 ml OS BID [facility] Carvedilol (Coreg) 6.25 mg PO BID [facility] Last Admin: 05/06/18 09:53 Dose: 6.25 mg Ciprofloxacin (Ciloxan 0.3% Ophth Soln) 1 drop OD QID [facility] Clopidogrel Bisulfate (Plavix) 75 mg PO DAILY [facility] Last Admin: 05/06/18 09:53 Dose: 75 mg Famotidine (Pepcid) 20 mg PO DAILY [facility] Last Admin: 05/06/18 09:53 Dose: 20 mg Furosemide (Lasix) 40 mg PO DAILY [facility] Last Admin: 05/06/18 09:53 Dose: 40 mg Latanoprost (Xalatan Opht) 2.5 ml OU HS [facility] Last Admin: 05/05/18 22:07 Dose: 2.5 ml Levothyroxine Sodium (Synthroid) 88 mcg PO 0630 [facility] Last Admin: 05/06/18 06:24 Dose: 88 mcg Pneumococcal Polyvalent Vaccine (Pneumovax 23 Vaccine) 0.5 ml SC .ONCE ONE Stop: 05/06/18 16:01 Timolol Maleate (Timoptic 0.5% Ophth Soln) 0 drop OS BID [facility] - Labs Labs: 05/06/18 05:19 05/06/18 05:19 PT 18.0 SECONDS (9.7-12.2) H 05/04/18 12:39 INR 1.6 05/04/18 12:39 APTT 70 SECONDS (21-34) H D 05/06/18 05:19 - Constitutional Appears: Well, No Acute Distress - Head Exam Head Exam: NORMOCEPHALIC - Eye Exam Eye Exam: absent: Scleral icterus - Neck Exam Neck Exam: Normal Inspection. absent: Thyromegaly - Respiratory Exam Respiratory Exam: Clear to Ausculation Bilateral, NORMAL BREATHING PATTERN - Cardiovascular Exam Cardiovascular Exam: REGULAR RHYTHM. absent: Murmur - GI/Abdominal Exam GI & Abdominal Exam: Soft. absent: Tenderness, Mass, Organomegaly - Extremities Exam Extremities Exam: Normal Inspection. absent: Pedal Edema - Back Exam Back Exam: NORMAL INSPECTION Assessment and Plan (1) Elevated transaminase level Assessment & Plan: Likely due to Congestive hepatopathy. Liver chemistries gradually improving. Continue to monitor Echo- Severe tricuspid and pulmonic valvular dysfunction + global wall motion abnormalities Status: Acute (2) NSTEMI (non-ST elevated myocardial infarction) Status: Acute
[2018-05-06] MEDS: Ciprofloxacin 0.3% OPTH SOLN OD SCH ×4 (12:59→22:15)
[2018-05-06] MEDS: Brimonidine 0.2% Opth Sol (5ml) OS SCH ×2 (13:02→18:04)
--- NOTE | 2018-05-06 15:53 | CP.PCM.PN ---
Subjective - Date & Time of Evaluation Date of Evaluation: 05/06/18 Time of Evaluation: 15:35 - Subjective Subjective: patient is lying in bed. mild dyspnea at rest. no chest pain Objective - Vital Signs/Intake and Output Vital Signs (last 24 hours): Temp Pulse Resp BP Pulse Ox 98 F 70 19 90/51 L 100 05/06/18 12:00 05/06/18 12:59 05/06/18 12:59 05/06/18 12:59 05/06/18 11:59 Intake and Output: 05/06/18 05/06/18 06:59 18:59 Intake Total 419.8 373.2 Output Total 625 275 Balance -205.2 98.2 - Medications Medications: Current Medications Aspirin (Aspirin Chewable) 81 mg PO DAILY [facility] Last Admin: 05/06/18 09:53 Dose: 81 mg Brimonidine Tartrate (Alphagan 0.2% Opht) 0 ml OS BID [facility] Last Admin: 05/06/18 13:02 Dose: 1 drop Carvedilol (Coreg) 6.25 mg PO BID [facility] Last Admin: 05/06/18 09:53 Dose: 6.25 mg Ciprofloxacin (Ciloxan 0.3% Ophth Soln) 1 drop OD QID [facility] Last Admin: 05/06/18 12:59 Dose: 1 drop Clopidogrel Bisulfate (Plavix) 75 mg PO DAILY [facility] Last Admin: 05/06/18 09:53 Dose: 75 mg Famotidine (Pepcid) 20 mg PO DAILY [facility] Last Admin: 05/06/18 09:53 Dose: 20 mg Furosemide (Lasix) 40 mg PO DAILY [facility] Last Admin: 05/06/18 09:53 Dose: 40 mg Latanoprost (Xalatan Opht) 2.5 ml OU HS [facility] Last Admin: 05/05/18 22:07 Dose: 2.5 ml Levothyroxine Sodium (Synthroid) 88 mcg PO 0630 [facility] Last Admin: 05/06/18 06:24 Dose: 88 mcg Pneumococcal Polyvalent Vaccine (Pneumovax 23 Vaccine) 0.5 ml SC .ONCE ONE Stop: 05/06/18 16:01 Timolol Maleate (Timoptic 0.5% Ophth Soln) 0 drop OS BID [facility] Last Admin: 05/06/18 12:58 Dose: 1 drop - Labs Labs: 05/06/18 05:19 02/20/19 05:19 PT 18.0 SECONDS (9.7-12.2) H 05/04/18 12:39 INR 1.6 05/04/18 12:39 APTT 70 SECONDS (21-34) H D 05/06/18 05:19 - Constitutional Appears: Non-toxic - Head Exam Head Exam: NORMAL INSPECTION - Eye Exam Eye Exam: Normal appearance - ENT Exam ENT Exam: Mucous Membranes Moist - Neck Exam Neck Exam: Full ROM - Respiratory Exam Respiratory Exam: Decreased Breath Sounds - Cardiovascular Exam Cardiovascular Exam: REGULAR RHYTHM - GI/Abdominal Exam GI & Abdominal Exam: Normal Bowel Sounds - Rectal Exam Rectal Exam: Deferred - Extremities Exam Extremities Exam: absent: Pedal Edema - Back Exam Back Exam: NORMAL INSPECTION - Neurological Exam Neurological Exam: Alert - Psychiatric Exam Psychiatric exam: Normal Affect - Skin Skin Exam: Normal Color Assessment and Plan (1) NSTEMI (non-ST elevated myocardial infarction) Assessment & Plan: will conitnue medical therapy. maintain antiplatelet therapy Coreg added Status: Acute (2) Hypercholesterolemia Status: Acute (3) Acute renal insufficiency Assessment & Plan: patient has slight imrpovement in creatinine, but still at high risk of GABE. will defer cath at this time and continue to monitor creatinine. Status: Acute (4) Ischemic cardiomyopathy Status: Acute
[2018-05-06] MEDS ORDERED: Pneumococcal 23-Valent Vaccine SC ONE (16:00)
[2018-05-06] MEDS: Latanoprost 2.5 ml Opht Soln OU SCH (22:15)
[2018-05-07 06:17] LABS: BASO % 0.5 % (0.0-2.0); EOS # 0.2 K/uL (0.0-0.7); EOS % 3.4 % (0.0-4.0); HEMOGLOBIN 10.9 g/dL (11.0-16.0); LYMPH # 1.9 K/uL (1.0-4.3); LYMPH % 27.1 % (20.0-40.0); MEAN CELL VOLUME 75.8 fL (81.0-99.0); MEAN CORPUSCULAR HEMOGLOBIN 22.8 pg (27.0-31.0); MEAN CORPUSCULAR HGB CONC 30.1 g/dL (33.0-37.0); MEAN PLATELET VOLUME 9.9 fL (7.2-11.7); MONO # 0.6 K/uL (0.0-0.8); MONO % 7.7 % (0.0-10.0); NEUT # 4.4 K/uL (1.8-7.0); NEUT % 61.3 % (50.0-75.0); RBC 4.79 Mil/uL (3.80-5.20); RED CELL DISTRIBUTION WIDTH 15.2 % (11.5-14.5); WHITE BLOOD COUNT 7.2 K/uL (4.8-10.8)
[2018-05-07] MEDS: Levothyroxine 88 MCG TAB PO SCH (06:27)
[2018-05-07 06:35] LABS: ALB/GLOB RATIO 1.3 (1.0-2.1); ALBUMIN 3.4 g/dL (3.5-5.0); CALCIUM 8.6 mg/dl (8.6-10.4)
--- NOTE | 2018-05-07 08:00 | CP.PCM.PN ---
Subjective - Date & Time of Evaluation Date of Evaluation: 05/07/18 Time of Evaluation: 07:55 - Subjective Subjective: no new complaints. Objective - Vital Signs/Intake and Output Vital Signs (last 24 hours): Temp Pulse Resp BP Pulse Ox 98 F 67 18 94/62 L 97 05/07/18 04:00 05/07/18 06:00 05/07/18 06:00 05/07/18 05:58 05/07/18 06:00 Intake and Output: 05/07/18 05/07/18 06:59 18:59 Intake Total 450 Output Total 600 Balance -150 - Medications Medications: Current Medications Aspirin (Aspirin Chewable) 81 mg PO DAILY [facility] Last Admin: 05/06/18 09:53 Dose: 81 mg Brimonidine Tartrate (Alphagan 0.2% Opht) 0 ml OS BID [facility] Last Admin: 05/06/18 18:04 Dose: 1 drop Carvedilol (Coreg) 6.25 mg PO BID [facility] Last Admin: 05/06/18 18:05 Dose: Not Given Ciprofloxacin (Ciloxan 0.3% Ophth Soln) 1 drop OD QID [facility] Last Admin: 05/06/18 22:15 Dose: 1 drop Clopidogrel Bisulfate (Plavix) 75 mg PO DAILY [facility] Last Admin: 05/06/18 09:53 Dose: 75 mg Famotidine (Pepcid) 20 mg PO DAILY [facility] Last Admin: 05/06/18 09:53 Dose: 20 mg Furosemide (Lasix) 40 mg PO DAILY [facility] Last Admin: 05/06/18 09:53 Dose: 40 mg Latanoprost (Xalatan Opht) 2.5 ml OU HS [facility] Last Admin: 05/06/18 22:15 Dose: 2.5 ml Levothyroxine Sodium (Synthroid) 88 mcg PO 0630 [facility] Last Admin: 05/07/18 06:27 Dose: 88 mcg Timolol Maleate (Timoptic 0.5% Ophth Soln) 0 drop OS BID [facility] Last Admin: 05/06/18 18:04 Dose: 1 drop - Labs Labs: 05/07/18 06:09 05/07/18 06:09 PT 18.0 SECONDS (9.7-12.2) H 05/04/18 12:39 INR 1.6 05/04/18 12:39 APTT 70 SECONDS (21-34) H D 05/06/18 05:19 - Constitutional Appears: Non-toxic - Head Exam Head Exam: NORMAL INSPECTION - Eye Exam Eye Exam: Normal appearance - ENT Exam ENT Exam: Mucous Membranes Moist - Respiratory Exam Respiratory Exam: NORMAL BREATHING PATTERN - Cardiovascular Exam Cardiovascular Exam: REGULAR RHYTHM - GI/Abdominal Exam GI & Abdominal Exam: Normal Bowel Sounds - Rectal Exam Rectal Exam: Deferred - Extremities Exam Extremities Exam: absent: Pedal Edema - Back Exam Back Exam: NORMAL INSPECTION - Neurological Exam Neurological Exam: Alert - Psychiatric Exam Psychiatric exam: Normal Affect - Skin Skin Exam: Normal Color Assessment and Plan (1) NSTEMI (non-ST elevated myocardial infarction) Assessment & Plan: troponin down trending. off heparin drip. maintain antiplatelet therapy Status: Acute (2) Hypercholesterolemia Status: Acute (3) Acute renal insufficiency Assessment & Plan: creatinine improving. renal following. will need renal assessement of renal risk s of cardica cath and if it is safe to proceed Status: Acute (4) Ischemic cardiomyopathy Assessment & Plan: sumit multivessel CAD. recommend cardiac cath when stable from renal standpoint. Status: Acute
[2018-05-07] MEDS: Brimonidine 0.2% Opth Sol (5ml) OS SCH ×2 (09:27→17:16)
[2018-05-07] MEDS: Ciprofloxacin 0.3% OPTH SOLN OD SCH ×4 (09:28→21:23)
--- NOTE | 2018-05-07 09:45 | CP.PCM.PN ---
Subjective - Date & Time of Evaluation Date of Evaluation: 05/07/18 Time of Evaluation: 07:45 - Subjective Subjective: f/u elev LFTs. Denies CP, SOb, LI, cough, Rb, melena, hematuriaa, hemoptysis, SZ Eating better. Objective - Vital Signs/Intake and Output Vital Signs (last 24 hours): Temp Pulse Resp BP Pulse Ox 98.3 F 70 16 104/59 L 98 05/07/18 08:00 05/07/18 08:01 05/07/18 08:01 05/07/18 09:19 05/07/18 08:01 Intake and Output: 05/07/18 05/07/18 06:59 18:59 Intake Total 450 180 Output Total 600 0 Balance -150 180 - Medications Medications: Current Medications Aspirin (Aspirin Chewable) 81 mg PO DAILY [facility] Last Admin: 05/07/18 09:19 Dose: 81 mg Brimonidine Tartrate (Alphagan 0.2% Opht) 0 ml OS BID [facility] Last Admin: 05/07/18 09:27 Dose: 1 drop Carvedilol (Coreg) 6.25 mg PO BID [facility] Last Admin: 05/07/18 09:20 Dose: 6.25 mg Ciprofloxacin (Ciloxan 0.3% Ophth Soln) 1 drop OD QID [facility] Last Admin: 05/07/18 09:28 Dose: 1 drop Clopidogrel Bisulfate (Plavix) 75 mg PO DAILY [facility] Last Admin: 05/07/18 09:20 Dose: 75 mg Famotidine (Pepcid) 20 mg PO DAILY [facility] Last Admin: 05/07/18 09:20 Dose: 20 mg Furosemide (Lasix) 40 mg PO DAILY [facility] Last Admin: 05/07/18 09:19 Dose: 40 mg Latanoprost (Xalatan Opht) 2.5 ml OU HS [facility] Last Admin: 05/06/18 22:15 Dose: 2.5 ml Levothyroxine Sodium (Synthroid) 88 mcg PO 0630 [facility] Last Admin: 05/07/18 06:27 Dose: 88 mcg Timolol Maleate (Timoptic 0.5% Ophth Soln) 0 drop OS BID [facility] Last Admin: 05/07/18 09:28 Dose: 1 drop - Labs Labs: 05/07/18 06:09 05/07/18 06:09 PT 18.0 SECONDS (9.7-12.2) H 05/04/18 12:39 INR 1.6 05/04/18 12:39 APTT 70 SECONDS (21-34) H D 05/06/18 05:19 - Constitutional Appears: Non-toxic - Respiratory Exam Respiratory Exam: Clear to Ausculation Bilateral - Cardiovascular Exam Cardiovascular Exam: RRR - GI/Abdominal Exam GI & Abdominal Exam: Soft, Normal Bowel Sounds. absent: Guarding, Tenderness, Rebound - Extremities Exam Extremities Exam: absent: Calf Tenderness - Neurological Exam Neurological Exam: Alert, Awake, Oriented x3 Assessment and Plan (1) Chest pain Assessment & Plan: LA Status: Acute (2) Dyspnea Assessment & Plan: Improving Status: Acute (3) Elevated transaminase level Assessment & Plan: Due to cardiac- mI, passive congestion. Improving. Rec- Will sign off. Follow LFts. Status: Acute (4) Acute renal insufficiency Status: Acute (5) Hypercholesterolemia Status: Acute (6) NSTEMI (non-ST elevated myocardial infarction) Status: Acute (7) CHF (congestive heart failure) Status: Acute (8) Nutrition disorder Assessment & Plan: Eating better. Taking ensure Status: Acute
--- NOTE | 2018-05-07 12:24 | CP.PCM.PN ---
Subjective - Date & Time of Evaluation Date of Evaluation: 05/07/18 Time of Evaluation: 12:21 - Subjective Subjective: pt seen and examine din no distress no SOB or chest pain no overnight events good uoP off heparin drip ROS- as per HPI, other than that 10 point ros negative Objective - Vital Signs/Intake and Output Vital Signs (last 24 hours): Temp Pulse Resp BP Pulse Ox 97.5 F L 66 19 87/56 L 100 05/07/18 12:00 05/07/18 12:06 05/07/18 12:06 05/07/18 12:06 05/07/18 12:06 Intake and Output: 05/07/18 05/07/18 06:59 18:59 Intake Total 450 420 Output Total 600 0 Balance -150 420 - Medications Medications: Current Medications Aspirin (Aspirin Chewable) 81 mg PO DAILY [facility] Last Admin: 05/07/18 09:19 Dose: 81 mg Brimonidine Tartrate (Alphagan 0.2% Opht) 0 ml OS BID [facility] Last Admin: 05/07/18 09:27 Dose: 1 drop Carvedilol (Coreg) 6.25 mg PO BID [facility] Last Admin: 05/07/18 09:20 Dose: 6.25 mg Ciprofloxacin (Ciloxan 0.3% Ophth Soln) 1 drop OD QID [facility] Last Admin: 05/07/18 09:28 Dose: 1 drop Clopidogrel Bisulfate (Plavix) 75 mg PO DAILY [facility] Last Admin: 05/07/18 09:20 Dose: 75 mg Famotidine (Pepcid) 20 mg PO DAILY [facility] Last Admin: 05/07/18 09:20 Dose: 20 mg Furosemide (Lasix) 40 mg PO DAILY [facility] Last Admin: 05/07/18 09:19 Dose: 40 mg Latanoprost (Xalatan Opht) 2.5 ml OU HS [facility] Last Admin: 05/06/18 22:15 Dose: 2.5 ml Levothyroxine Sodium (Synthroid) 88 mcg PO 0630 [facility] Last Admin: 05/07/18 06:27 Dose: 88 mcg Timolol Maleate (Timoptic 0.5% Ophth Soln) 0 drop OS BID [facility] Last Admin: 05/07/18 09:28 Dose: 1 drop - Labs Labs: 05/07/18 06:09 05/07/18 06:09 PT 18.0 SECONDS (9.7-12.2) H 05/04/18 12:39 INR 1.6 05/04/18 12:39 APTT 70 SECONDS (21-34) H D 05/06/18 05:19 - Constitutional Appears: Well, Non-toxic - Head Exam Head Exam: ATRAUMATIC, NORMOCEPHALIC - Eye Exam Eye Exam: EOMI, PERRL - ENT Exam ENT Exam: Mucous Membranes Moist - Neck Exam Neck Exam: Full ROM - Respiratory Exam Respiratory Exam: Clear to Ausculation Bilateral. absent: Rhonchi, Wheezes - Cardiovascular Exam Cardiovascular Exam: REGULAR RHYTHM, +S1, +S2 - GI/Abdominal Exam GI & Abdominal Exam: Soft. absent: Distended, Tenderness - Extremities Exam Extremities Exam: Full ROM. absent: Pedal Edema - Neurological Exam Neurological Exam: Alert, Awake, Oriented x3 - Psychiatric Exam Psychiatric exam: Normal Affect, Normal Mood - Skin Skin Exam: Normal Color, Warm Assessment and Plan (1) Acute kidney injury Status: Acute (2) Chest pain Status: Acute (3) Elevated transaminase level Status: Acute (4) Hypercholesterolemia Status: Acute (5) NSTEMI (non-ST elevated myocardial infarction) Status: Acute (6) CHF (congestive heart failure) Status: Acute - Assessment and Plan (Free Text) Plan: BATSHEVA - non oliguric in setting of NSTEMI Cr improving on lasix for pulmonary congestion BP on low side- to monitor given BATSHEVA, at moderate risk of contrast nephropathy if Cr continues to improve, then ok to proceed with cardiac cath hold lasix the day prior
--- NOTE | 2018-05-07 12:44 | CP.CCUPN ---
<Amalia Nicole - Last Filed: 05/07/18 12:44> CCU Subjective - Physician Review Subjective (Free Text): Amalia Nciole DO, PGY-2: ICU Progress Note for Dr. Maribel Lowe Patient was seen and examined at bedside. She denies any chest pain, nausea, vomiting, or worsening dyspnea. She has had good urine output. She states feeling "lousy" today. 05/05/18 16:19 05/06/18 11:10 05/07/18 12:42 05/07/18 12:50 CCU Objective - Vital Signs / Intake & Output Vital Signs (Last 4 hours): Vital Signs Temp Pulse Resp BP Pulse Ox 05/07/18 12:06 66 19 87/56 L 100 05/07/18 12:00 97.5 F L 82 15 99 05/07/18 11:52 68 19 88/59 L 100 05/07/18 11:03 69 24 83/45 L 100 05/07/18 10:13 72 31 H 108/60 99 05/07/18 09:19 104/59 L 05/07/18 09:00 72 24 100 05/07/18 08:59 72 14 104/59 L 98 Intake and Output (Last 8hrs): Intake & Output 05/06/18 05/07/18 05/07/18 22:59 06:59 14:59 Intake Total 220 350 420 Output Total 125 600 0 Balance 95 -250 420 Weight 161 lb Intake: Oral 220 350 420 Output: Urine 125 600 0 Urine, Voided 125 600 0 Other: # Bowel Movements 0 - Physical Exam Head: Positive for: Atraumatic, Normocephalic Pupils: Positive for: PERRL. Negative for: Sluggish Extroacular Muscles: Positive for: EOMI Conjunctiva: Positive for: Normal. Negative for: Injected Mouth: Positive for: Moist Mucous Membranes, Normal Lips, Normal Tounge Neck: Positive for: JVD Respiratory/Chest: Positive for: Rales (left greater than right). Negative for: Accessory Muscle Use Cardiovascular: Positive for: Regular Rate and Rhythm, Normal S1, S2 Upper Extremity: Positive for: Normal Inspection. Negative for: Cyanosis, Edema Lower Extremity: Positive for: Normal Inspection. Negative for: Edema, CALF TENDERNESS Neurological: Positive for: GCS=15, CN II-XII Intact, Speech Normal, Normal Sensory Function Skin: Positive for: Warm, Dry Psychiatric: Positive for: Alert, Oriented x 3, Normal Insight - Medications Active Medications: Active Medications Generic Name Dose Route Start Last Admin Trade Name Sachaq PRN Reason Stop Dose Admin Aspirin 81 mg 05/06/18 10:00 05/07/18 09:19 Aspirin Chewable PO 81 mg DAILY GRIFFIN Administration Brimonidine Tartrate 0 ml 05/06/18 10:30 05/07/18 09:27 Alphagan 0.2% Opht OS 1 drop BID GRIFFIN Administration Carvedilol 6.25 mg 05/06/18 10:00 05/07/18 09:20 Coreg PO 6.25 mg BID GRIFFIN Administration Ciprofloxacin 1 drop 05/06/18 10:30 05/07/18 09:28 Ciloxan 0.3% Ophth Soln OD 1 drop QID GRIFFIN Administration Clopidogrel Bisulfate 75 mg 05/05/18 10:00 05/07/18 09:20 Plavix PO 75 mg DAILY GRIFFIN Administration Famotidine 20 mg 05/06/18 08:43 05/07/18 09:20 Pepcid PO 20 mg DAILY GRIFFIN Administration Furosemide 40 mg 05/06/18 10:00 05/07/18 09:19 Lasix PO 40 mg DAILY GRIFFIN Administration Latanoprost 2.5 ml 05/04/18 22:00 05/06/18 22:15 Xalatan Opht OU 2.5 ml HS GRIFFIN Administration Levothyroxine Sodium 88 mcg 05/05/18 06:30 05/07/18 06:27 Synthroid PO 88 mcg 0630 GRIFFIN Administration Timolol Maleate 0 drop 05/06/18 10:30 05/07/18 09:28 Timoptic 0.5% Ophth Soln OS 1 drop BID GRIFFIN Administration - Patient Studies Lab Studies: Lab Studies 05/07/18 05/07/18 Range/Units 06:09 06:09 WBC 7.2 (4.8-10.8) K/uL RBC 4.79 (3.80-5.20) Mil/uL Hgb 10.9 L (11.0-16.0) g/dL Hct 36.0 (34.0-47.0) % MCV 75.8 L (81.0-99.0) fL MCH 22.8 L (27.0-31.0) pg MCHC 30.1 L (33.0-37.0) g/dL RDW 15.2 H (11.5-14.5) % Plt Count 80 L (130-400) K/uL MPV 9.9 (7.2-11.7) fL Neut % (Auto) 61.3 (50.0-75.0) % Lymph % (Auto) 27.1 (20.0-40.0) % Treasure % (Auto) 7.7 (0.0-10.0) % Eos % (Auto) 3.4 (0.0-4.0) % Baso % (Auto) 0.5 (0.0-2.0) % Neut # (Auto) 4.4 (1.8-7.0) K/uL Lymph # (Auto) 1.9 (1.0-4.3) K/uL Treasure # (Auto) 0.6 (0.0-0.8) K/uL Eos # (Auto) 0.2 (0.0-0.7) K/uL Baso # (Auto) 0.0 (0.0-0.2) K/uL Sodium 137 (132-148) mmol/L Potassium 4.1 (3.6-5.2) mmol/L Chloride 101 (98-107) mmol/L Carbon Dioxide 30 (22-30) mmol/L Anion Gap 10 (10-20) BUN 47 H (7-17) mg/dL Creatinine 1.3 H (0.7-1.2) mg/dL Est GFR ( Amer) 48 Est GFR (Non-Af Amer) 40 Random Glucose 126 H (65-105) mg/dL Calcium 8.6 (8.6-10.4) mg/dl Phosphorus 2.3 L (2.5-4.5) mg/dL Magnesium 2.5 H (1.6-2.3) mg/dL Total Bilirubin 0.6 (0.2-1.3) mg/dL AST 1008 H (14-36) U/L ALT 1495 H (9-52) U/L Alkaline Phosphatase 157 H (38-126) U/L Total Protein 6.2 L (6.3-8.3) g/dL Albumin 3.4 L (3.5-5.0) g/dL Globulin 2.7 (2.2-3.9) gm/dL Albumin/Globulin Ratio 1.3 (1.0-2.1) Laboratory Results - last 24 hr 05/07/18 05/07/18 06:09 06:09 WBC 7.2 RBC 4.79 Hgb 10.9 L Hct 36.0 MCV 75.8 L MCH 22.8 L MCHC 30.1 L RDW 15.2 H Plt Count 80 L MPV 9.9 Neut % (Auto) 61.3 Lymph % (Auto) 27.1 Treasure % (Auto) 7.7 Eos % (Auto) 3.4 Baso % (Auto) 0.5 Neut # (Auto) 4.4 Lymph # (Auto) 1.9 Treasure # (Auto) 0.6 Eos # (Auto) 0.2 Baso # (Auto) 0.0 Sodium 137 Potassium 4.1 Chloride 101 Carbon Dioxide 30 Anion Gap 10 BUN 47 H Creatinine 1.3 H Est GFR ( Amer) 48 Est GFR (Non-Af Amer) 40 Random Glucose 126 H Calcium 8.6 Phosphorus 2.3 L Magnesium 2.5 H Total Bilirubin 0.6 AST 1008 H ALT 1495 H Alkaline Phosphatase 157 H Total Protein 6.2 L Albumin 3.4 L Globulin 2.7 Albumin/Globulin Ratio 1.3 Critical Care Progress Note - Nutrition Nutrition: Nutrition Category Date Time Status Heart Healthy Diet [DIET] Diets 05/04/18 Dinner Active Assessment/Plan - Assessment and Plan (Free Text) Assessment: 77 year old female with a past medical history of hypertension, dyslipidemia, and glacouma who presented with 2 days of worsening chest pain, shortness of breath, nausea, and difficulty urinating. She was found to have NSTEMI, CHF exacerbation, BATSHEVA with hyperkalemia and MODS. She was given D50 with insulin for her hyperkalemia in the ED. She was given aspirin 325 and started on a heparin drip for her NSTEMI. She will be kept on Oxygen with a target SpO2 of 95%. She will be getting intermittent diuresis for heart heart failure (likely secondary to an ischemic event. She has elevated LFTs likely secondary to congestive hepatopathy. We will trend her LFTs and Creatinine. We will consult Nephrology and cardiology. We will obtain a stat echcoardiogram. We will monitor strict intake and output. 05/07: 1) MO - Heparin discontinued yesterday - Echocardiogram shows severely impaired systolic dysfunction; significant regional wall motion abnormalities; transmitral doppler flow pattern is a grade II-pseudonormal filling dynamics; no LV thrombus noted; mild aortic regurgitation; moderate mitral regurgitation; severe tricuspid regurgitation; severe pulmonary hypertension - Aspirin 81 - Plavix 75 - Carvedilol 6.25 BID - ACEI to be started as per cardiology or nephrology - Cardiology is following, Dr. Echols - Holding statin secondary to elevated LFTS; recommend resuming once LFTs are within normal limits - Cardiology elects to proceed with cardiac catheterization if cleared by nephrology 2) BATSHEVA - Creatinine and BUN trending down; 1.2 today - Strict I/O (1 L output yesterday) - Correct electrolyte as needed 3) Acute Systolic Heart failure secondary to MO - LVEF estimated to be between 45-55% - Lasix 40 PO daily per Nephrology given rales and chest X-ray showing severe cardiomegaly and moderate pulmonary venous congestion 4) Hypothyrodism - Levothyroxine 88 mcg daily 5) Transaminitis - resolving with LFTs trending down - GI is following 6) Glaucoma and s/p surgical procedure of left eye - Continue home eye drops, see MAR for details 7) DVT/GI prophylaxis - SCD - Protonix 20 8) Thrombocytopenia - 80 today - Monitor, no intervention at this time 9) Congestive hepatopathy - Monitor LFTs via serial CMPs - GI is following Case was reviewed and discussed with attending physician, Dr. Maribel Lowe <Maribel Lowe M - Last Filed: 05/07/18 17:40> CCU Objective - Vital Signs / Intake & Output Vital Signs (Last 4 hours): Vital Signs Temp Pulse Resp BP Pulse Ox 05/07/18 16:00 98.1 F 67 22 100 05/07/18 15:59 69 24 91/57 L 100 05/07/18 15:00 68 25 H 100 05/07/18 14:58 68 29 H 99/66 L 100 05/07/18 14:03 70 100 05/07/18 13:59 70 92/54 L 74 L Intake and Output (Last 8hrs): Intake & Output 05/07/18 05/07/18 05/07/18 06:59 14:59 22:59 Intake Total 350 540 0 Output Total 600 300 Balance -250 240 0 Weight 161 lb Intake: Oral 350 540 0 Output: Urine 600 300 Urine, Voided 600 300 Other: # Voids Urine, Voided 1 # Bowel Movements 0 - Medications Active Medications: Active Medications Generic Name Dose Route Start Last Admin Trade Name Freq PRN Reason Stop Dose Admin Aspirin 81 mg 05/06/18 10:00 05/07/18 09:19 Aspirin Chewable PO 81 mg DAILY GRIFFIN Administration Brimonidine Tartrate 0 ml 05/06/18 10:30 05/07/18 17:16 Alphagan 0.2% Opht OS 1 drop BID GRIFFIN Administration Carvedilol 6.25 mg 05/06/18 10:00 05/07/18 17:17 Coreg PO 6.25 mg BID GRIFFIN Administration Ciprofloxacin 1 drop 05/06/18 10:30 05/07/18 17:16 Ciloxan 0.3% Ophth Soln OD 1 drop QID GRIFFIN Administration Clopidogrel Bisulfate 75 mg 05/05/18 10:00 05/07/18 09:20 Plavix PO 75 mg DAILY GRIFFIN Administration Famotidine 20 mg 05/06/18 08:43 05/07/18 09:20 Pepcid PO 20 mg DAILY GRIFFIN Administration Furosemide 40 mg 05/06/18 10:00 05/07/18 09:19 Lasix PO 40 mg DAILY GRIFFIN Administration Latanoprost 2.5 ml 05/04/18 22:00 05/06/18 22:15 Xalatan Opht OU 2.5 ml HS GRIFFIN Administration Levothyroxine Sodium 88 mcg 05/05/18 06:30 05/07/18 06:27 Synthroid PO 88 mcg 0630 GRIFFIN Administration Timolol Maleate 0 drop 05/06/18 10:30 05/07/18 17:16 Timoptic 0.5% Ophth Soln OS 1 drop BID GRIFFIN Administration - Patient Studies Lab Studies: Lab Studies 05/07/18 05/07/18 Range/Units 06:09 06:09 WBC 7.2 (4.8-10.8) K/uL RBC 4.79 (3.80-5.20) Mil/uL Hgb 10.9 L (11.0-16.0) g/dL Hct 36.0 (34.0-47.0) % MCV 75.8 L (81.0-99.0) fL MCH 22.8 L (27.0-31.0) pg MCHC 30.1 L (33.0-37.0) g/dL RDW 15.2 H (11.5-14.5) % Plt Count 80 L (130-400) K/uL MPV 9.9 (7.2-11.7) fL Neut % (Auto) 61.3 (50.0-75.0) % Lymph % (Auto) 27.1 (20.0-40.0) % Treasure % (Auto) 7.7 (0.0-10.0) % Eos % (Auto) 3.4 (0.0-4.0) % Baso % (Auto) 0.5 (0.0-2.0) % Neut # (Auto) 4.4 (1.8-7.0) K/uL Lymph # (Auto) 1.9 (1.0-4.3) K/uL Treasure # (Auto) 0.6 (0.0-0.8) K/uL Eos # (Auto) 0.2 (0.0-0.7) K/uL Baso # (Auto) 0.0 (0.0-0.2) K/uL Sodium 137 (132-148) mmol/L Potassium 4.1 (3.6-5.2) mmol/L Chloride 101 (98-107) mmol/L Carbon Dioxide 30 (22-30) mmol/L Anion Gap 10 (10-20) BUN 47 H (7-17) mg/dL Creatinine 1.3 H (0.7-1.2) mg/dL Est GFR ( Amer) 48 Est GFR (Non-Af Amer) 40 Random Glucose 126 H (65-105) mg/dL Calcium 8.6 (8.6-10.4) mg/dl Phosphorus 2.3 L (2.5-4.5) mg/dL Magnesium 2.5 H (1.6-2.3) mg/dL Total Bilirubin 0.6 (0.2-1.3) mg/dL AST 1008 H (14-36) U/L ALT 1495 H (9-52) U/L Alkaline Phosphatase 157 H (38-126) U/L Total Protein 6.2 L (6.3-8.3) g/dL Albumin 3.4 L (3.5-5.0) g/dL Globulin 2.7 (2.2-3.9) gm/dL Albumin/Globulin Ratio 1.3 (1.0-2.1) Laboratory Results - last 24 hr 05/07/18 05/07/18 06:09 06:09 WBC 7.2 RBC 4.79 Hgb 10.9 L Hct 36.0 MCV 75.8 L MCH 22.8 L MCHC 30.1 L RDW 15.2 H Plt Count 80 L MPV 9.9 Neut % (Auto) 61.3 Lymph % (Auto) 27.1 Treasure % (Auto) 7.7 Eos % (Auto) 3.4 Baso % (Auto) 0.5 Neut # (Auto) 4.4 Lymph # (Auto) 1.9 Treasure # (Auto) 0.6 Eos # (Auto) 0.2 Baso # (Auto) 0.0 Sodium 137 Potassium 4.1 Chloride 101 Carbon Dioxide 30 Anion Gap 10 BUN 47 H Creatinine 1.3 H Est GFR ( Amer) 48 Est GFR (Non-Af Amer) 40 Random Glucose 126 H Calcium 8.6 Phosphorus 2.3 L Magnesium 2.5 H Total Bilirubin 0.6 AST 1008 H ALT 1495 H Alkaline Phosphatase 157 H Total Protein 6.2 L Albumin 3.4 L Globulin 2.7 Albumin/Globulin Ratio 1.3 EKG/Cardiology Studies: Cardiology / EKG Studies 05/07/18 13:51 EKG [ELECTROCARDIOGRAM] Stat Comment: Mode Of Transportation: Reason For Exam: eval post NSTEMI Critical Care Progress Note - Nutrition Nutrition: Nutrition Category Date Time Status Heart Healthy Diet [DIET] Diets 05/04/18 Dinner Active Assessment/Plan - Assessment and Plan (Free Text) Plan: -NSTEMI: contineu DAPT -Chronic systolic heart failure -remains hemodynamically stable - Date & Time Date: 05/07/18 Time: 17:40
--- NOTE | 2018-05-07 18:47 | CP.PCM.PN ---
Subjective - Date & Time of Evaluation Date of Evaluation: 05/06/18 Time of Evaluation: 18:46 - Subjective Subjective: Patient is currently feeling well. She has no chest pain. But still having some shortness of breath. Still feeling weak. Vital signs are stable otherwise. Some improvement in the creatinine level noted. We will continue to monitor. Cardiology evaluation and possible angiogram tomorrow Objective - Vital Signs/Intake and Output Vital Signs (last 24 hours): Temp Pulse Resp BP Pulse Ox 98.1 F 68 19 89/55 L 98 05/07/18 16:00 05/07/18 18:00 05/07/18 18:00 05/07/18 17:59 05/07/18 18:00 Intake and Output: 05/07/18 05/07/18 06:59 18:59 Intake Total 450 660 Output Total 600 550 Balance -150 110 - Medications Medications: Current Medications Aspirin (Aspirin Chewable) 81 mg PO DAILY [facility] Last Admin: 05/07/18 09:19 Dose: 81 mg Brimonidine Tartrate (Alphagan 0.2% Opht) 0 ml OS BID [facility] Last Admin: 05/07/18 17:16 Dose: 1 drop Carvedilol (Coreg) 6.25 mg PO BID [facility] Last Admin: 05/07/18 17:17 Dose: 6.25 mg Ciprofloxacin (Ciloxan 0.3% Ophth Soln) 1 drop OD QID [facility] Last Admin: 05/07/18 17:16 Dose: 1 drop Clopidogrel Bisulfate (Plavix) 75 mg PO DAILY [facility] Last Admin: 05/07/18 09:20 Dose: 75 mg Famotidine (Pepcid) 20 mg PO DAILY [facility] Last Admin: 05/07/18 09:20 Dose: 20 mg Furosemide (Lasix) 40 mg PO DAILY [facility] Last Admin: 05/07/18 09:19 Dose: 40 mg Latanoprost (Xalatan Opht) 2.5 ml OU HS [facility] Last Admin: 05/06/18 22:15 Dose: 2.5 ml Levothyroxine Sodium (Synthroid) 88 mcg PO 0630 [facility] Last Admin: 05/07/18 06:27 Dose: 88 mcg Timolol Maleate (Timoptic 0.5% Ophth Soln) 0 drop OS BID [facility] Last Admin: 05/07/18 17:16 Dose: 1 drop - Labs Labs: 05/07/18 06:09 05/07/18 06:09 PT 18.0 SECONDS (9.7-12.2) H 05/04/18 12:39 INR 1.6 05/04/18 12:39 APTT 70 SECONDS (21-34) H D 05/06/18 05:19
--- NOTE | 2018-05-07 18:48 | CP.PCM.PN ---
Subjective - Date & Time of Evaluation Date of Evaluation: 05/07/18 Time of Evaluation: 18:47 - Subjective Subjective: Patient is currently getting the angiogram done at this time. Clinically patient was stable. Today the creatinine level is still slightly high, but better. We will continue to monitor. We will discuss with the cardiology for further management. Objective - Vital Signs/Intake and Output Vital Signs (last 24 hours): Temp Pulse Resp BP Pulse Ox 98.1 F 68 19 89/55 L 98 05/07/18 16:00 05/07/18 18:00 05/07/18 18:00 05/07/18 17:59 05/07/18 18:00 Intake and Output: 05/07/18 05/07/18 06:59 18:59 Intake Total 450 660 Output Total 600 550 Balance -150 110 - Medications Medications: Current Medications Aspirin (Aspirin Chewable) 81 mg PO DAILY [facility] Last Admin: 05/07/18 09:19 Dose: 81 mg Brimonidine Tartrate (Alphagan 0.2% Opht) 0 ml OS BID [facility] Last Admin: 05/07/18 17:16 Dose: 1 drop Carvedilol (Coreg) 6.25 mg PO BID [facility] Last Admin: 05/07/18 17:17 Dose: 6.25 mg Ciprofloxacin (Ciloxan 0.3% Ophth Soln) 1 drop OD QID [facility] Last Admin: 05/07/18 17:16 Dose: 1 drop Clopidogrel Bisulfate (Plavix) 75 mg PO DAILY [facility] Last Admin: 05/07/18 09:20 Dose: 75 mg Famotidine (Pepcid) 20 mg PO DAILY [facility] Last Admin: 05/07/18 09:20 Dose: 20 mg Furosemide (Lasix) 40 mg PO DAILY [facility] Last Admin: 05/07/18 09:19 Dose: 40 mg Latanoprost (Xalatan Opht) 2.5 ml OU HS [facility] Last Admin: 05/06/18 22:15 Dose: 2.5 ml Levothyroxine Sodium (Synthroid) 88 mcg PO 0630 [facility] Last Admin: 05/07/18 06:27 Dose: 88 mcg Timolol Maleate (Timoptic 0.5% Ophth Soln) 0 drop OS BID [facility] Last Admin: 05/07/18 17:16 Dose: 1 drop - Labs Labs: 05/07/18 06:09 05/07/18 06:09 PT 18.0 SECONDS (9.7-12.2) H 05/04/18 12:39 INR 1.6 05/04/18 12:39 APTT 70 SECONDS (21-34) H D 05/06/18 05:19
[2018-05-07] MEDS ORDERED: Iodixanol 320 MG/ML 200 ML BOTTLE IV ONE (18:52)
--- NOTE | 2018-05-07 19:40 | CP.PCM.PN ---
Subjective - Date & Time of Evaluation Date of Evaluation: 05/07/18 Time of Evaluation: 19:35 - Subjective Subjective: cardiac cath performed. Lcx occluded 100% other coronaries have mild disease will conitnue guideline based medical therapy. degree of LV dsyfunction is out of proprtion to the degree of CAD. recommend Lifevest, Objective - Vital Signs/Intake and Output Vital Signs (last 24 hours): Temp Pulse Resp BP Pulse Ox 98.1 F 68 19 89/55 L 98 05/07/18 16:00 05/07/18 18:00 05/07/18 18:00 05/07/18 17:59 05/07/18 18:00 Intake and Output: 05/07/18 05/08/18 18:59 06:59 Intake Total 660 Output Total 550 Balance 110 - Medications Medications: Current Medications Aspirin (Aspirin Chewable) 81 mg PO DAILY [facility] Last Admin: 05/07/18 09:19 Dose: 81 mg Brimonidine Tartrate (Alphagan 0.2% Opht) 0 ml OS BID [facility] Last Admin: 05/07/18 17:16 Dose: 1 drop Carvedilol (Coreg) 6.25 mg PO BID [facility] Last Admin: 05/07/18 17:17 Dose: 6.25 mg Ciprofloxacin (Ciloxan 0.3% Ophth Soln) 1 drop OD QID [facility] Last Admin: 05/07/18 17:16 Dose: 1 drop Clopidogrel Bisulfate (Plavix) 75 mg PO DAILY [facility] Last Admin: 05/07/18 09:20 Dose: 75 mg Famotidine (Pepcid) 20 mg PO DAILY [facility] Last Admin: 05/07/18 09:20 Dose: 20 mg Furosemide (Lasix) 40 mg PO DAILY [facility] Last Admin: 05/07/18 09:19 Dose: 40 mg Latanoprost (Xalatan Opht) 2.5 ml OU HS [facility] Last Admin: 05/06/18 22:15 Dose: 2.5 ml Levothyroxine Sodium (Synthroid) 88 mcg PO 0630 [facility] Last Admin: 05/07/18 06:27 Dose: 88 mcg Timolol Maleate (Timoptic 0.5% Ophth Soln) 0 drop OS BID [facility] Last Admin: 05/07/18 17:16 Dose: 1 drop - Labs Labs: 05/07/18 06:09 05/07/18 06:09 PT 18.0 SECONDS (9.7-12.2) H 05/04/18 12:39 INR 1.6 05/04/18 12:39 APTT 70 SECONDS (21-34) H D 05/06/18 05:19 Assessment and Plan (1) NSTEMI (non-ST elevated myocardial infarction) Status: Acute (2) Hypercholesterolemia Status: Acute (3) Acute renal insufficiency Status: Acute (4) Ischemic cardiomyopathy Status: Acute
[2018-05-07] MEDS: Latanoprost 2.5 ml Opht Soln OU SCH (21:23)
[2018-05-08] MEDS: Levothyroxine 88 MCG TAB PO SCH (06:03)
[2018-05-08 06:08] LABS: BASO # 0.1 K/uL (0.0-0.2); BASO % 0.6 % (0.0-2.0); EOS # 0.2 K/uL (0.0-0.7); EOS % 2.5 % (0.0-4.0); HEMOGLOBIN 10.6 g/dL (11.0-16.0); LYMPH # 1.9 K/uL (1.0-4.3); LYMPH % 21.2 % (20.0-40.0); MEAN CELL VOLUME 75.8 fL (81.0-99.0); MEAN CORPUSCULAR HEMOGLOBIN 22.8 pg (27.0-31.0); MEAN CORPUSCULAR HGB CONC 30.1 g/dL (33.0-37.0); MEAN PLATELET VOLUME 10.2 fL (7.2-11.7); MONO # 1.1 K/uL (0.0-0.8); MONO % 12.4 % (0.0-10.0); NEUT # 5.6 K/uL (1.8-7.0); NEUT % 63.3 % (50.0-75.0); NRBC % 10.1 % (0.0-2.0); RBC 4.65 Mil/uL (3.80-5.20); RED CELL DISTRIBUTION WIDTH 15.3 % (11.5-14.5); WHITE BLOOD COUNT 8.9 K/uL (4.8-10.8)
--- NOTE | 2018-05-08 06:08 | CARDCATH ---
PROCEDURE DATE: 05/07/2018 PROCEDURES PERFORMED: Left heart catheterization, coronary angiography. INDICATIONS: Non-ST segment elevation myocardial infarction. COMPLICATIONS: None. HISTORY: The patient is a 77-year-old female who presented 48 hours after the onset of substernal chest pain. She was found to have non-ST elevation myocardial infarction, peak troponin 188. The patient was placed on aggressive medical therapy. Echocardiogram revealed severe left ventricular dysfunction, EF 20-25%. Renal function was monitored and catheterization deferred due to renal insufficiency. Renal function improved and at the guidance of nephrology consultation, it was recommended that it was safe to proceed with coronary angiography. All risks and benefits were explained, and the patient signed the consent. DESCRIPTION OF PROCEDURE: The right common femoral artery was accessed with micropuncture needle, and a micropuncture sheath was advanced and exchanged for 6-[place] sheath. Coronary angiography and left heart catheterization were then performed. The catheter was then removed. A Perclose suture-mediated closure device was used to achieve hemostasis. FINDINGS: Left main normal. Left anterior descending artery mild diffuse disease. Left circumflex artery vessels occluded 100% in mid portion. Right coronary artery arises from the right sinus of Valsalva. Right dominant circulation, mild diffuse disease. The left ventricular end-diastolic pressure is 35 mmHg. CONCLUSION: 1. Occluded left circumflex artery. 2. Severe left ventricular systolic dysfunction (LVEF 20-25% by echocardiogram). 3. Elevated left ventricular end-diastolic pressure. PLAN: The patient will need aggressive medical therapy. Risk factors modifications have been discussed. Darvin Echols MD MTDTeresa
[2018-05-08 06:24] LABS: ALB/GLOB RATIO 1.2 (1.0-2.1); ALBUMIN 3.6 g/dL (3.5-5.0); CALCIUM 8.8 mg/dl (8.6-10.4)
--- NOTE | 2018-05-08 08:24 | CP.CCUPN ---
<Amalia Nicole - Last Filed: 05/08/18 08:42> CCU Subjective - Physician Review Subjective (Free Text): Amalia Nicole DO, PGY-2: ICU Progress Note for Dr. Maribel Lowe Patient was seen and examined at bedside. She denies any chest pain, nausea, vomiting, or worsening dyspnea. She has had good urine output. She underwent cardiac catheterization that showed 100 stenosis in the mid-portion of the left circumflex. Physical therapy will be walking the patient today. 05/08/18 08:40 CCU Objective - Vital Signs / Intake & Output Vital Signs (Last 4 hours): Vital Signs Pulse Resp BP Pulse Ox 05/08/18 07:52 77 17 112/61 99 05/08/18 07:00 69 23 98 05/08/18 06:14 67 18 96/63 L 100 05/08/18 05:45 68 22 113/71 100 05/08/18 05:00 68 16 104/72 Intake and Output (Last 8hrs): Intake & Output 05/07/18 05/08/18 05/08/18 22:59 06:59 14:59 Intake Total 120 150 Output Total 550 250 Balance -430 -100 Weight 160 lb 12.8 oz Intake: Oral 120 150 Output: Urine 550 250 Urine, Voided 550 250 Other: # Voids Urine, Voided 1 1 # Bowel Movements 0 - Physical Exam Head: Positive for: Atraumatic, Normocephalic Pupils: Positive for: PERRL. Negative for: Sluggish Extroacular Muscles: Positive for: EOMI Conjunctiva: Positive for: Normal. Negative for: Injected Mouth: Positive for: Moist Mucous Membranes, Normal Lips, Normal Tounge Neck: Negative for: JVD Respiratory/Chest: Positive for: Rales (left greater than right). Negative for: Accessory Muscle Use Cardiovascular: Positive for: Regular Rate and Rhythm, Normal S1, S2 Upper Extremity: Positive for: Normal Inspection, NORMAL PULSES. Negative for: Cyanosis, Edema Lower Extremity: Positive for: Normal Inspection. Negative for: Edema, CALF TENDERNESS Neurological: Positive for: GCS=15, CN II-XII Intact, Speech Normal, Normal Sensory Function Skin: Positive for: Warm, Dry, Normal Color Psychiatric: Positive for: Alert, Oriented x 3, Normal Insight - Medications Active Medications: Active Medications Generic Name Dose Route Start Last Admin Trade Name Freq PRN Reason Stop Dose Admin Aspirin 81 mg 05/06/18 10:00 05/07/18 09:19 Aspirin Chewable PO 81 mg DAILY GRIFFIN Administration Brimonidine Tartrate 0 ml 05/06/18 10:30 05/07/18 17:16 Alphagan 0.2% Opht OS 1 drop BID GRIFFIN Administration Carvedilol 6.25 mg 05/06/18 10:00 05/07/18 17:17 Coreg PO 6.25 mg BID GRIFFIN Administration Ciprofloxacin 1 drop 05/06/18 10:30 05/07/18 21:23 Ciloxan 0.3% Ophth Soln OD 1 drop QID GRIFFIN Administration Clopidogrel Bisulfate 75 mg 05/05/18 10:00 05/07/18 09:20 Plavix PO 75 mg DAILY GRIFFIN Administration Famotidine 20 mg 05/06/18 08:43 05/07/18 09:20 Pepcid PO 20 mg DAILY GRIFFIN Administration Furosemide 40 mg 05/06/18 10:00 05/07/18 09:19 Lasix PO 40 mg DAILY GRIFFIN Administration Latanoprost 2.5 ml 05/04/18 22:00 05/07/18 21:23 Xalatan Opht OU 2.5 ml HS GRIFFIN Administration Levothyroxine Sodium 88 mcg 05/05/18 06:30 05/08/18 06:03 Synthroid PO 88 mcg 0630 GRIFFIN Administration Timolol Maleate 0 drop 05/06/18 10:30 05/07/18 17:16 Timoptic 0.5% Ophth Soln OS 1 drop BID GIRFFIN Administration - Patient Studies Lab Studies: Lab Studies 05/08/18 05/08/18 Range/Units 05:59 05:55 WBC 8.9 (4.8-10.8) K/uL RBC 4.65 (3.80-5.20) Mil/uL Hgb 10.6 L (11.0-16.0) g/dL Hct 35.2 (34.0-47.0) % MCV 75.8 L (81.0-99.0) fL MCH 22.8 L (27.0-31.0) pg MCHC 30.1 L (33.0-37.0) g/dL RDW 15.3 H (11.5-14.5) % Plt Count 81 L (130-400) K/uL MPV 10.2 (7.2-11.7) fL Neut % (Auto) 63.3 (50.0-75.0) % Lymph % (Auto) 21.2 (20.0-40.0) % [place] % (Auto) 12.4 H (0.0-10.0) % Eos % (Auto) 2.5 (0.0-4.0) % Baso % (Auto) 0.6 (0.0-2.0) % Neut # (Auto) 5.6 (1.8-7.0) K/uL Lymph # (Auto) 1.9 (1.0-4.3) K/uL [place] # (Auto) 1.1 H (0.0-0.8) K/uL Eos # (Auto) 0.2 (0.0-0.7) K/uL Baso # (Auto) 0.1 (0.0-0.2) K/uL Sodium 135 (132-148) mmol/L Potassium 4.9 (3.6-5.2) mmol/L Chloride 100 (98-107) mmol/L Carbon Dioxide 28 (22-30) mmol/L Anion Gap 12 (10-20) BUN 45 H (7-17) mg/dL Creatinine 1.1 (0.7-1.2) mg/dL Est GFR ( Amer) 58 Est GFR (Non-Af Amer) 48 Random Glucose 135 H (65-105) mg/dL Calcium 8.8 (8.6-10.4) mg/dl Phosphorus 2.6 (2.5-4.5) mg/dL Magnesium 2.4 H (1.6-2.3) mg/dL Total Bilirubin 0.9 (0.2-1.3) mg/dL AST 593 H D (14-36) U/L ALT 1191 H (9-52) U/L Alkaline Phosphatase 156 H (38-126) U/L Total Protein 6.7 (6.3-8.3) g/dL Albumin 3.6 (3.5-5.0) g/dL Globulin 3.0 (2.2-3.9) gm/dL Albumin/Globulin Ratio 1.2 (1.0-2.1) Laboratory Results - last 24 hr 05/08/18 05/08/18 05:55 05:59 WBC 8.9 RBC 4.65 Hgb 10.6 L Hct 35.2 MCV 75.8 L MCH 22.8 L MCHC 30.1 L RDW 15.3 H Plt Count 81 L MPV 10.2 Neut % (Auto) 63.3 Lymph % (Auto) 21.2 [place] % (Auto) 12.4 H Eos % (Auto) 2.5 Baso % (Auto) 0.6 Neut # (Auto) 5.6 Lymph # (Auto) 1.9 [place] # (Auto) 1.1 H Eos # (Auto) 0.2 Baso # (Auto) 0.1 Sodium 135 Potassium 4.9 Chloride 100 Carbon Dioxide 28 Anion Gap 12 BUN 45 H Creatinine 1.1 Est GFR ( Amer) 58 Est GFR (Non-Af Amer) 48 Random Glucose 135 H Calcium 8.8 Phosphorus 2.6 Magnesium 2.4 H Total Bilirubin 0.9 AST 593 H D ALT 1191 H Alkaline Phosphatase 156 H Total Protein 6.7 Albumin 3.6 Globulin 3.0 Albumin/Globulin Ratio 1.2 EKG/Cardiology Studies: Cardiology / EKG Studies 05/07/18 13:51 EKG [ELECTROCARDIOGRAM] Stat Comment: Mode Of Transportation: Reason For Exam: eval post NSTEMI Critical Care Progress Note - Ventilator Checklist Head of Bed 30 Degrees: Yes - Nutrition Nutrition: Nutrition Category Date Time Status NPO Diet [DIET] Diets 05/07/18 Dinner Active Assessment/Plan - Assessment and Plan (Free Text) Assessment: 77 year old female with a past medical history of hypertension, dyslipidemia, and glacouma who presented with 2 days of worsening chest pain, shortness of breath, nausea, and difficulty urinating. She was found to have NSTEMI, CHF exacerbation, BATSHEVA with hyperkalemia and MODS. She was given D50 with insulin for her hyperkalemia in the ED. She was given aspirin 325 and started on a heparin drip for her NSTEMI. She will be kept on Oxygen with a target SpO2 of 95%. She will be getting intermittent diuresis for heart heart failure (likely secondary to an ischemic event. She has elevated LFTs likely secondary to congestive hepatopathy. We will trend her LFTs and Creatinine. We will consult Nephrology and cardiology. We will obtain a stat echcoardiogram. We will monitor strict intake and output. Neurology - HOB 30 degrees - history of stroke - aspirin 81 Cardiology - CC showed 100% occlusion of the left circumflex at the mid portion - Cardiology recommends life vest - Echocardiogram shows severely impaired systolic dysfunction; significant regional wall motion abnormalities; transmitral doppler flow pattern is a grade II-pseudonormal filling dynamics; no LV thrombus noted; mild aortic regurgitation; moderate mitral regurgitation; severe tricuspid regurgitation; severe pulmonary hypertension - Aspirin 81 - Plavix 75 - Carvedilol 6.25 BID - ACEI to be started tomorrow (24 hours after cardiac catheterization) - Lasix 40 mg PO daily - Holding statin secondary to elevated LFTS; recommend resuming once LFTs are within normal limits - Maintain MAP of 65 mmHg - Physical Therapy Nephrology - Creatinine and BUN trending down; 1.1 today - Strict I/O (1 L output yesterday) - Correct electrolyte as needed - Lasix 40 mg PO daily Endocrinology Hypothyrodism: Levothyroxine 88 mcg daily GI LFTs trending down GI is following Pepcid 20 mg PO HEENT - Glaucoma and s/p surgical procedure of left eye - Continue home eye drops, see MAR for details Heme - Platelets 81 today - Monitor, no intervention at this time DVT/GI prophylaxis - Famotidine 20 mg - SCD Case was reviewed and discussed with attending physician, Dr. Maribel Lowe <Maribel Lowe M - Last Filed: 05/09/18 11:59> CCU Objective - Vital Signs / Intake & Output Vital Signs (Last 4 hours): Vital Signs Temp Pulse Resp BP Pulse Ox 05/09/18 10:34 120/74 05/09/18 08:00 98 F 70 22 96 05/09/18 07:59 70 18 107/62 72 L Intake and Output (Last 8hrs): Intake & Output 05/08/18 05/09/18 05/09/18 22:59 06:59 14:59 Intake Total 500 200 320 Output Total 700 300 250 Balance -200 -100 70 Weight 166 lb 0.129 oz Intake: Oral 500 200 320 Output: Urine 300 300 250 Urine, Voided 300 300 250 Urine/Stool Mix 400 Other: # Voids Urine, Voided 0 0 2 # Bowel Movements 0 0 0 - Medications Active Medications: Active Medications Generic Name Dose Route Start Last Admin Trade Name Gertrudis PRN Reason Stop Dose Admin Aspirin 81 mg 05/06/18 10:00 05/09/18 10:30 Aspirin Chewable PO 81 mg DAILY GRIFFIN Administration Brimonidine Tartrate 0 ml 05/06/18 10:30 05/09/18 10:26 Alphagan 0.2% Opht OS 1 drop BID GRIFFIN Administration Carvedilol 6.25 mg 05/06/18 10:00 05/09/18 10:31 Coreg PO 6.25 mg BID GRIFFIN Administration Ciprofloxacin 1 drop 05/06/18 10:30 05/09/18 10:23 Ciloxan 0.3% Ophth Soln OD 1 drop QID GRIFFIN Administration Clopidogrel Bisulfate 75 mg 05/05/18 10:00 05/09/18 10:30 Plavix PO 75 mg DAILY GRIFFIN Administration Famotidine 20 mg 05/06/18 08:43 05/09/18 10:30 Pepcid PO 20 mg DAILY GRIFFIN Administration Furosemide 40 mg 05/06/18 10:00 05/09/18 10:34 Lasix PO 40 mg DAILY GRIFFIN Administration Heparin Sodium (Porcine) 5,000 units 05/08/18 14:00 05/08/18 14:00 Heparin SC Not Given Q8 GRIFFIN Latanoprost 2.5 ml 05/04/18 22:00 05/08/18 22:17 Xalatan Opht OU 2.5 ml HS GRIFFIN Administration Levothyroxine Sodium 88 mcg 05/05/18 06:30 05/09/18 06:20 Synthroid PO 88 mcg 0630 GRIFFIN Administration Lisinopril 2.5 mg 05/09/18 12:00 Zestril PO DAILY GRIFFIN Timolol Maleate 0 drop 05/06/18 10:30 05/09/18 10:24 Timoptic 0.5% Ophth Soln OS 1 drop BID GRIFFIN Administration - Patient Studies Lab Studies: Lab Studies 05/09/18 05/09/18 Range/Units 06:25 06:25 WBC 9.0 (4.8-10.8) K/uL RBC 4.38 (3.80-5.20) Mil/uL Hgb 10.1 L (11.0-16.0) g/dL Hct 33.4 L (34.0-47.0) % MCV 75.2 L (81.0-99.0) fL MCH 22.6 L (27.0-31.0) pg MCHC 30.1 L (33.0-37.0) g/dL RDW 15.1 H (11.5-14.5) % Plt Count 97 L (130-400) K/uL MPV 10.4 (7.2-11.7) fL Neut % (Auto) 65.6 (50.0-75.0) % Lymph % (Auto) 19.5 L (20.0-40.0) % [place] % (Auto) 13.0 H (0.0-10.0) % Eos % (Auto) 1.4 (0.0-4.0) % Baso % (Auto) 0.5 (0.0-2.0) % Neut # (Auto) 5.9 (1.8-7.0) K/uL Lymph # (Auto) 1.7 (1.0-4.3) K/uL [place] # (Auto) 1.2 H (0.0-0.8) K/uL Eos # (Auto) 0.1 (0.0-0.7) K/uL Baso # (Auto) 0.0 (0.0-0.2) K/uL Differential Comment Sodium 136 (132-148) mmol/L Potassium 4.3 (3.6-5.2) mmol/L Chloride 98 (98-107) mmol/L Carbon Dioxide 31 H (22-30) mmol/L Anion Gap 11 (10-20) BUN 40 H (7-17) mg/dL Creatinine 1.1 (0.7-1.2) mg/dL Est GFR ( Amer) 58 Est GFR (Non-Af Amer) 48 Random Glucose 202 H D (65-105) mg/dL Calcium 8.9 (8.6-10.4) mg/dl Phosphorus 2.8 (2.5-4.5) mg/dL Magnesium 2.2 (1.6-2.3) mg/dL Total Bilirubin 0.7 (0.2-1.3) mg/dL AST 242 H D (14-36) U/L ALT 827 H D (9-52) U/L Alkaline Phosphatase 134 H (38-126) U/L Total Protein 6.4 (6.3-8.3) g/dL Albumin 3.4 L (3.5-5.0) g/dL Globulin 3.0 (2.2-3.9) gm/dL Albumin/Globulin Ratio 1.2 (1.0-2.1) Laboratory Results - last 24 hr 05/09/18 05/09/18 06:25 06:25 WBC 9.0 RBC 4.38 Hgb 10.1 L Hct 33.4 L MCV 75.2 L MCH 22.6 L MCHC 30.1 L RDW 15.1 H Plt Count 97 L MPV 10.4 Neut % (Auto) 65.6 Lymph % (Auto) 19.5 L [place] % (Auto) 13.0 H Eos % (Auto) 1.4 Baso % (Auto) 0.5 Neut # (Auto) 5.9 Lymph # (Auto) 1.7 [place] # (Auto) 1.2 H Eos # (Auto) 0.1 Baso # (Auto) 0.0 Differential Comment Sodium 136 Potassium 4.3 Chloride 98 Carbon Dioxide 31 H Anion Gap 11 BUN 40 H Creatinine 1.1 Est GFR ( Amer) 58 Est GFR (Non-Af Amer) 48 Random Glucose 202 H D Calcium 8.9 Phosphorus 2.8 Magnesium 2.2 Total Bilirubin 0.7 AST 242 H D ALT 827 H D Alkaline Phosphatase 134 H Total Protein 6.4 Albumin 3.4 L Globulin 3.0 Albumin/Globulin Ratio 1.2 Critical Care Progress Note - Nutrition Nutrition: Nutrition Category Date Time Status Heart Healthy Diet [DIET] Diets 05/08/18 Lunch Active Assessment/Plan - Assessment and Plan (Free Text) Plan: NSTEMI -Chronic systolic Heart Failure -Above resident note reveiwed and verified -patient remains hemodynamically stable -contineu rx as per cardiology - Date & Time Date: 05/08/18 Time: 21:00
[2018-05-08] MEDS: Ciprofloxacin 0.3% OPTH SOLN OD SCH ×4 (09:53→22:16)
[2018-05-08] MEDS: Brimonidine 0.2% Opth Sol (5ml) OS SCH ×2 (09:54→18:33)
--- NOTE | 2018-05-08 13:41 | CP.PCM.PN ---
Subjective - Date & Time of Evaluation Date of Evaluation: 05/08/18 Time of Evaluation: 13:39 - Subjective Subjective: s/p cardiac cath yesterday- LCx- 100 % occluded no stent placed no SOB poor appetite no chest pain or palpitations Rest 10 point ROS negative Objective - Vital Signs/Intake and Output Vital Signs (last 24 hours): Temp Pulse Resp BP Pulse Ox 98.1 F 69 19 110/72 99 05/08/18 12:00 05/08/18 12:00 05/08/18 12:00 05/08/18 13:20 05/08/18 12:00 Intake and Output: 05/08/18 05/08/18 06:59 18:59 Intake Total 150 830 Output Total 550 460 Balance -400 370 - Medications Medications: Current Medications Aspirin (Aspirin Chewable) 81 mg PO DAILY [facility] Last Admin: 05/08/18 09:50 Dose: 81 mg Brimonidine Tartrate (Alphagan 0.2% Opht) 0 ml OS BID [facility] Last Admin: 05/08/18 09:54 Dose: 1 drop Carvedilol (Coreg) 6.25 mg PO BID [facility] Last Admin: 05/08/18 09:50 Dose: 6.25 mg Ciprofloxacin (Ciloxan 0.3% Ophth Soln) 1 drop OD QID [facility] Last Admin: 05/08/18 09:53 Dose: 1 drop Clopidogrel Bisulfate (Plavix) 75 mg PO DAILY [facility] Last Admin: 05/08/18 09:51 Dose: 75 mg Famotidine (Pepcid) 20 mg PO DAILY [facility] Last Admin: 05/08/18 09:50 Dose: 20 mg Furosemide (Lasix) 40 mg PO DAILY [facility] Last Admin: 05/08/18 13:20 Dose: 40 mg Heparin Sodium (Porcine) (Heparin) 5,000 units SC Q8 [facility] Last Admin: 05/08/18 13:21 Dose: 5,000 units Latanoprost (Xalatan Opht) 2.5 ml OU HS [facility] Last Admin: 05/07/18 21:23 Dose: 2.5 ml Levothyroxine Sodium (Synthroid) 88 mcg PO 0630 [facility] Last Admin: 05/08/18 06:03 Dose: 88 mcg Timolol Maleate (Timoptic 0.5% Ophth Soln) 0 drop OS BID [facility] Last Admin: 05/08/18 09:51 Dose: 1 drop - Labs Labs: 05/08/18 05:59 05/08/18 05:55 PT 18.0 SECONDS (9.7-12.2) H 05/04/18 12:39 INR 1.6 05/04/18 12:39 APTT 70 SECONDS (21-34) H D 05/06/18 05:19 - Constitutional Appears: Well, Non-toxic - Head Exam Head Exam: ATRAUMATIC, NORMOCEPHALIC - Eye Exam Eye Exam: EOMI, PERRL - ENT Exam ENT Exam: Mucous Membranes Moist - Neck Exam Neck Exam: Full ROM - Respiratory Exam Respiratory Exam: Clear to Ausculation Bilateral. absent: Rhonchi, Wheezes - Cardiovascular Exam Cardiovascular Exam: REGULAR RHYTHM, +S1, +S2 - GI/Abdominal Exam GI & Abdominal Exam: Soft. absent: Tenderness - Extremities Exam Extremities Exam: Full ROM. absent: Pedal Edema - Neurological Exam Neurological Exam: Alert, Awake, Oriented x3 - Psychiatric Exam Psychiatric exam: Normal Affect, Normal Mood - Skin Skin Exam: Normal Color, Warm Assessment and Plan (1) Acute kidney injury Status: Acute (2) Chest pain Status: Acute (3) Elevated transaminase level Status: Acute (4) Hypercholesterolemia Status: Acute (5) NSTEMI (non-ST elevated myocardial infarction) Status: Acute (6) CHF (congestive heart failure) Status: Acute - Assessment and Plan (Free Text) Plan: BATSHEVA resolving Cr down to 1;1 Bp better s/p cardiac cath- results noted change lasix to 40 mg po daily
--- NOTE | 2018-05-08 18:22 | CP.PCM.PN ---
Subjective - Date & Time of Evaluation Date of Evaluation: 05/08/18 Time of Evaluation: 18:19 - Subjective Subjective: patient is resting comfortably Objective - Vital Signs/Intake and Output Vital Signs (last 24 hours): Temp Pulse Resp BP Pulse Ox 98.1 F 77 22 93/74 L 100 05/08/18 12:00 05/08/18 17:05 05/08/18 17:05 05/08/18 17:05 05/08/18 16:00 Intake and Output: 05/08/18 05/08/18 06:59 18:59 Intake Total 150 1510 Output Total 550 1710 Balance -400 -200 - Medications Medications: Current Medications Aspirin (Aspirin Chewable) 81 mg PO DAILY [facility] Last Admin: 05/08/18 09:50 Dose: 81 mg Brimonidine Tartrate (Alphagan 0.2% Opht) 0 ml OS BID [facility] Last Admin: 05/08/18 09:54 Dose: 1 drop Carvedilol (Coreg) 6.25 mg PO BID [facility] Last Admin: 05/08/18 09:50 Dose: 6.25 mg Ciprofloxacin (Ciloxan 0.3% Ophth Soln) 1 drop OD QID [facility] Last Admin: 05/08/18 13:53 Dose: 1 drop Clopidogrel Bisulfate (Plavix) 75 mg PO DAILY [facility] Last Admin: 05/08/18 09:51 Dose: 75 mg Famotidine (Pepcid) 20 mg PO DAILY [facility] Last Admin: 05/08/18 09:50 Dose: 20 mg Furosemide (Lasix) 40 mg PO DAILY [facility] Last Admin: 05/08/18 13:20 Dose: 40 mg Heparin Sodium (Porcine) (Heparin) 5,000 units SC Q8 [facility] Last Admin: 05/08/18 14:00 Dose: Not Given Latanoprost (Xalatan Opht) 2.5 ml OU HS [facility] Last Admin: 05/07/18 21:23 Dose: 2.5 ml Levothyroxine Sodium (Synthroid) 88 mcg PO 0630 [facility] Last Admin: 05/08/18 06:03 Dose: 88 mcg Timolol Maleate (Timoptic 0.5% Ophth Soln) 0 drop OS BID [facility] Last Admin: 05/08/18 09:51 Dose: 1 drop - Labs Labs: 05/08/18 05:59 05/08/18 05:55 PT 18.0 SECONDS (9.7-12.2) H 05/04/18 12:39 INR 1.6 05/04/18 12:39 APTT 70 SECONDS (21-34) H D 05/06/18 05:19 - Constitutional Appears: Non-toxic - Head Exam Head Exam: NORMAL INSPECTION - Eye Exam Eye Exam: Normal appearance - ENT Exam ENT Exam: Mucous Membranes Moist - Neck Exam Neck Exam: Full ROM - Respiratory Exam Respiratory Exam: Decreased Breath Sounds - Cardiovascular Exam Cardiovascular Exam: REGULAR RHYTHM - GI/Abdominal Exam GI & Abdominal Exam: Normal Bowel Sounds - Rectal Exam Rectal Exam: Deferred - Extremities Exam Extremities Exam: absent: Pedal Edema - Back Exam Back Exam: NORMAL INSPECTION - Neurological Exam Neurological Exam: Alert - Psychiatric Exam Psychiatric exam: Normal Affect - Skin Skin Exam: Normal Color Assessment and Plan (1) NSTEMI (non-ST elevated myocardial infarction) Assessment & Plan: s/p cardiac cath. Lcx is 100% occluded. This is a late presenting myocardial infarction. currently hemodunamically stable. recommend medical therapy with antiplatelet, can increase Coreg. consider the addition of statin therapy Status: Acute (2) Hypercholesterolemia Status: Acute (3) Acute renal insufficiency Status: Acute (4) Ischemic cardiomyopathy Assessment & Plan: LVEF 20%. I have contacted [facility] for a Life[facility]. Status: Acute
[2018-05-08] MEDS: Latanoprost 2.5 ml Opht Soln OU SCH (22:17)
[2018-05-09] MEDS: Levothyroxine 88 MCG TAB PO SCH (06:20)
[2018-05-09 06:31] LABS: BASO % 0.5 % (0.0-2.0); EOS # 0.1 K/uL (0.0-0.7); EOS % 1.4 % (0.0-4.0); LYMPH # 1.7 K/uL (1.0-4.3); LYMPH % 19.5 % (20.0-40.0); MEAN CELL VOLUME 75.2 fL (81.0-99.0); MEAN CORPUSCULAR HEMOGLOBIN 22.6 pg (27.0-31.0); MEAN CORPUSCULAR HGB CONC 30.1 g/dL (33.0-37.0); MEAN PLATELET VOLUME 10.4 fL (7.2-11.7); MONO # 1.2 K/uL (0.0-0.8); NEUT # 5.9 K/uL (1.8-7.0); NEUT % 65.6 % (50.0-75.0); NRBC % 9.8 % (0.0-2.0); RBC 4.38 Mil/uL (3.80-5.20); RED CELL DISTRIBUTION WIDTH 15.1 % (11.5-14.5)
[2018-05-09 06:49] LABS: ALB/GLOB RATIO 1.2 (1.0-2.1); ALBUMIN 3.4 g/dL (3.5-5.0); CALCIUM 8.9 mg/dl (8.6-10.4)
[2018-05-09 07:26] LABS: HEMOGLOBIN 10.1 g/dL (11.0-16.0)
--- NOTE | 2018-05-09 08:45 | CP.PCM.PN ---
Subjective - Date & Time of Evaluation Date of Evaluation: 05/09/18 Time of Evaluation: 08:42 - Subjective Subjective: pt seen and examined comfortable in bed denies nay CP or SOB afebrile no overnight events cardiology note noted REst 10 point ROS negative Objective - Vital Signs/Intake and Output Vital Signs (last 24 hours): Temp Pulse Resp BP Pulse Ox 98 F 72 19 96/54 L 100 05/09/18 04:00 05/09/18 06:59 05/09/18 06:59 05/09/18 06:59 05/09/18 06:59 Intake and Output: 05/09/18 05/09/18 06:59 18:59 Intake Total 400 100 Output Total 600 Balance -200 100 - Medications Medications: Current Medications Aspirin (Aspirin Chewable) 81 mg PO DAILY [facility] Last Admin: 05/08/18 09:50 Dose: 81 mg Brimonidine Tartrate (Alphagan 0.2% Opht) 0 ml OS BID [facility] Last Admin: 05/08/18 18:33 Dose: 1 drop Carvedilol (Coreg) 6.25 mg PO BID [facility] Last Admin: 05/08/18 18:34 Dose: Not Given Ciprofloxacin (Ciloxan 0.3% Ophth Soln) 1 drop OD QID [facility] Last Admin: 05/08/18 22:16 Dose: 1 drop Clopidogrel Bisulfate (Plavix) 75 mg PO DAILY [facility] Last Admin: 05/08/18 09:51 Dose: 75 mg Famotidine (Pepcid) 20 mg PO DAILY [facility] Last Admin: 05/08/18 09:50 Dose: 20 mg Furosemide (Lasix) 40 mg PO DAILY [facility] Last Admin: 05/08/18 13:20 Dose: 40 mg Heparin Sodium (Porcine) (Heparin) 5,000 units SC Q8 [facility] Last Admin: 05/08/18 14:00 Dose: Not Given Latanoprost (Xalatan Opht) 2.5 ml OU HS [facility] Last Admin: 05/08/18 22:17 Dose: 2.5 ml Levothyroxine Sodium (Synthroid) 88 mcg PO 0630 [facility] Last Admin: 05/09/18 06:20 Dose: 88 mcg Timolol Maleate (Timoptic 0.5% Ophth Soln) 0 drop OS BID [facility] Last Admin: 05/08/18 18:34 Dose: 1 drop - Labs Labs: 05/09/18 06:25 05/09/18 06:25 PT 18.0 SECONDS (9.7-12.2) H 05/04/18 12:39 INR 1.6 05/04/18 12:39 APTT 70 SECONDS (21-34) H D 05/06/18 05:19 - Constitutional Appears: Well, Non-toxic - Head Exam Head Exam: ATRAUMATIC, NORMOCEPHALIC - Eye Exam Eye Exam: EOMI, PERRL - ENT Exam ENT Exam: Mucous Membranes Moist - Neck Exam Neck Exam: Full ROM - Respiratory Exam Respiratory Exam: Clear to Ausculation Bilateral. absent: Rhonchi, Wheezes - Cardiovascular Exam Cardiovascular Exam: REGULAR RHYTHM, +S1, +S2 - GI/Abdominal Exam GI & Abdominal Exam: Soft. absent: Distended, Tenderness - Extremities Exam Extremities Exam: Pedal Edema. absent: Full ROM - Neurological Exam Neurological Exam: Alert, Awake, Oriented x3 - Psychiatric Exam Psychiatric exam: Normal Affect, Normal Mood - Skin Skin Exam: Normal Color, Warm Assessment and Plan (1) Acute kidney injury Status: Acute (2) Chest pain Status: Acute (3) Elevated transaminase level Status: Acute (4) Hypercholesterolemia Status: Acute (5) NSTEMI (non-ST elevated myocardial infarction) Status: Acute (6) CHF (congestive heart failure) Status: Acute - Assessment and Plan (Free Text) Plan: BATSHEVA resolved no evidence of contrast nephropathy check repeat chest X ray BP stable on po lasix out of bed await life vest given low EF
--- NOTE | 2018-05-09 09:09 | CP.CCUPN ---
CCU Subjective - Physician Review Subjective (Free Text): Critical care progress note for Dr. Merritt Lowe. Patient seen and examined at bedside. No overnight events reported. Patient states she is feeling fine and has no complaints. Patient denies chest pain, SOB, nausea, vomiting, abdominal pain, cough, congestion, headaches, vision changes. CCU Objective - Vital Signs / Intake & Output Vital Signs (Last 4 hours): Vital Signs Temp Pulse Resp BP Pulse Ox 05/09/18 08:00 98 F 70 22 96 05/09/18 07:59 70 18 107/62 72 L 05/09/18 06:59 72 19 96/54 L 100 05/09/18 06:00 113/69 05/09/18 05:45 74 19 121/72 95 Intake and Output (Last 8hrs): Intake & Output 05/08/18 05/09/18 05/09/18 22:59 06:59 14:59 Intake Total 500 200 320 Output Total 700 300 250 Balance -200 -100 70 Weight 166 lb 0.129 oz Intake: Oral 500 200 320 Output: Urine 300 300 250 Urine, Voided 300 300 250 Urine/Stool Mix 400 Other: # Voids Urine, Voided 0 0 0 # Bowel Movements 0 0 0 - Physical Exam Head: Positive for: Atraumatic, Normocephalic Pupils: Positive for: PERRL. Negative for: Sluggish Extroacular Muscles: Positive for: EOMI Conjunctiva: Positive for: Normal. Negative for: Injected Mouth: Positive for: Moist Mucous Membranes, Normal Lips, Normal Tounge Neck: Negative for: JVD Respiratory/Chest: Positive for: Rales (left greater than right). Negative for: Accessory Muscle Use Cardiovascular: Positive for: Regular Rate and Rhythm, Normal S1, S2 Upper Extremity: Positive for: Normal Inspection, NORMAL PULSES. Negative for: Cyanosis, Edema Lower Extremity: Positive for: Normal Inspection. Negative for: Edema, CALF TENDERNESS Neurological: Positive for: GCS=15, CN II-XII Intact, Speech Normal, Normal Sensory Function Skin: Positive for: Warm, Dry, Normal Color Psychiatric: Positive for: Alert, Oriented x 3, Normal Insight - Medications Active Medications: Active Medications Generic Name Dose Route Start Last Admin Trade Name Freq PRN Reason Stop Dose Admin Aspirin 81 mg 05/06/18 10:00 05/08/18 09:50 Aspirin Chewable PO 81 mg DAILY GRIFFIN Administration Brimonidine Tartrate 0 ml 05/06/18 10:30 05/08/18 18:33 Alphagan 0.2% Opht OS 1 drop BID GRIFFIN Administration Carvedilol 6.25 mg 05/06/18 10:00 05/08/18 18:34 Coreg PO Not Given BID GRIFFIN Ciprofloxacin 1 drop 05/06/18 10:30 05/08/18 22:16 Ciloxan 0.3% Ophth Soln OD 1 drop QID GRIFFIN Administration Clopidogrel Bisulfate 75 mg 05/05/18 10:00 05/08/18 09:51 Plavix PO 75 mg DAILY GRIFFIN Administration Famotidine 20 mg 05/06/18 08:43 05/08/18 09:50 Pepcid PO 20 mg DAILY GRIFFIN Administration Furosemide 40 mg 05/06/18 10:00 05/08/18 13:20 Lasix PO 40 mg DAILY GRIFFIN Administration Heparin Sodium (Porcine) 5,000 units 05/08/18 14:00 05/08/18 14:00 Heparin SC Not Given Q8 GRIFFIN Latanoprost 2.5 ml 05/04/18 22:00 05/08/18 22:17 Xalatan Opht OU 2.5 ml HS GRIFFIN Administration Levothyroxine Sodium 88 mcg 05/05/18 06:30 05/09/18 06:20 Synthroid PO 88 mcg 0630 GRIFFIN Administration Timolol Maleate 0 drop 05/06/18 10:30 05/08/18 18:34 Timoptic 0.5% Ophth Soln OS 1 drop BID GRIFFIN Administration - Patient Studies Lab Studies: Lab Studies 05/09/18 05/09/18 05/08/18 Range/Units 06:25 06:25 05:59 WBC 9.0 8.9 (4.8-10.8) K/uL RBC 4.38 4.65 (3.80-5.20) Mil/uL Hgb 10.1 L 10.6 L (11.0-16.0) g/dL Hct 33.4 L 35.2 (34.0-47.0) % MCV 75.2 L 75.8 L (81.0-99.0) fL MCH 22.6 L 22.8 L (27.0-31.0) pg MCHC 30.1 L 30.1 L (33.0-37.0) g/dL RDW 15.1 H 15.3 H (11.5-14.5) % Plt Count 97 L 81 L (130-400) K/uL MPV 10.4 10.2 (7.2-11.7) fL Neut % (Auto) 65.6 63.3 (50.0-75.0) % Lymph % (Auto) 19.5 L 21.2 (20.0-40.0) % [place] % (Auto) 13.0 H 12.4 H (0.0-10.0) % Eos % (Auto) 1.4 2.5 (0.0-4.0) % Baso % (Auto) 0.5 0.6 (0.0-2.0) % Neut # (Auto) 5.9 5.6 (1.8-7.0) K/uL Lymph # (Auto) 1.7 1.9 (1.0-4.3) K/uL [place] # (Auto) 1.2 H 1.1 H (0.0-0.8) K/uL Eos # (Auto) 0.1 0.2 (0.0-0.7) K/uL Baso # (Auto) 0.0 0.1 (0.0-0.2) K/uL Differential Comment Sodium 136 (132-148) mmol/L Potassium 4.3 (3.6-5.2) mmol/L Chloride 98 (98-107) mmol/L Carbon Dioxide 31 H (22-30) mmol/L Anion Gap 11 (10-20) BUN 40 H (7-17) mg/dL Creatinine 1.1 (0.7-1.2) mg/dL Est GFR ( Amer) 58 Est GFR (Non-Af Amer) 48 Random Glucose 202 H D (65-105) mg/dL Calcium 8.9 (8.6-10.4) mg/dl Phosphorus 2.8 (2.5-4.5) mg/dL Magnesium 2.2 (1.6-2.3) mg/dL Total Bilirubin 0.7 (0.2-1.3) mg/dL AST 242 H D (14-36) U/L ALT 827 H D (9-52) U/L Alkaline Phosphatase 134 H (38-126) U/L Total Protein 6.4 (6.3-8.3) g/dL Albumin 3.4 L (3.5-5.0) g/dL Globulin 3.0 (2.2-3.9) gm/dL Albumin/Globulin Ratio 1.2 (1.0-2.1) Laboratory Results - last 24 hr 05/08/18 05/09/18 05/09/18 05:59 06:25 06:25 WBC 8.9 9.0 RBC 4.65 4.38 Hgb 10.6 L 10.1 L Hct 35.2 33.4 L MCV 75.8 L 75.2 L MCH 22.8 L 22.6 L MCHC 30.1 L 30.1 L RDW 15.3 H 15.1 H Plt Count 81 L 97 L MPV 10.2 10.4 Neut % (Auto) 63.3 65.6 Lymph % (Auto) 21.2 19.5 L [place] % (Auto) 12.4 H 13.0 H Eos % (Auto) 2.5 1.4 Baso % (Auto) 0.6 0.5 Neut # (Auto) 5.6 5.9 Lymph # (Auto) 1.9 1.7 [place] # (Auto) 1.1 H 1.2 H Eos # (Auto) 0.2 0.1 Baso # (Auto) 0.1 0.0 Differential Comment Sodium 136 Potassium 4.3 Chloride 98 Carbon Dioxide 31 H Anion Gap 11 BUN 40 H Creatinine 1.1 Est GFR ( Amer) 58 Est GFR (Non-Af Amer) 48 Random Glucose 202 H D Calcium 8.9 Phosphorus 2.8 Magnesium 2.2 Total Bilirubin 0.7 AST 242 H D ALT 827 H D Alkaline Phosphatase 134 H Total Protein 6.4 Albumin 3.4 L Globulin 3.0 Albumin/Globulin Ratio 1.2 Review of Systems - Constitutional Constitutional: absent: Chills, Sweats, Weakness - EENT Eyes: UNREMARKABLE. absent: Blurred Vision, Diplopia Ears: UNREMARKABLE Nose/Mouth/Throat: UNREMARKABLE. absent: Nose Pain - Breasts Breasts: UNREMARKABLE - Cardiovascular Cardiovascular: UNREMARKABLE. absent: Chest Pain, Chest Pain at Rest, Edema - Respiratory Respiratory: UNREMARKABLE. absent: Cough, Dyspnea - Gastrointestinal Gastrointestinal: UNREMARKABLE. absent: Abdominal Pain, Cramping, Diarrhea - Genitourinary Genitourinary: UNREMARKABLE. absent: Change in Urinary Stream, Hematuria - Neurological Neurological: UNREMARKABLE. absent: Dizziness, Headaches - Psychiatric Psychiatric: UNREMARKABLE - Endocrine Endocrine: UNREMARKABLE Critical Care Progress Note - Prophylaxis GI Prophylaxis GI: Pepsid - Prophylaxis DVT Prophylaxis DVT: Not Indicated - Nutrition Nutrition: Nutrition Category Date Time Status Heart Healthy Diet [DIET] Diets 05/08/18 Lunch Active Assessment/Plan - Assessment and Plan (Free Text) Assessment: 77 year old female , hx of HTN, HLD, glaucoma, present w/ NSTEMI, BATSHEVA, acute liver failure, CHF exacerbation. 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, w/ EF 20%, will be fitted for life vest Plan: Neuro - A&O x3 - HOB 30 degrees - hx of stroke - aspirin 81 Cardio - Cardiac cath: 100% occlusion of the left circumflex at the mid portion, 20% EF - Echo: shows severely impaired systolic dysfunction; significant regional wall motion abnormalities; transmitral doppler flow pattern is a grade II-pseudonormal filling dynamics; no LV thrombus noted; mild aortic regurgitation; moderate mitral regurgitation; severe tricuspid regurgitation; severe pulmonary hypertension - Cardiology recommends life vest - c/w Aspirin 81 mg po daily, Plavix 75 mg po daily, Carvedilol 6.25mg Po BID, lisinopril 2.5mg PO daily, Lasix 40 mg PO daily - Holding statin secondary to elevated LFTS; recommend resuming once LFTs are within normal limits - Maintain MAP of 65 mmHg - Physical Therapy Pulm - vitals stable Nephrology - BUN/Cr: 37/2.4 on admission, now normalized - Correct electrolyte as needed - Lasix 40 mg PO daily Endo - hx of hypothyroidism, c/w Levothyroxine 88 mcg daily GI LFTs trending down GI is following Pepcid 20 mg PO HEENT - Glaucoma and s/p surgical procedure of left eye - Continue home eye drops, see MAR for details Heme - Platelets 81 today - F/u serotonin and heparin antibody assay - Monitor, no intervention at this time - WBC on admission , Temp: 98 - No abx at this time DVT/GI prophylaxis - Famotidine 20 mg - SCD
[2018-05-09] MEDS: Ciprofloxacin 0.3% OPTH SOLN OD SCH ×4 (10:23→22:02)
[2018-05-09] MEDS: Brimonidine 0.2% Opth Sol (5ml) OS SCH ×2 (10:26→18:00)
[2018-05-09] MEDS ORDERED: Sodium Chloride 0.9% 500 ML IV ONE (18:19)
--- NOTE | 2018-05-09 20:09 | CARD ---
APPROVED REPORT Date of service: 05/07/2018 EKG Measurement Heart [id number] <Conclusion> Normal sinus rhythm Low voltage QRS Borderline ECG
[2018-05-09] MEDS: Latanoprost 2.5 ml Opht Soln OU SCH (22:02)
[2018-05-10 05:57] LABS: BASO # 0.1 K/uL (0.0-0.2); BASO % 0.5 % (0.0-2.0); EOS # 0.2 K/uL (0.0-0.7); EOS % 1.4 % (0.0-4.0); HEMOGLOBIN 10.3 g/dL (11.0-16.0); LYMPH # 2.2 K/uL (1.0-4.3); LYMPH % 19.9 % (20.0-40.0); MEAN CELL VOLUME 76.3 fL (81.0-99.0); MEAN CORPUSCULAR HEMOGLOBIN 22.9 pg (27.0-31.0); MEAN CORPUSCULAR HGB CONC 29.9 g/dL (33.0-37.0); MEAN PLATELET VOLUME 10.1 fL (7.2-11.7); MONO # 1.3 K/uL (0.0-0.8); MONO % 11.8 % (0.0-10.0); NEUT # 7.2 K/uL (1.8-7.0); NEUT % 66.4 % (50.0-75.0); RBC 4.49 Mil/uL (3.80-5.20); RED CELL DISTRIBUTION WIDTH 15.1 % (11.5-14.5); WHITE BLOOD COUNT 10.9 K/uL (4.8-10.8)
[2018-05-10 06:16] LABS: ALB/GLOB RATIO 1.1 (1.0-2.1); ALBUMIN 3.3 g/dL (3.5-5.0); ALT/SGPT 613 U/L (9-52); AST/SGOT 142 U/L (14-36); BLOOD UREA NITROGEN 40 mg/dL (7-17); CALCIUM 8.8 mg/dl (8.6-10.4); GFR NON-AFRICAN AMERICAN 54
[2018-05-10] MEDS: Levothyroxine 88 MCG TAB PO SCH (06:39)
[2018-05-10] MEDS: Ciprofloxacin 0.3% OPTH SOLN OD SCH ×4 (09:36→22:45)
[2018-05-10] MEDS: Brimonidine 0.2% Opth Sol (5ml) OS SCH ×2 (09:36→17:48)
[2018-05-10] MEDS: Latanoprost 2.5 ml Opht Soln OU SCH (22:46)
[2018-05-11 05:34] LABS: BASO % 0.4 % (0.0-2.0); EOS # 0.2 K/uL (0.0-0.7); LYMPH % 17.5 % (20.0-40.0); MEAN CORPUSCULAR HGB CONC 30.3 g/dL (33.0-37.0); MEAN PLATELET VOLUME 10.2 fL (7.2-11.7); MONO # 1.2 K/uL (0.0-0.8); MONO % 10.4 % (0.0-10.0); NEUT # 7.8 K/uL (1.8-7.0); NEUT % 69.7 % (50.0-75.0); NRBC % 7.2 % (0.0-2.0); RBC 4.3 Mil/uL (3.80-5.20); RED CELL DISTRIBUTION WIDTH 15.1 % (11.5-14.5); WHITE BLOOD COUNT 11.2 K/uL (4.8-10.8)
[2018-05-11] MEDS: Levothyroxine 88 MCG TAB PO SCH (05:56)
[2018-05-11 06:00] LABS: HEMOGLOBIN 9.9 g/dL (11.0-16.0)
[2018-05-11 06:14] LABS: ALB/GLOB RATIO 1.1 (1.0-2.1); ALBUMIN 3.3 g/dL (3.5-5.0); CALCIUM 8.9 mg/dl (8.6-10.4)
--- NOTE | 2018-05-11 07:21 | CP.PCM.PN ---
Subjective - Date & Time of Evaluation Date of Evaluation: 05/10/18 Time of Evaluation: 07:21 - Subjective Subjective: Patient is currently awaiting for telemetry bed. Comfortable not in any distress. No chest pain. Leg weakness is less. Swelling is also less Vital signs are stable otherwise. Chest good air entry regular [place] nontender abdomen no pedal edema Labs reviewed Improvement in the liver function test is noted. Renal function is also improving. Assessment: A 77-year-old female with history of hypertension admitted with acute non-ST e levation PR. Acute renal insufficiency. Multiorgan failure. Currently stable otherwise. Continue to monitor Objective - Vital Signs/Intake and Output Vital Signs (last 24 hours): Temp Pulse Resp BP Pulse Ox 97.7 F 66 20 100/64 96 05/11/18 04:00 05/11/18 05:48 05/11/18 05:48 05/11/18 05:48 05/11/18 05:48 Intake and Output: 05/11/18 05/11/18 06:59 18:59 Intake Total 0 Output Total 100 Balance -100 - Medications Medications: Current Medications Aspirin (Aspirin Chewable) 81 mg PO DAILY [facility] Last Admin: 05/10/18 09:35 Dose: 81 mg Brimonidine Tartrate (Alphagan 0.2% Opht) 0 ml OS BID [facility] Last Admin: 05/10/18 17:48 Dose: 1 drop Carvedilol (Coreg) 6.25 mg PO BID [facility] Last Admin: 05/10/18 17:53 Dose: 6.25 mg Ciprofloxacin (Ciloxan 0.3% Ophth Soln) 1 drop OD QID [facility] Last Admin: 05/10/18 22:45 Dose: 1 drop Clopidogrel Bisulfate (Plavix) 75 mg PO DAILY [facility] Last Admin: 05/10/18 09:35 Dose: 75 mg Famotidine (Pepcid) 20 mg PO DAILY [facility] Last Admin: 05/10/18 09:35 Dose: 20 mg Furosemide (Lasix) 40 mg PO DAILY [facility] Last Admin: 05/10/18 09:35 Dose: 40 mg Heparin Sodium (Porcine) (Heparin) 5,000 units SC Q8 [facility] Last Admin: 05/08/18 14:00 Dose: Not Given Latanoprost (Xalatan Opht) 2.5 ml OU HS [facility] Last Admin: 05/10/18 22:46 Dose: 2.5 ml Levothyroxine Sodium (Synthroid) 88 mcg PO 0630 [facility] Last Admin: 05/11/18 05:56 Dose: 88 mcg Lisinopril (Zestril) 2.5 mg PO DAILY [facility] Last Admin: 05/10/18 13:05 Dose: 2.5 mg Timolol Maleate (Timoptic 0.5% Oph Soln) 0 drop OS BID [facility] Last Admin: 05/10/18 17:49 Dose: 1 drop - Labs Labs: 05/11/18 05:26 05/11/18 05:26 PT 18.0 SECONDS (9.7-12.2) H 05/04/18 12:39 INR 1.6 05/04/18 12:39 APTT 70 SECONDS (21-34) H D 05/06/18 05:19
--- NOTE | 2018-05-11 07:21 | CP.PCM.PN ---
Subjective - Date & Time of Evaluation Date of Evaluation: 05/09/18 Time of Evaluation: 07:20 - Subjective Subjective: Patient underwent angiogram,. There is no significant major arterial blockage noted except the circumflex nearly 100%. According to the cardiology there is no reason for opening that. Patient is clinically otherwise stable. Still having some weakness fatigue and tiredness. Vital signs are stable. We will continue to monitor. ICU management patient condition is critical at this time still. Objective - Vital Signs/Intake and Output Vital Signs (last 24 hours): Temp Pulse Resp BP Pulse Ox 97.7 F 66 20 100/64 96 05/11/18 04:00 05/11/18 05:48 05/11/18 05:48 05/11/18 05:48 05/11/18 05:48 Intake and Output: 05/11/18 05/11/18 06:59 18:59 Intake Total 0 Output Total 100 Balance -100 - Medications Medications: Current Medications Aspirin (Aspirin Chewable) 81 mg PO DAILY [facility] Last Admin: 05/10/18 09:35 Dose: 81 mg Brimonidine Tartrate (Alphagan 0.2% Opht) 0 ml OS BID [facility] Last Admin: 05/10/18 17:48 Dose: 1 drop Carvedilol (Coreg) 6.25 mg PO BID [facility] Last Admin: 05/10/18 17:53 Dose: 6.25 mg Ciprofloxacin (Ciloxan 0.3% Ophth Soln) 1 drop OD QID [facility] Last Admin: 05/10/18 22:45 Dose: 1 drop Clopidogrel Bisulfate (Plavix) 75 mg PO DAILY [facility] Last Admin: 05/10/18 09:35 Dose: 75 mg Famotidine (Pepcid) 20 mg PO DAILY [facility] Last Admin: 05/10/18 09:35 Dose: 20 mg Furosemide (Lasix) 40 mg PO DAILY [facility] Last Admin: 05/10/18 09:35 Dose: 40 mg Heparin Sodium (Porcine) (Heparin) 5,000 units SC Q8 [facility] Last Admin: 05/08/18 14:00 Dose: Not Given Latanoprost (Xalatan Opht) 2.5 ml OU HS [facility] Last Admin: 05/10/18 22:46 Dose: 2.5 ml Levothyroxine Sodium (Synthroid) 88 mcg PO 0630 [facility] Last Admin: 05/11/18 05:56 Dose: 88 mcg Lisinopril (Zestril) 2.5 mg PO DAILY [facility] Last Admin: 05/10/18 13:05 Dose: 2.5 mg Timolol Maleate (Timoptic 0.5% Ophth Soln) 0 drop OS BID [facility] Last Admin: 05/10/18 17:49 Dose: 1 drop - Labs Labs: 05/11/18 05:26 05/11/18 05:26 PT 18.0 SECONDS (9.7-12.2) H 05/04/18 12:39 INR 1.6 05/04/18 12:39 APTT 70 SECONDS (21-34) H D 05/06/18 05:19
--- NOTE | 2018-05-11 07:22 | CP.PCM.PN ---
Subjective - Date & Time of Evaluation Date of Evaluation: 05/11/18 Time of Evaluation: 07:21 - Subjective Subjective: Patient now comfortable not in any distress Patient wanted to go home today. She has some mild exertional dyspnea noted. Minimal expiratory wheezing also noted Vital signs are stable otherwise. Blood pressure 100/64. Saturation 100%. Chest expiratory wheezing noted No leg edema noted. Vital signs are stable otherwise. Labs reviewed Improvement in the liver functions noted Assessment and recommendation: 77-year-old female admitted to the hospital with acute non-ST elevation OR. Hypertension. Renal insufficiency. Awaiting for LifeVest at this time. Physical therapy. Currently patient is on aspirin antiplatelets, ARBS, beta-sharon. We will follow the patient Objective - Vital Signs/Intake and Output Vital Signs (last 24 hours): Temp Pulse Resp BP Pulse Ox 97.7 F 66 20 100/64 96 05/11/18 04:00 05/11/18 05:48 05/11/18 05:48 05/11/18 05:48 05/11/18 05:48 Intake and Output: 05/11/18 05/11/18 06:59 18:59 Intake Total 0 Output Total 100 Balance -100 - Medications Medications: Current Medications Aspirin (Aspirin Chewable) 81 mg PO DAILY [facility] Last Admin: 05/10/18 09:35 Dose: 81 mg Brimonidine Tartrate (Alphagan 0.2% Opht) 0 ml OS BID [facility] Last Admin: 05/10/18 17:48 Dose: 1 drop Carvedilol (Coreg) 6.25 mg PO BID [facility] Last Admin: 05/10/18 17:53 Dose: 6.25 mg Ciprofloxacin (Ciloxan 0.3% Ophth Soln) 1 drop OD QID [facility] Last Admin: 05/10/18 22:45 Dose: 1 drop Clopidogrel Bisulfate (Plavix) 75 mg PO DAILY [facility] Last Admin: 05/10/18 09:35 Dose: 75 mg Famotidine (Pepcid) 20 mg PO DAILY [facility] Last Admin: 05/10/18 09:35 Dose: 20 mg Furosemide (Lasix) 40 mg PO DAILY [facility] Last Admin: 05/10/18 09:35 Dose: 40 mg Heparin Sodium (Porcine) (Heparin) 5,000 units SC Q8 [facility] Last Admin: 05/08/18 14:00 Dose: Not Given Latanoprost (Xalatan Opht) 2.5 ml OU HS [facility] Last Admin: 05/10/18 22:46 Dose: 2.5 ml Levothyroxine Sodium (Synthroid) 88 mcg PO 0630 [facility] Last Admin: 05/11/18 05:56 Dose: 88 mcg Lisinopril (Zestril) 2.5 mg PO DAILY [facility] Last Admin: 05/10/18 13:05 Dose: 2.5 mg Timolol Maleate (Timoptic 0.5% [facility] Sol) 0 drop OS BID [facility] Last Admin: 05/10/18 17:49 Dose: 1 drop - Labs Labs: 05/11/18 05:26 05/11/18 05:26 PT 18.0 SECONDS (9.7-12.2) H 05/04/18 12:39 INR 1.6 05/04/18 12:39 APTT 70 SECONDS (21-34) H D 05/06/18 05:19
--- NOTE | 2018-05-11 07:31 | CP.PCM.HP ---
History of Present Illness - History of Present Illness History of Present Illness: [facility] H&P Patient Name: ANGELO PRINCE Date of : 1940 Patient Status: Inpatient Attending Provider: Lex Zepeda Date: 05/04/18 14:23 Initialization Date: 05/04/18 14:23 History of Present Illness - History of Present Illness History of Present Illness: Amalia Nicole DO, PGY-2: ICU Consult Note for Dr. Zepeda 77 year old female with a past medical history of hypertension, dyslipidemia, and glacouma who presented with 2 days of worsening chest pain, shortness of breath, nausea, and difficulty urinating. She reports the chest pain as severe but not as worst as it was initially two days ago. She reports feelings of general malaise, lack of appetite, one episode of vomiting and an inability to urinate. She denies fever, chills, diarrhea, unilateral weakness or numbness. She is accompanied by a daughter and grand daughter. She reports nothing improved her symptoms, including taking an OTC NSAID. Otherwise, [address] [place] [id number] ROS is negative. At the time of my examination she is saturating in the low 90s off of oxygen. PMH: dyslipidemia, hypertension, ex smoker, hypothyroidism, CHF PSH: surgery for left eye related to glaucoma social: 40 pack year history, drinks alcohol seldomly, denies illicit drug use Allergies: Denies PMD: Dr. Forrester Review of Systems - Review of Systems All systems: reviewed and no additional remarkable complaints except (as per HPI) Past Patient History - Infectious Disease Hx of Infectious Diseases: None - Past Medical History & Family History Past Medical History?: Yes - Past Social History Smoking Status: Former Smoker - CARDIAC Hx Congestive Heart Failure: Yes Hx Hypercholesterolemia: Yes Hx Hypertension: Yes Hx Peripheral Edema: Yes - PULMONARY Hx Respiratory Disorders: No - NEUROLOGICAL Hx Neurological Disorder: Yes HX Cerebrovascular Accident: Yes - HEENT Hx HEENT Problems: No Hx Glaucoma: Yes - RENAL Hx Chronic Kidney Disease: No - ENDOCRINE/METABOLIC Hx Hypothyroidism: Yes - HEMATOLOGICAL/ONCOLOGICAL Hx Human Immunodeficiency Virus (HIV): No - INTEGUMENTARY Hx Dermatological Problems: No - MUSCULOSKELETAL/RHEUMATOLOGICAL Hx Rheumatoid Arthritis: Yes - GASTROINTESTINAL Hx Gastrointestinal Disorders: No - GENITOURINARY/GYNECOLOGICAL Hx Genitourinary Disorders: Yes Other/Comment: fibroids - PSYCHIATRIC Hx Substance Use: No - SURGICAL HISTORY Hx Orthopedic Surgery: Yes - ANESTHESIA Hx Anesthesia: Yes Hx Anesthesia Reactions: No Hx Malignant Hyperthermia: No Meds Allergies/Adverse Reactions: Allergies Allergy/AdvReac Type Severity Reaction Status Date / Time No Known Allergies Allergy Verified 05/04/18 11:20 - Medications Medications: Current Medications Heparin Sodium/Sodium Chloride (Heparin 18906 Units/250ml 1/2 Normal Saline) 25,000 units in 250 mls @ 8.981 mls/hr IV .Q24H ONE; Protocol Stop: 05/05/18 13:42 Physical Exam - Constitutional Appears: Non-toxic - Head Exam Head Exam: ATRAUMATIC, NORMOCEPHALIC - Eye Exam Additional comments: left eye closed - ENT Exam ENT Exam: Mucous Membranes Moist, Normal Oropharynx - Neck Exam Neck exam: Positive for: Normal Inspection - Respiratory Exam Respiratory Exam: NORMAL BREATHING PATTERN. absent: Accessory Muscle Use - Cardiovascular Exam Cardiovascular Exam: RRR, +S1, +S2 - GI/Abdominal Exam GI & Abdominal Exam: Normal Bowel Sounds, Soft - Extremities Exam Extremities exam: Positive for: normal inspection. Negative for: calf tenderness - Back Exam Back exam: NORMAL INSPECTION. absent: CVA tenderness (L), CVA tenderness (R) - Neurological Exam Neurological exam: Alert, CN II-XII Intact, Oriented x3 - Psychiatric Exam Psychiatric exam: Normal Affect, Normal Mood - Skin Skin Exam: Normal Color, Warm Additional comments: white spotted rash covereing all skin Results - Vital Signs Recent Vital Signs: Last Vital Signs Temp 97.2 F L 05/04/18 11:16 Pulse 57 L 05/04/18 12:52 Resp 22 05/04/18 12:52 BP 123/82 05/04/18 12:52 Pulse Ox 95 05/04/18 14:08 - Labs Result Diagrams: 05/04/18 12:23 05/04/18 12:23 Labs: Laboratory Results - last 24 hr 05/04/18 05/04/18 05/04/18 12:12 12:23 12:23 WBC 12.5 H D RBC 5.60 H Hgb 12.5 Hct 42.4 MCV 75.8 L D MCH 22.3 L MCHC 29.4 L RDW 15.7 H Plt Count 133 D MPV 8.8 Neut % (Auto) 73.0 Lymph % (Auto) 20.6 Wharton % (Auto) 6.0 Eos % (Auto) 0.0 Baso % (Auto) 0.4 Neut # (Auto) 9.1 H Lymph # (Auto) 2.6 Wharton # (Auto) 0.8 Eos # (Auto) 0.0 Baso # (Auto) 0.1 PT INR APTT Sodium 138 Potassium 5.7 H Chloride 102 Carbon Dioxide 21 L Anion Gap 21 H BUN 37 H Creatinine 2.4 H Est GFR ( Amer) 24 Est GFR (Non-Af Amer) 20 Random Glucose 139 H D Calcium 9.9 Total Bilirubin 0.8 AST 3707 H ALT 2099 H Alkaline Phosphatase 98 Total Creatine Kinase 3342 H CK-MB (Mass) 141 H Troponin I 163.0000 H* NT-Pro-B Natriuret Pep 21977 H Total Protein 7.5 Albumin 4.3 Globulin 3.2 Albumin/Globulin Ratio 1.4 Lipase 45 Influenza Typ A,B (EIA) Negative for flu a/b 05/04/18 12:39 WBC RBC Hgb Hct MCV MCH MCHC RDW Plt Count MPV Neut % (Auto) Lymph % (Auto) Wharton % (Auto) Eos % (Auto) Baso % (Auto) Neut # (Auto) Lymph # (Auto) Wharton # (Auto) Eos # (Auto) Baso # (Auto) PT 18.0 H INR 1.6 APTT 30 Sodium Potassium Chloride Carbon Dioxide Anion Gap BUN Creatinine Est GFR ( Amer) Est GFR (Non-Af Amer) Random Glucose Calcium Total Bilirubin AST ALT Alkaline Phosphatase Total Creatine Kinase CK-MB (Mass) Troponin I NT-Pro-B Natriuret Pep Total Protein Albumin Globulin Albumin/Globulin Ratio Lipase Influenza Typ A,B (EIA) Assessment & Plan - Assessment and Plan (Free Text) Assessment: 77 year old female with a past medical history of hypertension, dyslipidemia, and glacouma who presented with 2 days of worsening chest pain, shortness of breath, nausea, and difficulty urinating. She was found to have NSTEMI, CHF exacerbation, BATSHEVA with hyperkalemia and MODS. She was given D50 with insulin for her hyperkalemia in the ED. She was given aspirin 325 and started on a heparin drip for her NSTEMI. She will be kept on Oxygen with a target SpO2 of 95%. She will be getting intermittent diuresis for heart heart failure (likely secondary to an ischemic event. She has elevated LFTs likely secondary to congestive hepatopathy. We will trend her LFTs and Creatinine. We will consult Nephrology and cardiology. We will obtain a stat echcoardiogram. We will monitor strict intake and output. We will monitor the patient closely in the ICU. We will hold her home dose of Crestor secondary to her elevated LFT's. Case was reviewed and discussed with attending physician, Dr. Zepeda - Date & Time Date: 05/04/18 Time: 15:35 Present on Admission - Present on Admission Any Indicators Present on Admission: No History of DVT/PE: No History of Uncontrolled Diabetes: No Urinary Catheter: No Decubitus Ulcer Present: No Past Patient History - Infectious Disease Hx of Infectious Diseases: None - Past Medical History & Family History Past Medical History?: Yes - Past Social History Smoking Status: Former Smoker - CARDIAC Hx Congestive Heart Failure: Yes Hx Hypercholesterolemia: Yes Hx Hypertension: Yes - PULMONARY Hx Respiratory Disorders: No - NEUROLOGICAL HX Cerebrovascular Accident: Yes (2018) - HEENT Hx HEENT Problems: No Hx Glaucoma: Yes (left eye glaucoma) - RENAL Hx Chronic Kidney Disease: No - ENDOCRINE/METABOLIC Hx Hypothyroidism: Yes - HEMATOLOGICAL/ONCOLOGICAL Hx Human Immunodeficiency Virus (HIV): No - INTEGUMENTARY Hx Dermatological Problems: No - MUSCULOSKELETAL/RHEUMATOLOGICAL Hx Rheumatoid Arthritis: Yes - GASTROINTESTINAL Hx Gastrointestinal Disorders: No - GENITOURINARY/GYNECOLOGICAL Hx Genitourinary Disorders: Yes Other/Comment: fibroids - PSYCHIATRIC Hx Substance Use: No - SURGICAL HISTORY Hx Hysterectomy: Yes Hx Orthopedic Surgery: Yes - ANESTHESIA Hx Anesthesia: Yes Hx Anesthesia Reactions: No Hx Malignant Hyperthermia: No Meds Allergies/Adverse Reactions: Allergies Allergy/AdvReac Type Severity Reaction Status Date / Time No Known Allergies Allergy Verified 05/04/18 11:20 Results - Vital Signs Recent Vital Signs: Last Vital Signs Temp 97.7 F 05/11/18 04:00 Pulse 66 05/11/18 05:48 Resp 20 05/11/18 05:48 BP 100/64 05/11/18 05:48 Pulse Ox 96 05/11/18 05:48 - Labs Result Diagrams: 05/11/18 05:26 05/11/18 05:26 Labs: Laboratory Results - last 24 hr 05/11/18 05/11/18 05:26 05:26 WBC 11.2 H RBC 4.30 Hgb 9.9 L Hct 32.7 L MCV 76.0 L MCH 23.0 L MCHC 30.3 L RDW 15.1 H Plt Count 141 MPV 10.2 Neut % (Auto) 69.7 Lymph % (Auto) 17.5 L Wharton % (Auto) 10.4 H Eos % (Auto) 2.0 Baso % (Auto) 0.4 Neut # (Auto) 7.8 H Lymph # (Auto) 2.0 Wharton # (Auto) 1.2 H Eos # (Auto) 0.2 Baso # (Auto) 0.0 Sodium 133 Potassium 5.1 Chloride 98 Carbon Dioxide 30 Anion Gap 11 BUN 45 H Creatinine 1.1 Est GFR ( Amer) 58 Est GFR (Non-Af Amer) 48 Random Glucose 160 H Calcium 8.9 Phosphorus 4.1 Magnesium 2.4 H Total Bilirubin 0.8 AST 116 H ALT 474 H D Alkaline Phosphatase 125 Total Protein 6.4 Albumin 3.3 L Globulin 3.0 Albumin/Globulin Ratio 1.1
[2018-05-11] MEDS: Ciprofloxacin 0.3% OPTH SOLN OD SCH ×4 (09:36→21:51)
[2018-05-11] MEDS: Brimonidine 0.2% Opth Sol (5ml) OS SCH ×2 (09:37→17:28)
--- NOTE | 2018-05-11 12:13 | CP.PCM.PN ---
Subjective - Date & Time of Evaluation Date of Evaluation: 05/11/18 Time of Evaluation: 12:10 - Subjective Subjective: no distress waiting for life vest eager to go home no acute complaints no fevers appetite good no rash no headache no abominal pain no anxiety normal urine production no pain no arthralgias Objective - Vital Signs/Intake and Output Vital Signs (last 24 hours): Temp Pulse Resp BP Pulse Ox 97.9 F 67 18 93/69 L 97 05/11/18 12:00 05/11/18 11:00 05/11/18 11:00 05/11/18 09:26 05/11/18 11:30 Intake and Output: 05/11/18 05/11/18 06:59 18:59 Intake Total 0 170 Output Total 100 250 Balance -100 -80 - Medications Medications: Current Medications Aspirin (Aspirin Chewable) 81 mg PO DAILY [facility] Last Admin: 05/11/18 09:26 Dose: 81 mg Brimonidine Tartrate (Alphagan 0.2% Opht) 0 ml OS BID [facility] Last Admin: 05/11/18 09:37 Dose: 1 drop Carvedilol (Coreg) 6.25 mg PO BID [facility] Last Admin: 05/11/18 09:27 Dose: Not Given Ciprofloxacin (Ciloxan 0.3% Ophth Soln) 1 drop OD QID [facility] Last Admin: 05/11/18 09:36 Dose: 1 drop Clopidogrel Bisulfate (Plavix) 75 mg PO DAILY [facility] Last Admin: 05/11/18 09:26 Dose: 75 mg Famotidine (Pepcid) 20 mg PO DAILY [facility] Last Admin: 05/11/18 09:26 Dose: 20 mg Furosemide (Lasix) 40 mg PO DAILY [facility] Last Admin: 05/11/18 09:26 Dose: Not Given Heparin Sodium (Porcine) (Heparin) 5,000 units SC Q8 [facility] Last Admin: 05/08/18 14:00 Dose: Not Given Latanoprost (Xalatan Opht) 2.5 ml OU HS [facility] Last Admin: 05/10/18 22:46 Dose: 2.5 ml Levothyroxine Sodium (Synthroid) 88 mcg PO 0630 [facility] Last Admin: 05/11/18 05:56 Dose: 88 mcg Lisinopril (Zestril) 2.5 mg PO DAILY [facility] Last Admin: 05/11/18 09:27 Dose: Not Given Timolol Maleate (Timoptic 0.5% Ophth Soln) 0 drop OS BID [facility] Last Admin: 05/11/18 09:38 Dose: 1 drop - Labs Labs: 05/11/18 05:26 05/11/18 05:26 PT 18.0 SECONDS (9.7-12.2) H 05/04/18 12:39 INR 1.6 05/04/18 12:39 APTT 70 SECONDS (21-34) H D 05/06/18 05:19 - Constitutional Appears: Non-toxic, No Acute Distress - Head Exam Head Exam: ATRAUMATIC, NORMAL INSPECTION - Eye Exam Eye Exam: EOMI - ENT Exam ENT Exam: Mucous Membranes Moist - Neck Exam Neck Exam: Full ROM. absent: Lymphadenopathy - Respiratory Exam Respiratory Exam: Wheezes. absent: Accessory Muscle Use - Cardiovascular Exam Cardiovascular Exam: REGULAR RHYTHM. absent: Rubs - GI/Abdominal Exam GI & Abdominal Exam: Soft. absent: Tenderness - Extremities Exam Extremities Exam: absent: Pedal Edema - Neurological Exam Neurological Exam: Alert, Awake, Oriented x3 Assessment and Plan - Assessment and Plan (Free Text) Assessment: resolved esther continue management of ischemic cardiomyopathy will sign off please reconsult prn
--- NOTE | 2018-05-11 18:42 | CP.PCM.PN ---
Subjective - Date & Time of Evaluation Date of Evaluation: 05/11/18 Time of Evaluation: 18:00 - Subjective Subjective: patient is lying in bed. denies chest pain Objective - Vital Signs/Intake and Output Vital Signs (last 24 hours): Temp Pulse Resp BP Pulse Ox 98.2 F 70 24 115/67 100 05/11/18 16:00 05/11/18 17:00 05/11/18 17:00 05/11/18 15:48 05/11/18 16:00 Intake and Output: 05/11/18 05/11/18 06:59 18:59 Intake Total 0 282 Output Total 100 450 Balance -100 -168 - Medications Medications: Current Medications Aspirin (Aspirin Chewable) 81 mg PO DAILY [facility] Last Admin: 05/11/18 09:26 Dose: 81 mg Brimonidine Tartrate (Alphagan 0.2% Opht) 0 ml OS BID [facility] Last Admin: 05/11/18 17:28 Dose: 1 drop Carvedilol (Coreg) 6.25 mg PO BID [facility] Last Admin: 05/11/18 17:28 Dose: Not Given Ciprofloxacin (Ciloxan 0.3% Ophth Soln) 1 drop OD QID [facility] Last Admin: 05/11/18 17:28 Dose: 1 drop Clopidogrel Bisulfate (Plavix) 75 mg PO DAILY [facility] Last Admin: 05/11/18 09:26 Dose: 75 mg Famotidine (Pepcid) 20 mg PO DAILY [facility] Last Admin: 05/11/18 09:26 Dose: 20 mg Furosemide (Lasix) 40 mg PO DAILY [facility] Last Admin: 05/11/18 09:26 Dose: Not Given Heparin Sodium (Porcine) (Heparin) 5,000 units SC Q8 [facility] Last Admin: 05/11/18 13:46 Dose: 5,000 units Latanoprost (Xalatan Opht) 2.5 ml OU HS [facility] Last Admin: 05/10/18 22:46 Dose: 2.5 ml Levothyroxine Sodium (Synthroid) 88 mcg PO 0630 [facility] Last Admin: 05/11/18 05:56 Dose: 88 mcg Lisinopril (Zestril) 2.5 mg PO DAILY [facility] Last Admin: 05/11/18 09:27 Dose: Not Given Timolol Maleate (Timoptic 0.5% Ophth Soln) 0 drop OS BID [facility] Last Admin: 05/11/18 17:28 Dose: 1 drop - Labs Labs: 05/11/18 05:26 05/11/18 05:26 PT 18.0 SECONDS (9.7-12.2) H 05/04/18 12:39 INR 1.6 05/04/18 12:39 APTT 70 SECONDS (21-34) H D 05/06/18 05:19 - Constitutional Appears: Chronically Ill - Head Exam Head Exam: NORMAL INSPECTION - Eye Exam Eye Exam: Normal appearance - ENT Exam ENT Exam: Mucous Membranes Moist - Neck Exam Neck Exam: Full ROM - Respiratory Exam Respiratory Exam: Decreased Breath Sounds - Cardiovascular Exam Cardiovascular Exam: REGULAR RHYTHM - GI/Abdominal Exam GI & Abdominal Exam: Normal Bowel Sounds - Rectal Exam Rectal Exam: Deferred - Extremities Exam Extremities Exam: absent: Pedal Edema - Back Exam Back Exam: NORMAL INSPECTION - Neurological Exam Neurological Exam: Alert - Psychiatric Exam Psychiatric exam: Normal Affect - Skin Skin Exam: Normal Color Assessment and Plan (1) NSTEMI (non-ST elevated myocardial infarction) Assessment & Plan: chronically occluded circumflex artery. I dsicussed medical therapy with the family. Status: Acute (2) Hypercholesterolemia Assessment & Plan: statin therapy Status: Acute (3) Acute renal insufficiency Assessment & Plan: improved Status: Acute (4) Ischemic cardiomyopathy Assessment & Plan: Echocardiogram from 05/04/18 was personally reviewed by me. The patient has severe LV dsyfunction with EF 20%. The Moody's method was calculated incorrectly on the study. There is severe septal hypokinesis, with moderate to severe mitral regurgitation, and moderate to severe tricuspid regurgitation. The patient will benefit from Lifevest as she is at risk for sudden cardiac . LV function will be reevaluated in 3 months on optimal medical therapy and if EF remains depressed she will be scheduled for AICD. Status: Acute
[2018-05-11] MEDS: Latanoprost 2.5 ml Opht Soln OU SCH (21:53)
[2018-05-12] MEDS: Levothyroxine 88 MCG TAB PO SCH (05:38)
[2018-05-12 07:26] LABS: EOS % 1.8 % (0.0-4.0); HEMOGLOBIN 9.9 g/dL (11.0-16.0)
[2018-05-12 08:00] LABS: BASO % 0.3 % (0.0-2.0); EOS # 0.2 K/uL (0.0-0.7); LYMPH # 2.5 K/uL (1.0-4.3); LYMPH % 24.8 % (20.0-40.0); MEAN CELL VOLUME 75.6 fL (81.0-99.0); MEAN CORPUSCULAR HEMOGLOBIN 22.8 pg (27.0-31.0); MEAN CORPUSCULAR HGB CONC 30.2 g/dL (33.0-37.0); MEAN PLATELET VOLUME 9.9 fL (7.2-11.7); MONO # 1.2 K/uL (0.0-0.8); MONO % 11.8 % (0.0-10.0); NEUT # 6.2 K/uL (1.8-7.0); NEUT % 61.3 % (50.0-75.0); NRBC % 10.7 % (0.0-2.0); RBC 4.32 Mil/uL (3.80-5.20); RED CELL DISTRIBUTION WIDTH 15.3 % (11.5-14.5)
[2018-05-12 08:13] LABS: ALB/GLOB RATIO 1.1 (1.0-2.1); ALBUMIN 3.5 g/dL (3.5-5.0); CALCIUM 9.1 mg/dl (8.6-10.4)
[2018-05-12] MEDS: Brimonidine 0.2% Opth Sol (5ml) OS SCH ×2 (09:36→17:23)
[2018-05-12] MEDS: Ciprofloxacin 0.3% OPTH SOLN OD SCH ×4 (09:37→22:08)
[2018-05-12] MEDS: Latanoprost 2.5 ml Opht Soln OU SCH (22:08)
[2018-05-13] MEDS: Levothyroxine 88 MCG TAB PO SCH (05:55)
[2018-05-13] MEDS: Brimonidine 0.2% Opth Sol (5ml) OS SCH ×2 (09:07→17:56)
[2018-05-13] MEDS ORDERED: Albuterol-Ipratrop 3 mg / 0.5 (3 ml) UD INH STA (09:54)
[2018-05-13] MEDS: Ciprofloxacin 0.3% OPTH SOLN OD SCH ×4 (11:00→22:36)
--- NOTE | 2018-05-13 13:59 | RAD ---
Date of service: 05/13/2018 PROCEDURE: Radiographs of the chest and abdomen (obstructive series) HISTORY: abdominal pain COMPARISON: No prior. TECHNIQUE: AP radiograph of the chest, with upright and supine radiographs of the abdomen. FINDINGS: CHEST: Lungs: The lungs are well inflated. Cardiovascular: Moderate cardiomegaly. There is moderate pulmonary vascular congestion. There are aortic atherosclerotic calcification present Pleura: Small effusions, larger on the left. No pneumothorax. Other findings: None. ABDOMEN AND PELVIS: Bowel: There are gas-filled normal caliber small bowel loops. No evidence of mechanical obstruction. Free air: None. Bones: Unremarkable. Other findings: None. IMPRESSION: Findings are most compatible with mild congestive heart failure. Nonspecific nonobstructive bowel gas pattern.
--- NOTE | 2018-05-13 15:36 | CP.PCM.PCO ---
Addendum Addendum: 05/13/18 15:33 Patient seen earlier this morning for complaints of shortness of breath and abdominal pain. On examination, patient had rales at bases. Duoneb x1 ordered. Obstructive series ordered which revealed mild CHF, no evidence of mechanical obstruction. On repeat evaluation, patient was sleeping comfortably. Gurpreet Mckeon, PGY1
--- NOTE | 2018-05-13 22:01 | CP.PCM.PN ---
Subjective - Date & Time of Evaluation Date of Evaluation: 05/13/18 Time of Evaluation: 21:59 - Subjective Subjective: Patient had an episode of shortness of breath today. Seen by Hospital resident, had a abdominal x-ray. X-ray showing evidence of CHF. Currently patient is somewhat restless and agitated. But she is feeling otherwise well. Vital signs are stable. No chest pain noted. On examination: Chest bilateral good air entry, abdomen soft, nontender. No pedal edema seen DENTAL SERVICE CHIEF alert awake oriented x3 no functional neurological deficit Labs yesterday reviewed Improvement in the liver function noted. Assessment and recommendation: 77-year-old female admitted to the hospital with cardiogenic shock. Acute renal insufficiency. Acute non-ST elevation [place]. Status post angiogram. Improving at this time. I recommended subacute rehab. Patient will follow-up tomorrow with the labs and will follow the patient Objective - Vital Signs/Intake and Output Vital Signs (last 24 hours): Temp Pulse Resp BP Pulse Ox 98.4 F 72 20 103/69 99 05/13/18 16:49 05/13/18 15:25 05/13/18 15:00 05/13/18 15:00 05/13/18 15:00 Intake and Output: 05/13/18 05/14/18 18:59 06:59 Intake Total 600 Balance 600 - Medications Medications: Current Medications Aspirin (Aspirin Chewable) 81 mg PO DAILY [facility] Last Admin: 05/13/18 09:12 Dose: 81 mg Brimonidine Tartrate (Alphagan 0.2% Opht) 0 ml OS BID [facility] Last Admin: 05/13/18 17:56 Dose: 1 drop Carvedilol (Coreg) 3.125 mg PO BID [facility] Ciprofloxacin (Ciloxan 0.3% Ophth Soln) 1 drop OD QID [facility] Last Admin: 05/13/18 17:55 Dose: 1 drop Clopidogrel Bisulfate (Plavix) 75 mg PO DAILY [facility] Last Admin: 05/13/18 09:12 Dose: 75 mg Famotidine (Pepcid) 20 mg PO DAILY [facility] Last Admin: 05/13/18 09:12 Dose: 20 mg Furosemide (Lasix) 40 mg PO DAILY [facility] Last Admin: 05/13/18 11:17 Dose: 40 mg Heparin Sodium (Porcine) (Heparin) 5,000 units SC Q8 [facility] Last Admin: 05/13/18 13:25 Dose: 5,000 units Latanoprost (Xalatan Opht) 2.5 ml OU HS [facility] Last Admin: 05/12/18 22:08 Dose: 2.5 ml Levothyroxine Sodium (Synthroid) 88 mcg PO 0630 [facility] Last Admin: 05/13/18 05:55 Dose: 88 mcg Lisinopril (Zestril) 2.5 mg PO DAILY [facility] Last Admin: 05/13/18 11:00 Dose: 2.5 mg Timolol Maleate (Timoptic 0.5% Ophth Soln) 0 drop OS BID [facility] Last Admin: 05/13/18 17:55 Dose: 1 drop - Labs Labs: 05/12/18 07:12 05/12/18 07:12 PT 18.0 SECONDS (9.7-12.2) H 05/04/18 12:39 INR 1.6 05/04/18 12:39 APTT 70 SECONDS (21-34) H D 05/06/18 05:19
[2018-05-13] MEDS: Latanoprost 2.5 ml Opht Soln OU SCH (22:36)
[2018-05-14] MEDS: Levothyroxine 88 MCG TAB PO SCH (05:38)
[2018-05-14 07:23] LABS: BASO % 0.2 % (0.0-2.0); EOS % 0.4 % (0.0-4.0); HEMOGLOBIN 9.7 g/dL (11.0-16.0); MONO # 1.1 K/uL (0.0-0.8)
[2018-05-14 07:32] LABS: ALB/GLOB RATIO 1.1 (1.0-2.1); ALBUMIN 3.6 g/dL (3.5-5.0); CALCIUM 8.9 mg/dl (8.6-10.4)
--- NOTE | 2018-05-14 07:40 | CP.PCM.PN ---
Subjective - Date & Time of Evaluation Date of Evaluation: 05/14/18 Time of Evaluation: 07:38 - Subjective Subjective: pateint is lying in bed. no chest pain. feels weak Objective - Vital Signs/Intake and Output Vital Signs (last 24 hours): Temp Pulse Resp BP Pulse Ox 97.3 F L 62 20 97/65 L 99 05/14/18 04:00 05/14/18 04:28 05/14/18 04:00 05/14/18 04:00 05/14/18 04:00 Intake and Output: 05/14/18 05/14/18 06:59 18:59 Output Total 2 Balance -2 - Medications Medications: Current Medications Aspirin (Aspirin Chewable) 81 mg PO DAILY [facility] Last Admin: 05/13/18 09:12 Dose: 81 mg Brimonidine Tartrate (Alphagan 0.2% Opht) 0 ml OS BID [facility] Last Admin: 05/13/18 17:56 Dose: 1 drop Carvedilol (Coreg) 3.125 mg PO BID [facility] Ciprofloxacin (Ciloxan 0.3% Ophth Soln) 1 drop OD QID [facility] Last Admin: 05/13/18 22:36 Dose: Not Given Clopidogrel Bisulfate (Plavix) 75 mg PO DAILY [facility] Last Admin: 05/13/18 09:12 Dose: 75 mg Famotidine (Pepcid) 20 mg PO DAILY [facility] Last Admin: 05/13/18 09:12 Dose: 20 mg Furosemide (Lasix) 40 mg PO DAILY [facility] Last Admin: 05/13/18 11:17 Dose: 40 mg Heparin Sodium (Porcine) (Heparin) 5,000 units SC Q8 [facility] Last Admin: 05/14/18 05:38 Dose: 5,000 units Latanoprost (Xalatan Opht) 2.5 ml OU HS [facility] Last Admin: 05/13/18 22:36 Dose: 2.5 ml Levothyroxine Sodium (Synthroid) 88 mcg PO 0630 [facility] Last Admin: 05/14/18 05:38 Dose: 88 mcg Lisinopril (Zestril) 2.5 mg PO DAILY [facility] Last Admin: 05/13/18 11:00 Dose: 2.5 mg Timolol Maleate (Timoptic 0.5% Ophth Soln) 0 drop OS BID [facility] Last Admin: 05/13/18 17:55 Dose: 1 drop - Labs Labs: 05/12/18 07:12 05/14/18 06:48 PT 18.0 SECONDS (9.7-12.2) H 05/04/18 12:39 INR 1.6 05/04/18 12:39 APTT 70 SECONDS (21-34) H D 05/06/18 05:19 - Constitutional Appears: Non-toxic - Head Exam Head Exam: NORMAL INSPECTION - Eye Exam Eye Exam: Normal appearance - ENT Exam ENT Exam: Mucous Membranes Moist - Neck Exam Neck Exam: Full ROM - Respiratory Exam Respiratory Exam: Decreased Breath Sounds - Cardiovascular Exam Cardiovascular Exam: REGULAR RHYTHM - GI/Abdominal Exam GI & Abdominal Exam: Normal Bowel Sounds - Rectal Exam Rectal Exam: Deferred - Extremities Exam Extremities Exam: Pedal Edema - Back Exam Back Exam: NORMAL INSPECTION - Neurological Exam Neurological Exam: Alert - Psychiatric Exam Psychiatric exam: Normal Affect - Skin Skin Exam: Normal Color Assessment and Plan (1) NSTEMI (non-ST elevated myocardial infarction) Status: Acute (2) Hypercholesterolemia Status: Acute (3) Acute renal insufficiency Status: Acute (4) Ischemic cardiomyopathy Assessment & Plan: awaiting Lifevest. I discussed with ZOLL. continue medical therapy. likely will require rehab Status: Acute
[2018-05-14 08:25] LABS: LYMPH # 1.7 K/uL (1.0-4.3); LYMPH % 18.6 % (20.0-40.0); MEAN CELL VOLUME 76.3 fL (81.0-99.0); MEAN CORPUSCULAR HEMOGLOBIN 22.7 pg (27.0-31.0); MEAN CORPUSCULAR HGB CONC 29.7 g/dL (33.0-37.0); MEAN PLATELET VOLUME 9.5 fL (7.2-11.7); MONO % 11.6 % (0.0-10.0); NEUT # 6.4 K/uL (1.8-7.0); NEUT % 69.2 % (50.0-75.0); NRBC % 9.9 % (0.0-2.0); RBC 4.27 Mil/uL (3.80-5.20); RED CELL DISTRIBUTION WIDTH 14.9 % (11.5-14.5); WHITE BLOOD COUNT 9.2 K/uL (4.8-10.8)
[2018-05-14] MEDS: Ciprofloxacin 0.3% OPTH SOLN OD SCH ×4 (09:42→21:31)
[2018-05-14] MEDS: Brimonidine 0.2% Opth Sol (5ml) OS SCH ×2 (09:43→18:10)
--- NOTE | 2018-05-14 11:44 | RAD ---
Date of service: 05/14/2018 HISTORY: chf COMPARISON: 05/06/2018 FINDINGS: LUNGS: Layering left inferolateral pleural effusion. Probable slight less layering right pleural effusion on the right. Right costophrenic angle still appear sharp. This patient is leaning towards the left. PLEURA: Layering left pleural effusion suspect possibly slightly increased. Although the right costophrenic angle sharp some lesser layering fluid along the medial inferior aspect of the right hemithorax is a consideration given the diffuse haziness here. Mild left basal compressive subsegment atelectasis probable. CARDIOVASCULAR: There is presence of aortic atherosclerotic calcification on x-ray. Mild cardiomegaly-similar moderate pulmonary venous congestion further increased since prior exam. OSSEOUS STRUCTURES: Thoraco lumbar spondylosis. Bilateral glenohumeral joint arthrosis. VISUALIZED UPPER ABDOMEN: Normal. OTHER FINDINGS: None. IMPRESSION: Bilateral small pleural effusions-believed slightly increased since prior exam. Likely layering as detailed above. Concomitant left basal subsegmental compressive atelectasis suspect. Cardiomegaly and pulmonary venous congestion-the latter slightly increased since prior exam.
[2018-05-14] MEDS: Latanoprost 2.5 ml Opht Soln OU SCH (21:31)
[2018-05-15] MEDS: Levothyroxine 88 MCG TAB PO SCH (06:30)
[2018-05-15] MEDS: Brimonidine 0.2% Opth Sol (5ml) OS SCH ×3 (09:47→18:30)
[2018-05-15] MEDS: Ciprofloxacin 0.3% OPTH SOLN OD SCH ×4 (09:47→22:11)
[2018-05-15 10:32] LABS: ALB/GLOB RATIO 1.1 (1.0-2.1); ALBUMIN 3.5 g/dL (3.5-5.0); CALCIUM 9.1 mg/dl (8.6-10.4)
[2018-05-15] MEDS: Latanoprost 2.5 ml Opht Soln OU SCH (22:10)
[2018-05-16] MEDS: Levothyroxine 88 MCG TAB PO SCH (06:38)
--- NOTE | 2018-05-16 08:04 | CP.PCM.PN ---
Subjective - Date & Time of Evaluation Date of Evaluation: 05/14/18 Time of Evaluation: 08:04 - Subjective Subjective: Patient agitated. Down on the bed. She is trying to remove close. Blood pressure is on the low side. Patient is not able to get the beta-sharon, and AVILA inhibitors. Awaiting for LifeVest at this time. Continue the current treatment. Objective - Vital Signs/Intake and Output Vital Signs (last 24 hours): Temp Pulse Resp BP Pulse Ox 98.0 F 67 20 107/67 99 05/15/18 23:28 05/15/18 23:28 05/15/18 23:28 05/15/18 23:28 05/15/18 23:28 - Medications Medications: Current Medications Aspirin (Aspirin Chewable) 81 mg PO DAILY [facility] Last Admin: 05/15/18 10:13 Dose: Not Given Brimonidine Tartrate (Alphagan 0.2% Opht) 0 ml OS BID [facility] Last Admin: 05/15/18 18:30 Dose: 1 drop Carvedilol (Coreg) 3.125 mg PO BID [facility] Last Admin: 05/15/18 18:32 Dose: Not Given Ciprofloxacin (Ciloxan 0.3% Ophth Soln) 1 drop OD QID [facility] Last Admin: 05/15/18 22:11 Dose: Not Given Clopidogrel Bisulfate (Plavix) 75 mg PO DAILY [facility] Last Admin: 05/15/18 09:58 Dose: Not Given Famotidine (Pepcid) 20 mg PO DAILY [facility] Last Admin: 05/15/18 09:58 Dose: Not Given Furosemide (Lasix) 40 mg PO DAILY [facility] Last Admin: 05/15/18 09:58 Dose: Not Given Heparin Sodium (Porcine) (Heparin) 5,000 units SC Q8 [facility] Last Admin: 05/16/18 06:37 Dose: 5,000 units Lactulose (Enulose) 20 gm PO ONCE ONE Stop: 05/16/18 08:03 Latanoprost (Xalatan Opht) 2.5 ml OU HS [facility] Last Admin: 05/15/18 22:10 Dose: 2.5 ml Levothyroxine Sodium (Synthroid) 88 mcg PO 0630 [facility] Last Admin: 05/16/18 06:38 Dose: 88 mcg Lisinopril (Zestril) 2.5 mg PO DAILY [facility] Last Admin: 05/14/18 09:42 Dose: Not Given Timolol Maleate (Timoptic 0.5% Oph Soln) 0 drop OS BID [facility] Last Admin: 05/15/18 18:30 Dose: 1 drop - Labs Labs: 05/14/18 06:48 05/15/18 08:21 PT 18.0 SECONDS (9.7-12.2) H 05/04/18 12:39 INR 1.6 05/04/18 12:39 APTT 70 SECONDS (21-34) H D 05/06/18 05:19
--- NOTE | 2018-05-16 08:05 | CP.PCM.PN ---
Subjective - Date & Time of Evaluation Date of Evaluation: 05/15/18 Time of Evaluation: 08:04 - Subjective Subjective: Patient condition is unchanged. She is still kind of agitated and anxious. She is able to eat better. But appetite is very poor Leg edema negative Clinical examination is otherwise no new changes. Blood pressure is on the low side. We will continue the current treatment. Patient is a 77-year-old female with a history of hypertension hypercholesterolemia admitted with a non-ST elevation [place] with the cardiomyopathy and acute renal insufficiency. We will follow-up the patient Objective - Vital Signs/Intake and Output Vital Signs (last 24 hours): Temp Pulse Resp BP Pulse Ox 98.0 F 67 20 107/67 99 05/15/18 23:28 05/15/18 23:28 05/15/18 23:28 05/15/18 23:28 05/15/18 23:28 - Medications Medications: Current Medications Aspirin (Aspirin Chewable) 81 mg PO DAILY [facility] Last Admin: 05/15/18 10:13 Dose: Not Given Brimonidine Tartrate (Alphagan 0.2% Opht) 0 ml OS BID [facility] Last Admin: 05/15/18 18:30 Dose: 1 drop Carvedilol (Coreg) 3.125 mg PO BID [facility] Last Admin: 05/15/18 18:32 Dose: Not Given Ciprofloxacin (Ciloxan 0.3% Ophth Soln) 1 drop OD QID [facility] Last Admin: 05/15/18 22:11 Dose: Not Given Clopidogrel Bisulfate (Plavix) 75 mg PO DAILY [facility] Last Admin: 05/15/18 09:58 Dose: Not Given Famotidine (Pepcid) 20 mg PO DAILY [facility] Last Admin: 05/15/18 09:58 Dose: Not Given Furosemide (Lasix) 40 mg PO DAILY [facility] Last Admin: 05/15/18 09:58 Dose: Not Given Heparin Sodium (Porcine) (Heparin) 5,000 units SC Q8 [facility] Last Admin: 05/16/18 06:37 Dose: 5,000 units Lactulose (Enulose) 20 gm PO ONCE ONE Stop: 05/16/18 08:03 Latanoprost (Xalatan Opht) 2.5 ml OU HS [facility] Last Admin: 05/15/18 22:10 Dose: 2.5 ml Levothyroxine Sodium (Synthroid) 88 mcg PO 0630 [facility] Last Admin: 05/16/18 06:38 Dose: 88 mcg Lisinopril (Zestril) 2.5 mg PO DAILY [facility] Last Admin: 05/14/18 09:42 Dose: Not Given Timolol Maleate (Timoptic 0.5% Ophth Soln) 0 drop OS BID [facility] Last Admin: 05/15/18 18:30 Dose: 1 drop - Labs Labs: 05/14/18 06:48 05/15/18 08:21 PT 18.0 SECONDS (9.7-12.2) H 05/04/18 12:39 INR 1.6 05/04/18 12:39 APTT 70 SECONDS (21-34) H D 05/06/18 05:19
--- NOTE | 2018-05-16 08:06 | CP.PCM.PN ---
Subjective - Date & Time of Evaluation Date of Evaluation: 05/15/18 Time of Evaluation: 08:06 - Subjective Subjective: Patient is awake and responding. Family was at bedside. I spoke to the family. Patient will need rehab. Currently awaiting for the placement Vital signs are stable, but the blood pressure slightly low Patient is not able to receive the Lasix. Patient is also not using the oxygen. She is refusing to use the oxygen agitated at times. Assessment and recommendation: 77-year-old female with a history of hypertension Anemia Patient also has a history of renal insufficiency admitted with acute non-ST elevation [place] Acute renal insufficiency. Patient had a status post angiogram. The liver enzymes is improving Agitation and delirium likely present. Objective - Vital Signs/Intake and Output Vital Signs (last 24 hours): Temp Pulse Resp BP Pulse Ox 98.0 F 67 20 107/67 99 05/15/18 23:28 05/15/18 23:28 05/15/18 23:28 05/15/18 23:28 05/15/18 23:28 - Medications Medications: Current Medications Aspirin (Aspirin Chewable) 81 mg PO DAILY [facility] Last Admin: 05/15/18 10:13 Dose: Not Given Brimonidine Tartrate (Alphagan 0.2% Opht) 0 ml OS BID [facility] Last Admin: 05/15/18 18:30 Dose: 1 drop Carvedilol (Coreg) 3.125 mg PO BID [facility] Last Admin: 05/15/18 18:32 Dose: Not Given Ciprofloxacin (Ciloxan 0.3% Ophth Soln) 1 drop OD QID [facility] Last Admin: 05/15/18 22:11 Dose: Not Given Clopidogrel Bisulfate (Plavix) 75 mg PO DAILY [facility] Last Admin: 05/15/18 09:58 Dose: Not Given Famotidine (Pepcid) 20 mg PO DAILY [facility] Last Admin: 05/15/18 09:58 Dose: Not Given Furosemide (Lasix) 40 mg PO DAILY [facility] Last Admin: 05/15/18 09:58 Dose: Not Given Heparin Sodium (Porcine) (Heparin) 5,000 units SC Q8 [facility] Last Admin: 05/16/18 06:37 Dose: 5,000 units Lactulose (Enulose) 20 gm PO ONCE ONE Stop: 05/16/18 08:03 Latanoprost (Xalatan Opht) 2.5 ml OU HS [facility] Last Admin: 05/15/18 22:10 Dose: 2.5 ml Levothyroxine Sodium (Synthroid) 88 mcg PO 0630 [facility] Last Admin: 05/16/18 06:38 Dose: 88 mcg Lisinopril (Zestril) 2.5 mg PO DAILY [facility] Last Admin: 05/14/18 09:42 Dose: Not Given Timolol Maleate (Timoptic 0.5% Ophth Soln) 0 drop OS BID [facility] Last Admin: 05/15/18 18:30 Dose: 1 drop - Labs Labs: 05/14/18 06:48 05/15/18 08:21 PT 18.0 SECONDS (9.7-12.2) H 05/04/18 12:39 INR 1.6 05/04/18 12:39 APTT 70 SECONDS (21-34) H D 05/06/18 05:19
[2018-05-16] MEDS: Ciprofloxacin 0.3% OPTH SOLN OD SCH ×4 (10:32→21:39)
[2018-05-16] MEDS: Brimonidine 0.2% Opth Sol (5ml) OS SCH ×2 (10:32→18:38)
[2018-05-16 11:22] LABS: BASO % 0.2 % (0.0-2.0); EOS % 0.1 % (0.0-4.0); HEMOGLOBIN 9.6 g/dL (11.0-16.0); LYMPH # 1.6 K/uL (1.0-4.3); LYMPH % 15.2 % (20.0-40.0); MEAN CORPUSCULAR HEMOGLOBIN 22.6 pg (27.0-31.0); MEAN CORPUSCULAR HGB CONC 28.8 g/dL (33.0-37.0); MEAN PLATELET VOLUME 9.9 fL (7.2-11.7); MONO # 1.1 K/uL (0.0-0.8); MONO % 10.4 % (0.0-10.0); NEUT # 7.8 K/uL (1.8-7.0); NEUT % 74.1 % (50.0-75.0); NRBC % 16.5 % (0.0-2.0); PLATELET COUNT 289 K/uL (130-400); RBC 4.23 Mil/uL (3.80-5.20); RED CELL DISTRIBUTION WIDTH 15.6 % (11.5-14.5); WHITE BLOOD COUNT 10.6 K/uL (4.8-10.8)
[2018-05-16 11:25] LABS: MEAN CELL VOLUME 78.7 fL (81.0-99.0)
[2018-05-16 12:01] LABS: ALB/GLOB RATIO 1.1 (1.0-2.1); ALBUMIN 3.7 g/dL (3.5-5.0); CALCIUM 9.1 mg/dl (8.6-10.4)
[2018-05-16 12:55] LABS: ANISOCYTOSIS SLIGHT; BANDS 2 % (0-2); EOSINOPHIL 1 % (0-4); LYMPHOCYTE 19 % (20-40); MONOCYTE 5 % (0-10); NEUTROPHIL 73 % (50-75); NUCLEATED RED BLOOD CELL 19 % (0-0); PLATELET ESTIMATE NORMAL (NORMAL); POIKILOCYTOSIS SLIGHT; TOTAL CELLS COUNTED 100
[2018-05-16 12:56] LABS: HYPOCHROMIC SLIGHT; MICROCYTOSIS SLIGHT; OVALOCYTES SLIGHT; POLYCHROMIC SLIGHT
[2018-05-16 12:57] LABS: SPHEROCYTES SLIGHT; TARGET CELLS SLIGHT; TEARDROP CELLS SLIGHT
--- NOTE | 2018-05-16 16:15 | RAD ---
Date of service: 05/16/2018 HISTORY: CHF COMPARISON: Vero made with prior chest radiograph 05/14/2018 FINDINGS: LUNGS: Mild pulmonary venous congestive changes with bilateral lower lobe alveolar-type infiltrates and bilateral effusions. PLEURA: As above. No pneumothorax apparent. CARDIOVASCULAR: Mild aortic atherosclerotic calcification present. Cardiomegaly. OSSEOUS STRUCTURES: No significant abnormalities. VISUALIZED UPPER ABDOMEN: Normal. OTHER FINDINGS: None. IMPRESSION: Mild pulmonary venous congestive changes with bilateral lower lobe alveolar-type infiltrates and bilateral effusions.
[2018-05-16] MEDS: Latanoprost 2.5 ml Opht Soln OU SCH (22:24)
[2018-05-17] MEDS: Levothyroxine 88 MCG TAB PO SCH (05:36)
--- NOTE | 2018-05-17 09:05 | CP.PCM.PN ---
Subjective - Date & Time of Evaluation Date of Evaluation: 05/17/18 Time of Evaluation: 09:02 - Subjective Subjective: Today her breathing is slightly better than yesterday. She is more responding than yesterday. Less labored breathing noted. Denies any chest pain. No shortness of breath noted On examination: Vital signs are otherwise stable. Chest good air entry Heart sounds are regular Abdomen soft nontender. No pedal edema Yesterday patient had elevated potassium level, receiving Kayexalate. Will get the labs today Assessment and recommendation: 77-year-old female with a history of hypertension, hypercholesterolemia, non-ST elevation [place]. Patient has a systolic heart failure secondary to cardiomyopathy ischemic. Renal insufficiency currently improving. Patient has a LifeVest now, will possibly plan for discharge to rehab tomorrow Objective - Vital Signs/Intake and Output Vital Signs (last 24 hours): Temp Pulse Resp BP Pulse Ox 97.4 F L 79 20 105/72 98 05/17/18 07:00 05/17/18 07:00 05/17/18 07:00 05/17/18 07:00 05/17/18 07:00 Intake and Output: 05/17/18 05/17/18 06:59 18:59 Intake Total 550 Output Total 3 Balance 547 - Medications Medications: Current Medications Aspirin (Aspirin Chewable) 81 mg PO DAILY [facility] Last Admin: 05/16/18 10:33 Dose: 81 mg Brimonidine Tartrate (Alphagan 0.2% Opht) 0 ml OS BID [facility] Last Admin: 05/16/18 18:38 Dose: 1 drop Carvedilol (Coreg) 3.125 mg PO BID [facility] Last Admin: 05/16/18 18:00 Dose: Not Given Ciprofloxacin (Ciloxan 0.3% Ophth Soln) 1 drop OD QID [facility] Last Admin: 05/16/18 21:39 Dose: 1 drop Clopidogrel Bisulfate (Plavix) 75 mg PO DAILY [facility] Last Admin: 05/16/18 10:33 Dose: 75 mg Famotidine (Pepcid) 20 mg PO DAILY [facility] Last Admin: 05/16/18 10:33 Dose: 20 mg Furosemide (Lasix) 40 mg PO DAILY [facility] Last Admin: 05/16/18 10:33 Dose: 40 mg Heparin Sodium (Porcine) (Heparin) 5,000 units SC Q8 [facility] Last Admin: 05/17/18 05:35 Dose: 5,000 units Latanoprost (Xalatan Opht) 2.5 ml OU HS [facility] Last Admin: 05/16/18 22:24 Dose: 2.5 ml Levothyroxine Sodium (Synthroid) 88 mcg PO 0630 [facility] Last Admin: 05/17/18 05:36 Dose: 88 mcg Lisinopril (Zestril) 2.5 mg PO DAILY [facility] Last Admin: 05/14/18 09:42 Dose: Not Given Timolol Maleate (Timoptic 0.5% Ophth Soln) 0 drop OS BID [facility] Last Admin: 05/16/18 18:38 Dose: 1 drop - Labs Labs: 05/16/18 11:16 05/16/18 11:16 PT 18.0 SECONDS (9.7-12.2) H 05/04/18 12:39 INR 1.6 05/04/18 12:39 APTT 70 SECONDS (21-34) H D 05/06/18 05:19
[2018-05-17] MEDS: Ciprofloxacin 0.3% OPTH SOLN OD SCH ×4 (10:23→21:46)
[2018-05-17] MEDS: Brimonidine 0.2% Opth Sol (5ml) OS SCH ×2 (10:23→18:00)
[2018-05-17 11:05] LABS: LYMPH # 1.4 K/uL (1.0-4.3); MONO # 0.9 K/uL (0.0-0.8); NEUT # 5.5 K/uL (1.8-7.0); RED CELL DISTRIBUTION WIDTH 15.6 % (11.5-14.5); WHITE BLOOD COUNT 7.9 K/uL (4.8-10.8)
[2018-05-17 11:10] LABS: BASO % 0.5 % (0.0-2.0); EOS % 0.4 % (0.0-4.0); HEMOGLOBIN 9.7 g/dL (11.0-16.0); LYMPH % 17.7 % (20.0-40.0); MEAN CORPUSCULAR HEMOGLOBIN 23.4 pg (27.0-31.0); MEAN PLATELET VOLUME 9.3 fL (7.2-11.7); MONO % 11.3 % (0.0-10.0); NEUT % 70.1 % (50.0-75.0); NRBC % 17.7 % (0.0-2.0); PLATELET COUNT 301 K/uL (130-400); RBC 4.14 Mil/uL (3.80-5.20)
[2018-05-17 11:39] LABS: ALB/GLOB RATIO 1.1 (1.0-2.1); ALBUMIN 3.5 g/dL (3.5-5.0); CALCIUM 8.8 mg/dl (8.6-10.4)
[2018-05-17 12:21] LABS: BANDS 4 % (0-2); EOSINOPHIL 1 % (0-4); LYMPHOCYTE 20 % (20-40); METAMYELOCYTE 1 % (0-0); MONOCYTE 9 % (0-10); MYELOCYTE 1 % (0-0); NEUTROPHIL 64 % (50-75); NUCLEATED RED BLOOD CELL 19 % (0-0); PLATELET ESTIMATE NORMAL (NORMAL); TOTAL CELLS COUNTED 100
[2018-05-17 12:22] LABS: ANISOCYTOSIS SLIGHT; MICROCYTOSIS SLIGHT; POIKILOCYTOSIS SLIGHT
[2018-05-17 12:23] LABS: HYPOCHROMIC SLIGHT; OVALOCYTES SLIGHT; POLYCHROMIC SLIGHT
[2018-05-17 12:24] LABS: LARGE PLATELETS PRESENT; SCHISTOCYTES SLIGHT
[2018-05-17] MEDS: Latanoprost 2.5 ml Opht Soln OU SCH (21:45)
[2018-05-18] MEDS: Levothyroxine 88 MCG TAB PO SCH (05:51)
--- NOTE | 2018-05-18 07:49 | CP.PCM.PN ---
Subjective - Date & Time of Evaluation Date of Evaluation: 05/18/18 Time of Evaluation: 07:48 - Subjective Subjective: Patient is still very young restless. But she is answering questions without any problem. She is feeling very thirsty. She is having LifeVest at this time. She has no chest pain. Her breathing is also seems to be better than before. Vital signs noted. Currently in room air oxygen saturation is 93% chest good air entry Regular [place] Nontender abdomen Yesterday labs reviewed Potassium level is improving Assessment and recommendation: 77-year-old female with a history of hypertension hypercholesterolemia, CAD and ischemic cardiomyopathy. Renal insufficiency. Patient is having some marked confusion at this time. We will discuss with the family and the possible discharge plan to rehab Objective - Vital Signs/Intake and Output Vital Signs (last 24 hours): Temp Pulse Resp BP Pulse Ox 97.2 F L 82 20 112/58 L 96 05/17/18 23:35 05/17/18 23:35 05/17/18 23:35 05/17/18 23:35 05/17/18 23:35 Intake and Output: 05/18/18 05/18/18 06:59 18:59 Intake Total 300 Output Total 1 Balance 299 - Medications Medications: Current Medications Aspirin (Aspirin Chewable) 81 mg PO DAILY [facility] Last Admin: 05/17/18 10:22 Dose: 81 mg Brimonidine Tartrate (Alphagan 0.2% Opht) 0 ml OS BID [facility] Last Admin: 05/17/18 18:00 Dose: 1 drop Carvedilol (Coreg) 3.125 mg PO BID [facility] Last Admin: 05/17/18 17:24 Dose: Not Given Ciprofloxacin (Ciloxan 0.3% Ophth Soln) 1 drop OD QID [facility] Last Admin: 05/17/18 21:46 Dose: 1 drop Clopidogrel Bisulfate (Plavix) 75 mg PO DAILY [facility] Last Admin: 05/17/18 10:21 Dose: 75 mg Famotidine (Pepcid) 20 mg PO DAILY [facility] Last Admin: 05/17/18 10:22 Dose: 20 mg Furosemide (Lasix) 20 mg PO DAILY [facility] Heparin Sodium (Porcine) (Heparin) 5,000 units SC Q8 [facility] Last Admin: 05/18/18 05:48 Dose: 5,000 units Latanoprost (Xalatan Opht) 2.5 ml OU HS [facility] Last Admin: 05/17/18 21:45 Dose: 2.5 ml Levothyroxine Sodium (Synthroid) 88 mcg PO 0630 [facility] Last Admin: 05/18/18 05:51 Dose: 88 mcg Lisinopril (Zestril) 2.5 mg PO DAILY [facility] Last Admin: 05/14/18 09:42 Dose: Not Given Timolol Maleate (Timoptic 0.5% Oph Soln) 0 drop OS BID [facility] Last Admin: 05/17/18 17:23 Dose: 1 drop - Labs Labs: 05/17/18 11:00 05/17/18 11:00 PT 18.0 SECONDS (9.7-12.2) H 05/04/18 12:39 INR 1.6 05/04/18 12:39 APTT 70 SECONDS (21-34) H D 05/06/18 05:19
[2018-05-18] MEDS: Brimonidine 0.2% Opth Sol (5ml) OS SCH ×2 (10:08→17:23)
[2018-05-18] MEDS: Ciprofloxacin 0.3% OPTH SOLN OD SCH ×4 (10:08→21:16)
--- NOTE | 2018-05-18 16:13 | CP.PCM.PN ---
Subjective - Date & Time of Evaluation Date of Evaluation: 05/18/18 Time of Evaluation: 15:40 - Subjective Subjective: pateint is sitting in the chair. daughter is at bedside. Objective - Vital Signs/Intake and Output Vital Signs (last 24 hours): Temp Pulse Resp BP Pulse Ox 96.0 F L 86 18 132/80 98 05/18/18 15:06 05/18/18 15:06 05/18/18 15:06 05/18/18 15:06 05/18/18 15:06 Intake and Output: 05/18/18 05/18/18 06:59 18:59 Intake Total 300 Output Total 1 Balance 299 - Medications Medications: Current Medications Aspirin (Aspirin Chewable) 81 mg PO DAILY [facility] Last Admin: 05/18/18 10:08 Dose: 81 mg Brimonidine Tartrate (Alphagan 0.2% Opht) 0 ml OS BID [facility] Last Admin: 05/18/18 10:08 Dose: 1 drop Carvedilol (Coreg) 3.125 mg PO BID [facility] Last Admin: 05/18/18 10:08 Dose: Not Given Ciprofloxacin (Ciloxan 0.3% Ophth Soln) 1 drop OD QID [facility] Last Admin: 05/18/18 13:30 Dose: 1 drop Clopidogrel Bisulfate (Plavix) 75 mg PO DAILY [facility] Last Admin: 05/18/18 10:08 Dose: 75 mg Famotidine (Pepcid) 20 mg PO DAILY [facility] Last Admin: 05/18/18 10:08 Dose: 20 mg Furosemide (Lasix) 20 mg PO DAILY [facility] Heparin Sodium (Porcine) (Heparin) 5,000 units SC Q8 [facility] Last Admin: 05/18/18 13:30 Dose: 5,000 units Latanoprost (Xalatan Opht) 2.5 ml OU HS [facility] Last Admin: 05/17/18 21:45 Dose: 2.5 ml Levothyroxine Sodium (Synthroid) 88 mcg PO 0630 [facility] Last Admin: 05/18/18 05:51 Dose: 88 mcg Lisinopril (Zestril) 2.5 mg PO DAILY [facility] Last Admin: 05/14/18 09:42 Dose: Not Given Timolol Maleate (Timoptic 0.5% Ophth Soln) 0 drop OS BID [facility] Last Admin: 05/18/18 10:08 Dose: 1 drop - Labs Labs: 03/03/19 11:00 05/17/18 11:00 PT 18.0 SECONDS (9.7-12.2) H 05/04/18 12:39 INR 1.6 05/04/18 12:39 APTT 70 SECONDS (21-34) H D 05/06/18 05:19 - Constitutional Appears: Non-toxic - Eye Exam Pupil Exam: NORMAL ACCOMODATION - ENT Exam ENT Exam: Mucous Membranes Moist - Neck Exam Neck Exam: Full ROM - Respiratory Exam Respiratory Exam: Decreased Breath Sounds - Cardiovascular Exam Cardiovascular Exam: REGULAR RHYTHM - GI/Abdominal Exam GI & Abdominal Exam: Normal Bowel Sounds - Rectal Exam Rectal Exam: Deferred - Extremities Exam Extremities Exam: absent: Pedal Edema - Back Exam Back Exam: NORMAL INSPECTION - Neurological Exam Neurological Exam: Alert - Psychiatric Exam Psychiatric exam: Normal Affect - Skin Skin Exam: Normal Color Assessment and Plan (1) NSTEMI (non-ST elevated myocardial infarction) Assessment & Plan: late presenting SD (more than 48hrs). continue medical therapy L circumflex is occluded but the cardiomopathy is out of prortion to the degree of CAD. Status: Acute (2) Hypercholesterolemia Status: Acute (3) Ischemic cardiomyopathy Assessment & Plan: currently wearing Lifevest. I spoke to a niece who is a PM R physicain in [place]. The patient will continue with medical therapy. wearing Lifevest. She is stable for xfer to rehab. maintain antiplatelet therapy Coreg, Brandon inhibitor. If LV<35% in 3 months will need AICD. paln of cre discussed in detail with the niece as well as daughter and patient at the bedside. Status: Acute
[2018-05-18] MEDS: Latanoprost 2.5 ml Opht Soln OU SCH (21:16)
[2018-05-19] MEDS: Levothyroxine 88 MCG TAB PO SCH (05:44)
--- NOTE | 2018-05-19 07:28 | CP.PCM.PN ---
Subjective - Date & Time of Evaluation Date of Evaluation: 05/19/18 Time of Evaluation: 07:26 - Subjective Subjective: Patient is now today is more comfortable than yesterday. She is not in any distress at this time. Poor appetite still noted. Patient is currently awaiting for the rehab placement. Using the LifeVest at this time. Vital signs are stable. Chest good air entry nontender abdomen. Regular heart sounds noted Abdomen soft otherwise. No pedal edema Patient is on maintenance medications for the heart disease, renal failure, and hypertension. Assessment and recommendation: Patient is a 77-year-old female with a history of hypertension hype rcholesterolemia CAD ischemic cardiomyopathy renal insufficiency. Slowly improving. Patient is currently has a LifeVest. She will eventually may need AICD placement we will discuss with the cardiologi . Possibly discharged to rehab today from bed is available Objective - Vital Signs/Intake and Output Vital Signs (last 24 hours): Temp Pulse Resp BP Pulse Ox 98.3 F 83 20 106/69 97 05/18/18 23:20 05/18/18 23:20 05/18/18 23:20 05/18/18 23:20 05/18/18 23:20 Intake and Output: 05/19/18 05/19/18 06:59 18:59 Intake Total 120 Balance 120 - Medications Medications: Current Medications Aspirin (Aspirin Chewable) 81 mg PO DAILY [facility] Last Admin: 05/18/18 10:08 Dose: 81 mg Brimonidine Tartrate (Alphagan 0.2% Opht) 0 ml OS BID [facility] Last Admin: 05/18/18 17:23 Dose: 1 drop Carvedilol (Coreg) 3.125 mg PO BID [facility] Last Admin: 05/18/18 17:22 Dose: 3.125 mg Ciprofloxacin (Ciloxan 0.3% Ophth Soln) 1 drop OD QID [facility] Last Admin: 05/18/18 21:16 Dose: 1 drop Clopidogrel Bisulfate (Plavix) 75 mg PO DAILY [facility] Last Admin: 05/18/18 10:08 Dose: 75 mg Famotidine (Pepcid) 20 mg PO DAILY [facility] Last Admin: 05/18/18 10:08 Dose: 20 mg Furosemide (Lasix) 20 mg PO DAILY [facility] Heparin Sodium (Porcine) (Heparin) 5,000 units SC Q8 [facility] Last Admin: 05/19/18 05:43 Dose: 5,000 units Latanoprost (Xalatan Opht) 2.5 ml OU HS [facility] Last Admin: 05/18/18 21:16 Dose: 2.5 ml Levothyroxine Sodium (Synthroid) 88 mcg PO 0630 [facility] Last Admin: 05/19/18 05:44 Dose: 88 mcg Lisinopril (Zestril) 2.5 mg PO DAILY [facility] Last Admin: 05/14/18 09:42 Dose: Not Given Timolol Maleate (Timoptic 0.5% Ophth Soln) 0 drop OS BID [facility] Last Admin: 05/18/18 17:22 Dose: 1 drop - Labs Labs: 05/17/18 11:00 05/17/18 11:00 PT 18.0 SECONDS (9.7-12.2) H 05/04/18 12:39 INR 1.6 05/04/18 12:39 APTT 70 SECONDS (21-34) H D 05/06/18 05:19
[2018-05-19] MEDS: Ciprofloxacin 0.3% OPTH SOLN OD SCH ×4 (09:27→22:35)
[2018-05-19] MEDS: Brimonidine 0.2% Opth Sol (5ml) OS SCH ×2 (09:27→18:28)
[2018-05-19 18:42] VITALS: RESP 20; O2SAT 100
[2018-05-19] MEDS: Latanoprost 2.5 ml Opht Soln OU SCH (22:35)
[2018-05-20] MEDS: Levothyroxine 88 MCG TAB PO SCH (05:59)
--- NOTE | 2018-05-20 07:36 | CP.PCM.PN ---
Subjective - Date & Time of Evaluation Date of Evaluation: 05/20/18 Time of Evaluation: 07:34 - Subjective Subjective: Patient now still having slight restlessness. But that she is more comfortable patient is not in any distress otherwise. Chest good air entry Regular heart sounds noted Nontender abdomen. On examination: Vital signs are stable. Chest good air entry Patient still awaiting for the bed in the rehab at this time. LifeVest is on. Patient will be possibly discharge once the bed is available. Patient is a 77-year-old female with a history of hypertension, renal insufficiency, ischemic cardiomyopathy currently on medications pending main tenance. We will follow the patient Objective - Vital Signs/Intake and Output Vital Signs (last 24 hours): Temp Pulse Resp BP Pulse Ox 97.5 F L 76 20 122/89 100 05/19/18 23:30 05/19/18 23:30 05/19/18 23:30 05/19/18 23:30 05/19/18 23:30 - Medications Medications: Current Medications Aspirin (Aspirin Chewable) 81 mg PO DAILY [facility] Last Admin: 05/19/18 09:28 Dose: 81 mg Brimonidine Tartrate (Alphagan 0.2% Opht) 0 ml OS BID [facility] Last Admin: 05/19/18 18:28 Dose: 1 drop Carvedilol (Coreg) 3.125 mg PO BID [facility] Last Admin: 05/19/18 18:41 Dose: Not Given Ciprofloxacin (Ciloxan 0.3% Ophth Soln) 1 drop OD QID [facility] Last Admin: 05/19/18 22:35 Dose: 1 drop Clopidogrel Bisulfate (Plavix) 75 mg PO DAILY [facility] Last Admin: 05/19/18 09:27 Dose: 75 mg Famotidine (Pepcid) 20 mg PO DAILY [facility] Last Admin: 05/19/18 09:27 Dose: 20 mg Furosemide (Lasix) 20 mg PO DAILY [facility] Heparin Sodium (Porcine) (Heparin) 5,000 units SC Q8 [facility] Last Admin: 05/20/18 05:59 Dose: 5,000 units Latanoprost (Xalatan Opht) 2.5 ml OU HS [facility] Last Admin: 05/19/18 22:35 Dose: 2.5 ml Levothyroxine Sodium (Synthroid) 88 mcg PO 0630 [facility] Last Admin: 05/20/18 05:59 Dose: 88 mcg Lisinopril (Zestril) 2.5 mg PO DAILY [facility] Last Admin: 05/14/18 09:42 Dose: Not Given Timolol Maleate (Timoptic 0.5% Oph Soln) 0 drop OS BID [facility] Last Admin: 05/19/18 18:28 Dose: 1 drop - Labs Labs: 05/17/18 11:00 05/17/18 11:00 PT 18.0 SECONDS (9.7-12.2) H 05/04/18 12:39 INR 1.6 05/04/18 12:39 APTT 70 SECONDS (21-34) H D 05/06/18 05:19
[2018-05-20 09:27] VITALS: TEMP 97.6
[2018-05-20] MEDS: Brimonidine 0.2% Opth Sol (5ml) OS SCH (09:57)
[2018-05-20] MEDS: Ciprofloxacin 0.3% OPTH SOLN OD SCH ×2 (09:58→13:20)
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
[2018-05-20 16:42] VITALS: BP 96/65; PULSE 69
--- NOTE | 2018-05-20 17:29 | PCM.HF ---
Heart Failure Core Measure - Heart Failure Ejection Fraction: Less Than 40 % AVILA Inhibitor Prescribed: Yes Beta-Cinda Prescribed: Carvedilol Angiotensin II Receptor Cinda Prescribed: No Contraindication/Reason for not providing: on avila AnticoagulationTherapy for Atrial Fibrillation/Atrialflutter: Yes Aldosterone Antagonist Prescribed: No Contraindication/Reason for not providing: ARF Hydralazine Nitrate Prescribed: No Contraindication/Reason for not providing: bp running low Implantable Cardioverter Defibrillator Therapy: No Contraindication/Reason for not providing: on life vest trail Cardiac Resynchronization Therapy Prescribed: No Contraindication/Reason for not providing: on life vest trial - Follow up Will be discharged to: Snf Facility ([facility] – [place]) Follow Up Date (must be within 7 days from discharge): 05/22/18 Follow Up Time: 18:00
== END 2018-05-20 19:51 | DRG 280 ==
LOC: C.ER 11:05 → C.9E 13:53 → C.9I 14:51 → C.6T 05-11 21:09
PROVIDERS: ADMIT Internal Medicine; ATTEND Internal Medicine
PROC: 4A023N7 Measurement of Cardiac Sampling and Pressure, Left Heart, Percutaneous Approach (ICD-10-PCS; principal; 2018-05-07)
PROC: B2111ZZ Fluoroscopy of Multiple Coronary Arteries using Low Osmolar Contrast (ICD-10-PCS; 2018-05-07)
PROC: B2151ZZ Fluoroscopy of Left Heart using Low Osmolar Contrast (ICD-10-PCS; 2018-05-07)
DX: I21.4 Non-ST elevation (NSTEMI) myocardial infarction (principal); K72.00 Acute and subacute hepatic failure without coma; R57.0 Cardiogenic shock; I50.43 Acute on chronic combined systolic (congestive) and diastolic (congestive) heart failure; N17.9 Acute kidney failure, unspecified; E03.9 Hypothyroidism, unspecified; E78.5 Hyperlipidemia, unspecified; E87.5 Hyperkalemia; M06.9 Rheumatoid arthritis, unspecified; I11.0 Hypertensive heart disease with heart failure; I25.5 Ischemic cardiomyopathy; Z86.73 Personal history of transient ischemic attack (TIA), and cerebral infarction without residual deficits; Z87.891 Personal history of nicotine dependence

== ENCOUNTER 2018-05-21 05:47 | Inpatient (IN) | payer MEDICARE ==
[2018-05-21 05:47] VITALS: BMI 27.6
--- NOTE | 2018-05-21 06:04 | C.PDOC ---
History Of Present Illness 77 year old female with Hx of CHF, EF of 15%, NSTEMI, CAD with recent cardiac cath which showed 100% occlusion of circumflex artery treated medically, sent from halfway for reported SOB and cough for the past 3 days. Patient was recently discharged from inpatient unit. She is a poor historian. Patient complaining of mild burning to the chest. Denies fever or other complaints. <Porter [place] - Last Filed: 05/25/18 10:05> History Per: Patient History/Exam Limitations: no limitations Onset/Duration Of Symptoms: Days (3) Current Symptoms Are (Timing): Still Present Current Respiratory Medications: See Home Med List Associated Symptoms: denies: Fever Recent travel outside of the [place]: No <Porter [place] - Last Filed: 05/25/18 10:05> <Sarah Hirsch - Last Filed: 05/29/18 14:15> Time Seen by Provider: 05/21/18 06:01 Chief Complaint (Nursing): Shortness Of Breath Past Medical History Reviewed: Historical Data, Nursing Documentation, Vital Signs Vital Signs: Last Vital Signs Temp 96.8 F L 05/21/18 05:49 Pulse 63 05/21/18 05:49 Resp 20 05/21/18 05:49 BP 115/94 H 05/21/18 05:49 Pulse Ox 100 05/21/18 05:49 - Medical History PMH: CHF, HTN, Hypercholesterolemia, Hypothyroidism, Peripheral Edema, Rheum atoid Arthritis Denies: HIV, Chronic Kidney Disease - [facility] Procedures EXERCISE TRMT MUSCULOSK LOW BACK/LE W ASSIST EQUIP (08/26/17) GAIT TRAINING/AMBULAT TREATMENT USING ASSIST EQUIPMENT (08/26/17) HOME MANAGEMENT TREATMENT USING ASSIST EQUIPMENT (08/26/17) Family History: States: Unknown Family Hx - Social History Hx Tobacco Use: No Hx Alcohol Use: No Hx Substance Use: No - Immunization History Hx Tetanus Toxoid Vaccination: No Hx Influenza Vaccination: No Hx Pneumococcal Vaccination: No <Porter [place] - Last Filed: 05/25/18 10:05> Vital Signs: Last Vital Signs Temp 96.8 F L 05/21/18 05:49 Pulse 63 05/21/18 05:49 Resp 18 05/21/18 06:21 BP 115/94 H 05/21/18 05:49 Pulse Ox 100 05/21/18 06:28 - [facility] Procedures EXERCISE TRMT MUSCULOSK LOW BACK/LE W ASSIST EQUIP (08/26/17) GAIT TRAINING/AMBULAT TREATMENT USING ASSIST EQUIPMENT (08/26/17) HOME MANAGEMENT TREATMENT USING ASSIST EQUIPMENT (08/26/17) <Sarah Hirsch - Last Filed: 05/29/18 14:15> Review Of Systems Constitutional: Negative for: Fever, Chills Cardiovascular: Positive for: Chest Pain Respiratory: Positive for: Cough, Shortness of Breath Gastrointestinal: Negative for: Nausea, Vomiting Genitourinary: Negative for: Dysuria, Hematuria Musculoskeletal: Negative for: Back Pain Neurological: Negative for: Weakness, Numbness <Porter [place] - Last Filed: 05/25/18 10:05> Physical Exam - Physical Exam Appears: Chronically Ill Skin: Normal Color, Warm Head: Atraumatic, Normacephalic Eye(s): bilateral: Normal Inspection Oral Mucosa: Moist Neck: Normal, Supple Chest: Symmetrical, No Tenderness Cardiovascular: Rhythm Regular Respiratory: Rales (Bilaterally), No Rhonchi, No Wheezing Gastrointestinal/Abdominal: Soft, No Tenderness Neurological/Psych: Oriented x3, Normal Speech <Porter [place] - Last Filed: 05/25/18 10:05> ED Course And Treatment - Laboratory Results Result Diagrams: 05/22/18 20:44 05/22/18 20:44 ECG: Interpreted By Me, Viewed By Me ECG Rhythm: Sinus Rhythm ECG Interpretation: Normal Interpretation Of ECG: Nonspecific ST/T wave changes Rate From EC O2 Sat by Pulse Oximetry: 100 (room air) Pulse Ox Interpretation: Normal <Porter [place] - Last Filed: 05/25/18 10:05> - Laboratory Results Result Diagrams: 05/29/18 10:31 05/29/18 10:31 Lab Results: pO2 29 mm/Hg (30-55) L 05/21/18 06:27 VBG pH 7.35 (7.32-7.43) 05/21/18 06:27 VBG pCO2 63 mmHg (40-60) H 05/21/18 06:27 VBG HCO3 29.1 mmol/L 05/21/18 06:27 VBG Total CO2 36.7 mmol/L (22-28) H 05/21/18 06:27 VBG O2 Sat (Calc) 49.2 % (40-65) 05/21/18 06:27 VBG Base Excess 7.0 mmol/L (0.0-2.0) H 05/21/18 06:27 VBG Potassium 5.2 mmol/L (3.6-5.2) 05/21/18 06:27 Sodium 138.0 mmol/l (132-148) 05/21/18 06:27 Chloride 100.0 mmol/L (98-107) 05/21/18 06:27 Glucose 145 mg/dl (65-105) H 05/21/18 06:27 Lactate 2.3 mmol/L (0.7-2.1) H 05/21/18 06:27 PT 15.1 SECONDS (9.7-12.2) H 05/21/18 06:22 INR 1.4 05/21/18 06:22 APTT 28 SECONDS (21-34) 05/21/18 06:22 Troponin I 0.8970 ng/mL (0.00-0.120) H* 05/21/18 06:22 NT-Pro-B Natriuret Pep 11701 pg/mL (0-900) H 05/21/18 06:22 Total Bilirubin 1.2 mg/dL (0.2-1.3) 05/21/18 06:22 AST 108 U/L (14-36) H D 05/21/18 06:22 ALT 135 U/L (9-52) H D 05/21/18 06:22 Alkaline Phosphatase 114 U/L (38-126) 05/21/18 06:22 Total Protein 7.3 g/dL (6.3-8.3) 05/21/18 06:22 Albumin 3.8 g/dL (3.5-5.0) 05/21/18 06:22 Globulin 3.5 gm/dL (2.2-3.9) 05/21/18 06:22 Albumin/Globulin Ratio 1.1 (1.0-2.1) 05/21/18 06:22 Progress Note: 8:10- Discussed patient with PMD Dr. Zepeda. Left sided effusion significanly larger than previous. Elevated trop likely still residual from previously very high troponin on 05/05/18. Will admit for thoracentesis/diuretics. <Sarah Hirsch - Last Filed: 05/29/18 14:15> Medical Decision Making Medical Decision Making: EKG, blood work, CXR, and urinalysis ordered. suspect chf pna- [id number] case endorsed day shift penidng all labs, reassess, and admisison <Porter [place] - Last Filed: 05/25/18 10:05> Disposition - Disposition Disposition Time: 08:00 <Porter [place] - Last Filed: 05/25/18 10:05> <Sarah Hirsch - Last Filed: 05/29/18 14:15> - Disposition Disposition: HOSPITALIZED Condition: STABLE - Clinical Impression Clinical Impression: Dyspnea, CHF exacerbation, Elevated troponin, Pleural effusion, Elevated brain natriuretic peptide (BNP) level - Scribe Statement The provider has reviewed the documentation as recorded by the Scribe Rupert Camacho All medical record entries made by the Scribe were at my direction and personally dictated by me. I have reviewed the chart and agree that the record accurately reflects my personal performance of the history, physical exam, medical decision making, and the department course for this patient. I have also personally directed, reviewed, and agree with the discharge instructions and disposition. <Porter [place] - Last Filed: 05/25/18 10:05> Decision To Admit <Porter [place] - Last Filed: 05/25/18 10:05> - Pt Status Changed To: Hospital Disposition Of: Inpatient - Admit Certification Admit to Inpatient:: After my assessment, the patient will require hospitalization for at least two midnights. This is because of the severity of symptoms shown, intensity of services needed, and/or the medical risk in this patient being treated as an outpatient. - InPatient: Physician Admission Certification: I certify that this patient requires 2 or more midnights of care for the following reason:: see notes - . Bed Request Type: Telemetry Admitting Physician: Lex Zepeda <Sarah Hirsch - Last Filed: 05/29/18 14:15> - . Patient Diagnosis: Dyspnea, CHF exacerbation, Pleural effusion, Elevated troponin, Elevated brain natriuretic peptide (BNP) level
[2018-05-21 06:25] LABS: BASO # 0.1 K/uL (0.0-0.2)
[2018-05-21 06:31] LABS: VENOUS BLOOD GAS PCO2 63 mmHg (40-60); VENOUS BLOOD GAS PO2 29 mm/Hg (30-55); VENOUS BLOOD PH 7.35 (7.32-7.43)
[2018-05-21] MEDS ORDERED: Piperacillin/Tazobact 3.375 gm 100 ML IVPB STA (06:40)
[2018-05-21 06:43] LABS: INR 1.4; PROTHROMBIN TIME 15.1 SECONDS (9.7-12.2)
--- NOTE | 2018-05-21 06:58 | RAD ---
Date of service: 05/21/2018 PROCEDURE: CHEST RADIOGRAPH, 1 VIEW HISTORY: chest pain COMPARISON: 05/16/2017 FINDINGS: LUNGS: Interval increased opacification-inferior left kalpesh thorax present. Hazy opacity right lung base similar PLEURA: No pneumothorax. Small right pleural effusion similar. Prior left pleural effusion increased. CARDIOVASCULAR: There is presence of aortic atherosclerotic calcification on x-ray. Cardiomegaly similar. Mild pulmonary venous congestion-similar. OSSEOUS STRUCTURES: No significant abnormalities. VISUALIZED UPPER ABDOMEN: Normal. OTHER FINDINGS: None. IMPRESSION: Interval increase left pleural effusion with inferred left basal compressive atelectasis. Concomitant consolidative infiltrate-not excluded. Cardiomegaly with mild pulmonary venous congestion-CHF inferred
[2018-05-21] MEDS ORDERED: Piperacillin/Tazobact 3.375 gm 100 ML IVPB ONE (07:00)
[2018-05-21 07:04] LABS: EOS % 0.2 % (0.0-4.0); HEMOGLOBIN 10.5 g/dL (11.0-16.0); LYMPH # 1.3 K/uL (1.0-4.3); LYMPH % 19.6 % (20.0-40.0); MEAN CELL VOLUME 79.7 fL (81.0-99.0); MEAN CORPUSCULAR HEMOGLOBIN 23.5 pg (27.0-31.0); MEAN CORPUSCULAR HGB CONC 29.4 g/dL (33.0-37.0); MEAN PLATELET VOLUME 8.5 fL (7.2-11.7); MONO # 0.6 K/uL (0.0-0.8); MONO % 9.4 % (0.0-10.0); NEUT # 4.6 K/uL (1.8-7.0); NEUT % 69.8 % (50.0-75.0); NRBC % 18.8 % (0.0-2.0); RBC 4.46 Mil/uL (3.80-5.20); RED CELL DISTRIBUTION WIDTH 17.7 % (11.5-14.5); WHITE BLOOD COUNT 6.6 K/uL (4.8-10.8)
[2018-05-21] MEDS ORDERED: Vancomycin 1 GM 1 GM/250 ML BAG IVPB ONE (07:21)
[2018-05-21 07:54] LABS: ALB/GLOB RATIO 1.1 (1.0-2.1); ALBUMIN 3.8 g/dL (3.5-5.0)
--- NOTE | 2018-05-21 11:12 | CP.PCM.HP ---
History of Present Illness - History of Present Illness History of Present Illness: Chief complaint: Shortness of breath HPI: Patient is a 77-year-old female -German, with a history of hypertension, hypercholesterolemia and glaucoma admitted recently to the hospital with acute heart failure, secondary to acute infarction myocardium. At that time patient also developed acute renal failure, multiorgan failure. Patient slowly improved. But got worse. She was doing well until yesterday, finally she was discharged to rehab last night. But in the rehab as she was having increasing shortness of breath and was sent to the emergency room this morning. In the ER patient was not in any distress except restlessness. Evaluation was showing evidence of left lower lung infiltrate versus pleural effusion, started on intravenous antibiotic. Family at bedside. I spoke to the family in detail. According to them patient is mostly lying down, she is not eating well, weakness and tiredness fatigue noted. Mostly lying down on the bed especially on the left side. Patient has no nausea no vomiting no fever Past medical history: Hypertension, hypercholesterolemia hypothyroidism and CHF Patient has recently had a acute SD, and associate with multiorgan failure Surgery: Patient had glaucoma surgery Recently she had angiogram, showing evidence of distal circumflex 100%, medical management and required, she also has a LifeVest Social history: 40-year pack history noted Drinks occasionally No drugs No known drug allergy Review of system: Patient is somewhat restlessness. She has no vomiting. Complaining of thirsty. She drinks a significant amount of liquid. No leg swelling. Shortness of breath. Denies any nausea no vomiting. 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 But sometimes she is having some disorientation. Leg edema negative Patient's today's labs I reviewed Elevated BUN, creatinine level noted Troponin level is elevated ProBNP 16,000 Chest x-ray left lower lung pneumonia noted. Left lower lung effusion present Assessment and recommendation: 77-year-old female with a history of recent acute SD, still having elevated troponin History of cardiogenic shock, now slowly recovering. Multiorgan failure in the past. Acute renal insufficiency Also has a history of ischemic cardiomyopathy with significant heart failure. Admitted with the likely fluid overload, and left pleural effusion, underlying p neumonia possible. We will place the patient on IV Lasix. I spoke to the director of strategic communications. Patient will benefit with the intravenous dopamine, and possible diuretics with that. She may need a CAT scan of the chest. BiPAP oxygen and will follow the patient. She currently has a LifeVest Present on Admission - Present on Admission Any Indicators Present on Admission: No History of DVT/PE: No History of Uncontrolled Diabetes: No Urinary Catheter: No Decubitus Ulcer Present: No Past Patient History - Infectious Disease Hx of Infectious Diseases: None - Past Medical History & Family History Past Medical History?: Yes - Past Social History Smoking Status: Former Smoker - CARDIAC Hx Congestive Heart Failure: Yes Hx Hypercholesterolemia: Yes Hx Hypertension: Yes Hx Peripheral Edema: Yes - PULMONARY Hx Respiratory Disorders: No - NEUROLOGICAL HX Cerebrovascular Accident: Yes (2017) - HEENT Hx HEENT Problems: No Hx Glaucoma: Yes (left eye glaucoma) - RENAL Hx Chronic Kidney Disease: No - ENDOCRINE/METABOLIC Hx Hypothyroidism: Yes - HEMATOLOGICAL/ONCOLOGICAL Hx Human Immunodeficiency Virus (HIV): No - INTEGUMENTARY Hx Dermatological Problems: No - MUSCULOSKELETAL/RHEUMATOLOGICAL Hx Rheumatoid Arthritis: Yes - GASTROINTESTINAL Hx Gastrointestinal Disorders: No - GENITOURINARY/GYNECOLOGICAL Hx Genitourinary Disorders: Yes Other/Comment: fibroids - PSYCHIATRIC Hx Substance Use: No - SURGICAL HISTORY Hx Hysterectomy: Yes Hx Orthopedic Surgery: Yes - ANESTHESIA Hx Anesthesia: Yes Hx Anesthesia Reactions: No Hx Malignant Hyperthermia: No Meds Allergies/Adverse Reactions: Allergies Allergy/AdvReac Type Severity Reaction Status Date / Time No Known Allergies Allergy Verified 05/21/18 06:00 Results - Vital Signs Recent Vital Signs: Last Vital Signs Temp 98.4 F 05/21/18 09:00 Pulse 68 05/21/18 09:00 Resp 20 05/21/18 09:00 BP 112/77 05/21/18 09:00 Pulse Ox 97 05/21/18 09:00 - Labs Result Diagrams: 05/21/18 06:22 05/21/18 06:22 Labs: Laboratory Results - last 24 hr 05/21/18 05/21/18 05/21/18 05:56 06:22 06:22 WBC 6.6 RBC 4.46 Hgb 10.5 L Hct 35.5 MCV 79.7 L MCH 23.5 L MCHC 29.4 L RDW 17.7 H Plt Count 208 MPV 8.5 Neut % (Auto) 69.8 Lymph % (Auto) 19.6 L [place] % (Auto) 9.4 Eos % (Auto) 0.2 Baso % (Auto) 1.0 Neut # (Auto) 4.6 Lymph # (Auto) 1.3 [place] # (Auto) 0.6 Eos # (Auto) 0.0 Baso # (Auto) 0.1 PT 15.1 H INR 1.4 APTT 28 pO2 VBG pH VBG pCO2 VBG HCO3 VBG Total CO2 VBG O2 Sat (Calc) VBG Base Excess VBG Potassium Glucose Lactate Sodium Potassium Chloride Carbon Dioxide Anion Gap BUN Creatinine Est GFR ( Amer) Est GFR (Non-Af Amer) POC Glucose (mg/dL) 179 H Random Glucose Calcium Total Bilirubin AST ALT Alkaline Phosphatase Troponin I NT-Pro-B Natriuret Pep Total Protein Albumin Globulin Albumin/Globulin Ratio Venous Blood Potassium 05/21/18 05/21/18 06:22 06:27 WBC RBC Hgb Hct MCV MCH MCHC RDW Plt Count MPV Neut % (Auto) Lymph % (Auto) [place] % (Auto) Eos % (Auto) Baso % (Auto) Neut # (Auto) Lymph # (Auto) [place] # (Auto) Eos # (Auto) Baso # (Auto) PT INR APTT pO2 29 L VBG pH 7.35 VBG pCO2 63 H VBG HCO3 29.1 VBG Total CO2 36.7 H VBG O2 Sat (Calc) 49.2 VBG Base Excess 7.0 H VBG Potassium 5.2 Glucose 145 H Lactate 2.3 H Sodium 134 138.0 Potassium 5.7 H Chloride 95 L 100.0 Carbon Dioxide 34 H Anion Gap 11 BUN 71 H Creatinine 1.1 Est GFR ( Amer) 58 Est GFR (Non-Af Amer) 48 POC Glucose (mg/dL) Random Glucose 144 H D Calcium 9.0 Total Bilirubin 1.2 AST 108 H D ALT 135 H D Alkaline Phosphatase 114 Troponin I 0.8970 H* NT-Pro-B Natriuret Pep 43408 H Total Protein 7.3 Albumin 3.8 Globulin 3.5 Albumin/Globulin Ratio 1.1 Venous Blood Potassium 5.2
[2018-05-21 12:28] LABS: TROPONIN I 0.897 ng/mL (0.00-0.120)
--- NOTE | 2018-05-21 15:04 | CT ---
Date of service: 05/21/2018 PROCEDURE: CT Chest without contrast HISTORY: Pneumonia COMPARISON: Comparison made with prior chest radiograph dated 05/21/2018 at 0620 hr TECHNIQUE: Contiguous axial images were obtained through the chest without intravenous contrast enhancement. Sagittal and coronal reconstructions were performed. Radiation dose: Total exam DLP = 513.12 mGy-cm. This CT exam was performed using one or more of the following dose reduction techniques: Automated exposure control, adjustment of the mA and/or kV according to patient size, and/or use of iterative reconstruction technique. FINDINGS: LUNGS: There are moderate bilateral effusions left slightly larger than the right. Associated atelectatic changes are also present MEDIASTINUM: Heart is enlarged. No significant pericardial effusion. Ascending thoracic aorta measures approximately 3.5 cm and descending thoracic aorta measures approximately 2.8 cm. Mild aortic atherosclerotic calcification. Pulmonary trunk measures approximately 3.4 cm. PLEURA: As above. No evidence of pneumothorax BONES: No fracture. No destructive lesion. UPPER ABDOMEN: Note made of a small amount of perisplenic ascites and surrounding infiltration changes of the adjacent there is also slight infiltration in the perinephric fat bilaterally left greater than right. Mesentery. OTHER FINDINGS: . Enlargement right lobe thyroid gland. Consider follow-up thyroid ultrasound. IMPRESSION: Limited exam due to fairly significant streak and beam hardening artifact arising from multiple from school bus monitor/defibrillator devices Bilateral effusions and bibasilar atelectasis left greater than right..
[2018-05-21] MEDS: Brimonidine 0.2% Opth Sol (5ml) OS SCH (17:32)
[2018-05-21] MEDS: Latanoprost 2.5 ml Opht Soln OU SCH (22:55)
--- NOTE | 2018-05-22 01:33 | CP.PCM.CON ---
History of Present Illness - History of Present Illness History of Present Illness: 77 year old female with Hx of CHF, EF of 15%, NSTEMI, CAD with recent cardiac cath which showed 100% occlusion of circumflex artery treated medically, sent from half-way for reported SOB and cough for the past 3 days. Patient was r ecently discharged from inpatient unit. She is a poor historian. Patient complaining of mild burning to the chest. Denies fever or other complaints. History Per: Patient History/Exam Limitations: no limitations Onset/Duration Of Symptoms: Days (3) Current Symptoms Are (Timing): Still Present Current Respiratory Medications: See Home Med List Associated Symptoms: denies: Fever Recent travel outside of the [place]: No <Porter [place] - Last Filed: 05/21/18 06:27> <Sarah Hirsch - Last Filed: 05/21/18 08:19> Time Seen by Provider: 05/21/18 06:01 Chief Complaint (Nursing): Shortness Of Breath Past Medical History Reviewed: Historical Data, Nursing Documentation, Vital Signs Vital Signs: Last Vital Signs Temp 96.8 F L 05/21/18 05:49 Pulse 63 05/21/18 05:49 Resp 20 05/21/18 05:49 BP 115/94 H 05/21/18 05:49 Pulse Ox 100 05/21/18 05:49 - Medical History PMH: CHF, HTN, Hypercholesterolemia, Hypothyroidism, Peripheral Edema, Rheumatoid Arthritis Denies: HIV, Chronic Kidney Disease - [facility] Procedures EXERCISE TRMT MUSCULOSK LOW BACK/LE W ASSIST EQUIP (08/26/17) GAIT TRAINING/AMBULAT TREATMENT USING ASSIST EQUIPMENT (08/26/17) HOME MANAGEMENT TREATMENT USING ASSIST EQUIPMENT (08/26/17) Family History: States: Unknown Family Hx - Social History Hx Tobacco Use: No Hx Alcohol Use: No Hx Substance Use: No - Immunization History Hx Tetanus Toxoid Vaccination: No Hx Influenza Vaccination: No Hx Pneumococcal Vaccination: No <Porter [place] - Last Filed: 05/21/18 06:27> Vital Signs: Last Vital Signs Temp 96.8 F L 05/21/18 05:49 Pulse 63 05/21/18 05:49 Resp 18 05/21/18 06:21 BP 115/94 H 05/21/18 05:49 Pulse Ox 100 05/21/18 06:28 - [facility] Procedures EXERCISE TRMT MUSCULOSK LOW BACK/LE W ASSIST EQUIP (08/26/17) GAIT TRAINING/AMBULAT TREATMENT USING ASSIST EQUIPMENT (08/26/17) HOME MANAGEMENT TREATMENT USING ASSIST EQUIPMENT (08/26/17) <Sarah Hirsch - Last Filed: 05/21/18 08:19> Review Of Systems Constitutional: Negative for: Fever, Chills Cardiovascular: Positive for: Chest Pain Respiratory: Positive for: Cough, Shortness of Breath Gastrointestinal: Negative for: Nausea, Vomiting Genitourinary: Negative for: Dysuria, Hematuria Musculoskeletal: Negative for: Back Pain Neurological: Negative for: Weakness, Numbness <Porter [place] - Last Filed: 05/21/18 06:27> Physical Exam - Physical Exam Appears: Chronically Ill Skin: Normal Color, Warm Head: Atraumatic, Normacephalic Eye(s): bilateral: Normal Inspection Oral Mucosa: Moist Neck: Normal, Supple Chest: Symmetrical, No Tenderness Cardiovascular: Rhythm Regular Respiratory: Rales (Bilaterally), No Rhonchi, No Wheezing Gastrointestinal/Abdominal: Soft, No Tenderness Neurological/Psych: Oriented x3, Normal Speech Past Patient History - Infectious Disease Hx of Infectious Diseases: None - Past Medical History & Family History Past Medical History?: Yes - Past Social History Smoking Status: Former Smoker - CARDIAC Hx Cardiac Disorders: Yes Hx Congestive Heart Failure: Yes Hx Hypercholesterolemia: Yes Hx Hypertension: Yes Hx Peripheral Edema: Yes - PULMONARY Hx Respiratory Disorders: No - NEUROLOGICAL Hx Neurological Disorder: Yes HX Cerebrovascular Accident: Yes (2018) - HEENT Hx HEENT Problems: No Hx Glaucoma: Yes (left eye glaucoma) - RENAL Hx Chronic Kidney Disease: No - ENDOCRINE/METABOLIC Hx Hypothyroidism: Yes - HEMATOLOGICAL/ONCOLOGICAL Hx Human Immunodeficiency Virus (HIV): No - INTEGUMENTARY Hx Dermatological Problems: No - MUSCULOSKELETAL/RHEUMATOLOGICAL Hx Falls: Yes Hx Rheumatoid Arthritis: Yes - GASTROINTESTINAL Hx Gastrointestinal Disorders: No - GENITOURINARY/GYNECOLOGICAL Hx Genitourinary Disorders: Yes Other/Comment: fibroids - PSYCHIATRIC Hx Substance Use: No - SURGICAL HISTORY Hx Surgeries: Yes Hx Hysterectomy: Yes Hx Orthopedic Surgery: Yes - ANESTHESIA Hx Anesthesia: Yes Hx Anesthesia Reactions: No Hx Malignant Hyperthermia: No Has any member of the family had a problem w/ anesthesia?: No Meds Allergies/Adverse Reactions: Allergies Allergy/AdvReac Type Severity Reaction Status Date / Time No Known Allergies Allergy Verified 05/21/18 06:00 - Medications Medications: Current Medications Aspirin (Aspirin Chewable) 81 mg PO DAILY [facility] Brimonidine Tartrate (Alphagan 0.2% Opht) 0 ml OS BID [facility] Last Admin: 05/21/18 17:32 Dose: 1 drop Carvedilol (Coreg) 3.125 mg PO BID [facility] Last Admin: 05/21/18 17:29 Dose: 3.125 mg Clopidogrel Bisulfate (Plavix) 75 mg PO DAILY [facility] Famotidine (Pepcid) 20 mg PO BID [facility] Last Admin: 05/21/18 17:29 Dose: 20 mg Furosemide (Lasix) 40 mg IVP DAILY [facility] Heparin Sodium (Porcine) (Heparin) 5,000 units SC Q8 [facility] Last Admin: 05/21/18 22:54 Dose: 5,000 units Latanoprost (Xalatan Opht) 0 ml OU HS [facility] Last Admin: 05/21/18 22:55 Dose: 2.5 ml Levothyroxine Sodium (Synthroid) 88 mcg PO 0630 [facility] Lisinopril (Zestril) 2.5 mg PO DAILY [facility] Rosuvastatin Calcium (Crestor) 5 mg PO HS [facility] Last Admin: 05/21/18 22:54 Dose: 5 mg Results - Vital Signs Recent Vital Signs: Last Vital Signs Temp 97.4 F L 05/21/18 15:00 Pulse 65 05/21/18 15:00 Resp 20 05/21/18 15:00 BP 113/80 05/21/18 15:00 Pulse Ox 95 05/21/18 15:00 - Labs Result Diagrams: 05/21/18 06:22 05/21/18 06:22 Labs: Laboratory Results - last 24 hr 05/21/18 05/21/18 05/21/18 05:56 06:22 06:22 WBC 6.6 RBC 4.46 Hgb 10.5 L Hct 35.5 MCV 79.7 L MCH 23.5 L MCHC 29.4 L RDW 17.7 H Plt Count 208 MPV 8.5 Neut % (Auto) 69.8 Lymph % (Auto) 19.6 L [place] % (Auto) 9.4 Eos % (Auto) 0.2 Baso % (Auto) 1.0 Neut # (Auto) 4.6 Lymph # (Auto) 1.3 [place] # (Auto) 0.6 Eos # (Auto) 0.0 Baso # (Auto) 0.1 PT 15.1 H INR 1.4 APTT 28 pO2 VBG pH VBG pCO2 VBG HCO3 VBG Total CO2 VBG O2 Sat (Calc) VBG Base Excess VBG Potassium Glucose Lactate Sodium Potassium Chloride Carbon Dioxide Anion Gap BUN Creatinine Est GFR ( Amer) Est GFR (Non-Af Amer) POC Glucose (mg/dL) 179 H Random Glucose Calcium Total Bilirubin AST ALT Alkaline Phosphatase Troponin I NT-Pro-B Natriuret Pep Total Protein Albumin Globulin Albumin/Globulin Ratio Venous Blood Potassium 05/21/18 05/21/18 06:22 06:27 WBC RBC Hgb Hct MCV MCH MCHC RDW Plt Count MPV Neut % (Auto) Lymph % (Auto) [place] % (Auto) Eos % (Auto) Baso % (Auto) Neut # (Auto) Lymph # (Auto) [place] # (Auto) Eos # (Auto) Baso # (Auto) PT INR APTT pO2 29 L VBG pH 7.35 VBG pCO2 63 H VBG HCO3 29.1 VBG Total CO2 36.7 H VBG O2 Sat (Calc) 49.2 VBG Base Excess 7.0 H VBG Potassium 5.2 Glucose 145 H Lactate 2.3 H Sodium 134 138.0 Potassium 5.7 H Chloride 95 L 100.0 Carbon Dioxide 34 H Anion Gap 11 BUN 71 H Creatinine 1.1 Est GFR ( Amer) 58 Est GFR (Non-Af Amer) 48 POC Glucose (mg/dL) Random Glucose 144 H D Calcium 9.0 Total Bilirubin 1.2 AST 108 H D ALT 135 H D Alkaline Phosphatase 114 Troponin I 0.8970 H* NT-Pro-B Natriuret Pep 17838 H Total Protein 7.3 Albumin 3.8 Globulin 3.5 Albumin/Globulin Ratio 1.1 Venous Blood Potassium 5.2 Assessment & Plan - Assessment and Plan (Free Text) Assessment: Acute on Chronic systolic CHF CAD Severe MR, TR and pulmonary HTN IV Lasix 40 bid Medical management for now
[2018-05-22] MEDS: Levothyroxine 88 MCG TAB PO SCH (06:08)
[2018-05-22] MEDS: Albuterol-Ipratrop 3 mg / 0.5 (3 ml) UD INH SCH ×3 (08:00→19:25)
--- NOTE | 2018-05-22 08:30 | CP.PCM.PN ---
Subjective - Date & Time of Evaluation Date of Evaluation: 05/22/18 Time of Evaluation: 08:27 - Subjective Subjective: Patient is now still having some restlessness. She is not using the oxygen, very agitated at times. Poorly eating. She is awake and responding. Expiratory wheezing bilaterally noted On examination: Vital signs are stable otherwise. Chest bilateral wheezing noted Heart sounds are regular Abdomen soft edema negative in the legs. Chest x-ray which was repeated now showing evidence of slight improvement in the pleural effusion. Assessment and recommendation: Patient is a 77-year-old female with a history of hypertension, hypothyroidism, hyperlipidemia and renal insufficiency admitted recently with the acute non-ST elevation IN, with the circumflex complete occlusion. Patient now having worsening pulmonary edema, congested heart disease. Systolic heart failure severely noted. Patient has a LifeVest at this time. I spoke to the diesel engine i pipe fitter. Patient may need intervention in the form of stent placement, and also support hemodynamically. We will continue the Lasix. Today added Zosyn. At the BiPAP. Nutritional supplementation. Out of bed to chair. Physical therapy. We will follow the patient Objective - Vital Signs/Intake and Output Vital Signs (last 24 hours): Temp Pulse Resp BP Pulse Ox 97.9 F 61 20 100/72 97 05/22/18 00:00 05/22/18 04:30 05/22/18 00:00 05/22/18 00:00 05/22/18 00:00 - Medications Medications: Current Medications Albuterol/Ipratropium (Duoneb 3 Mg/0.5 Mg (3 Ml) Ud) 3 ml INH RQ6 [facility] Aspirin (Aspirin Chewable) 81 mg PO DAILY [facility] Brimonidine Tartrate (Alphagan 0.2% Opht) 0 ml OS BID [facility] Last Admin: 05/21/18 17:32 Dose: 1 drop Carvedilol (Coreg) 3.125 mg PO BID [facility] Last Admin: 05/21/18 17:29 Dose: 3.125 mg Clopidogrel Bisulfate (Plavix) 75 mg PO DAILY [facility] Famotidine (Pepcid) 20 mg PO BID [facility] Last Admin: 05/21/18 17:29 Dose: 20 mg Furosemide (Lasix) 40 mg IVP DAILY [facility] Heparin Sodium (Porcine) (Heparin) 5,000 units SC Q8 [facility] Last Admin: 05/22/18 06:08 Dose: 5,000 units Piperacillin Sod/Tazobactam (Sod 3.375 gm/ Sodium Chloride) 100 mls @ 200 m ls/hr IVPB Q8H [facility]; Protocol Latanoprost (Xalatan Opht) 0 ml OU HS [facility] Last Admin: 05/21/18 22:55 Dose: 2.5 ml Levothyroxine Sodium (Synthroid) 88 mcg PO 0630 [facility] Last Admin: 05/22/18 06:08 Dose: 88 mcg Lisinopril (Zestril) 2.5 mg PO DAILY [facility] Rosuvastatin Calcium (Crestor) 5 mg PO HS [facility] Last Admin: 05/21/18 22:54 Dose: 5 mg - Labs Labs: 05/21/18 06:22 05/21/18 06:22 PT 15.1 SECONDS (9.7-12.2) H 05/21/18 06:22 INR 1.4 05/21/18 06:22 APTT 28 SECONDS (21-34) 05/21/18 06:22
--- NOTE | 2018-05-22 10:03 | PQF ---
PROVIDER RESPONSE TEXT: Acute on Chronic Systolic CHF in the setting of Fluid Overload , SOB, Cough x 3 days , treated with I V Lasix 40mg STAT then Lasix 20mg IV daily REVIEWER QUERY TEXT: Clarification of Clinical Diagnostic Findings Please clarify documentation or clinical relevance for the clinical / diagnostic findings or whether those are insignificant or unable to be further specified. Acute on Chronic Systolic CHF in the setting of Fluid Overload , SOB, Cough x 3 days , treated with I V Lasix 40mg STAT then Lasix 20mg IV daily. -Other Explanation. - Unable to Determine .. The patient's Clinical Indicators include: Clinical Findings: SOB, Cough x 3 days . CXR: Cardiomegaly with mild pulmonary venous congestion-CHF .CT Chest :Bilateral effusions and bibasilar atelectasis left greater than right. ECHO: EF= 20-25% . Pro BNP = 16, 800 . Treatment ; Lasix 40mg IVP stat, Liasix IV 20mg IV daily Risk Factor: HTN, CHF Query created by: Loyda Rhoades on 05/21/2018 4:15 PM Electronically signed by: Lex Zepeda MD 05/21/2018 5:47 PM
[2018-05-22] MEDS: Brimonidine 0.2% Opth Sol (5ml) OS SCH ×2 (10:06→22:42)
--- NOTE | 2018-05-22 12:54 | RAD ---
Date of service: 05/22/2018 HISTORY: PE COMPARISON: 05/21/2018 FINDINGS: LUNGS: Opacity at left base may represent pleural effusion and consolidation. Unable to exclude consolidation. PLEURA: Moderate left pleural effusion. CARDIOVASCULAR: No aortic atherosclerotic calcification present. Normal cardiac size. No pulmonary vascular congestion. OSSEOUS STRUCTURES: No significant abnormalities. VISUALIZED UPPER ABDOMEN: Normal. OTHER FINDINGS: None. IMPRESSION: Moderate left pleural effusion. Cannot exclude left basilar consolidation.
[2018-05-22] MEDS: Piperacillin/Tazobact 3.375 GM in Sodium Chloride 100 ML IVPB SCH ×2 (16:00→22:41)
[2018-05-22 21:03] LABS: ALBUMIN 3.2 g/dL (3.5-5.0); CALCIUM 8.7 mg/dl (8.6-10.4)
[2018-05-22 21:23] LABS: BASO # 0.1 K/uL (0.0-0.2); BASO % 1.1 % (0.0-2.0); EOS # 0.2 K/uL (0.0-0.7); EOS % 3.2 % (0.0-4.0); HEMOGLOBIN 10.1 g/dL (11.0-16.0); LYMPH # 1.6 K/uL (1.0-4.3); LYMPH % 29.2 % (20.0-40.0); MEAN CELL VOLUME 79.8 fL (81.0-99.0); MEAN CORPUSCULAR HEMOGLOBIN 23.5 pg (27.0-31.0); MEAN CORPUSCULAR HGB CONC 29.5 g/dL (33.0-37.0); MEAN PLATELET VOLUME 8.8 fL (7.2-11.7); MONO # 0.5 K/uL (0.0-0.8); MONO % 10.2 % (0.0-10.0); NEUT % 56.3 % (50.0-75.0); NRBC % 9.9 % (0.0-2.0); RBC 4.3 Mil/uL (3.80-5.20); RED CELL DISTRIBUTION WIDTH 19.3 % (11.5-14.5); WHITE BLOOD COUNT 5.3 K/uL (4.8-10.8)
[2018-05-22] MEDS: Latanoprost 2.5 ml Opht Soln OU SCH (22:42)
[2018-05-23] MEDS: Albuterol-Ipratrop 3 mg / 0.5 (3 ml) UD INH SCH ×4 (02:38→19:59)
[2018-05-23] MEDS: Levothyroxine 88 MCG TAB PO SCH (06:48)
[2018-05-23] MEDS: Piperacillin/Tazobact 3.375 GM in Sodium Chloride 100 ML IVPB SCH ×3 (07:47→22:30)
--- NOTE | 2018-05-23 08:26 | CARD ---
APPROVED REPORT Date of service: 05/21/2018 EKG Measurement Heart [id number] IN [id number] <Conclusion> Normal sinus rhythm Low voltage QRS Borderline ECG
--- NOTE | 2018-05-23 09:51 | CP.PCM.PN ---
Subjective - Date & Time of Evaluation Date of Evaluation: 05/22/18 Time of Evaluation: 19:35 - Subjective Subjective: Patient seen and evaluated Still short of breath Review Of Systems Constitutional: Negative for: Fever, Chills Cardiovascular: Positive for: Chest Pain Respiratory: Positive for: Cough, Shortness of Breath Gastrointestinal: Negative for: Nausea, Vomiting Genitourinary: Negative for: Dysuria, Hematuria Musculoskeletal: Negative for: Back Pain Neurological: Negative for: Weakness, Numbness <Proter [place] - Last Filed: 05/21/18 06:27> Physical Exam - Physical Exam Appears: Chronically Ill Skin: Normal Color, Warm Head: Atraumatic, Normacephalic Eye(s): bilateral: Normal Inspection Oral Mucosa: Moist Neck: Normal, Supple Chest: Symmetrical, No Tenderness Cardiovascular: Rhythm Regular Respiratory: Rales (Bilaterally), No Rhonchi, No Wheezing Gastrointestinal/Abdominal: Soft, No Tenderness Neurological/Psych: Oriented x3, Normal Speech Objective - Vital Signs/Intake and Output Vital Signs (last 24 hours): Temp Pulse Resp BP Pulse Ox 97.5 F L 57 L 20 91/60 L 99 05/23/18 08:00 05/23/18 08:00 05/23/18 08:00 05/23/18 09:35 05/23/18 08:00 - Medications Medications: Current Medications Albuterol/Ipratropium (Duoneb 3 Mg/0.5 Mg (3 Ml) Ud) 3 ml INH RQ6 [facility] Last Admin: 05/23/18 02:38 Dose: 3 ml Aspirin (Aspirin Chewable) 81 mg PO DAILY [facility] Last Admin: 05/23/18 09:36 Dose: 81 mg Brimonidine Tartrate (Alphagan 0.2% Opht) 0 ml OS BID [facility] Last Admin: 05/22/18 22:42 Dose: 1 drop Carvedilol (Coreg) 3.125 mg PO BID [facility] Last Admin: 05/23/18 09:35 Dose: Not Given Clopidogrel Bisulfate (Plavix) 75 mg PO DAILY [facility] Last Admin: 05/23/18 09:36 Dose: 75 mg Famotidine (Pepcid) 20 mg PO BID [facility] Last Admin: 05/23/18 09:36 Dose: 20 mg Furosemide (Lasix) 40 mg IVP DAILY [facility] Last Admin: 05/23/18 09:35 Dose: Not Given Heparin Sodium (Porcine) (Heparin) 5,000 units SC Q8 [facility] Last Admin: 05/23/18 06:48 Dose: 5,000 units Piperacillin Sod/Tazobactam (Sod 3.375 gm/ Sodium Chloride) 100 mls @ 200 mls/hr IVPB Q8H [facility]; Protocol Last Admin: 05/23/18 07:47 Dose: 200 mls/hr Latanoprost (Xalatan Opht) 0 ml OU HS [facility] Last Admin: 05/22/18 22:42 Dose: 2.5 ml Levothyroxine Sodium (Synthroid) 88 mcg PO 0630 [facility] Last Admin: 05/23/18 06:48 Dose: 88 mcg Lisinopril (Zestril) 2.5 mg PO DAILY [facility] Last Admin: 05/23/18 09:37 Dose: Not Given Rosuvastatin Calcium (Crestor) 5 mg PO HS [facility] Last Admin: 05/22/18 22:41 Dose: 5 mg - Labs Labs: 05/22/18 20:44 05/22/18 20:44 PT 15.1 SECONDS (9.7-12.2) H 05/21/18 06:22 INR 1.4 05/21/18 06:22 APTT 28 SECONDS (21-34) 05/21/18 06:22 Assessment and Plan - Assessment and Plan (Free Text) Assessment: Acute on Chronic systolic CHF CAD Severe MR, TR and pulmonary HTN IV Lasix 40 bid Medical management for now May benefit from PCI of L Cx and Jana Clip Will d/w the famly
[2018-05-23] MEDS: Brimonidine 0.2% Opth Sol (5ml) OS SCH ×2 (10:53→18:30)
[2018-05-23] MEDS: Latanoprost 2.5 ml Opht Soln OU SCH (22:25)
[2018-05-24] MEDS: Levothyroxine 88 MCG TAB PO SCH (06:02)
[2018-05-24] MEDS: Albuterol-Ipratrop 3 mg / 0.5 (3 ml) UD INH SCH ×4 (06:47→19:34)
[2018-05-24] MEDS: Piperacillin/Tazobact 3.375 GM in Sodium Chloride 100 ML IVPB SCH ×3 (07:25→22:18)
[2018-05-24] MEDS: Brimonidine 0.2% Opth Sol (5ml) OS SCH ×2 (10:02→17:41)
--- NOTE | 2018-05-24 11:47 | CP.PCM.PN ---
Subjective - Date & Time of Evaluation Date of Evaluation: 05/23/18 Time of Evaluation: 16:20 - Subjective Subjective: Patient seen and evaluated Breathing better Daughter at bedside Review Of Systems Constitutional: Negative for: Fever, Chills Cardiovascular: Positive for: Chest Pain Respiratory: Positive for: Cough, Shortness of Breath Gastrointestinal: Negative for: Nausea, Vomiting Genitourinary: Negative for: Dysuria, Hematuria Musculoskeletal: Negative for: Back Pain Neurological: Negative for: Weakness, Numbness Physical Exam - Physical Exam Appears: Chronically Ill Skin: Normal Color, Warm Head: Atraumatic, Normacephalic Eye(s): bilateral: Normal Inspection Oral Mucosa: Moist Neck: Normal, Supple Chest: Symmetrical, No Tenderness Cardiovascular: Rhythm Regular Respiratory: Rales (Bilaterally), No Rhonchi, No Wheezing Gastrointestinal/Abdominal: Soft, No Tenderness Neurological/Psych: Oriented x3, Normal Speech Assessment and Plan - Assessment and Plan (Free Text) Assessment: Acute on Chronic systolic CHF CAD Severe MR, TR and pulmonary HTN IV Lasix 40 bid Medical management for now May benefit from PCI of L Cx and Jana Clip D/W the daughter Wants to thin about it says needs a month Objective - Vital Signs/Intake and Output Vital Signs (last 24 hours): Temp Pulse Resp BP Pulse Ox 97.9 F 57 L 20 105/70 94 L 05/24/18 07:00 05/24/18 07:00 05/24/18 07:00 05/24/18 10:01 05/24/18 07:00 Intake and Output: 05/24/18 05/24/18 06:59 18:59 Intake Total Balance - Medications Medications: Current Medications Albuterol/Ipratropium (Duoneb 3 Mg/0.5 Mg (3 Ml) Ud) 3 ml INH RQ6 [facility] Last Admin: 05/24/18 07:40 Dose: 3 ml Aspirin (Aspirin Chewable) 81 mg PO DAILY [facility] Last Admin: 05/24/18 10:02 Dose: 81 mg Brimonidine Tartrate (Alphagan 0.2% Opht) 0 ml OS BID [facility] Last Admin: 05/24/18 10:02 Dose: 1 drop Carvedilol (Coreg) 3.125 mg PO BID [facility] Last Admin: 05/24/18 10:02 Dose: 3.125 mg Clopidogrel Bisulfate (Plavix) 75 mg PO DAILY [facility] Last Admin: 05/24/18 10:01 Dose: 75 mg Famotidine (Pepcid) 20 mg PO BID [facility] Last Admin: 05/24/18 10:01 Dose: 20 mg Furosemide (Lasix) 40 mg IVP DAILY [facility] Last Admin: 05/24/18 10:01 Dose: 40 mg Heparin Sodium (Porcine) (Heparin) 5,000 units SC Q8 [facility] Last Admin: 05/24/18 06:00 Dose: 5,000 units Piperacillin Sod/Tazobactam (Sod 3.375 gm/ Sodium Chloride) 100 mls @ 200 mls/hr IVPB Q8H [facility]; Protocol Last Admin: 05/24/18 07:25 Dose: 200 mls/hr Latanoprost (Xalatan Opht) 0 ml OU HS [facility] Last Admin: 05/23/18 22:25 Dose: 2.5 ml Levothyroxine Sodium (Synthroid) 88 mcg PO 0630 [facility] Last Admin: 05/24/18 06:02 Dose: 88 mcg Lisinopril (Zestril) 2.5 mg PO DAILY [facility] Last Admin: 05/24/18 10:06 Dose: Not Given Rosuvastatin Calcium (Crestor) 5 mg PO HS [facility] Last Admin: 05/23/18 22:25 Dose: 5 mg - Labs Labs: 05/22/18 20:44 05/22/18 20:44 PT 15.1 SECONDS (9.7-12.2) H 05/21/18 06:22 INR 1.4 05/21/18 06:22 APTT 28 SECONDS (21-34) 05/21/18 06:22
--- NOTE | 2018-05-24 20:41 | CP.PCM.PN ---
Subjective - Date & Time of Evaluation Date of Evaluation: 05/24/18 Time of Evaluation: 15:40 - Subjective Subjective: Patient seen and evaluated Denies chest pain and dyspnea Review Of Systems Constitutional: Negative for: Fever, Chills Cardiovascular: Positive for: Chest Pain Respiratory: Positive for: Cough, Shortness of Breath Gastrointestinal: Negative for: Nausea, Vomiting Genitourinary: Negative for: Dysuria, Hematuria Musculoskeletal: Negative for: Back Pain Neurological: Negative for: Weakness, Numbness Physical Exam - Physical Exam Appears: Chronically Ill Skin: Normal Color, Warm Head: Atraumatic, Normacephalic Eye(s): bilateral: Normal Inspection Oral Mucosa: Moist Neck: Normal, Supple Chest: Symmetrical, No Tenderness Cardiovascular: Rhythm Regular Respiratory: Rales (Bilaterally), No Rhonchi, No Wheezing Gastrointestinal/Abdominal: Soft, No Tenderness Neurological/Psych: Oriented x3, Normal Speech Assessment and Plan - Assessment and Plan (Free Text) Assessment: Acute on Chronic systolic CHF CAD Severe MR, TR and pulmonary HTN IV Lasix 40 bid Medical management for now May benefit from PCI of L Cx and Jana Clip D/W the daughter yesterday Wants to think about it also will d/w her niece with whom the patient lives says need a month to make a decision Objective - Vital Signs/Intake and Output Vital Signs (last 24 hours): Temp Pulse Resp BP Pulse Ox 97.3 F L 58 L 20 95/67 L 97 05/24/18 15:00 05/24/18 16:00 05/24/18 15:00 05/24/18 15:00 05/24/18 15:00 - Medications Medications: Current Medications Albuterol/Ipratropium (Duoneb 3 Mg/0.5 Mg (3 Ml) Ud) 3 ml INH RQ6 [facility] Last Admin: 05/24/18 19:34 Dose: 3 ml Aspirin (Aspirin Chewable) 81 mg PO DAILY [facility] Last Admin: 05/24/18 10:02 Dose: 81 mg Brimonidine Tartrate (Alphagan 0.2% Opht) 0 ml OS BID [facility] Last Admin: 05/24/18 17:41 Dose: 1 drop Carvedilol (Coreg) 3.125 mg PO BID [facility] Last Admin: 05/24/18 17:41 Dose: Not Given Clopidogrel Bisulfate (Plavix) 75 mg PO DAILY [facility] Last Admin: 05/24/18 10:01 Dose: 75 mg Famotidine (Pepcid) 20 mg PO BID [facility] Last Admin: 05/24/18 17:41 Dose: 20 mg Furosemide (Lasix) 40 mg IVP DAILY [facility] Last Admin: 05/24/18 10:01 Dose: 40 mg Heparin Sodium (Porcine) (Heparin) 5,000 units SC Q8 [facility] Last Admin: 05/24/18 13:15 Dose: 5,000 units Piperacillin Sod/Tazobactam (Sod 3.375 gm/ Sodium Chloride) 100 mls @ 200 mls/hr IVPB Q8H [facility]; Protocol Last Admin: 05/24/18 14:09 Dose: 200 mls/hr Latanoprost (Xalatan Opht) 0 ml OU HS [facility] Last Admin: 05/23/18 22:25 Dose: 2.5 ml Levothyroxine Sodium (Synthroid) 88 mcg PO 0630 [facility] Last Admin: 05/24/18 06:02 Dose: 88 mcg Lisinopril (Zestril) 2.5 mg PO DAILY [facility] Last Admin: 05/24/18 10:06 Dose: Not Given Rosuvastatin Calcium (Crestor) 5 mg PO HS [facility] Last Admin: 05/23/18 22:25 Dose: 5 mg - Labs Labs: 05/22/18 20:44 05/22/18 20:44 PT 15.1 SECONDS (9.7-12.2) H 05/21/18 06:22 INR 1.4 05/21/18 06:22 APTT 28 SECONDS (21-34) 05/21/18 06:22
[2018-05-24] MEDS: Latanoprost 2.5 ml Opht Soln OU SCH (22:20)
[2018-05-25] MEDS: Albuterol-Ipratrop 3 mg / 0.5 (3 ml) UD INH SCH ×4 (01:17→19:20)
[2018-05-25] MEDS: Piperacillin/Tazobact 3.375 GM in Sodium Chloride 100 ML IVPB SCH ×3 (06:07→22:01)
[2018-05-25] MEDS: Levothyroxine 88 MCG TAB PO SCH (06:08)
[2018-05-25] MEDS: Brimonidine 0.2% Opth Sol (5ml) OS SCH ×2 (10:05→19:00)
[2018-05-25] MEDS: Latanoprost 2.5 ml Opht Soln OU SCH (21:23)
--- NOTE | 2018-05-25 22:50 | CP.PCM.PN ---
Subjective - Date & Time of Evaluation Date of Evaluation: 05/25/18 Time of Evaluation: 22:50 - Subjective Subjective: Patient is now lying down comfortably than yesterday. Slightly better than yesterday. Vital signs reviewed Chest good air entry Heart sounds are regular Patient is a LifeVest. Edema in the legs negative. Still having some crackles in the lower parts of the lungs noted. Assessment and recommendation: 77-year-old female with history of CAD hypertension high cholesterol admitted with the cardiomyopathy. Patient has a pneumonia. Overall prognosis guarded. I discussed with the patient's family. I also spoke to the community health education coordinator. Patient at this moment needs continuous Lasix treatment. Antibiotic. Will discuss with the family regarding the further treatment, rehab evaluation needed Objective - Vital Signs/Intake and Output Vital Signs (last 24 hours): Temp Pulse Resp BP Pulse Ox 97.4 F L 65 20 106/74 100 05/25/18 16:00 05/25/18 16:00 05/25/18 16:00 05/25/18 16:00 05/25/18 16:00 - Medications Medications: Current Medications Albuterol/Ipratropium (Duoneb 3 Mg/0.5 Mg (3 Ml) Ud) 3 ml INH RQ6 [facility] Last Admin: 05/25/18 19:20 Dose: 3 ml Aspirin (Aspirin Chewable) 81 mg PO DAILY [facility] Last Admin: 05/25/18 11:58 Dose: 81 mg Brimonidine Tartrate (Alphagan 0.2% Opht) 0 ml OS BID [facility] Last Admin: 05/25/18 19:00 Dose: 1 drop Carvedilol (Coreg) 3.125 mg PO BID [facility] Last Admin: 05/25/18 19:00 Dose: Not Given Clopidogrel Bisulfate (Plavix) 75 mg PO DAILY [facility] Last Admin: 05/25/18 11:58 Dose: 75 mg Famotidine (Pepcid) 20 mg PO BID [facility] Last Admin: 05/25/18 19:00 Dose: 20 mg Furosemide (Lasix) 40 mg IVP DAILY [facility] Last Admin: 05/25/18 11:57 Dose: 40 mg Heparin Sodium (Porcine) (Heparin) 5,000 units SC Q8 [facility] Last Admin: 05/25/18 21:58 Dose: 5,000 units Piperacillin Sod/Tazobactam (Sod 3.375 gm/ Sodium Chloride) 100 mls @ 200 mls/hr IVPB Q8H [facility]; Protocol Last Admin: 05/25/18 22:01 Dose: 200 mls/hr Latanoprost (Xalatan Opht) 0 ml OU HS [facility] Last Admin: 05/25/18 21:23 Dose: 2.5 ml Levothyroxine Sodium (Synthroid) 88 mcg PO 0630 [facility] Last Admin: 05/25/18 06:08 Dose: 88 mcg Lisinopril (Zestril) 2.5 mg PO DAILY [facility] Last Admin: 05/25/18 12:02 Dose: 2.5 mg Rosuvastatin Calcium (Crestor) 5 mg PO HS [facility] Last Admin: 05/25/18 21:27 Dose: 5 mg - Labs Labs: 05/22/18 20:44 05/22/18 20:44 PT 15.1 SECONDS (9.7-12.2) H 05/21/18 06:22 INR 1.4 05/21/18 06:22 APTT 28 SECONDS (21-34) 05/21/18 06:22
--- NOTE | 2018-05-25 22:50 | CP.PCM.PN ---
Subjective - Date & Time of Evaluation Date of Evaluation: 05/23/18 Time of Evaluation: 22:50 - Subjective Subjective: Patient is still having agitation. Poor intake. But be able to eat slightly better than yesterday. Shortness of breath is still noted. Patient is having LifeVest On examination: Vital signs are stable, except a low blood pressure noted Chest good air entry regular heart sounds nontender abdomen Assessment and recommendation: Patient is a 77-year-old female admitted with decompensated heart failure Acute pneumonia CHF. CAD, status post acute AL. Renal insufficiency. We will continue the current treatment IV Lasix bronchodilators will follow the patient Objective - Vital Signs/Intake and Output Vital Signs (last 24 hours): Temp Pulse Resp BP Pulse Ox 97.4 F L 65 20 106/74 100 05/25/18 16:00 05/25/18 16:00 05/25/18 16:00 05/25/18 16:00 05/25/18 16:00 - Medications Medications: Current Medications Albuterol/Ipratropium (Duoneb 3 Mg/0.5 Mg (3 Ml) Ud) 3 ml INH RQ6 [facility] Last Admin: 05/25/18 19:20 Dose: 3 ml Aspirin (Aspirin Chewable) 81 mg PO DAILY [facility] Last Admin: 05/25/18 11:58 Dose: 81 mg Brimonidine Tartrate (Alphagan 0.2% Opht) 0 ml OS BID [facility] Last Admin: 05/25/18 19:00 Dose: 1 drop Carvedilol (Coreg) 3.125 mg PO BID [facility] Last Admin: 05/25/18 19:00 Dose: Not Given Clopidogrel Bisulfate (Plavix) 75 mg PO DAILY [facility] Last Admin: 05/25/18 11:58 Dose: 75 mg Famotidine (Pepcid) 20 mg PO BID [facility] Last Admin: 05/25/18 19:00 Dose: 20 mg Furosemide (Lasix) 40 mg IVP DAILY [facility] Last Admin: 05/25/18 11:57 Dose: 40 mg Heparin Sodium (Porcine) (Heparin) 5,000 units SC Q8 [facility] Last Admin: 05/25/18 21:58 Dose: 5,000 units Piperacillin Sod/Tazobactam (Sod 3.375 gm/ Sodium Chloride) 100 mls @ 200 mls/hr IVPB Q8H [facility]; Protocol Last Admin: 05/25/18 22:01 Dose: 200 mls/hr Latanoprost (Xalatan Opht) 0 ml OU HS [facility] Last Admin: 05/25/18 21:23 Dose: 2.5 ml Levothyroxine Sodium (Synthroid) 88 mcg PO 0630 [facility] Last Admin: 05/25/18 06:08 Dose: 88 mcg Lisinopril (Zestril) 2.5 mg PO DAILY [facility] Last Admin: 05/25/18 12:02 Dose: 2.5 mg Rosuvastatin Calcium (Crestor) 5 mg PO HS [facility] Last Admin: 05/25/18 21:27 Dose: 5 mg - Labs Labs: 05/22/18 20:44 05/22/18 20:44 PT 15.1 SECONDS (9.7-12.2) H 05/21/18 06:22 INR 1.4 05/21/18 06:22 APTT 28 SECONDS (21-34) 05/21/18 06:22
--- NOTE | 2018-05-25 22:50 | CP.PCM.PN ---
Subjective - Date & Time of Evaluation Date of Evaluation: 05/24/18 Time of Evaluation: 22:50 - Subjective Subjective: Patient today underwent a right tibial artery revascularization. Patient underwent a successful surgical intervention today. Patient has of both posterior tibial, and dorsalis pedis artery. Pulses are feeling well. Patient also has mild pain. He is feeling well. No chest pain or shortness of breath noted at this time. On examination: Temperature 97.6 pulse 81 Chest good air entry Heart sounds are regular Nontender abdomen. No pedal edema Objective - Vital Signs/Intake and Output Vital Signs (last 24 hours): Temp Pulse Resp BP Pulse Ox 97.4 F L 65 20 106/74 100 05/25/18 16:00 05/25/18 16:00 05/25/18 16:00 05/25/18 16:00 05/25/18 16:00 - Medications Medications: Current Medications Albuterol/Ipratropium (Duoneb 3 Mg/0.5 Mg (3 Ml) Ud) 3 ml INH RQ6 [facility] Last Admin: 05/25/18 19:20 Dose: 3 ml Aspirin (Aspirin Chewable) 81 mg PO DAILY [facility] Last Admin: 05/25/18 11:58 Dose: 81 mg Brimonidine Tartrate (Alphagan 0.2% Opht) 0 ml OS BID [facility] Last Admin: 05/25/18 19:00 Dose: 1 drop Carvedilol (Coreg) 3.125 mg PO BID [facility] Last Admin: 05/25/18 19:00 Dose: Not Given Clopidogrel Bisulfate (Plavix) 75 mg PO DAILY [facility] Last Admin: 05/25/18 11:58 Dose: 75 mg Famotidine (Pepcid) 20 mg PO BID [facility] Last Admin: 05/25/18 19:00 Dose: 20 mg Furosemide (Lasix) 40 mg IVP DAILY [facility] Last Admin: 05/25/18 11:57 Dose: 40 mg Heparin Sodium (Porcine) (Heparin) 5,000 units SC Q8 [facility] Last Admin: 05/25/18 21:58 Dose: 5,000 units Piperacillin Sod/Tazobactam (Sod 3.375 gm/ Sodium Chloride) 100 mls @ 200 mls/hr IVPB Q8H [facility]; Protocol Last Admin: 05/25/18 22:01 Dose: 200 mls/hr Latanoprost (Xalatan Opht) 0 ml OU HS [facility] Last Admin: 05/25/18 21:23 Dose: 2.5 ml Levothyroxine Sodium (Synthroid) 88 mcg PO 0630 [facility] Last Admin: 05/25/18 06:08 Dose: 88 mcg Lisinopril (Zestril) 2.5 mg PO DAILY [facility] Last Admin: 05/25/18 12:02 Dose: 2.5 mg Rosuvastatin Calcium (Crestor) 5 mg PO HS [facility] Last Admin: 05/25/18 21:27 Dose: 5 mg - Labs Labs: 05/22/18 20:44 05/22/18 20:44 PT 15.1 SECONDS (9.7-12.2) H 05/21/18 06:22 INR 1.4 05/21/18 06:22 APTT 28 SECONDS (21-34) 05/21/18 06:22
--- NOTE | 2018-05-26 00:01 | CP.PCM.PN ---
Subjective - Date & Time of Evaluation Date of Evaluation: 05/25/18 Time of Evaluation: 17:25 - Subjective Subjective: Patient see and evaluated Dyspnea improving Review Of Systems Constitutional: Negative for: Fever, Chills Cardiovascular: Positive for: Chest Pain Respiratory: Positive for: Cough, Shortness of Breath Gastrointestinal: Negative for: Nausea, Vomiting Genitourinary: Negative for: Dysuria, Hematuria Musculoskeletal: Negative for: Back Pain Neurological: Negative for: Weakness, Numbness Physical Exam - Physical Exam Appears: Chronically Ill Skin: Normal Color, Warm Head: Atraumatic, Normacephalic Eye(s): bilateral: Normal Inspection Oral Mucosa: Moist Neck: Normal, Supple Chest: Symmetrical, No Tenderness Cardiovascular: Rhythm Regular Respiratory: Rales (Bilaterally), No Rhonchi, No Wheezing Gastrointestinal/Abdominal: Soft, No Tenderness Neurological/Psych: Oriented x3, Normal Speech Assessment and Plan - Assessment and Plan (Free Text) Assessment: Acute on Chronic systolic CHF CAD Severe MR, TR and pulmonary HTN IV Lasix 40 bid Medical management for now May benefit from PCI of L Cx and Jana Clip D/W the daughter yesterday Wants to think about it also will d/w her niece with whom the patient lives says need a month to make a decision Objective - Vital Signs/Intake and Output Vital Signs (last 24 hours): Temp Pulse Resp BP Pulse Ox 97.4 F L 65 20 106/74 100 05/25/18 16:00 05/25/18 16:00 05/25/18 16:00 05/25/18 16:00 05/25/18 16:00 - Medications Medications: Current Medications Albuterol/Ipratropium (Duoneb 3 Mg/0.5 Mg (3 Ml) Ud) 3 ml INH RQ6 [facility] Last Admin: 05/25/18 19:20 Dose: 3 ml Aspirin (Aspirin Chewable) 81 mg PO DAILY [facility] Last Admin: 05/25/18 11:58 Dose: 81 mg Brimonidine Tartrate (Alphagan 0.2% Opht) 0 ml OS BID [facility] Last Admin: 05/25/18 19:00 Dose: 1 drop Carvedilol (Coreg) 3.125 mg PO BID [facility] Last Admin: 05/25/18 19:00 Dose: Not Given Clopidogrel Bisulfate (Plavix) 75 mg PO DAILY [facility] Last Admin: 05/25/18 11:58 Dose: 75 mg Famotidine (Pepcid) 20 mg PO BID [facility] Last Admin: 05/25/18 19:00 Dose: 20 mg Furosemide (Lasix) 40 mg IVP DAILY [facility] Last Admin: 05/25/18 11:57 Dose: 40 mg Heparin Sodium (Porcine) (Heparin) 5,000 units SC Q8 [facility] Last Admin: 05/25/18 21:58 Dose: 5,000 units Piperacillin Sod/Tazobactam (Sod 3.375 gm/ Sodium Chloride) 100 mls @ 200 m ls/hr IVPB Q8H [facility]; Protocol Last Admin: 05/25/18 22:01 Dose: 200 mls/hr Latanoprost (Xalatan Opht) 0 ml OU HS [facility] Last Admin: 05/25/18 21:23 Dose: 2.5 ml Levothyroxine Sodium (Synthroid) 88 mcg PO 0630 [facility] Last Admin: 05/25/18 06:08 Dose: 88 mcg Lisinopril (Zestril) 2.5 mg PO DAILY [facility] Last Admin: 05/25/18 12:02 Dose: 2.5 mg Rosuvastatin Calcium (Crestor) 5 mg PO HS [facility] Last Admin: 05/25/18 21:27 Dose: 5 mg - Labs Labs: 05/22/18 20:44 05/22/18 20:44 PT 15.1 SECONDS (9.7-12.2) H 05/21/18 06:22 INR 1.4 05/21/18 06:22 APTT 28 SECONDS (21-34) 05/21/18 06:22
[2018-05-26] MEDS: Albuterol-Ipratrop 3 mg / 0.5 (3 ml) UD INH SCH ×4 (02:42→20:21)
[2018-05-26] MEDS: Levothyroxine 88 MCG TAB PO SCH (06:14)
[2018-05-26] MEDS: Piperacillin/Tazobact 3.375 GM in Sodium Chloride 100 ML IVPB SCH ×3 (06:14→22:59)
[2018-05-26 08:17] LABS: BASO % 0.6 % (0.0-2.0); EOS # 0.2 K/uL (0.0-0.7); EOS % 2.6 % (0.0-4.0); HEMOGLOBIN 10.4 g/dL (11.0-16.0); LYMPH # 1.8 K/uL (1.0-4.3); LYMPH % 26.9 % (20.0-40.0); MEAN CORPUSCULAR HEMOGLOBIN 24.2 pg (27.0-31.0); MEAN CORPUSCULAR HGB CONC 29.4 g/dL (33.0-37.0); MEAN PLATELET VOLUME 8.9 fL (7.2-11.7); MONO # 0.7 K/uL (0.0-0.8); NEUT # 3.9 K/uL (1.8-7.0); NEUT % 58.9 % (50.0-75.0); NRBC % 0.9 % (0.0-2.0); RBC 4.32 Mil/uL (3.80-5.20); RED CELL DISTRIBUTION WIDTH 22.5 % (11.5-14.5); WHITE BLOOD COUNT 6.7 K/uL (4.8-10.8)
[2018-05-26 08:23] LABS: MEAN CELL VOLUME 82.1 fL (81.0-99.0)
[2018-05-26 08:53] LABS: ALB/GLOB RATIO 1.1 (1.0-2.1); ALBUMIN 3.6 g/dL (3.5-5.0); CALCIUM 8.9 mg/dl (8.6-10.4)
[2018-05-26] MEDS: Brimonidine 0.2% Opth Sol (5ml) OS SCH ×2 (09:55→17:43)
--- NOTE | 2018-05-26 14:55 | RAD ---
Date of service: 05/26/2018 HISTORY: chf COMPARISON: 05/22/2018 FINDINGS: LUNGS: Extent of left inferior kalpesh thoracic opacification less now than before-inferred partial clearing of the left pleural effusion and in inferred interval improved aeration here. Residual left pleural effusion and residual left basal compressive atelectasis suspect. Concomitant underlying infiltrate here not excluded. Interval increased hazy opacity right lung base-slight interval increase right pleural effusion with some mild compressive atelectatic changes here probable. PLEURA: Bilateral pleural effusions and changes as referenced above. No pneumothorax appreciated CARDIOVASCULAR: There is presence of aortic atherosclerotic calcification on x-ray. Cardiomegaly pulmonary venous congestion is suspect-similar to possibly increased in the right hemithorax. Extensive overlying monitoring device is in place. Correlate clinically OSSEOUS STRUCTURES: Bilateral shoulder arthrosis. VISUALIZED UPPER ABDOMEN: Normal. OTHER FINDINGS: None. IMPRESSION: Bilateral pleural effusions with varying degrees of inferred bibasilar compressive atelectasis. Interval improvement suggested left lung base slight interval worsening right lung base pulmonary venous congestion probably slightly increased in the right. Cardiomegaly-this in the above ir findings compatible with the clinical history of CHF provided.
--- NOTE | 2018-05-26 21:30 | CP.PCM.PN ---
Subjective - Date & Time of Evaluation Date of Evaluation: 05/26/18 Time of Evaluation: 21:29 - Subjective Subjective: For this patient this morning. Patient is sexually doing well than yesterday. X-ray of the chest reviewed There is still having bilateral effusion, bilateral CHF pattern noted. Vital signs stable. On and off Lasix is not being given because of the low blood pressure. We will continue the current treatment. TSH is on the low side, will add increase the levothyroxine. Physical therapy out of bed to chair and will follow the patient. Patient will need subacute rehab, will speak to the family for rehab evaluation and management Objective - Vital Signs/Intake and Output Vital Signs (last 24 hours): Temp Pulse Resp BP Pulse Ox 97.3 F L 60 18 105/76 99 05/26/18 15:10 05/26/18 15:10 05/26/18 15:10 05/26/18 15:10 05/26/18 15:10 - Medications Medications: Current Medications Albuterol/Ipratropium (Duoneb 3 Mg/0.5 Mg (3 Ml) Ud) 3 ml INH RQ6 [facility] Last Admin: 05/26/18 20:21 Dose: 3 ml Aspirin (Aspirin Chewable) 81 mg PO DAILY [facility] Last Admin: 05/26/18 09:56 Dose: 81 mg Brimonidine Tartrate (Alphagan 0.2% Opht) 0 ml OS BID [facility] Last Admin: 05/26/18 17:43 Dose: 1 drop Carvedilol (Coreg) 3.125 mg PO BID [facility] Last Admin: 05/26/18 17:43 Dose: 3.125 mg Clopidogrel Bisulfate (Plavix) 75 mg PO DAILY [facility] Last Admin: 05/26/18 09:56 Dose: 75 mg Famotidine (Pepcid) 20 mg PO BID [facility] Last Admin: 05/26/18 17:43 Dose: 20 mg Furosemide (Lasix) 40 mg IVP DAILY [facility] Last Admin: 05/26/18 09:57 Dose: 40 mg Heparin Sodium (Porcine) (Heparin) 5,000 units SC Q8 [facility] Last Admin: 05/26/18 14:14 Dose: 5,000 units Piperacillin Sod/Tazobactam (Sod 3.375 gm/ Sodium Chloride) 100 mls @ 200 mls/hr IVPB Q8H [facility]; Protocol Last Admin: 05/26/18 14:07 Dose: 200 mls/hr Latanoprost (Xalatan Opht) 0 ml OU HS [facility] Last Admin: 05/25/18 21:23 Dose: 2.5 ml Levothyroxine Sodium (Synthroid) 88 mcg PO 0630 [facility] Last Admin: 05/26/18 06:14 Dose: 88 mcg Lisinopril (Zestril) 2.5 mg PO DAILY [facility] Last Admin: 05/26/18 09:56 Dose: 2.5 mg Rosuvastatin Calcium (Crestor) 5 mg PO HS [facility] Last Admin: 05/25/18 21:27 Dose: 5 mg - Labs Labs: 05/26/18 07:58 05/26/18 07:58 PT 15.1 SECONDS (9.7-12.2) H 05/21/18 06:22 INR 1.4 05/21/18 06:22 APTT 28 SECONDS (21-34) 05/21/18 06:22
[2018-05-26] MEDS: Latanoprost 2.5 ml Opht Soln OU SCH (22:59)
--- NOTE | 2018-05-27 00:05 | CP.PCM.PN ---
Subjective - Date & Time of Evaluation Date of Evaluation: 05/26/18 Time of Evaluation: 11:10 - Subjective Subjective: Patient seen and evaluated Denies chest pain and dyspnea CAD, Valvular heart disease Medical management Review Of Systems Constitutional: Negative for: Fever, Chills Cardiovascular: Positive for: Chest Pain Respiratory: Positive for: Cough, Shortness of Breath Gastrointestinal: Negative for: Nausea, Vomiting Genitourinary: Negative for: Dysuria, Hematuria Musculoskeletal: Negative for: Back Pain Neurological: Negative for: Weakness, Numbness Physical Exam - Physical Exam Appears: Chronically Ill Skin: Normal Color, Warm Head: Atraumatic, Normacephalic Eye(s): bilateral: Normal Inspection Oral Mucosa: Moist Neck: Normal, Supple Chest: Symmetrical, No Tenderness Cardiovascular: Rhythm Regular Respiratory: Rales (Bilaterally), No Rhonchi, No Wheezing Gastrointestinal/Abdominal: Soft, No Tenderness Neurological/Psych: Oriented x3, Normal Speech Assessment and Plan - Assessment and Plan (Free Text) Assessment: Acute on Chronic systolic CHF CAD Severe MR, TR and pulmonary HTN IV Lasix 40 bid Medical management for now Objective - Vital Signs/Intake and Output Vital Signs (last 24 hours): Temp Pulse Resp BP Pulse Ox 97.3 F L 60 18 105/76 99 05/26/18 15:10 05/26/18 15:10 05/26/18 15:10 05/26/18 15:10 05/26/18 15:10 - Medications Medications: Current Medications Albuterol/Ipratropium (Duoneb 3 Mg/0.5 Mg (3 Ml) Ud) 3 ml INH RQ6 [facility] Last Admin: 05/26/18 20:21 Dose: 3 ml Aspirin (Aspirin Chewable) 81 mg PO DAILY [facility] Last Admin: 05/26/18 09:56 Dose: 81 mg Brimonidine Tartrate (Alphagan 0.2% Opht) 0 ml OS BID [facility] Last Admin: 05/26/18 17:43 Dose: 1 drop Carvedilol (Coreg) 3.125 mg PO BID [facility] Last Admin: 05/26/18 17:43 Dose: 3.125 mg Clopidogrel Bisulfate (Plavix) 75 mg PO DAILY [facility] Last Admin: 05/26/18 09:56 Dose: 75 mg Famotidine (Pepcid) 20 mg PO BID [facility] Last Admin: 05/26/18 17:43 Dose: 20 mg Furosemide (Lasix) 40 mg IVP DAILY [facility] Last Admin: 05/26/18 09:57 Dose: 40 mg Heparin Sodium (Porcine) (Heparin) 5,000 units SC Q8 [facility] Last Admin: 05/26/18 22:58 Dose: 5,000 units Piperacillin Sod/Tazobactam (Sod 3.375 gm/ Sodium Chloride) 100 mls @ 200 mls/hr IVPB Q8H [facility]; Protocol Last Admin: 05/26/18 22:59 Dose: 200 mls/hr Latanoprost (Xalatan Opht) 0 ml OU HS [facility] Last Admin: 05/26/18 22:59 Dose: 2.5 ml Levothyroxine Sodium (Synthroid) 100 mcg PO DAILY@0630 [facility] Lisinopril (Zestril) 2.5 mg PO DAILY [facility] Last Admin: 05/26/18 09:56 Dose: 2.5 mg Rosuvastatin Calcium (Crestor) 5 mg PO HS [facility] Last Admin: 05/26/18 22:58 Dose: Not Given - Labs Labs: 05/26/18 07:58 05/26/18 07:58 PT 15.1 SECONDS (9.7-12.2) H 05/21/18 06:22 INR 1.4 05/21/18 06:22 APTT 28 SECONDS (21-34) 05/21/18 06:22
[2018-05-27 01:13] VITALS: RESP 20
[2018-05-27] MEDS: Levothyroxine 100 MCG TAB PO SCH (06:22)
[2018-05-27] MEDS: Piperacillin/Tazobact 3.375 GM in Sodium Chloride 100 ML IVPB SCH ×2 (06:23→22:30)
[2018-05-27] MEDS: Albuterol-Ipratrop 3 mg / 0.5 (3 ml) UD INH SCH ×4 (08:20→19:41)
[2018-05-27] MEDS: Brimonidine 0.2% Opth Sol (5ml) OS SCH ×2 (10:25→17:22)
--- NOTE | 2018-05-27 18:32 | CP.PCM.PN ---
Subjective - Date & Time of Evaluation Date of Evaluation: 05/27/18 Time of Evaluation: 18:30 - Subjective Subjective: Patient is more comfortable than yesterday. Less agitation. But she still feeling somewhat restless while sleeping on the left side. Less cough noted. No swelling On examination: Vital signs are noted, the blood pressure slightly on the low side. Patient was not able to get the Lasix today. Chest good air entry, wheezing bilaterally noted Regular heart sounds noted Patient has a LifeVest Yesterday's x-ray, labs reviewed, there is bilateral pleural effusion noted, also renal functions are showing some improvement Assessment and recommendation: 77-year-old female with a history of acute [place] congestive heart failure renal insufficiency multiorgan failure Patient admitted with altered mental status and severe CHF exacerbation and likely pneumonia Patient is currently receiving antibiotic significant improvement, will continue with IV Lasix today and tomorrow and repeat the chest x-ray in the morning along with the labs. If stable possible discharge plan tomorrow to assisted subacute rehab I spoke to the patient's family Patient does not want any intervention at this time including cardiac catheter and the stenting until 1 month Objective - Vital Signs/Intake and Output Vital Signs (last 24 hours): Temp Pulse Resp BP Pulse Ox 97.7 F 60 20 109/77 100 05/27/18 15:00 05/27/18 15:00 05/27/18 15:00 05/27/18 15:00 05/27/18 15:00 - Medications Medications: Current Medications Albuterol/Ipratropium (Duoneb 3 Mg/0.5 Mg (3 Ml) Ud) 3 ml INH RQ6 [facility] Last Admin: 05/27/18 14:32 Dose: Not Given Aspirin (Aspirin Chewable) 81 mg PO DAILY [facility] Last Admin: 05/27/18 10:25 Dose: 81 mg Brimonidine Tartrate (Alphagan 0.2% Opht) 0 ml OS BID [facility] Last Admin: 05/27/18 17:22 Dose: 1 drop Carvedilol (Coreg) 3.125 mg PO BID [facility] Last Admin: 05/27/18 17:22 Dose: 3.125 mg Clopidogrel Bisulfate (Plavix) 75 mg PO DAILY [facility] Last Admin: 05/27/18 10:25 Dose: 75 mg Famotidine (Pepcid) 20 mg PO BID [facility] Last Admin: 05/27/18 17:22 Dose: 20 mg Furosemide (Lasix) 40 mg IVP DAILY [facility] Last Admin: 05/27/18 10:26 Dose: 40 mg Heparin Sodium (Porcine) (Heparin) 5,000 units SC Q8 [facility] Last Admin: 05/27/18 06:22 Dose: 5,000 units Piperacillin Sod/Tazobactam (Sod 3.375 gm/ Sodium Chloride) 100 mls @ 200 mls/hr IVPB Q8H [facility]; Protocol Last Admin: 05/27/18 06:23 Dose: 200 mls/hr Latanoprost (Xalatan Opht) 0 ml OU HS [facility] Last Admin: 05/26/18 22:59 Dose: 2.5 ml Levothyroxine Sodium (Synthroid) 100 mcg PO DAILY@0630 [facility] Last Admin: 05/27/18 06:22 Dose: 100 mcg Lisinopril (Zestril) 2.5 mg PO DAILY [facility] Last Admin: 05/27/18 10:25 Dose: 2.5 mg Rosuvastatin Calcium (Crestor) 5 mg PO HS [facility] Last Admin: 05/26/18 22:58 Dose: Not Given - Labs Labs: 05/26/18 07:58 05/26/18 07:58 PT 15.1 SECONDS (9.7-12.2) H 05/21/18 06:22 INR 1.4 05/21/18 06:22 APTT 28 SECONDS (21-34) 05/21/18 06:22
[2018-05-27] MEDS: Latanoprost 2.5 ml Opht Soln OU SCH (21:31)
--- NOTE | 2018-05-27 22:49 | CP.PCM.PN ---
Subjective - Date & Time of Evaluation Date of Evaluation: 05/27/18 Time of Evaluation: 18:35 - Subjective Subjective: Review Of Systems Constitutional: Negative for: Fever, Chills Cardiovascular: Positive for: Chest Pain Respiratory: Positive for: Cough, Shortness of Breath Gastrointestinal: Negative for: Nausea, Vomiting Genitourinary: Negative for: Dysuria, Hematuria Musculoskeletal: Negative for: Back Pain Neurological: Negative for: Weakness, Numbness Physical Exam - Physical Exam Appears: Chronically Ill Skin: Normal Color, Warm Head: Atraumatic, Normacephalic Eye(s): bilateral: Normal Inspection Oral Mucosa: Moist Neck: Normal, Supple Chest: Symmetrical, No Tenderness Cardiovascular: Rhythm Regular Respiratory: Rales (Bilaterally), No Rhonchi, No Wheezing Gastrointestinal/Abdominal: Soft, No Tenderness Neurological/Psych: Oriented x3, Normal Speech Assessment and Plan - Assessment and Plan (Free Text) Assessment: Acute on Chronic systolic CHF CAD Severe MR, TR and pulmonary HTN IV Lasix 40 bid Medical management for now May benefit from PCI of L Cx and Jana Clip D/W the daughter yesterday Wants to think about it also will d/w her niece with whom the patient lives says need a month to make a decision Patient is more comfortable than yesterday. Less agitation. But she still feeling somewhat restless while sleeping on the left side. Less cough noted. No swelling Yesterday's x-ray, labs reviewed, there is bilateral pleural effusion noted, also renal functions are showing some improvement Assessment and recommendation: 77-year-old female with a history of acute [place] congestive heart failure renal insufficiency multiorgan failure Patient admitted with altered mental status and severe CHF exacerbation and likely pneumonia Patient is currently receiving antibiotic significant improvement, will continue with IV Lasix today and tomorrow and repeat the chest x-ray in the morning along with the labs. If stable possible discharge plan tomorrow to long-term subacute rehab I spoke to the patient's family Patient does not want any intervention at this time including cardiac catheter and the stenting until 1 month Objective - Vital Signs/Intake and Output Vital Signs (last 24 hours): Temp Pulse Resp BP Pulse Ox 97.7 F 60 20 109/77 100 05/27/18 15:00 05/27/18 15:00 05/27/18 15:00 05/27/18 15:00 05/27/18 15:00 - Medications Medications: Current Medications Albuterol/Ipratropium (Duoneb 3 Mg/0.5 Mg (3 Ml) Ud) 3 ml INH RQ6 [facility] Last Admin: 05/27/18 19:41 Dose: 3 ml Aspirin (Aspirin Chewable) 81 mg PO DAILY [facility] Last Admin: 05/27/18 10:25 Dose: 81 mg Brimonidine Tartrate (Alphagan 0.2% Opht) 0 ml OS BID [facility] Last Admin: 05/27/18 17:22 Dose: 1 drop Carvedilol (Coreg) 3.125 mg PO BID [facility] Last Admin: 05/27/18 17:22 Dose: 3.125 mg Clopidogrel Bisulfate (Plavix) 75 mg PO DAILY [facility] Last Admin: 05/27/18 10:25 Dose: 75 mg Famotidine (Pepcid) 20 mg PO BID [facility] Last Admin: 05/27/18 17:22 Dose: 20 mg Furosemide (Lasix) 40 mg IVP DAILY [facility] Last Admin: 05/27/18 10:26 Dose: 40 mg Heparin Sodium (Porcine) (Heparin) 5,000 units SC Q8 [facility] Last Admin: 05/27/18 22:38 Dose: Not Given Piperacillin Sod/Tazobactam (Sod 3.375 gm/ Sodium Chloride) 100 mls @ 200 mls/hr IVPB Q8H [facility]; Protocol Last Admin: 05/27/18 22:30 Dose: 200 mls/hr Latanoprost (Xalatan Opht) 0 ml OU HS [facility] Last Admin: 05/27/18 21:31 Dose: 2.5 ml Levothyroxine Sodium (Synthroid) 100 mcg PO DAILY@0630 [facility] Last Admin: 05/27/18 06:22 Dose: 100 mcg Lisinopril (Zestril) 2.5 mg PO DAILY [facility] Last Admin: 05/27/18 10:25 Dose: 2.5 mg Rosuvastatin Calcium (Crestor) 5 mg PO HS [facility] Last Admin: 05/27/18 21:31 Dose: 5 mg - Labs Labs: 05/26/18 07:58 05/26/18 07:58 PT 15.1 SECONDS (9.7-12.2) H 05/21/18 06:22 INR 1.4 05/21/18 06:22 APTT 28 SECONDS (21-34) 05/21/18 06:22
[2018-05-28] MEDS: Albuterol-Ipratrop 3 mg / 0.5 (3 ml) UD INH SCH ×4 (01:11→20:29)
[2018-05-28] MEDS: Levothyroxine 100 MCG TAB PO SCH (05:59)
[2018-05-28] MEDS: Piperacillin/Tazobact 3.375 GM in Sodium Chloride 100 ML IVPB SCH ×3 (05:59→22:54)
[2018-05-28 07:45] LABS: BASO % 0.4 % (0.0-2.0); EOS # 0.1 K/uL (0.0-0.7); EOS % 2.2 % (0.0-4.0); HEMOGLOBIN 10.6 g/dL (11.0-16.0); LYMPH # 1.9 K/uL (1.0-4.3); LYMPH % 37.3 % (20.0-40.0); MEAN CELL VOLUME 81.9 fL (81.0-99.0); MEAN CORPUSCULAR HGB CONC 29.3 g/dL (33.0-37.0); MEAN PLATELET VOLUME 8.9 fL (7.2-11.7); MONO # 0.6 K/uL (0.0-0.8); MONO % 12.4 % (0.0-10.0); NEUT # 2.5 K/uL (1.8-7.0); NEUT % 47.7 % (50.0-75.0); NRBC % 1.1 % (0.0-2.0); RBC 4.42 Mil/uL (3.80-5.20); RED CELL DISTRIBUTION WIDTH 22.8 % (11.5-14.5); WHITE BLOOD COUNT 5.2 K/uL (4.8-10.8)
[2018-05-28 08:06] LABS: ALBUMIN 3.4 g/dL (3.5-5.0); CALCIUM 9.2 mg/dl (8.6-10.4)
[2018-05-28] MEDS: Brimonidine 0.2% Opth Sol (5ml) OS SCH ×2 (09:54→18:52)
--- NOTE | 2018-05-28 11:28 | RAD ---
Date of service: 05/28/2018 HISTORY: chf COMPARISON: 05/26/2018 FINDINGS: LUNGS: The prior hazy opacity at the right lung base appears less amorphous less extensive-some interval improved aeration and some interval improved clearing right pleural effusion probably layering in the semi-erect AP view is present. Evaluation of changes the left lung base is impeded due to overlying radiopaque metallic monitoring devices. Some element of persistent airspace opacity with left pleural effusion here is bili present a small left pleural effusion with compressive atelectasis with or without concomitant infiltrate here at least a residual mobile was seen present previously is suspect. Recommend follow-up frontal view with slight right and left oblique views to better unfold this left lung base to visualize when patient can tolerate. PLEURA: Small bilateral pleural effusions are bili present-probably slight decreased on the right. Evaluation for change in left impeded as referenced above. No pneumothorax seen. CARDIOVASCULAR: There is presence of aortic atherosclerotic calcification on x-ray. Cardiomegaly as before. An element of concomitant mild pulmonary venous congestion and interstitial pulmonary edema are believed present. No definite change in this regard seen. Extensive overlying and obscuring radiopaque monitoring devices are present. Correlate clinically. OSSEOUS STRUCTURES: Bilateral shoulder arthrosis. VISUALIZED UPPER ABDOMEN: Normal. OTHER FINDINGS: None. IMPRESSION: Interval changes at both lung bases as referenced above. Probable improvement at the right lung base. Assessment for changes at the left lung base impeded because of obscuring monitoring hardware present here.
[2018-05-28] MEDS: Latanoprost 2.5 ml Opht Soln OU SCH (21:15)
--- NOTE | 2018-05-28 22:12 | CP.PCM.PN ---
Subjective - Date & Time of Evaluation Date of Evaluation: 05/28/18 Time of Evaluation: 22:12 - Subjective Subjective: Patient will do the physical therapy today. If the patient tolerates physical therapy, patient can be discharged to subacute rehab. Awaiting for placement. Meanwhile we will repeat the labs tomorrow Objective - Vital Signs/Intake and Output Vital Signs (last 24 hours): Temp Pulse Resp BP Pulse Ox 97.5 F L 66 20 120/83 94 L 05/28/18 15:00 05/28/18 15:00 05/28/18 15:00 05/28/18 15:00 05/28/18 15:00 - Medications Medications: Current Medications Albuterol/Ipratropium (Duoneb 3 Mg/0.5 Mg (3 Ml) Ud) 3 ml INH RQ6 [facility] Last Admin: 05/28/18 20:29 Dose: 3 ml Aspirin (Aspirin Chewable) 81 mg PO DAILY [facility] Last Admin: 05/28/18 09:54 Dose: 81 mg Brimonidine Tartrate (Alphagan 0.2% Opht) 0 ml OS BID [facility] Last Admin: 05/28/18 18:52 Dose: 1 drop Carvedilol (Coreg) 3.125 mg PO BID [facility] Last Admin: 05/28/18 18:52 Dose: 3.125 mg Clopidogrel Bisulfate (Plavix) 75 mg PO DAILY [facility] Last Admin: 05/28/18 09:55 Dose: 75 mg Famotidine (Pepcid) 20 mg PO BID [facility] Last Admin: 05/28/18 18:52 Dose: 20 mg Furosemide (Lasix) 40 mg IVP DAILY [facility] Last Admin: 05/28/18 09:55 Dose: 40 mg Heparin Sodium (Porcine) (Heparin) 5,000 units SC Q8 [facility] Last Admin: 05/28/18 13:25 Dose: Not Given Piperacillin Sod/Tazobactam (Sod 3.375 gm/ Sodium Chloride) 100 mls @ 200 mls/hr IVPB Q8H [facility]; Protocol Last Admin: 05/28/18 14:01 Dose: 200 mls/hr Latanoprost (Xalatan Opht) 0 ml OU HS [facility] Last Admin: 05/28/18 21:15 Dose: 2.5 ml Levothyroxine Sodium (Synthroid) 100 mcg PO DAILY@0630 [facility] Last Admin: 05/28/18 05:59 Dose: 100 mcg Lisinopril (Zestril) 2.5 mg PO DAILY [facility] Last Admin: 05/28/18 09:55 Dose: 2.5 mg Rosuvastatin Calcium (Crestor) 5 mg PO HS [facility] Last Admin: 05/28/18 21:15 Dose: 5 mg - Labs Labs: 05/28/18 07:35 05/28/18 07:35 PT 15.1 SECONDS (9.7-12.2) H 05/21/18 06:22 INR 1.4 05/21/18 06:22 APTT 28 SECONDS (21-34) 05/21/18 06:22
[2018-05-29 00:22] VITALS: O2SAT 100
[2018-05-29] MEDS: Albuterol-Ipratrop 3 mg / 0.5 (3 ml) UD INH SCH ×3 (02:03→13:47)
[2018-05-29] MEDS: Levothyroxine 100 MCG TAB PO SCH (07:46)
[2018-05-29] MEDS: Piperacillin/Tazobact 3.375 GM in Sodium Chloride 100 ML IVPB SCH ×2 (07:46→14:27)
[2018-05-29] MEDS: Brimonidine 0.2% Opth Sol (5ml) OS SCH (10:16)
[2018-05-29 10:39] LABS: BASO % 0.4 % (0.0-2.0); EOS % 0.4 % (0.0-4.0); HEMOGLOBIN 10.6 g/dL (11.0-16.0); LYMPH % 26.1 % (20.0-40.0); MEAN CELL VOLUME 81.8 fL (81.0-99.0); MEAN CORPUSCULAR HEMOGLOBIN 23.7 pg (27.0-31.0); MEAN CORPUSCULAR HGB CONC 28.9 g/dL (33.0-37.0); MONO # 0.4 K/uL (0.0-0.8); MONO % 10.1 % (0.0-10.0); NEUT # 2.4 K/uL (1.8-7.0); NRBC % 1.2 % (0.0-2.0); RBC 4.48 Mil/uL (3.80-5.20); RED CELL DISTRIBUTION WIDTH 21.6 % (11.5-14.5); WHITE BLOOD COUNT 3.8 K/uL (4.8-10.8)
[2018-05-29 10:57] LABS: ALB/GLOB RATIO 1.1 (1.0-2.1); ALBUMIN 3.4 g/dL (3.5-5.0)
--- NOTE | 2018-05-29 12:24 | RAD ---
Date of service: 05/29/2018 HISTORY: pneumonia COMPARISON: 05/28/2018. FINDINGS: LUNGS: The lungs are well inflated. There is redemonstration of moderate pulmonary venous congestion with redistribution. Multiple battery packs and leads limit this limited portable examination. PLEURA: Suspect small effusions. No pneumothorax. CARDIOVASCULAR: Moderate cardiomegaly and prominent central vasculature. No aortic atherosclerotic calcifications present. OSSEOUS STRUCTURES: Within normal limits for the patient's age. VISUALIZED UPPER ABDOMEN: Normal. OTHER FINDINGS: None. IMPRESSION: Limited portable examination. Findings are compatible with mild congestive heart failure without significant interval change. No lobar pneumonia.
[2018-05-29 16:25] VITALS: BP 101/55; PULSE 76; TEMP 97.6
--- NOTE | 2018-06-03 15:45 | CP.PCM.DIS ---
Provider - Provider Date of Admission: 05/21/18 08:05 Attending physician: Lex Zepeda MD Consults: 05/21/18 11:04 Cardiology Consult Routine Comment: Consulting Provider: Sumanth Her Consulting Physician: Sumanth Her Reason for Consult: chf 05/21/18 17:18 Nursing Referral for Palliative Care Routine Comment: Physician Instructions: Reason For Exam: advanced CHF with life vest, hx CVA Nursing Referral for Wound Care Routine Comment: Physician Instructions: Reason For Exam: hx CVA, incontinence Time Spent in preparation of Discharge (in minutes): 45 Hospital Course - Lab Results Lab Results: Micro Results 05/21/18 06:58 Blood S.aureus & Coag-Neg Staph PNA FISH - Final 05/21/18 06:58 Blood Blood Culture - Final Coagulase Neg Staphylococcus 05/21/18 06:58 Blood Gram Stain - Final 05/21/18 06:30 Blood Blood Culture - Final NO GROWTH AFTER 5 DAYS 05/21/18 06:30 Blood Gram Stain - Final TEST NOT PERFORMED Most Recent Lab Values WBC 3.8 K/uL (4.8-10.8) L 05/29/18 10:31 RBC 4.48 Mil/uL (3.80-5.20) 05/29/18 10:31 Hgb 10.6 g/dL (11.0-16.0) L 05/29/18 10:31 Hct 36.6 % (34.0-47.0) 05/29/18 10:31 MCV 81.8 fL (81.0-99.0) 05/29/18 10:31 MCH 23.7 pg (27.0-31.0) L 05/29/18 10:31 MCHC 28.9 g/dL (33.0-37.0) L 05/29/18 10:31 RDW 21.6 % (11.5-14.5) H 05/29/18 10:31 Plt Count 216 K/uL (130-400) 05/29/18 10:31 MPV 9.0 fL (7.2-11.7) 05/29/18 10:31 Neut % (Auto) 63.0 % (50.0-75.0) 05/29/18 10:31 Lymph % (Auto) 26.1 % (20.0-40.0) 05/29/18 10:31 [place] % (Auto) 10.1 % (0.0-10.0) H 05/29/18 10:31 Eos % (Auto) 0.4 % (0.0-4.0) 05/29/18 10:31 Baso % (Auto) 0.4 % (0.0-2.0) 05/29/18 10:31 Neut # (Auto) 2.4 K/uL (1.8-7.0) 05/29/18 10:31 Lymph # (Auto) 1.0 K/uL (1.0-4.3) 05/29/18 10:31 [place] # (Auto) 0.4 K/uL (0.0-0.8) 05/29/18 10:31 Eos # (Auto) 0.0 K/uL (0.0-0.7) 05/29/18 10:31 Baso # (Auto) 0.0 K/uL (0.0-0.2) 05/29/18 10:31 PT 15.1 SECONDS (9.7-12.2) H 05/21/18 06:22 INR 1.4 05/21/18 06:22 APTT 28 SECONDS (21-34) 05/21/18 06:22 pO2 29 mm/Hg (30-55) L 05/21/18 06:27 VBG pH 7.35 (7.32-7.43) 05/21/18 06:27 VBG pCO2 63 mmHg (40-60) H 05/21/18 06:27 VBG HCO3 29.1 mmol/L 05/21/18 06:27 VBG Total CO2 36.7 mmol/L (22-28) H 05/21/18 06:27 VBG O2 Sat (Calc) 49.2 % (40-65) 05/21/18 06:27 VBG Base Excess 7.0 mmol/L (0.0-2.0) H 05/21/18 06:27 VBG Potassium 5.2 mmol/L (3.6-5.2) 05/21/18 06:27 Sodium 138.0 mmol/l (132-148) 05/21/18 06:27 Chloride 100.0 mmol/L (98-107) 05/21/18 06:27 Glucose 145 mg/dl (65-105) H 05/21/18 06:27 Lactate 2.3 mmol/L (0.7-2.1) H 05/21/18 06:27 Sodium 138 mmol/L (132-148) 05/29/18 10:31 Potassium 3.7 mmol/L (3.6-5.2) 05/29/18 10:31 Chloride 96 mmol/L (98-107) L 05/29/18 10:31 Carbon Dioxide 33 mmol/L (22-30) H 05/29/18 10:31 Anion Gap 13 (10-20) 05/29/18 10:31 BUN 42 mg/dL (7-17) H 05/29/18 10:31 Creatinine 1.3 mg/dL (0.7-1.2) H 05/29/18 10:31 Est GFR ( Amer) 48 05/29/18 10:31 Est GFR (Non-Af Amer) 40 05/29/18 10:31 POC Glucose (mg/dL) 131 mg/dL (65-110) H 05/27/18 16:34 Random Glucose 90 mg/dL (65-105) 05/29/18 10:31 Calcium 9.0 mg/dl (8.6-10.4) 05/29/18 10:31 Phosphorus 4.0 mg/dL (2.5-4.5) 05/29/18 10:31 Magnesium 2.0 mg/dL (1.6-2.3) 05/29/18 10:31 Total Bilirubin 1.2 mg/dL (0.2-1.3) 05/29/18 10:31 AST 61 U/L (14-36) H D 05/29/18 10:31 ALT 62 U/L (9-52) H D 05/29/18 10:31 Alkaline Phosphatase 91 U/L (38-126) 05/29/18 10:31 Troponin I 0.8970 ng/mL (0.00-0.120) H* 05/21/18 06:22 NT-Pro-B Natriuret Pep 06211 pg/mL (0-900) H 05/21/18 06:22 Total Protein 6.4 g/dL (6.3-8.3) 05/29/18 10:31 Albumin 3.4 g/dL (3.5-5.0) L 05/29/18 10:31 Globulin 3.1 gm/dL (2.2-3.9) 05/29/18 10:31 Albumin/Globulin Ratio 1.1 (1.0-2.1) 05/29/18 10:31 TSH 3rd Generation 5.49 mIU/L (0.46-4.68) H 05/26/18 07:58 Venous Blood Potassium 5.2 mmol/L (3.6-5.2) 05/21/18 06:27 - Hospital Course Hospital Course: Course in the hospital: Chief complaint: Shortness of breath HPI: Patient is a 77-year-old female -[place], with a history of hypertension, hypercholesterolemia and glaucoma admitted recently to the hospital with acute heart failure, secondary to acute infarction myocardium. At that time patient also developed acute renal failure, multiorgan failure. Patient slowly improved. But got worse. She was doing well until yesterday, finally she was discharged to rehab last night. But in the rehab as she was having increasing shortness of breath and was sent to the emergency room this morning. In the ER patient was not in any distress except restlessness. Evaluation was showing evidence of left lower lung infiltrate versus pleural effusion, started on intravenous antibiotic. Family at bedside. I spoke to the family in detail. According to them patient is mostly lying down, she is not eating well, weakness and tiredness fatigue noted. Mostly lying down on the bed especially on the left side. Patient has no nausea no vomiting no fever Past medical history: Hypertension, hypercholesterolemia hypothyroidism and CHF Patient has recently had a acute [place], and associate with multiorgan failure Surgery: Patient had glaucoma surgery Recently she had angiogram, showing evidence of distal circumflex 100%, medical management and required, she also has a LifeVest Social history: 40-year pack history noted Drinks occasionally No drugs No known drug allergy Review of system: Patient is somewhat restlessness. She has no vomiting. Complaining of thirsty. She drinks a significant amount of liquid. No leg swelling. Shortness of breath. Denies any nausea no vomiting. 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 But sometimes she is having some disorientation. Leg edema negative Patient's today's labs I reviewed Elevated BUN, creatinine level noted Troponin level is elevated ProBNP 16,000 Chest x-ray left lower lung pneumonia noted. Left lower lung effusion present Assessment and recommendation: 77-year-old female with a history of recent acute [place], still having elevated troponin History of cardiogenic shock, now slowly recovering. Multiorgan failure in the past. Acute renal insufficiency Also has a history of ischemic cardiomyopathy with significant heart failure. Admitted with the likely fluid overload, and left pleural effusion, underlying pneumonia possible. We will place the patient on IV Lasix. I spoke to the hvac specialist. Patient will benefit with the intravenous dopamine, and possible diuretics with that. She may need a CAT scan of the chest. BiPAP oxygen and will follow the patient. She currently has a LifeVest Patient was admitted to the hospital with acute decompensated heart failure, associate with the pneumonia. Acute renal insufficiency also. Patient admitted initially to the telemetry. Cardiology evaluation consulted. Patient was given diuretics and antibiotic. Over the next few days patient started showing significant improvement. Her breathing is improved markedly. She was tolerating even with room air Labs reviewed Cultures were negative. We discussed with the patient family regarding the aggressive treatment for coronary artery disease. Patient has a circumflex disease, which needs to be fixed as a elective. Family agreed to do it after 1 month. Meanwhile will continue with medical management including antiplatelet, statin, blood pressure control, and ARBS. Patient will be discharged to rehab. Family understand the. Final diagnosis acute decompensated heart heart failure. Acute pneumonia. Improving. Cardiomyopathy. Renal insufficiency. Dementia. Hypertension, hypercholesterolemia. Medications reviewed. She will be followed up by PMD in the rehab Discharge Plan - Follow Up Plan Condition: STABLE Disposition: HOME/ ROUTINE Instructions: Heart Healthy Diet, Heart Failure (DC) Additional Instructions: d/c home today and f/u with PMD at rehab Referrals: Sumanth Her MD [Staff Provider] - Lex Zepeda MD [Staff Provider] -
== END 2018-05-29 18:20 | disposition home or self-care (01) | DRG 291 ==
LOC: C.ER 05:47 → C.9E 08:05 → C.5S 12:27
PROVIDERS: ADMIT Internal Medicine; ATTEND Internal Medicine
PROC: 5A09457 Assistance with Respiratory Ventilation, 24-96 Consecutive Hours, Continuous Positive Airway Pressure (ICD-10-PCS; principal; 2018-05-22)
DX: I11.0 Hypertensive heart disease with heart failure (principal); J18.9 Pneumonia, unspecified organism; I50.23 Acute on chronic systolic (congestive) heart failure; I25.10 Atherosclerotic heart disease of native coronary artery without angina pectoris; I25.2 Old myocardial infarction; M06.9 Rheumatoid arthritis, unspecified; E03.9 Hypothyroidism, unspecified; E78.00 Pure hypercholesterolemia, unspecified; I25.5 Ischemic cardiomyopathy; Z87.891 Personal history of nicotine dependence; Z86.73 Personal history of transient ischemic attack (TIA), and cerebral infarction without residual deficits; I27.20 Pulmonary hypertension, unspecified; I34.0 Nonrheumatic mitral (valve) insufficiency; I07.1 Rheumatic tricuspid insufficiency